=== PATIENT | male | born 1950 | race Caucasian/White ===

== ENCOUNTER 2020-07-25 13:30 | Emergency (ER) | payer MEDICARE, SELFPAY ==
--- NOTE | 2020-07-25 | XR_ITS ---
EXAMINATION: XR FINGER, RIGHT CLINICAL INFORMATION: Crush injury COMPARISON: None TECHNIQUE: 3 views, 4 images of the right hand fifth digit. FINDINGS: There is no fracture or dislocation. Alignment is anatomic. Mild joint space narrowing at the fifth digit distal interphalangeal joint. Small osteophytes noted. The soft tissues are unremarkable. XR/XR finger RT min 2V IMPRESSION: No fracture or malalignment. Mild degenerative changes at the fifth digit distal interphalangeal joint.
[2020-07-25 13:43] VITALS: BP 103/67; PULSE 95; RESP 18; TEMP 36.1; O2SAT 95; BMI 27.1
--- NOTE | 2020-07-25 15:04 | ED_ITS ---
HPI - Extremity Problem General Chief complaint: Extremity Injury, Upper <MARYJO Krause - Last Filed: 07/25/20 16:34> Stated complaint: FINGER LACERACTION <MARYJO Krause - Last Filed: 07/25/20 16:34> Time Seen by Provider: 07/25/20 15:04 <MARYJO Krause - Last Filed: 07/25/20 16:34> History of Present Illness HPI Narrative: Patient complains of some discomfort to the right pinky and a small laceration to the right pinky after a window closed on his finger No swelling no numbness no weakness no paresthesias <MARYJO Krause - Last Filed: 07/25/20 16:34> Related Data Allergies/Adverse reactions: Allergies Allergy/AdvReac Type Severity Reaction Status Date / Time codeine [CODEINE] Allergy Intermediate HIVES Verified 07/25/20 13:42 <MARYJO Krause - Last Filed: 07/25/20 16:34> Review of Systems Review of Systems: There is no numbness no weakness no tingling, there is no other injury there is no neck pain no headache <MARYJO Krause - Last Filed: 07/25/20 16:34> Yes all other systems are reviewed and are negative <MARYJO Krause - Last Filed: 07/25/20 16:34> [facility] Past Medical History Source: nursing notes reviewed <MARYJO Krause - Last Filed: 07/25/20 16:34> Medical History: Medical History (Updated 07/26/20 @ 00:00 by Kaci Fernandes) Anxiety Emphysema of lung <MARYJO Krause - Last Filed: 07/25/20 16:34> Social History Social History: Social History Alcohol intake: never Smoked in Last 30 Days: No Use of substances other than those prescribed or required for medical reasons: No Advance Directives: No Advance Directives Information Provided: Yes <MARYJO Krause - Last Filed: 07/25/20 16:34> Physical Exam Vital Signs: Vital Signs: Last Vital Signs Temp 97.0 F 07/25/20 13:43 Pulse 95 07/25/20 13:43 Resp 18 07/25/20 13:43 BP 103/67 07/25/20 13:43 Pulse Ox 95 07/25/20 13:43 Body Mass Index 27.1 <MARYJO Krause - Last Filed: 07/25/20 16:34> Vital Signs: Last Vital Signs Temp 97.0 F 07/25/20 13:43 Pulse 95 07/25/20 13:43 Resp 18 07/25/20 13:43 BP 103/67 07/25/20 13:43 Pulse Ox 95 07/25/20 13:43 Body Mass Index 27.1 <Nicholas Green MD - Last Filed: 07/26/20 13:22> Patient is a no x3 comfortable relaxed cooperative Neck is supple Head is normocephalic atraumatic No respiratory distress Extremities the right pinky has a dorsal 1 cm superficial flap laceration to middle phalanx , there is no joint involvement, there is no active bleeding, all tendon function is normal on extension and flexion and neurovascular intact distal, there is some tenderness to the middle phalanx and there is mild ecchymosis Neuro no focal deficit <MARYJO Krause - Last Filed: 07/25/20 16:34> Course Course Course Narrative: Right 1 cm superficial flap laceration to middle phalanx dorsal is cleansed and irrigated with normal saline and closed with Steri-Strips Bandage applied and bleeding was controlled <MARYJO Krause - Last Filed: 07/25/20 16:34> I have reviewed the chart <Nicholas Green MD - Last Filed: 07/26/20 13:22> Discharge Plan Discharge Clinical Impression: Laceration of right little finger <MARYJO Krause - Last Filed: 07/25/20 16:34> Patient Disposition: Home, Self-Care <MARYJO Krause - Last Filed: 07/25/20 16:34> Additional Instructions: X-ray was normal Remove Steri-Strips in 4- 5 days Return any time for spreading redness, worse pain and swelling, any signs in fection or any concerns <MARYJO Krause - Last Filed: 07/25/20 16:34> Interventions: ED Discharge Assessment Last Done: 07/25/20 15:34 <MARYJO Krause - Last Filed: 07/25/20 16:34> Discharge Date/Time: 07/25/20 15:37 <MARYJO Krause - Last Filed: 07/25/20 16:34>
== END 2020-07-25 15:37 | disposition home or self-care (01) ==
PROVIDERS: Emergency Provider Emergency Medicine; PCP Internal Medicine
DX: S61.216A Laceration without foreign body of right little finger without damage to nail, initial encounter (principal); M79.644 Pain in right finger(s); Y29.XXXA Contact with blunt object, undetermined intent, initial encounter; Y93.9 Activity, unspecified; Y92.9 Unspecified place or not applicable; Y99.9 Unspecified external cause status
CPT/HCPCS: 73140; 99283; 99284

== ENCOUNTER 2020-08-18 09:20 | Emergency (ER) | payer MEDICARE, SELFPAY ==
[2020-08-18 09:36] VITALS: BP 105/78; PULSE 93; RESP 22; TEMP 35.5; O2SAT 95; BMI 27.4
--- NOTE | 2020-08-18 10:07 | ECG_ITS ---
Test Reason : DIFF BREATHING Blood Pressure : / mmHG Vent. Rate : 087 BPM Atrial Rate : 087 BPM P-R Int : 152 ms QRS Dur : 076 ms QT Int : 366 ms P-R-T Axes : 071 034 057 degrees QTc Int : 440 ms Normal sinus rhythm Normal ECG When compared with ECG of 18-AUG-2020 11:34, No significant change was found Referred By: Allison Perdomo Electronically Signed By: SOTERO ECHEVERRIA
--- NOTE | 2020-08-18 10:07 | XR_ITS ---
EXAMINATION: XR CHEST CLINICAL INFORMATION: Cough and SOB. COMPARISON: None TECHNIQUE: 2 views of the chest were obtained. FINDINGS: The lungs are hyperinflated with significant increased lucency left upper lobe. No acute pneumonic process seen. Heart size and pulmonary vascularity is normal. No gross bony abnormality seen. XR/XR chest 2V IMPRESSION: Hyperinflated lungs with increased lucency left upper lobe from underlying emphysema.
--- NOTE | 2020-08-18 10:09 | ED_ITS ---
HPI - SOB/Dyspnea General Chief Complaint: Upper Respiratory Symptoms Stated Complaint: SOB Time Seen by Provider: 08/18/20 09:59 Source: patient Mode of arrival: ambulatory Limitations: no limitations History of Present Illness HPI Narrative: 70yoM c PMHx of COPD/emphysema, COVID-19 in December/2019, pneumonia, HTN, arthrosclerotic cardiovascular disease, diastolic dysfunction 65% ejection fraction, left subclavian stenosis/occlusion, HLD, hepatitis-C, liver disease,, schizophrenia, schizoaffective disorder bipolar type and anxiety d/o presenting to the ED c c/o SOB c intermittent productive cough over the past few months worse over 1 month after finishing his course of steroids. With Right sided lung pain c coughing. Worse with any type of movement. Reports he has been taking his prescribed COPD/emphysema medications/inhalers which are not providing any symptomatic relief. Reports he is currently a respite. Denies any fevers, chills, chest pain, palpitations and dizziness or any other symptoms complaints or concerns at this time. Related Data Previous Rx's Medication Instructions Recorded levofloxacin 750 mg PO DAILY 5 Days #5 tab 08/18/20 prednisone 40 mg PO DAILY 7 Days #14 tab 08/18/20 Allergies Allergy/AdvReac Type Severity Reaction Status Date / Time codeine [CODEINE] Allergy Intermediate HIVES Verified 07/25/20 13:42 Review of Systems Review of Systems: Constitutional : denies med noncompliance, no history of PE or DVT, denies recent travel, No Fever, No Chills ENT/Mouth : No Hoarseness, No sore throat, No Rhinorrhea Eyes: No Redness, No Discharge, No Vision Changes Cardiovascular : No Chest Pain, + SOB, + Dyspnea on Exertion, No Edema, no pleurisy, No palpitations Respiratory : + Sputum, no stridor, no hemoptysis, Gastrointestinal : No Nausea, No Vomiting, No Diarrhea, No abdominal Pain Genitourinary : No Dysuria, No Hematuria Musculoskeletal : No joint pain, No Myalgias Extremities: no extremity swelling /pain Skin : No rash, no itching, no swelling Neuro : No Weakness, No Numbness, No Headache, No dizziness Yes all other systems are reviewed and are negative PMFSH Past Medical History Attestation statement: The following information was validated with the patient. Medical History Anxiety Emphysema of lung Social History Social History Alcohol intake: never Advance Directives: No Advance Directives Information Provided: No Physical Exam Vital Signs: Vital Signs: Last Vital Signs Temp 98.3 F 08/18/20 14:30 Pulse 97 08/18/20 14:30 Resp 16 08/18/20 14:30 BP 95/64 08/18/20 14:30 Pulse Ox 93 08/18/20 14:30 Body Mass Index 27.4 vital signs have been reviewed as normal and appeared to be correct. Blood pressure normal. Heart rate normal. Respiration rate normal. Temperature normal. Oxygen saturation normal. Appearance: Alert. Oriented X3. Mild respiratory acute distress. Head: Normal external exam. Normocephalic. Eyes: PERRLA. EOMI. Conjunctiva and sclera normal. Eyelids normal. ENT: EAC normal. TM's Normal. Pharynx normal. Uvula midline. Moist mucous m embranes. No trismus noted. No drooling noted. No muffled voice noted. Neck: Normal inspection. Neck supple. FROM. No adenopathy. No meningeal signs. CVS: Normal heart rate and rhythm. Heart sound normal. No murmurs noted. Pulses normal throughout. Respiratory: Mild respiratory distress. + inspiratory and expiratory wheezing throughout with decreased breath sounds and mild accessory muscle usage noted. No rales or rhonchi noted at this time. Back: Full range of motion noted. Skin: Skin warm and dry. Normal skin color. Normal skin turgor. No rashes/lesions/lacerations noted. Extremities: No lower extremity edema. No calf tenderness. Extremities exhibit normal range of motion. Extremities nontender. Neuro: Oriented X 3. No motor deficit. No sensory deficit. Reflexes normal. Course Course Course Narrative: 10:10am - 70yoM c PMHx of COPD/emphysema, COVID-19 in December/2019, pneumonia, HTN, arthrosclerotic cardiovascular disease, diastolic dysfunction 65% ejection fraction, left subclavian stenosis/occlusion, HLD, hepatitis-C, liver disease,, schizophrenia, schizoaffective disorder bipolar type and anxiety d/o presenting to the ED c c/o SOB c intermittent productive cough and right lung pain when coughing. - Concern for PE vs CHF vs PNA vs COPD/EMPHYSEMA vs COVID-19 - On exam patient is tachycardic and tachypneic with mild respiratory distress oxygen saturation at 95% on room air although lungs with inspiratory and expiratory wheezing with decreased breath sounds and accessory muscle usage no nasal cannula oxygen indicated at this time. - Plan: Labs, CXR, EKG, TRISH/FLU/RSV swab, blood cultures, lactic acid. Provide IV steroid 125mg of Solu-Medrol and an hour long breathing tx then re-evaluate Reevaluation(s) Reevaluation #1: - D-dimer elevated otherwise all other Labs within normal limits. Including lactic acid. - EKG is normal sinus rhythm no acute ischemic changes noted. - chest x-ray revealed possibly lucency which has increase in left upper lobe from underlying emphysema although due to patient meeting sepsis criteria not septic shock and no organ dysfunction will give a dose of IV Levaquin. - will obtain a CT scan of chest to evaluate for possible PE then re-evaluate. Time: 12:08 Reevaluation #2: - [facility] was not allowing the reports to crossover therefore they gave me a wet read and the right read reports no PE severe emphysema mild bilateral lower lobe airway disease by Dr. Clancy. - on walking exercise trial patient stays at 93-95% on room air therefore patient is able to be discharged at this time. COVID/RSV/flu negative. Will DC home with antibiotics and a course of steroids and instructions to return if any new or worsening symptoms to follow-up with primary care provider. Patient understands agrees the plan. Time: 15:35 MDM - SOB/Dyspnea Medical Records Attestation: I reviewed the patient's medical records. Lab Data Attestation: I reviewed the patient's lab results. Result diagrams: 08/18/20 10:58 08/18/20 12:10 Labs: Lab Results 08/18/20 08/18/20 08/18/20 Range/Units 10:58 10:58 10:58 WBC 5.8 (4.8-10.8) X10*3/uL RBC 5.02 (4.60-5.80) X10*6/uL Hgb 15.8 (14.0-18.0) g/dl Hct 46.0 (42-52) % MCV 91.6 (80-98) fL MCH 31.5 (27.0-33.0) pg MCHC 34.3 (31.0-36.0) g/dl RDW 12.1 (11.0-16.0) % Plt Count 249 (160-400) X10*3/uL MPV 9.2 L (9.4-12.4) fL Immature Gran % (Auto) 0.3 (0.0-0.4) % Neut % (Auto) 64.5 (45-73) % Lymph % (Auto) 14.3 L (20-40) % [place] % (Auto) 11.7 H (2-11) % Eos % (Auto) 8.5 H (0-4) % Baso % (Auto) 0.7 (0-2) % Lymph # (Auto) 0.8 L (1.2-4.9) X10*3/uL [place] # (Auto) 0.7 (0.1-1.2) X10*3/uL Eos # (Auto) 0.5 H (0.0-0.4) X10*3/uL Baso # (Auto) 0.0 (0.0-0.2) X10*3/uL Abs Immat Gran (auto) 0.02 (0.00-0.03) X10*3/uL Absolute Neuts (auto) 3.7 (2.0-8.3) X10*3/uL Absolute Nucleated RBC 0.000 (0.0-0.012) X10*3/uL Nucleated RBC % (auto) 0.0 (0.0-0.2) /100WBC Hold Purple Top PT Cancelled INR Cancelled D-Dimer NG/ML Sodium Cancelled Potassium Cancelled Chloride Cancelled Carbon Dioxide Cancelled Anion Gap Cancelled BUN Cancelled Creatinine Cancelled Estim Creat Clear Calc Cancelled Estimated GFR Cancelled Random Glucose Cancelled Lactic Acid (0.5-2.0) mmol/L Calcium Cancelled Magnesium Cancelled Ferritin Cancelled Total Bilirubin Cancelled Direct Bilirubin Cancelled AST Cancelled ALT Cancelled Alkaline Phosphatase Cancelled Lactate Dehydrogenase Cancelled B-Natriuretic Peptide (<100) pg/mL Total Protein Cancelled Albumin Cancelled Procalcitonin ng/mL Urine Color Urine Appearance Urine pH (5.0-8.0) Ur Specific [place] (1.005-1.025) Urine Protein (NEG-TRACE) MG/DL Urine Glucose (UA) (NEG) MG/DL Urine Ketones (NEG) MG/DL Urine Blood (NEG) Urine Nitrite (NEG) Ur Leukocyte Esterase (NEG) Coronavirus (PCR) (Negative) Influenza Type A (PCR) (Negative) Influenza Type B (PCR) (Negative) RSV RNA Qual (PCR) (Negative) 08/18/20 08/18/20 08/18/20 Range/Units 10:58 10:58 10:58 WBC (4.8-10.8) X10*3/uL RBC (4.60-5.80) X10*6/uL Hgb (14.0-18.0) g/dl Hct (42-52) % MCV (80-98) fL MCH (27.0-33.0) pg MCHC (31.0-36.0) g/dl RDW (11.0-16.0) % Plt Count (160-400) X10*3/uL MPV (9.4-12.4) fL Immature Gran % (Auto) (0.0-0.4) % Neut % (Auto) (45-73) % Lymph % (Auto) (20-40) % [place] % (Auto) (2-11) % Eos % (Auto) (0-4) % Baso % (Auto) (0-2) % Lymph # (Auto) (1.2-4.9) X10*3/uL [place] # (Auto) (0.1-1.2) X10*3/uL Eos # (Auto) (0.0-0.4) X10*3/uL Baso # (Auto) (0.0-0.2) X10*3/uL Abs Immat Gran (auto) (0.00-0.03) X10*3/uL Absolute Neuts (auto) (2.0-8.3) X10*3/uL Absolute Nucleated RBC (0.0-0.012) X10*3/uL Nucleated RBC % (auto) (0.0-0.2) /100WBC Hold Purple Top SEE NOTE PT 13.0 INR 1.1 D-Dimer 325 NG/ML Sodium Potassium Chloride Carbon Dioxide Anion Gap BUN Creatinine Estim Creat Clear Calc Estimated GFR Random Glucose Lactic Acid (0.5-2.0) mmol/L Calcium Magnesium Ferritin Total Bilirubin Direct Bilirubin AST ALT Alkaline Phosphatase Lactate Dehydrogenase B-Natriuretic Peptide 11 (<100) pg/mL Total Protein Albumin Procalcitonin ng/mL Urine Color Urine Appearance Urine pH (5.0-8.0) Ur Specific [place] (1.005-1.025) Urine Protein (NEG-TRACE) MG/DL Urine Glucose (UA) (NEG) MG/DL Urine Ketones (NEG) MG/DL Urine Blood (NEG) Urine Nitrite (NEG) Ur Leukocyte Esterase (NEG) Coronavirus (PCR) (Negative) Influenza Type A (PCR) (Negative) Influenza Type B (PCR) (Negative) RSV RNA Qual (PCR) (Negative) 08/18/20 08/18/20 08/18/20 Range/Units 10:58 10:58 10:58 WBC (4.8-10.8) X10*3/uL RBC (4.60-5.80) X10*6/uL Hgb (14.0-18.0) g/dl Hct (42-52) % MCV (80-98) fL MCH (27.0-33.0) pg MCHC (31.0-36.0) g/dl RDW (11.0-16.0) % Plt Count (160-400) X10*3/uL MPV (9.4-12.4) fL Immature Gran % (Auto) (0.0-0.4) % Neut % (Auto) (45-73) % Lymph % (Auto) (20-40) % [place] % (Auto) (2-11) % Eos % (Auto) (0-4) % Baso % (Auto) (0-2) % Lymph # (Auto) (1.2-4.9) X10*3/uL [place] # (Auto) (0.1-1.2) X10*3/uL Eos # (Auto) (0.0-0.4) X10*3/uL Baso # (Auto) (0.0-0.2) X10*3/uL Abs Immat Gran (auto) (0.00-0.03) X10*3/uL Absolute Neuts (auto) (2.0-8.3) X10*3/uL Absolute Nucleated RBC (0.0-0.012) X10*3/uL Nucleated RBC % (auto) (0.0-0.2) /100WBC Hold Purple Top PT INR D-Dimer NG/ML Sodium Potassium Chloride Carbon Dioxide Anion Gap BUN Creatinine Estim Creat Clear Calc Estimated GFR Random Glucose Lactic Acid 0.9 (0.5-2.0) mmol/L Calcium Magnesium Ferritin Total Bilirubin Direct Bilirubin AST ALT Alkaline Phosphatase Lactate Dehydrogenase B-Natriuretic Peptide (<100) pg/mL Total Protein Albumin Procalcitonin < 0.02 ng/mL Urine Color Urine Appearance Urine pH (5.0-8.0) Ur Specific [place] (1.005-1.025) Urine Protein (NEG-TRACE) MG/DL Urine Glucose (UA) (NEG) MG/DL Urine Ketones (NEG) MG/DL Urine Blood (NEG) Urine Nitrite (NEG) Ur Leukocyte Esterase (NEG) Coronavirus (PCR) NEGATIVE (Negative) Influenza Type A (PCR) NEGATIVE (Negative) Influenza Type B (PCR) NEGATIVE (Negative) RSV RNA Qual (PCR) NEGATIVE (Negative) 08/18/20 08/18/20 Range/Units 12:10 14:34 WBC (4.8-10.8) X10*3/uL RBC (4.60-5.80) X10*6/uL Hgb (14.0-18.0) g/dl Hct (42-52) % MCV (80-98) fL MCH (27.0-33.0) pg MCHC (31.0-36.0) g/dl RDW (11.0-16.0) % Plt Count (160-400) X10*3/uL MPV (9.4-12.4) fL Immature Gran % (Auto) (0.0-0.4) % Neut % (Auto) (45-73) % Lymph % (Auto) (20-40) % [place] % (Auto) (2-11) % Eos % (Auto) (0-4) % Baso % (Auto) (0-2) % Lymph # (Auto) (1.2-4.9) X10*3/uL [place] # (Auto) (0.1-1.2) X10*3/uL Eos # (Auto) (0.0-0.4) X10*3/uL Baso # (Auto) (0.0-0.2) X10*3/uL Abs Immat Gran (auto) (0.00-0.03) X10*3/uL Absolute Neuts (auto) (2.0-8.3) X10*3/uL Absolute Nucleated RBC (0.0-0.012) X10*3/uL Nucleated RBC % (auto) (0.0-0.2) /100WBC Hold Purple Top PT INR D-Dimer NG/ML Sodium 141 Potassium 3.7 Chloride 104 Carbon Dioxide 24 Anion Gap 17 BUN 10 Creatinine 0.90 Estim Creat Clear Calc 83.6 Estimated GFR > 60 Random Glucose 117 H Lactic Acid (0.5-2.0) mmol/L Calcium 9.0 Magnesium 1.8 Ferritin 80 Total Bilirubin 0.6 Direct Bilirubin 0.3 AST 21 ALT 23 Alkaline Phosphatase 99 Lactate Dehydrogenase 195 B-Natriuretic Peptide (<100) pg/mL Total Protein 7.1 Albumin 4.4 Procalcitonin ng/mL Urine Color YELLOW Urine Appearance CLEAR Urine pH 6.0 (5.0-8.0) Ur Specific [place] <= 1.005 (1.005-1.025) Urine Protein NEG (NEG-TRACE) MG/DL Urine Glucose (UA) NEG (NEG) MG/DL Urine Ketones NEG (NEG) MG/DL Urine Blood NEG (NEG) Urine Nitrite NEG (NEG) Ur Leukocyte Esterase NEG (NEG) Coronavirus (PCR) (Negative) Influenza Type A (PCR) (Negative) Influenza Type B (PCR) (Negative) RSV RNA Qual (PCR) (Negative) ECG Data Attestation: I personally reviewed and interpreted this ECG as follows: ECG interpretation date: 08/18/20 ECG interpretation time: 11:34 Interpretation: Normal sinus rhythm with ventricular rate of 87 with a normal MT interval normal QRS duration normal QT/QTC interval. No acute ischemic changes noted. Compared to prior on 04/05/2020 Critical Care Time Critical Care Time Critical Care Time: Yes Total Critical Care Time: 60 Attestation: I personally attest to this time spent taking care of the patient Discharge Plan Discharge Clinical Impression: Emphysema of lung, Bronchitis, Acute exacerbation of chronic obstructive pulmonary disease Patient Disposition: Home, Self-Care Instructions: Acute Bronchitis (ED), Emphysema (ED), COPD (Chronic Obstructive Pulmonary Disease) (ED) Prescriptions: New levofloxacin 750 mg tablet 750 mg PO DAILY 5 Days Qty: 5 RF: 0 prednisone 20 mg tablet 40 mg PO DAILY 7 Days Qty: 14 RF: 0 Referrals: Martínez Simeon MD [Primary Care Provider] - 2 days Print Language: Romansh
[2020-08-18 11:00] VITALS: O2SAT 92
[2020-08-18] MEDS: methylPREDNISolone Sod Succ/PF 125 MG/2 ML VIAL IVPUSH (11:01)
[2020-08-18 11:02] VITALS: BP 94/69; PULSE 80; RESP 20; TEMP 36.8; O2SAT 94
[2020-08-18] MEDS: Albuterol Sulfate (0.083%) 2.5 MG/3 ML VIAL.NEB 10 MG INHALE (11:05)
[2020-08-18 11:06] VITALS: PULSE 81; O2SAT 94
[2020-08-18 11:13] LABS: MANUAL DIFF FLAG NO
[2020-08-18 11:15] LABS: Basophils Percent Auto 0.7 % (0-2); Eosinophils Absolute Auto 0.5 X10*3/uL (0.0-0.4); Eosinophils Percent Auto 8.5 % (0-4); Hemoglobin 15.8 g/dl (14.0-18.0); Imm Gran Abs Auto 0.02 X10*3/uL (0.00-0.03); Imm Gran Pct Auto 0.3 % (0.0-0.4); Lymphocytes Absolute Auto 0.8 X10*3/uL (1.2-4.9); Lymphocytes Percent Auto 14.3 % (20-40); Mean Corpuscular HGB Conc 34.3 g/dl (31.0-36.0); Mean Corpuscular Hemoglobin 31.5 pg (27.0-33.0); Mean Corpuscular Volume 91.6 fL (80-98); Mean Platelet Volume 9.2 fL (9.4-12.4); Monocytes Absolute Auto 0.7 X10*3/uL (0.1-1.2); Monocytes Percent Auto 11.7 % (2-11); Neutrophils Absolute Auto 3.7 X10*3/uL (2.0-8.3); Neutrophils Percent Auto 64.5 % (45-73); Platelet Count 249 X10*3/uL (160-400); Red Blood Count 5.02 X10*6/uL (4.60-5.80); Red Cell Distribution Width 12.1 % (11.0-16.0); White Blood Count 5.8 X10*3/uL (4.8-10.8)
[2020-08-18 11:22] LABS: D Dimer 325 NG/ML
[2020-08-18 11:30] LABS: INTERNATIONAL NORM RATIO 1.1 (0.9-1.1); Lactic Acid 0.9 mmol/L (0.5-2.0)
--- NOTE | 2020-08-18 11:32 | CT_ITS ---
EXAMINATION: CT ANGIOGRAM OF THE CHEST WITH AND WITHOUT CONTRAST (CT PULMONARY ANGIOGRAM FOR PE) CLINICAL INFORMATION: Reason for Exam pt c sob/cough ? PE vs pna hx of covid in december d-d COMPARISON: None TECHNIQUE: Prior to contrast administration, noncontrast localization images were obtained. Subsequently, multidetector volumetric imaging was performed from the thoracic inlet to below the diaphragms following the administration of 80 mL Omnipaque 350 intravenous contrast. No contrast reaction reported Sagittal, coronal, and MIP oblique sagittal reformatted images were obtained on the CT workstation, uploaded to PACS, and reviewed. The port was initially read by Dr. Clancy. However the PACS and the system was down and could not be right at that time preliminary report was issued by Dr. Clancy and was negative for PE. This CT examination was performed using dose optimization techniques as appropriate, variously including the following: *Automated exposure control *Adjustment of mA and/or kV according to patient size (this includes techniques or standardized protocols for targeted exams where dose is matched to indication/reason for exam; i.e. extremities or head) *Use of iterative reconstruction technique Total exam dose-length product 363 mGy-cm FINDINGS: QUALITY OF STUDY/CONTRAST BOLUS: Suboptimal. Limited by contrast timing and scanning. PULMONARY ARTERIES: No central or segmental pulmonary emboli. THORACIC AORTA: No aneurysm or dissection. LUNG: There is diffuse paraseptal and centrilobular emphysema with significant lucency in both upper lobes. No pulmonary nodules, mass or consolidation seen. There is linear density right lung base likely atelectasis or scarring. No focal bronchiectasis in the posterior basal segment right lower lobe likely airway disease. Minimal atelectasis seen in the lingula. PLEURA: No pleural effusion or pneumothorax. MEDIASTINUM: Heart size and the great vessels are normal caliber. No abnormal size lymph nodes seen. Coronary artery calcifications. No pericolic effusion seen. No evidence of septal bowing or right heart strain. CHEST WALL/AXILLA: No axillary or internal mammary lymphadenopathy. OSSEOUS STRUCTURES: No lytic or sclerotic process seen. UPPER ABDOMEN: Visualized liver, spleen, pancreas and bilateral adrenal glands are unremarkable. No reflux of contrast into the hepatic veins to suggest elevated right heart pressures. CT/CT angio chest PE protocol IMPRESSION: Suboptimal exam due to contrast timing issue an scanning. There is no central, right or left pulmonary artery thrombus. Central lobular and paraseptal emphysema. Focal atelectatic changes with there are disease in the right lower lobe and focal atelectasis in the lingula. VTE: negative
[2020-08-18 11:39] LABS: B Type Natriuretic Peptide 11 pg/mL (<100)
[2020-08-18 12:01] LABS: Procalcitonin < 0.02 ng/mL
[2020-08-18 12:02] LABS: Influenza A PCR NEGATIVE (Negative); Influenza B PCR NEGATIVE (Negative); Resp Syncy Virus RNA Qual PCR NEGATIVE (Negative); SARS COV2 PCR INHOUSE NEGATIVE (Negative)
[2020-08-18 12:52] LABS: Alanine Aminotransferase 23 U/L (0-40); Albumin Level 4.4 g/dL (3.5-5.0); Alkaline Phosphatase 99 U/L (39-117); Anion Gap 17 (12-20); Aspartate Amino Transferase 21 U/L (5-37); Bilirubin Direct 0.3 mg/dL (0.0-0.5); Bilirubin Total 0.6 mg/dL (0.0-1.0); Blood Urea Nitrogen 10 mg/dL (9-16); Carbon Dioxide 24 mmol/L (22-29); Chloride 104 mmol/L (96-108); Creatinine Clr Calc Pharmacy 83.6; Estimated Glomerular Filt Rate > 60; Glucose Random 117 mg/dL (60-115); Lactate Dehydrogenase 195 U/L (118-273); Magnesium 1.8 mg/dL (1.6-2.6); Potassium 3.7 mmol/l (3.3-5.1); Sodium 141 mmol/L (135-145); Total Protein 7.1 g/dL (6.5-8.0)
[2020-08-18 13:14] LABS: Ferritin 80 ng/mL (20-250)
[2020-08-18] MEDS: iohexoL 350 MG/ML 100 ML INFUS..BTL 65 ML IV (13:23)
[2020-08-18 14:30] VITALS: BP 95/64; PULSE 97; RESP 16; TEMP 36.8; O2SAT 93
[2020-08-18 14:58] LABS: Glucose Urine UA NEG (NEG); Leukocyte Esterase Urine NEG (NEG); Nitrite Urine NEG (NEG); Specific Gravity - Urine <= 1.005 (1.005-1.025); Urine Blood NEG (NEG); Urine Ketones NEG (NEG); Urine Protein NEG (NEG-TRACE)
[2020-08-18 14:59] LABS: Appearance Urine CLEAR; Color Urine YELLOW
== END 2020-08-18 15:54 | disposition home or self-care (01) ==
PROVIDERS: Physician Assistant Medical; Emergency Provider Emergency Medicine; PCP Internal Medicine
DX: J43.8 Other emphysema (principal); J40 Bronchitis, not specified as acute or chronic; Z20.828 Contact with and (suspected) exposure to other viral communicable diseases; Z79.899 Other long term (current) drug therapy
CPT/HCPCS: 0241U; 36415; 71046; 71275; 80048; 80076; 81003; 82728; 83605; 83615; 83735; 83880; 84145; 85025; 85379; 85610; 87040; 93005; 94640; 94644; 96365; 96366; 96375; 99284; 99285; 99291; J2930; Q9967

== ENCOUNTER 2020-09-19 10:54 | Emergency (ER) | payer MEDICARE, SELFPAY ==
[2020-09-19 11:14] VITALS: BP 174/79; PULSE 93; RESP 22; TEMP 36.4; O2SAT 95; BMI 27.1
--- NOTE | 2020-09-19 13:50 | PC.NURSE ---
PER Zoraida WRAY who received call from pts respite, pt had COVID in December and since has had frequent admits here for a decline in resp status and is here to inquire if pt needs 02 at home or further resp needs.
--- NOTE | 2020-09-19 15:58 | ED.SOB ---
HPI - SOB/Dyspnea General Chief Complaint: Dyspnea Stated Complaint: sob Time Seen by Provider: 09/19/20 15:58 Source: patient Mode of arrival: ambulatory Limitations: no limitations History of Present Illness HPI Narrative: Patient history of COPD , history of COVID infection in December last year sent by [facility] for increased shortness of breath for last 2 days per patient he feels fine has a chronic shortness of breath from COPD and dry cough nurse examined him and noticed that he is not moving much air but patient was saturating 98% at room air. Patient denies any fever no chest pain no leg swelling patient just made a course of antibiotic and prednisonefor bronchitis 2 weeks ago MD elicited complaint: shortness of breath Pertinent past history: COPD Onset (ago): day(s) (2) Timing: intermittent Severity: mild Exacerbating factors: exertion and coughing Relieving factors: bronchodilators Known history of: COPD Associated symptoms: cough Treatment prior to arrival: bronchodilator Related Data Previous Rx's Medication Instructions Recorded levofloxacin 750 mg PO DAILY 5 Days #5 tab 08/18/20 prednisone 40 mg PO DAILY 7 Days #14 tab 08/18/20 Allergies Allergy/AdvReac Type Severity Reaction Status Date / Time codeine [CODEINE] Allergy Intermediate HIVES Verified 09/19/20 11:19 Review of Systems Review of Systems: Constitutional : No Weight loss, No Fever, No Chills ENT/Mouth : No sore throat, No Rhinorrhea Eyes: No Eye Pain, No Swelling Cardiovascular : No Chest Pain, no palpitations Respiratory :++ Cough, No Sputum, ++shortness of breath Gastrointestinal : no Nausea, No Vomiting, No Diarrhea, No abdominal Pain, no black stools Genitourinary : No Dysuria, No Urinary Frequency Musculoskeletal : No joint pain, No Myalgias, No Joint Swelling Skin : No Skin Lesions, No rash Neuro : No Weakness, No Numbness, No Dizziness, No Headache Psych : No Anxiety/Panic, No Depression Heme/Lymph: No Bruising, No Lymphadenopathy Endocrine : No Polyuria, No Polydipsia All other systems reviewed and are negative PMFSH Past Medical History Medical History Anxiety Emphysema of lung Social History Social History Alcohol intake: never Smoking Status: Former smoker Use of substances other than those prescribed or required for medical reasons: No Advance Directives: No Advance Directives Information Provided: Yes Physical Exam Vital Signs: Vital Signs: Last Vital Signs Temp 97.4 F 09/19/20 16:00 Pulse 80 09/19/20 17:28 Resp 18 09/19/20 16:00 BP 124/82 09/19/20 16:00 Pulse Ox 95 09/19/20 11:14 Body Mass Index 27.1 Appearance: Alert. Oriented X3. No acute distress. Eyes: Pupils equal, round and reactive to light. ENT: Pharynx normal. Neck: Normal inspection. Neck supple. CVS: Normal heart rate and rhythm. Pulses normal. Respiratory: No respiratory distress. Bilateral wheezing and rhonchi , no crackles, no dullness ,decreased air entry bilateral Abdomen: Soft and nontender. Bowel sounds are present, no mass palpable, no CVA tenderness Skin: Skin warm and dry. Normal skin color. Normal skin turgor. Extremities: No lower extremity edema. No calf tenderness Neuro: Oriented X 3. No motor deficit. No sensory deficit. Course Course Course Narrative: Patient has COPD recently finished course of prednisone antibiotics chest x-ray repeat is negative saturating 98% at room air received DuoNeb treatment in the ER and 10 mg of Decadron COVID-19 is negative will discharge patient home advised to continue to use his nebulizing treatment every 4-6 hours as needed MDM - SOB/Dyspnea Differential Diagnosis Differential diagnosis: Likely acute exacerbation of chronic obstructive airways disease, congestive heart failure, pneumonia and pleural effusion Lab Data Attestation: I reviewed the patient's lab results. Labs: Lab Results 09/19/20 Range/Units 16:33 COVID-19 (RASHEED) Negative (Negative) COVID-19 Clin Com See Note Discharge Plan Discharge Clinical Impression: COPD (chronic obstructive pulmonary disease) Patient Disposition: Home, Self-Care Instructions: COPD (Chronic Obstructive Pulmonary Disease) (ED) Additional Instructions: Continue your inhaler and nebulizing treatment every 4-6 hours Follow-up with your PCP Prescriptions: No Action levofloxacin 750 mg tablet 750 mg PO DAILY 5 Days Qty: 5 RF: 0 prednisone 20 mg tablet 40 mg PO DAILY 7 Days Qty: 14 RF: 0
[2020-09-19 16:00] VITALS: BP 124/82; PULSE 76; RESP 18; TEMP 36.3
--- NOTE | 2020-09-19 16:03 | XR_ITS ---
EXAMINATION: XR CHEST CLINICAL INFORMATION: Shortness of breath COMPARISON: Chest radiographs 08/18/2020, 04/05/2020 TECHNIQUE: Portable upright AP x2 views of the chest was obtained. FINDINGS: There is hyperinflation left mid and upper zone similar to prior studies. There is no airspace consolidation or definite groundglass opacity. No effusion. The heart is normal in size. The hilar and mediastinal contours and bony structures are unremarkable. XR/XR chest 1V IMPRESSION: No acute intrathoracic disease. Unilateral left hyperinflation similar to prior studies.
--- NOTE | 2020-09-19 16:39 | PC.NURSE ---
pt coming from [facility], states that the nurses are saying his lungs are not working right, respirations even and unlabored, ls slightly diminished on the left side
[2020-09-19 17:13] LABS: COVID-19 Test Negative (Negative)
[2020-09-19] MEDS: Albuterol/Iprat 2.5/0.5MG 3 ML AMPUL.NEB INHALE (17:25)
[2020-09-19] MEDS: Albuterol Sulfate (0.083%) 2.5 MG/3 ML VIAL.NEB 5 MG INHALE (17:26)
[2020-09-19 17:28] VITALS: PULSE 80; O2SAT 96
[2020-09-19 18:20] VITALS: BP 119/82; PULSE 91; RESP 22; TEMP 36.9; O2SAT 93
== END 2020-09-19 18:34 | disposition home or self-care (01) ==
PROVIDERS: Emergency Provider Internal Medicine
DX: J44.9 Chronic obstructive pulmonary disease, unspecified (principal); R50.9 Fever, unspecified; Z20.828 Contact with and (suspected) exposure to other viral communicable diseases; Z79.899 Other long term (current) drug therapy
CPT/HCPCS: 36415; 71045; 87635; 94640; 99284

== ENCOUNTER 2020-09-25 21:32 | Inpatient (IN) | payer MEDICARE, SELFPAY ==
[2020-09-25 21:40] VITALS: BP 112/72; PULSE 105; RESP 36; O2SAT 95; BMI 27.8
--- NOTE | 2020-09-25 21:54 | ECG_ITS ---
Test Reason : SOB Blood Pressure : / mmHG Vent. Rate : 092 BPM Atrial Rate : 092 BPM P-R Int : 150 ms QRS Dur : 076 ms QT Int : 350 ms P-R-T Axes : 062 009 069 degrees QTc Int : 432 ms Normal sinus rhythm Normal ECG When compared with ECG of 18-AUG-2020 11:34, No significant change was found Referred By: Tessie Tian Electronically Signed By:SOTERO ZAPATA
--- NOTE | 2020-09-25 21:54 | XR_ITS ---
EXAMINATION: PORTABLE CHEST 1 VIEW CLINICAL INFORMATION: sob . COMPARISON: 09/19/2020. TECHNIQUE: Portable frontal view of the chest was obtained. FINDINGS: The lungs are well expanded. Chronic appearing coarsened reticular markings are seen similar to the prior study but no additional superimposed focal infiltrate, effusion, edema, or pneumothorax. Cardiac and mediastinal silhouettes are within normal limits for technique. No acute bony abnormality seen. XR/XR chest 1V IMPRESSION: Chronic appearing reticular changes similar to the 09/19/2020 study but no acute superimposed process otherwise.
--- NOTE | 2020-09-25 21:57 | PC.NURSE ---
patient receiving updraft at this time. Will continue to monitor. sinus tachycardia 100s on shelter monitor, 99% on room air, watching TV.
[2020-09-25 22:00] VITALS: BP 138/64; PULSE 93; RESP 24; O2SAT 98
[2020-09-25 22:48] LABS: MANUAL DIFF FLAG NO
[2020-09-25 22:49] LABS: Basophils Percent Auto 0.4 % (0-2); Eosinophils Absolute Auto 0.2 X10*3/uL (0.0-0.4); Eosinophils Percent Auto 3.5 % (0-4); Hematocrit 44.8 % (42-52); Hemoglobin 15.3 g/dl (14.0-18.0); Imm Gran Abs Auto 0.01 X10*3/uL (0.00-0.03); Imm Gran Pct Auto 0.2 % (0.0-0.4); Lymphocytes Absolute Auto 1.4 X10*3/uL (1.2-4.9); Lymphocytes Percent Auto 25.1 % (20-40); Mean Corpuscular HGB Conc 34.2 g/dl (31.0-36.0); Mean Corpuscular Hemoglobin 32.3 pg (27.0-33.0); Mean Corpuscular Volume 94.5 fL (80-98); Mean Platelet Volume 8.8 fL (9.4-12.4); Monocytes Absolute Auto 0.5 X10*3/uL (0.1-1.2); Monocytes Percent Auto 9.9 % (2-11); Neutrophils Absolute Auto 3.3 X10*3/uL (2.0-8.3); Neutrophils Percent Auto 60.9 % (45-73); Platelet Count 170 X10*3/uL (160-400); Red Blood Count 4.74 X10*6/uL (4.60-5.80); Red Cell Distribution Width 12.3 % (11.0-16.0); White Blood Count 5.4 X10*3/uL (4.8-10.8)
[2020-09-25] MEDS: Magnesium Sulfate/H2O 2 GM/50 ML PIGGYBACK IV (22:52)
[2020-09-25] MEDS: methylPREDNISolone Sod Succ/PF 125 MG/2 ML VIAL IVPUSH (22:52)
--- NOTE | 2020-09-25 22:56 | PC.NURSE ---
20g r ac pt bert well no complications labs drawn
--- NOTE | 2020-09-25 23:05 | ED.SOB ---
HPI - SOB/Dyspnea General Chief Complaint: Dyspnea Stated Complaint: SOB Time Seen by Provider: 09/25/20 21:46 Source: patient Mode of arrival: ambulatory Limitations: no limitations History of Present Illness HPI Narrative: Patient comes emergency room complaining of shortness of breath. Patient states he has been coughing for about a week, feeling short of breath, using albuterol pump and negative Hipolito without any relief. Patient denies fever, no chills, no increased cough or sputum production. MD elicited complaint: shortness of breath Related Data Previous Rx's Medication Instructions Recorded levofloxacin 750 mg PO DAILY 5 Days #5 tab 08/18/20 prednisone 40 mg PO DAILY 7 Days #14 tab 08/18/20 Allergies Allergy/AdvReac Type Severity Reaction Status Date / Time codeine [CODEINE] Allergy Intermediate HIVES Verified 09/19/20 11:19 Review of Systems Review of Systems: Constitutional : No Weight loss, No Fever, No Chills, No Night Sweats, No Fatigue, No Malaise ENT/Mouth : No Hearing loss, No Ear Pain, No Nasal Congestion, No Sinus Pain, No Hoarseness, No sore throat, No Rhinorrhea, No Swallowing Difficulty Eyes: No Eye Pain, No Swelling, No Redness, No Foreign Body, No Discharge, No Vision Changes Cardiovascular : No Chest Pain, No SOB, No Dyspnea on Exertion, No Orthopnea, No Edema, No Palpitations Respiratory : Complaining of chronic Cough, No Sputum, complaining of Wheezing, No Smoke Exposure, complaining of worsening Dyspnea Gastrointestinal : No Nausea, No Vomiting, No Diarrhea, No Constipation, No abdominal Pain, No Hematochezia, No Melena Genitourinary : no irregular bleeding, No Dysuria, No Urinary Frequency, No Hematuria, No Urinary Incontinence, No Urgency, No Flank Pain, No Urinary Flow Changes, No Hesitancy Musculoskeletal : No joint pain, No Myalgias, No Joint Swelling Skin : No Skin Lesions, No rash Neuro : No Weakness, No Numbness, No Paresthesias, No Loss of Consciousness, No Dizziness, No Headache Psych : No Anxiety/Panic, No Depression, No SI/HI/AH/VH, No Social Issues, Heme/Lymph: No Bruising, No Bleeding,No Lymphadenopathy Endocrine : No Polyuria, No Polydipsia, No Temperature Intolerance [facility] Past Medical History Medical History Anxiety Emphysema of lung Social History Social History Alcohol intake: never Smoking Status: Heavy tobacco smoker Use of substances other than those prescribed or required for medical reasons: No Advance Directives: No Physical Exam Vital Signs: Vital Signs: Last Vital Signs Temp 97.9 F 09/26/20 00:00 Pulse 85 09/26/20 00:00 Resp 22 H 09/26/20 00:00 BP 141/58 H 09/26/20 00:00 Pulse Ox 94 09/26/20 00:00 Body Mass Index 27.8 Appearance: Alert. Oriented X3. Mild to moderate acute respiratory distress. Eyes: Pupils equal, round and reactive to light. ENT: Pharynx normal. Neck: Normal inspection. Neck supple. No lymph nodes noted. No crepitus CVS: Normal heart rate and rhythm. Pulses normal. Normal S1 and S2 Respiratory: [id number] respiratory distress. Bilateral minimal wheezing, increased chest tightness, poor air movement Abdomen: Soft and nontender. No rigidity. No distention. good BS x4 Skin: Skin warm and dry. Normal skin color. Normal skin turgor. Extremities: No lower extremity edema. No lower extremity edema. No Lacerations. No Rash Neuro: Oriented X 3. No motor deficit. No sensory deficit. Moving all extermities. No slurred speech. Course Course Course Narrative: Despite 2 hour long nebulization treatments, patient continues wheezing, still is tight. Oxygen saturation is at 93% on room. Sepsis is not suspected at this time, patient being admitted MDM - SOB/Dyspnea Lab Data Result diagrams: 09/25/20 22:37 09/25/20 22:37 Labs: Lab Results 09/25/20 09/25/20 09/25/20 Range/Units 22:37 22:37 22:37 WBC 5.4 (4.8-10.8) X10*3/uL RBC 4.74 (4.60-5.80) X10*6/uL Hgb 15.3 (14.0-18.0) g/dl Hct 44.8 (42-52) % MCV 94.5 (80-98) fL MCH 32.3 (27.0-33.0) pg MCHC 34.2 (31.0-36.0) g/dl RDW 12.3 (11.0-16.0) % Plt Count 170 D (160-400) X10*3/uL MPV 8.8 L (9.4-12.4) fL Immature Gran % (Auto) 0.2 (0.0-0.4) % Neut % (Auto) 60.9 (45-73) % Lymph % (Auto) 25.1 (20-40) % [place] % (Auto) 9.9 (2-11) % Eos % (Auto) 3.5 (0-4) % Baso % (Auto) 0.4 (0-2) % Lymph # (Auto) 1.4 (1.2-4.9) X10*3/uL [place] # (Auto) 0.5 (0.1-1.2) X10*3/uL Eos # (Auto) 0.2 (0.0-0.4) X10*3/uL Baso # (Auto) 0.0 (0.0-0.2) X10*3/uL Abs Immat Gran (auto) 0.01 (0.00-0.03) X10*3/uL Absolute Neuts (auto) 3.3 (2.0-8.3) X10*3/uL Absolute Nucleated RBC 0.000 (0.0-0.012) X10*3/uL Nucleated RBC % (auto) 0.0 (0.0-0.2) /100WBC Sodium 141 (135-145) mmol/L Potassium 4.4 (3.3-5.1) mmol/l Chloride 106 (96-108) mmol/L Carbon Dioxide 22 (22-29) mmol/L Anion Gap 17 (12-20) BUN 9 (9-16) mg/dL Creatinine 0.79 (0.5-1.4) mg/dL Estim Creat Clear Calc 103.1 Estimated GFR > 60 Random Glucose 108 (60-115) mg/dL Lactic Acid 1.6 (0.5-2.0) mmol/L Calcium 8.9 (8.4-10.2) mg/dL Coronavirus (PCR) (Negative) Influenza Type A (PCR) (Negative) Influenza Type B (PCR) (Negative) RSV RNA Qual (PCR) (Negative) 09/25/20 Range/Units 22:37 WBC (4.8-10.8) X10*3/uL RBC (4.60-5.80) X10*6/uL Hgb (14.0-18.0) g/dl Hct (42-52) % MCV (80-98) fL MCH (27.0-33.0) pg MCHC (31.0-36.0) g/dl RDW (11.0-16.0) % Plt Count (160-400) X10*3/uL MPV (9.4-12.4) fL Immature Gran % (Auto) (0.0-0.4) % Neut % (Auto) (45-73) % Lymph % (Auto) (20-40) % [place] % (Auto) (2-11) % Eos % (Auto) (0-4) % Baso % (Auto) (0-2) % Lymph # (Auto) (1.2-4.9) X10*3/uL [place] # (Auto) (0.1-1.2) X10*3/uL Eos # (Auto) (0.0-0.4) X10*3/uL Baso # (Auto) (0.0-0.2) X10*3/uL Abs Immat Gran (auto) (0.00-0.03) X10*3/uL Absolute Neuts (auto) (2.0-8.3) X10*3/uL Absolute Nucleated RBC (0.0-0.012) X10*3/uL Nucleated RBC % (auto) (0.0-0.2) /100WBC Sodium (135-145) mmol/L Potassium (3.3-5.1) mmol/l Chloride (96-108) mmol/L Carbon Dioxide (22-29) mmol/L Anion Gap (12-20) BUN (9-16) mg/dL Creatinine (0.5-1.4) mg/dL Estim Creat Clear Calc Estimated GFR Random Glucose (60-115) mg/dL Lactic Acid (0.5-2.0) mmol/L Calcium (8.4-10.2) mg/dL Coronavirus (PCR) NEGATIVE (Negative) Influenza Type A (PCR) NEGATIVE (Negative) Influenza Type B (PCR) NEGATIVE (Negative) RSV RNA Qual (PCR) NEGATIVE (Negative) Imaging Data Chest x-ray: Radiologist's impression: The lungs are well expanded. Chronic appearing coarsened reticular markings are seen similar to the prior study but no additional superimposed focal infiltrate, effusion, edema, or pneumothorax. Cardiac and mediastinal silhouettes are within normal limits for technique. No acute bony abnormality seen. XR/XR chest 1V IMPRESSION: Chronic appearing reticular changes similar to the 09/19/2020 study but no acute superimposed process otherwise. ECG Data Attestation: I personally reviewed and interpreted this ECG as follows: (Heart rate is 92, sinus rhythm, no ST segment depressions or elevations, no T-wave inversions, QTC 432) Discharge Plan Discharge Clinical Impression: Emphysema of lung Patient Disposition: Admitted As Inpatient
[2020-09-25 23:12] LABS: Lactic Acid 1.6 mmol/L (0.5-2.0)
[2020-09-25 23:18] LABS: Anion Gap 17 (12-20); Blood Urea Nitrogen 9 mg/dL (9-16); Calcium 8.9 mg/dL (8.4-10.2); Carbon Dioxide 22 mmol/L (22-29); Chloride 106 mmol/L (96-108); Creatinine Clr Calc Pharmacy 103.1; Estimated Glomerular Filt Rate > 60; Glucose Random 108 mg/dL (60-115); Potassium 4.4 mmol/l (3.3-5.1); Sodium 141 mmol/L (135-145)
[2020-09-25 23:41] LABS: Influenza A PCR NEGATIVE (Negative); Influenza B PCR NEGATIVE (Negative); Resp Syncy Virus RNA Qual PCR NEGATIVE (Negative); SARS COV2 PCR INHOUSE NEGATIVE (Negative)
[2020-09-26] VITALS (12 sets, daily range): BP systolic 100–141; BP diastolic 58–80; PULSE 83–107; RESP 16–31; TEMP 36.2–36.7; O2SAT 94–96
[2020-09-26] MEDS: Azithromycin 500 MG in 0.9 % Sodium Chloride 250 ML 125 MG IV (01:46)
--- NOTE | 2020-09-26 07:38 | PC.NURSE ---
rt called for treatment
--- NOTE | 2020-09-26 07:38 | PC.NURSE ---
pharmacy called to reset med times
[2020-09-26] MEDS: Albuterol/Iprat 2.5/0.5MG 3 ML AMPUL.NEB INHALE ×4 (07:43→20:05)
--- NOTE | 2020-09-26 07:52 | PC.NURSE ---
[facility] staff called for update. aware of plan of care
--- NOTE | 2020-09-26 07:53 | PC.NURSE ---
attempt to call [facility] for report
--- NOTE | 2020-09-26 07:56 | PC.NURSE ---
on hold attempting to give report to [facility]
--- NOTE | 2020-09-26 08:06 | PC.NURSE ---
report given to [facility] john morataya
--- NOTE | 2020-09-26 08:09 | P.HPHOSP_ITS ---
History of Present Illness Date of Service: 09/26/20 Chief Complaint: Shortness of breath This is a 70-year-old male with past medical history of COPD complaints of shortness of breath, cough, sputum production. Patient reports his symptoms started about over a week ago, non resolving, having very difficult time ambulating due to the shortness of breath. He reports shortness of breath with minimal activity. He has increased cough and sputum production. He has wheezing. Denies any swelling in his lower extr emities, denies orthopnea or PND. Patient is also complaining of intermittent midsternal chest pain, heavy, 9/10, exertional, radiating to the back, resolving spontaneously. Patient currently has no chest pain mostly associated with his cough and shortness of breath. on arrival to the ED patient has a heart rate of 105, respiratory rate of 36, blood pressure 112/72, satting 95% on room air Labs are unremarkable, COVID-19 negative. Chest x-ray negative for any pneumonia Past medical history: COPD, anxiety, schizophrenia, schizoaffective disorder, HLD Past surgical history: Left leg surgery, elbow surgery Family history: Significant for cancer in both mother and father Social history: Former smoker, denies any tobacco alcohol use, use no illicit drug use Review of Systems Review of Systems: Yes all other systems are reviewed and are negative [facility] Medical History (Updated 09/26/20 @ 08:21 by Deejay Lomeli MD) Anxiety COPD (chronic obstructive pulmonary disease) Emphysema of lung Hepatitis C Hyperlipidemia Schizoaffective disorder, bipolar type Schizophrenia Social History Alcohol intake: never Smoking Status: Heavy tobacco smoker Use of substances other than those prescribed or required for medical reasons: No Advance Directives: No Meds Allergies Allergy/AdvReac Type Severity Reaction Status Date / Time codeine [CODEINE] Allergy Intermediate HIVES Verified 09/26/20 02:34 Home Medications Medication Instructions Recorded Confirmed Type acetaminophen 650 mg PO DAILY PRN 09/26/20 09/26/20 History albuterol sulfate 2 puff INHALATION Q4-6H PRN 09/26/20 09/26/20 History albuterol sulfate 2.5 mg INHALATION TID PRN 09/26/20 09/26/20 History aspirin 81 mg PO DAILY 09/26/20 09/26/20 History atorvastatin 40 mg PO DAILY 09/26/20 09/26/20 History fluticasone furoate-vilanterol 1 inh INHALATION BID 09/26/20 09/26/20 History [Breo Ellipta] lorazepam 0.5 mg PO BID PRN 09/26/20 09/26/20 History prednisone 10 mg PO BID 09/26/20 09/26/20 History quetiapine 50 mg PO BID 09/26/20 09/26/20 History quetiapine 100 mg PO BID 09/26/20 09/26/20 History tamsulosin 0.4 mg PO DAILY 09/26/20 09/26/20 History tiotropium bromide [Spiriva with 1 cap INHALATION DAILY 09/26/20 09/26/20 History HandiHaler] Physical Exam Vital Signs and Narrative: Vital Signs: Last Vital Signs Temp 97.9 F 09/26/20 02:00 Pulse 93 09/26/20 07:46 Resp 31 H 09/26/20 07:38 BP 114/80 09/26/20 07:38 Pulse Ox 95 09/26/20 07:38 Body Mass Index 27.8 Const: General: cooperative and no acute distress Orientation/consciousness: patient oriented x3 Eyes: General: appearance normal, both eyes and all related structures Resp: Other: Auditory wheezing Effort & Inspection: normal respiratory effort and able to speak in complete sentences Cardio: Rate: regular rate Rhythm: regular rhythm GI: Palpation (GI): Soft to palpation Auscultation: normal bowel sounds Skin: General skin exam: no rashes or lesions noted Neuro: General: patient oriented x3 Cognition (Neuro): normal cognition Extrem: General: Yes normal to inspection and Yes no pedal edema Results Labs CBC and Chem 7: 09/25/20 22:37 09/25/20 22:37 Labs: Laboratory Results - last 24 hr 09/25/20 09/25/20 09/25/20 22:37 22:37 22:37 MCV 94.5 MCH 32.3 MCHC 34.2 RDW 12.3 Plt Count 170 D MPV 8.8 L Immature Gran % (Auto) 0.2 Neut % (Auto) 60.9 Lymph % (Auto) 25.1 [place] % (Auto) 9.9 Eos % (Auto) 3.5 Baso % (Auto) 0.4 Lymph # (Auto) 1.4 [place] # (Auto) 0.5 Eos # (Auto) 0.2 Baso # (Auto) 0.0 Abs Immat Gran (auto) 0.01 Absolute Neuts (auto) 3.3 Absolute Nucleated RBC 0.000 Nucleated RBC % (auto) 0.0 Anion Gap 17 Estim Creat Clear Calc 103.1 Estimated GFR > 60 Random Glucose 108 Lactic Acid 1.6 Calcium 8.9 Coronavirus (PCR) Influenza Type A (PCR) Influenza Type B (PCR) RSV RNA Qual (PCR) 09/25/20 22:37 MCV MCH MCHC RDW Plt Count MPV Immature Gran % (Auto) Neut % (Auto) Lymph % (Auto) [place] % (Auto) Eos % (Auto) Baso % (Auto) Lymph # (Auto) [place] # (Auto) Eos # (Auto) Baso # (Auto) Abs Immat Gran (auto) Absolute Neuts (auto) Absolute Nucleated RBC Nucleated RBC % (auto) Anion Gap Estim Creat Clear Calc Estimated GFR Random Glucose Lactic Acid Calcium Coronavirus (PCR) NEGATIVE Influenza Type A (PCR) NEGATIVE Influenza Type B (PCR) NEGATIVE RSV RNA Qual (PCR) NEGATIVE Imaging Radiologist's Impressions: Impressions Chest X-Ray 09/25/20 21:54 IMPRESSION: Chronic appearing reticular changes similar to the 09/19/2020 study but no acute superimposed process otherwise. Assessment and Plan (1) COPD with acute exacerbation: Status: Acute (2) Chest pain: Status: Acute (3) Hyperlipidemia: Status: Acute (4) Schizophrenia: Status: Acute (5) Schizoaffective disorder, bipolar type: Status: Acute (6) Anxiety: Status: Acute This is a 62-year-old male with past medical history as mentioned above who presents to the hospital with complaints of shortness of breath, cough, sputum production. He also has chest pain # Acute copd exacerbation - no hypoxia, has increased wheezing, dyspnea, cough and sputum production - tachypnea, tachycardia, no evidence of pneumonia - COVID-19 PCR negative - at this time will start him on Solu-Medrol, DuoNeb, azithromycin - monitor respiratory status # chest pain - EKG negative for any evidence of ACS - will obtain stat high sensitivity troponin # hyperlipidemia - continue statin # schizophrenia/schizoaffective disorder - continue home meds # Anxiety - continue home regimen DVT prophylaxis: Lovenox
[2020-09-26] MEDS: Enoxaparin Sodium 40 MG/0.4 ML SYRINGE SUBCUT (08:53)
[2020-09-26] MEDS: QUEtiapine Fumarate 50 MG TABLET PO (08:54)
[2020-09-26] MEDS: QUEtiapine Fumarate 100 MG TABLET PO (08:54)
[2020-09-26] MEDS: Aspirin Enteric Coated 81 MG TABLET.DR PO (08:55)
[2020-09-26] MEDS: Acetaminophen 325 MG TABLET 650 MG PO ×2 (08:57→14:45)
[2020-09-26] MEDS: LORazepam 0.5 MG TABLET PO ×2 (08:58→15:59)
[2020-09-26 09:41] LABS: Troponin-I High Sensitivity < 3.5 ng/L (<3.5-35.0)
[2020-09-26] MEDS: 0.9 % Sodium Chloride Flush 3 ML SYRINGE IVFLUSH ×3 (12:21→23:49)
[2020-09-26] MEDS: guaiFENesin 100 MG/5 ML LIQUID PO (14:45)
[2020-09-26] MEDS: QUEtiapine Fumarate 50 MG TABLET 150 MG PO (15:59)
[2020-09-26] MEDS: QUEtiapine Fumarate 300 MG TABLET PO (19:59)
[2020-09-26] MEDS: Atorvastatin Calcium 40 MG TABLET PO (19:59)
[2020-09-26] MEDS: Tamsulosin HCL 0.4 MG CAPSULE PO (19:59)
[2020-09-26] MEDS: Azithromycin 500 MG TABLET PO (20:00)
[2020-09-26] MEDS: QUEtiapine Fumarate 200 MG TABLET PO (20:25)
[2020-09-27] VITALS (11 sets, daily range): BP systolic 100–154; BP diastolic 67–81; PULSE 78–102; RESP 18–22; TEMP 36.2–36.9; O2SAT 92–99
[2020-09-27 04:57] LABS: Basophils Percent Auto 0.1 % (0-2); Hematocrit 45.3 % (42-52); Hemoglobin 14.9 g/dl (14.0-18.0); Imm Gran Abs Auto 0.04 X10*3/uL (0.00-0.03); Imm Gran Pct Auto 0.3 % (0.0-0.4); Lymphocytes Absolute Auto 0.6 X10*3/uL (1.2-4.9); Lymphocytes Percent Auto 4.2 % (20-40); MANUAL DIFF FLAG SCAN; Mean Corpuscular HGB Conc 32.9 g/dl (31.0-36.0); Mean Corpuscular Hemoglobin 31.4 pg (27.0-33.0); Mean Corpuscular Volume 95.6 fL (80-98); Mean Platelet Volume 9.1 fL (9.4-12.4); Monocytes Absolute Auto 0.3 X10*3/uL (0.1-1.2); Monocytes Percent Auto 1.9 % (2-11); Neutrophils Absolute Auto 13.5 X10*3/uL (2.0-8.3); Neutrophils Percent Auto 93.5 % (45-73); Platelet Count 194 X10*3/uL (160-400); Red Blood Count 4.74 X10*6/uL (4.60-5.80); Red Cell Distribution Width 12.4 % (11.0-16.0); SCAN SMEAR FLAG 1; White Blood Count 14.4 X10*3/uL (4.8-10.8)
[2020-09-27 05:24] LABS: SLIDE REVIEW VERIFIED
[2020-09-27 05:34] LABS: Anion Gap 16 (12-20); Blood Urea Nitrogen 15 mg/dL (9-16); Calcium 9.7 mg/dL (8.4-10.2); Carbon Dioxide 27 mmol/L (22-29); Chloride 104 mmol/L (96-108); Creatinine Clr Calc Pharmacy 80.6; Estimated Glomerular Filt Rate > 60; Glucose Random 154 mg/dL (60-115); Potassium 4.9 mmol/l (3.3-5.1); Sodium 142 mmol/L (135-145)
[2020-09-27] MEDS: Enoxaparin Sodium 40 MG/0.4 ML SYRINGE SUBCUT (05:52)
[2020-09-27] MEDS: Albuterol/Iprat 2.5/0.5MG 3 ML AMPUL.NEB INHALE ×4 (07:35→19:30)
[2020-09-27] MEDS: Aspirin Enteric Coated 81 MG TABLET.DR PO (07:43)
[2020-09-27] MEDS: 0.9 % Sodium Chloride Flush 3 ML SYRINGE IVFLUSH ×2 (07:43→13:05)
[2020-09-27] MEDS: QUEtiapine Fumarate 50 MG TABLET PO ×2 (07:43→13:03)
[2020-09-27] MEDS: QUEtiapine Fumarate 100 MG TABLET PO ×2 (07:43→13:03)
[2020-09-27] MEDS: LORazepam 0.5 MG TABLET PO ×3 (07:46→19:26)
[2020-09-27] MEDS: guaiFENesin 100 MG/5 ML LIQUID PO (07:46)
--- NOTE | 2020-09-27 09:19 | MHC.CM.PN ---
IMM 09/27/20, CM REVIEWED EMR AND MET WITH PT, PT IS ALERT AND ORIENTED, PT REPORTS HE IS COMPLETELY INDEPENDENT AT HOME, PT DENIES ANY HOME SERVICES AND DENIES DME OTHER THAN NEBULIZER FROM [facility], PT DENIES ANY ANTICIPATED NEED FOR HOME SERVICES AT THIS TIME, PT VERIFIES HCP SELENA MERRILL, COPY IS ON FILE, PT DOES NOT RECALL HCP'S PHONE NUMBER. PT ABLE TO VERIFY PCP, [facility]. PT REPORTS HE HAS PSYCH MEDICATIONS ORDERED THROUGH HIS PSYCHIATRIST, PT REPORTS HE FEELS STABLE ON CURRENT MEDICATION REGIME AND DENIES CURRENT SUICIDAL IDEATION. PCP: DR. SILVERIO [employer]: DR. COLON PSYCHIATRIST:
--- NOTE | 2020-09-27 09:59 | HO.PM.IMPN ---
Subjective Subjective Date of Service: 09/27/20 Interval History: sob, but better Cardiovascular Cardiovascular: Reports no additional cardiovascular complaints Gastrointestinal Gastrointestinal: Reports no additional gastrointestinal complaints Physical Exam Vital Signs: Vital Signs: Last Vital Signs Temp 97.2 F 09/27/20 08:00 Pulse 89 09/27/20 08:00 Resp 19 09/27/20 08:00 BP 137/67 09/27/20 08:00 Pulse Ox 94 09/27/20 08:00 Body Mass Index 27.8 General: AO X 3, no acute distress Resp: wheeze CVS: S1,S2,RRR GI: soft, non tender, non distended Neuro: motor grossly intact Psych: appropriate affect Objective Data Current Medications Generic Name Dose Route Start Last Admin Trade Name Freq PRN Reason Stop Dose Admin Acetaminophen 650 mg 09/26/20 06:19 09/26/20 14:45 Acetaminophen 325 Mg Tablet PO 650 mg Q6H PRN Administration Pain, Mild (Pain Scale 1-3) Albuterol/Ipratropium 3 ml 09/26/20 08:00 09/27/20 07:35 Albuterol/Iprat 2.5/0.5mg 3 Ml Ampul.Neb INHALE 3 ml RQ4H WHILE AWAKE JAVIER Administration Albuterol/Ipratropium 3 ml 09/26/20 06:19 Albuterol/Iprat 2.5/0.5mg 3 Ml Ampul.Neb INHALE RQ4H PRN Shortness of Breath/Wheezing Aspirin 81 mg 09/26/20 09:00 09/27/20 07:43 Aspirin Enteric Coated 81 Mg Tablet. PO 81 mg DAILY JAVIER Administration Atorvastatin Calcium 40 mg 09/26/20 21:00 09/26/20 19:59 Atorvastatin Calcium 40 Mg Tablet PO 40 mg BEDTIME JAVIER Administration Azithromycin 500 mg 09/26/20 21:00 09/26/20 20:00 Azithromycin 500 Mg Tablet PO 500 mg DAILY@2100 JAVIER Administration Docusate Sodium 100 mg 09/26/20 06:19 Docusate Sodium 100 Mg Capsule PO DAILY PRN Constipation Enoxaparin Sodium 40 mg 09/26/20 06:30 09/27/20 05:52 Enoxaparin Sodium 40 Mg/0.4 Ml Syringe SUBCUT 40 mg Q24H JAVIER Administration Guaifenesin 5 ml 09/26/20 10:17 09/27/20 07:46 Guaifenesin 100 Mg/5 Ml Liquid PO 5 ml Q6H PRN Administration Cough Lorazepam 0.5 mg 09/26/20 15:33 09/27/20 07:46 Lorazepam 0.5 Mg Tablet PO 0.5 mg Q6H PRN Administration Anxiety Methylprednisolone Sodium Succinate 40 mg 09/26/20 12:00 09/26/20 23:47 Methylprednisolone Sod Succ/Pf 40 Mg/Ml Vial IVPUSH 40 mg Q12H JAVIER Administration Ondansetron HCl 4 mg 09/26/20 06:19 Ondansetron Hcl 4 Mg/2 Ml Vial IVPUSH Q8H PRN Nausea and Vomiting Quetiapine Fumarate 200 mg 09/26/20 21:00 09/26/20 20:25 Quetiapine Fumarate 200 Mg Tablet PO 200 mg BEDTIME JAVIER Administration Quetiapine Fumarate 100 mg 09/27/20 08:00 09/27/20 07:43 Quetiapine Fumarate 100 Mg Tablet PO 100 mg BID@0800,1300 JAVIER Administration Quetiapine Fumarate 50 mg 09/27/20 08:00 09/27/20 07:43 Quetiapine Fumarate 50 Mg Tablet PO 50 mg BID@0800,1300 JAVIER Administration Quetiapine Fumarate 300 mg 09/26/20 21:00 09/26/20 19:59 Quetiapine Fumarate 300 Mg Tablet PO 300 mg BEDTIME JAVIER Administration Quetiapine Fumarate 50 mg 09/26/20 16:11 Quetiapine Fumarate 50 Mg Tablet PO Q4H PRN Anxiety Sodium Chloride 3 ml 09/26/20 08:00 09/27/20 07:43 0.9 % Sodium Chloride Flush 3 Ml Syringe IVFLUSH 3 ml QSHIFT JAVIER Administration Tamsulosin HCl 0.4 mg 09/26/20 21:00 09/26/20 19:59 Tamsulosin Hcl 0.4 Mg Capsule PO 0.4 mg BEDTIME JAVIER Administration Labs CBC & Chem 7: 09/27/20 04:49 09/27/20 04:49 Microbiology Microbiology Results: Microbiology 09/25/20 22:37 Blood - Arterial Blood Culture - Preliminary No growth after 24 hours. 09/25/20 22:37 Blood - Arterial Blood Culture - Preliminary No growth after 24 hours. Assessment and Plan (1) COPD with acute exacerbation: Status: Acute (2) Chest pain: Status: Acute (3) Hyperlipidemia: Status: Acute (4) Schizophrenia: Status: Acute (5) Schizoaffective disorder, bipolar type: Status: Acute (6) Anxiety: Status: Acute Assessment and Plan: 62M presented to the hospital with complaints of shortness of breath, cough, sputum production. He also had chest pain COPD exacerbation steroids, bronchodilators chest pain resolved, troponin negative HLD statin schizophrenia seroquel
[2020-09-27] MEDS: Acetaminophen 325 MG TABLET 650 MG PO ×2 (13:03→19:26)
[2020-09-27] MEDS: Atorvastatin Calcium 40 MG TABLET PO (19:26)
[2020-09-27] MEDS: Azithromycin 500 MG TABLET PO (19:26)
[2020-09-27] MEDS: QUEtiapine Fumarate 200 MG TABLET PO (19:26)
[2020-09-27] MEDS: QUEtiapine Fumarate 300 MG TABLET PO (19:26)
[2020-09-27] MEDS: Tamsulosin HCL 0.4 MG CAPSULE PO (19:27)
[2020-09-28] VITALS (10 sets, daily range): BP systolic 84–164; BP diastolic 61–78; PULSE 80–104; RESP 20; TEMP 36.4–36.9; O2SAT 92–98
[2020-09-28] MEDS: 0.9 % Sodium Chloride Flush 3 ML SYRINGE IVFLUSH ×3 (00:22→16:27)
[2020-09-28] MEDS: Albuterol/Iprat 2.5/0.5MG 3 ML AMPUL.NEB INHALE ×4 (07:31→20:10)
[2020-09-28] MEDS: guaiFENesin 100 MG/5 ML LIQUID PO ×3 (07:49→20:04)
[2020-09-28] MEDS: Acetaminophen 325 MG TABLET 650 MG PO ×3 (07:49→20:03)
[2020-09-28] MEDS: QUEtiapine Fumarate 100 MG TABLET PO ×2 (07:50→13:19)
[2020-09-28] MEDS: Aspirin Enteric Coated 81 MG TABLET.DR PO (07:50)
[2020-09-28] MEDS: Enoxaparin Sodium 40 MG/0.4 ML SYRINGE SUBCUT (07:50)
[2020-09-28] MEDS: LORazepam 0.5 MG TABLET PO ×3 (07:50→20:00)
[2020-09-28] MEDS: QUEtiapine Fumarate 50 MG TABLET PO ×2 (07:50→13:19)
--- NOTE | 2020-09-28 08:54 | HO.PM.IMPN ---
Subjective Subjective Date of Service: 09/28/20 Interval History: still feeling sob Cardiovascular Cardiovascular: Reports no additional cardiovascular complaints Gastrointestinal Gastrointestinal: Reports no additional gastrointestinal complaints Physical Exam Vital Signs: Vital Signs: Last Vital Signs Temp 98.5 F 09/28/20 08:00 Pulse 104 H 09/28/20 08:00 Resp 20 09/28/20 08:00 BP 140/68 H 09/28/20 08:44 Pulse Ox 95 09/28/20 08:00 Body Mass Index 27.8 General: AO X 3, no acute distress Resp: wheeze CVS: S1,S2,RRR GI: soft, non tender, non distended Neuro: motor grossly intact Psych: appropriate affect Objective Data Current Medications Generic Name Dose Route Start Last Admin Trade Name Freq PRN Reason Stop Dose Admin Acetaminophen 650 mg 09/26/20 06:19 09/28/20 07:49 Acetaminophen 325 Mg Tablet PO 650 mg Q6H PRN Administration Pain, Mild (Pain Scale 1-3) Albuterol/Ipratropium 3 ml 09/26/20 08:00 09/28/20 07:31 Albuterol/Iprat 2.5/0.5mg 3 Ml Ampul.Neb INHALE 3 ml RQ4H WHILE AWAKE JAVIER Administration Albuterol/Ipratropium 3 ml 09/26/20 06:19 Albuterol/Iprat 2.5/0.5mg 3 Ml Ampul.Neb INHALE RQ4H PRN Shortness of Breath/Wheezing Aspirin 81 mg 09/26/20 09:00 09/28/20 07:50 Aspirin Enteric Coated 81 Mg Tablet.Dr PO 81 mg DAILY JAVIER Administration Atorvastatin Calcium 40 mg 09/26/20 21:00 09/27/20 19:26 Atorvastatin Calcium 40 Mg Tablet PO 40 mg BEDTIME JAVIER Administration Azithromycin 500 mg 09/26/20 21:00 09/27/20 19:26 Azithromycin 500 Mg Tablet PO 500 mg DAILY@2100 JAVIER Administration Docusate Sodium 100 mg 09/26/20 06:19 Docusate Sodium 100 Mg Capsule PO DAILY PRN Constipation Enoxaparin Sodium 40 mg 09/26/20 06:30 09/28/20 07:50 Enoxaparin Sodium 40 Mg/0.4 Ml Syringe SUBCUT 40 mg Q24H JAVIER Administration Guaifenesin 5 ml 09/26/20 10:17 09/28/20 07:49 Guaifenesin 100 Mg/5 Ml Liquid PO 5 ml Q6H PRN Administration Cough Lorazepam 0.5 mg 09/26/20 15:33 09/28/20 07:50 Lorazepam 0.5 Mg Tablet PO 0.5 mg Q6H PRN Administration Anxiety Methylprednisolone Sodium Succinate 40 mg 09/26/20 12:00 09/28/20 00:22 Methylprednisolone Sod Succ/Pf 40 Mg/Ml Vial IVPUSH 40 mg Q12H JAVIER Administration Ondansetron HCl 4 mg 09/26/20 06:19 Ondansetron Hcl 4 Mg/2 Ml Vial IVPUSH Q8H PRN Nausea and Vomiting Quetiapine Fumarate 200 mg 09/26/20 21:00 09/27/20 19:26 Quetiapine Fumarate 200 Mg Tablet PO 200 mg BEDTIME JAVIER Administration Quetiapine Fumarate 100 mg 09/27/20 08:00 09/28/20 07:50 Quetiapine Fumarate 100 Mg Tablet PO 100 mg BID@0800,1300 JAVIER Administration Quetiapine Fumarate 50 mg 09/27/20 08:00 09/28/20 07:50 Quetiapine Fumarate 50 Mg Tablet PO 50 mg BID@0800,1300 JAVIER Administration Quetiapine Fumarate 300 mg 09/26/20 21:00 09/27/20 19:26 Quetiapine Fumarate 300 Mg Tablet PO 300 mg BEDTIME JAVIER Administration Quetiapine Fumarate 50 mg 09/26/20 16:11 Quetiapine Fumarate 50 Mg Tablet PO Q4H PRN Anxiety Sodium Chloride 3 ml 09/26/20 08:00 09/28/20 07:54 0.9 % Sodium Chloride Flush 3 Ml Syringe IVFLUSH 3 ml QSHIFT JAVIER Administration Tamsulosin HCl 0.4 mg 09/26/20 21:00 09/27/20 19:27 Tamsulosin Hcl 0.4 Mg Capsule PO 0.4 mg BEDTIME JAVIER Administration Labs CBC & Chem 7: 09/27/20 04:49 09/27/20 04:49 Microbiology Microbiology Results: Microbiology 09/25/20 22:37 Blood - Arterial Blood Culture - Preliminary No growth after 48 hours. 09/25/20 22:37 Blood - Arterial Blood Culture - Preliminary No growth after 48 hours. Assessment and Plan (1) COPD with acute exacerbation: Status: Acute (2) Chest pain: Status: Acute (3) Hyperlipidemia: Status: Acute (4) Schizophrenia: Status: Acute (5) Schizoaffective disorder, bipolar type: Status: Acute (6) Anxiety: Status: Acute Assessment and Plan: 62M presented to the hospital with complaints of shortness of breath, cough, sputum production. He also had chest pain COPD exacerbation steroids, bronchodilators bryan collier tomorrow if continues to improve chest pain resolved, troponin negative HLD statin schizophrenia seroquel
--- NOTE | 2020-09-28 16:02 | PC.NURSE ---
bp left arm 92/65 , right arm 163/75 pt asymptomatic .
[2020-09-28] MEDS: Azithromycin 500 MG TABLET PO (19:58)
[2020-09-28] MEDS: Atorvastatin Calcium 40 MG TABLET PO (19:58)
[2020-09-28] MEDS: Tamsulosin HCL 0.4 MG CAPSULE PO (19:59)
[2020-09-28] MEDS: QUEtiapine Fumarate 200 MG TABLET PO (19:59)
[2020-09-28] MEDS: QUEtiapine Fumarate 300 MG TABLET PO (20:00)
[2020-09-29] MEDS: 0.9 % Sodium Chloride Flush 3 ML SYRINGE IVFLUSH (01:22)
[2020-09-29 03:49] VITALS: BP 102/40; PULSE 90; RESP 20; TEMP 36.8; O2SAT 95
[2020-09-29 04:03] VITALS: PULSE 90; O2SAT 95
[2020-09-29] MEDS: Albuterol/Iprat 2.5/0.5MG 3 ML AMPUL.NEB INHALE ×2 (04:03→08:34)
[2020-09-29] MEDS: Enoxaparin Sodium 40 MG/0.4 ML SYRINGE SUBCUT (05:54)
[2020-09-29 07:38] VITALS: BP 154/79; PULSE 90; RESP 19; TEMP 36.2; O2SAT 97
[2020-09-29] MEDS: QUEtiapine Fumarate 50 MG TABLET PO (08:35)
[2020-09-29] MEDS: Aspirin Enteric Coated 81 MG TABLET.DR PO (08:35)
[2020-09-29] MEDS: QUEtiapine Fumarate 100 MG TABLET PO (08:35)
[2020-09-29] MEDS: LORazepam 0.5 MG TABLET PO (08:40)
[2020-09-29] MEDS: guaiFENesin 100 MG/5 ML LIQUID PO (08:46)
[2020-09-29 08:47] VITALS: PULSE 90; O2SAT 97
--- NOTE | 2020-09-29 09:59 | PM.DS ---
DS: Providers Provider Date of Service: 09/29/20 Date of admission: 09/26/20 06:19 Primary care physician: Unknown Physician DS: Diagnosis Discharge Diagnosis (1) COPD with acute exacerbation: Status: Acute (2) Chest pain: Status: Acute (3) Hyperlipidemia: Status: Acute (4) Schizophrenia: Status: Acute (5) Schizoaffective disorder, bipolar type: Status: Acute (6) Anxiety: Status: Acute DS: Medications Discharge Medications Home Medications: Home Medications Medication Instructions Recorded Confirmed Breo Ellipta 1 inh INHALATION BID 09/26/20 09/26/20 Spiriva with HandiHaler 1 cap INHALATION DAILY 09/26/20 09/26/20 acetaminophen 650 mg PO DAILY PRN 09/26/20 09/26/20 albuterol sulfate 2 puff INHALATION Q4-6H PRN 09/26/20 09/26/20 albuterol sulfate 2.5 mg INHALATION TID PRN 09/26/20 09/26/20 aspirin 81 mg PO DAILY 09/26/20 09/26/20 atorvastatin 40 mg PO DAILY 09/26/20 09/26/20 lorazepam 0.5 mg PO Q6-8H PRN 09/26/20 09/26/20 quetiapine 1 tab PO BEDTIME 09/26/20 09/26/20 quetiapine 50 mg PO BID 09/26/20 09/26/20 quetiapine 50 mg PO Q4-5H PRN 09/26/20 09/26/20 quetiapine 100 mg PO BEDTIME 09/26/20 09/26/20 quetiapine 100 mg PO BID 09/26/20 09/26/20 tamsulosin 0.4 mg PO DAILY 09/26/20 09/26/20 Previous Rx's Medication Instructions Recorded prednisone 40 mg PO DAILY #10 tab 09/29/20 DS: Summary Hospital Course Hospital Course: Patient was admitted for COPD exacerbation. He was given steroids and bronchodilators. His symptoms slowly improved. He is now much more comfortable and able to ambulate on room air with minimal shortness of breath. He will be continued on p.o. 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 Time Spent with Patient Time attestation: Total time spent providing and/or coordinating discharge services: Discharge coordination time: Greater than 30 minutes Physical Exam Vital Signs: Vital Signs: Last Vital Signs Temp 97.1 F 09/29/20 07:38 Pulse 90 09/29/20 08:47 Resp 19 09/29/20 07:38 BP 154/79 H 09/29/20 07:38 Pulse Ox 97 09/29/20 07:38 Body Mass Index 27.8 General: AO X 3, no acute distress Resp: CTA bilateral CVS: S1,S2,RRR GI: soft, non tender, non distended Neuro: motor grossly intact Psych: appropriate affect DS: Data Data Completed and Pending Labs on day of discharge: Laboratory Tests 09/25/20 09/25/20 09/25/20 22:37 22:37 22:37 WBC 5.4 RBC 4.74 Hgb 15.3 Hct 44.8 MCV 94.5 MCH 32.3 MCHC 34.2 RDW 12.3 Plt Count 170 D MPV 8.8 L Immature Gran % (Auto) 0.2 Neut % (Auto) 60.9 Lymph % (Auto) 25.1 Maverick % (Auto) 9.9 Eos % (Auto) 3.5 Baso % (Auto) 0.4 Lymph # (Auto) 1.4 Maverick # (Auto) 0.5 Eos # (Auto) 0.2 Baso # (Auto) 0.0 Abs Immat Gran (auto) 0.01 Absolute Neuts (auto) 3.3 Absolute Nucleated RBC 0.000 Nucleated RBC % (auto) 0.0 Smear Tech's Comments Sodium 141 Potassium 4.4 Chloride 106 Carbon Dioxide 22 Anion Gap 17 BUN 9 Creatinine 0.79 Estim Creat Clear Calc 103.1 Estimated GFR > 60 Random Glucose 108 Lactic Acid 1.6 Calcium 8.9 Troponin I High Sens Coronavirus (PCR) Influenza Type A (PCR) Influenza Type B (PCR) RSV RNA Qual (PCR) 09/25/20 09/26/20 09/27/20 22:37 08:48 04:49 WBC 14.4 H RBC 4.74 Hgb 14.9 Hct 45.3 MCV 95.6 MCH 31.4 MCHC 32.9 RDW 12.4 Plt Count 194 MPV 9.1 L Immature Gran % (Auto) 0.3 Neut % (Auto) 93.5 H Lymph % (Auto) 4.2 L Maverick % (Auto) 1.9 L Eos % (Auto) 0.0 Baso % (Auto) 0.1 Lymph # (Auto) 0.6 L Maverick # (Auto) 0.3 Eos # (Auto) 0.0 Baso # (Auto) 0.0 Abs Immat Gran (auto) 0.04 H Absolute Neuts (auto) 13.5 H Absolute Nucleated RBC 0.000 Nucleated RBC % (auto) 0.0 Smear Tech's Comments VERIFIED Sodium Potassium Chloride Carbon Dioxide Anion Gap BUN Creatinine Estim Creat Clear Calc Estimated GFR Random Glucose Lactic Acid Calcium Troponin I High Sens < 3.5 Coronavirus (PCR) NEGATIVE Influenza Type A (PCR) NEGATIVE Influenza Type B (PCR) NEGATIVE RSV RNA Qual (PCR) NEGATIVE 09/27/20 04:49 WBC RBC Hgb Hct MCV MCH MCHC RDW Plt Count MPV Immature Gran % (Auto) Neut % (Auto) Lymph % (Auto) Maverick % (Auto) Eos % (Auto) Baso % (Auto) Lymph # (Auto) Maverick # (Auto) Eos # (Auto) Baso # (Auto) Abs Immat Gran (auto) Absolute Neuts (auto) Absolute Nucleated RBC Nucleated RBC % (auto) Smear Tech's Comments Sodium 142 Potassium 4.9 Chloride 104 Carbon Dioxide 27 Anion Gap 16 BUN 15 D Creatinine 1.01 Estim Creat Clear Calc 80.6 Estimated GFR > 60 Random Glucose 154 H D Lactic Acid Calcium 9.7 D Troponin I High Sens Coronavirus (PCR) Influenza Type A (PCR) Influenza Type B (PCR) RSV RNA Qual (PCR) Preliminary micro results at discharge 09/25/20 22:37 Blood Culture - Preliminary Blood - Arterial No growth after 48 hours. 09/25/20 22:37 Blood Culture - Preliminary Blood - Arterial No growth after 48 hours. Discharge Plan Discharge Patient Disposition: Home, Self-Care Referrals: Physician,Unknown [Primary Care Provider] - Discharge Medications: New prednisone 20 mg tablet 40 mg PO DAILY Qty: 10 RF: 0 Continued atorvastatin 40 mg tablet 40 mg PO DAILY RF: 0 acetaminophen 325 mg tablet 650 mg PO DAILY PRN (Reason: Pain) RF: 0 albuterol sulfate 2.5 mg /3 mL (0.083 %) solution for nebulization 2.5 mg inhalation TID PRN (Reason: Dyspnea) RF: 0 aspirin 81 mg tablet,delayed release (DR/EC) 81 mg PO DAILY RF: 0 quetiapine 100 mg tablet 100 mg PO BID RF: 0 lorazepam 0.5 mg tablet 0.5 mg PO Q6-8H PRN (Reason: Anxiety) RF: 0 tamsulosin 0.4 mg capsule 0.4 mg PO DAILY RF: 0 albuterol sulfate 90 mcg/actuation HFA aerosol inhaler 2 puff inhalation Q4-6H PRN (Reason: Dyspnea) RF: 0 Spiriva with HandiHaler 18 mcg capsule, w/inhalation device 1 cap inhalation DAILY RF: 0 quetiapine 50 mg tablet 50 mg PO BID RF: 0 Breo Ellipta 200-25 mcg/dose blister with device 1 inh inhalation BID RF: 0 quetiapine 50 mg tablet 50 mg PO Q4-5H PRN (Reason: Anxiety) RF: 0 quetiapine 100 mg tablet 100 mg PO BEDTIME RF: 0 quetiapine 400 mg tablet 1 tab PO BEDTIME RF: 0 Discontinued prednisone 10 mg tablet 10 mg PO BID RF: 0 Discharge Orders: Discharge Order (Routine); Ordered 09/29/20 Ordered By: Layo Benjamin Activity on Discharge: As tolerated Stand Alone Forms: Patient Portal Discharge page Visit Report Forms: Patient Portal Discharge page Care Plan Goals: recovery Health Concerns: copd Plan of Treatment: prednisone, follow up with pulm
--- NOTE | 2020-09-29 10:10 | MHC.CM.PN ---
PT TO [facility] HOME TODAY WITH NO SERVICES. PT ARRANGED HIS OWN TRANSPORTATION
== END 2020-09-29 11:55 | disposition home or self-care (01) | DRG 192 ==
LOC: HO.ED 09-26 01:20 → HO.EDOVER 09-26 07:07 → HO.S3 09-26 07:25
PROVIDERS: Admitting Provider Internal Medicine; Emergency Provider Emergency Medicine; PCP Internal Medicine; Visit Provider Internal Medicine
DX: J44.1 Chronic obstructive pulmonary disease with (acute) exacerbation (principal); E78.5 Hyperlipidemia, unspecified; F25.0 Schizoaffective disorder, bipolar type; F41.9 Anxiety disorder, unspecified; Z20.822 Contact with and (suspected) exposure to COVID-19; Z88.5 Allergy status to narcotic agent; Z79.82 Long term (current) use of aspirin; Z79.899 Other long term (current) drug therapy
CPT/HCPCS: 0241U; 36415; 71045; 80048; 83605; 84484; 85025; 87040; 93005; 94640; 94644; 96365; 96366; 96367; 96375; 99285; J0456; J1650; J2920; J2930; J3475

== ENCOUNTER 2020-09-30 10:35 | Emergency (ER) | payer MEDICARE, SELFPAY ==
[2020-09-30 10:44] VITALS: BP 110/89; PULSE 100; RESP 19; TEMP 36.7; O2SAT 94; BMI 27.8
--- NOTE | 2020-09-30 11:03 | US_ITS ---
EXAMINATION: US VENOUS WITH DOPPLER UPPER EXTREMITY, RIGHT CLINICAL INFORMATION: Swelling, erythema involving the right upper extremity. COMPARISON: None TECHNIQUE: Ultrasound of the upper extremity is performed using compression sonography and color and pulse Doppler flow with assessment of augmentation of flow. There is also imaging and Doppler assessment of the jugular and subclavian veins. Spectral analysis with color-flow imaging is performed. FINDINGS: Respiratory variation, normal compression, and augmented flow are noted throughout the upper extremity including the axillary, brachial, cubital, and radial and ulnar veins. There is normal flow in the internal jugular and subclavian veins. There is no visible deep or superficial thrombophlebitis. Incidental note is made of intraluminal focal mixed echogenicity adherent to the wall of the right cephalic vein seen at the level of the antecubital fossa, consistent with a nonocclusive thrombus. If the patient's symptoms progress, a followup ultrasound in 5 -7 days might be of value to exclude proximal propagation. US/US venous duplex UE RT IMPRESSION: 1. No DVT demonstrated in the right upper extremity. Note is made of a small nonocclusive thrombus within the right cephalic vein. 2. Follow-up repeat imaging in 5-7 days may be considered for further clarification. This critical result was discussed with Nimisha SIBLEY at 12:02 PM on 09/30/2020 and it was ascertained that the content and urgency of the report was understood at the time of direct communication.
--- NOTE | 2020-09-30 11:05 | ED_ITS ---
HPI - Skin/Abscess/Foreign Bdy General Chief complaint: Skin/Abscess/Foreign Body Stated complaint: arm infection Time Seen by Provider: 09/30/20 10:52 Source: patient Mode of arrival: ambulatory History of Present Illness HPI narrative: 70-year-old male with a past medical history of COPD, hyperlipidemia, schizophrenia, schizoaffective, anxiety, recently admitted to our facility for COPD exacerbation, discharged yesterday, presenting to the ED c/o swelling, erythema, and discharge noted to right AC previous IV site. Admits IV was removed yesterday upon discharge. Denies fever, chills. Reports chronic SOB and cough. Denies chest pain, abdominal pain, nausea/vomiting/diarrhea, LE edema Related Data Home Medications Medication Instructions Recorded Confirmed Breo Ellipta 1 inh INHALATION BID 09/26/20 09/26/20 Spiriva with HandiHaler 1 cap INHALATION DAILY 09/26/20 09/26/20 acetaminophen 650 mg PO DAILY PRN 09/26/20 09/26/20 albuterol sulfate 2 puff INHALATION Q4-6H PRN 09/26/20 09/26/20 albuterol sulfate 2.5 mg INHALATION TID PRN 09/26/20 09/26/20 aspirin 81 mg PO DAILY 09/26/20 09/26/20 atorvastatin 40 mg PO DAILY 09/26/20 09/26/20 lorazepam 0.5 mg PO Q6-8H PRN 09/26/20 09/26/20 quetiapine 1 tab PO BEDTIME 09/26/20 09/26/20 quetiapine 50 mg PO BID 09/26/20 09/26/20 quetiapine 50 mg PO Q4-5H PRN 09/26/20 09/26/20 quetiapine 100 mg PO BEDTIME 09/26/20 09/26/20 quetiapine 100 mg PO BID 09/26/20 09/26/20 tamsulosin 0.4 mg PO DAILY 09/26/20 09/26/20 Previous Rx's Medication Instructions Recorded prednisone 40 mg PO DAILY #10 tab 09/29/20 cephalexin [Keflex] 500 mg PO Q6H 7 Days #28 cap 09/30/20 doxycycline hyclate 100 mg PO BID 7 Days #14 cap 09/30/20 Allergies Allergy/AdvReac Type Severity Reaction Status Date / Time codeine [CODEINE] Allergy Intermediate HIVES Verified 09/26/20 02:34 Review of Systems Review of Systems: Constitutional: No Weight loss, No Fever, No Chills Cardiovascular: No Chest Pain, +chronic SOB, No Edema Respiratory: +chronic Cough, No Sputum, +chronic Wheezing Gastrointestinal: No Nausea, No Vomiting, No Diarrhea, No Constipation, No Abdominal pain Musculoskeletal: No joint pain, No Myalgias, + Joint Swelling Skin: +Skin Lesions, No rash Yes all other systems are reviewed and are negative [facility] Past Medical History Attestation statement: The following information was validated with the patient. Medical History (Updated 09/30/20 @ 13:12 by MARYJO Lux) Anxiety COPD (chronic obstructive pulmonary disease) Emphysema of lung Hepatitis C Hyperlipidemia Schizoaffective disorder, bipolar type Schizophrenia Social History Social History Household Members: Other Housing: Other Alcohol intake: never Smoking Status: Former smoker Tobacco Type: Cigarette Packs Per Day: 2 Cigarettes Per Day: 40.0 Years Smoked: 55 Second Hand Smoke Exposure: Yes Advance Directives: No Advance Directives Information Provided: No service: No Current occupational status: unemployed Physical Exam Vital Signs: Vital Signs: Last Vital Signs Temp 98.0 F 09/30/20 10:44 Pulse 91 09/30/20 12:32 Resp 19 09/30/20 10:44 BP 110/89 09/30/20 10:44 Pulse Ox 98 09/30/20 13:15 Body Mass Index 27.8 Const: General: cooperative, comfortable and no acute distress Orientation/consciousness: patient oriented x3 Limitations: no limitations HENMT: Head: Yes normal to inspection Ears: hearing grossly normal bilaterally General nose exam: Normal external nose present Face and sinus: Yes normal facial exam Eyes: General: appearance normal, both eyes and all related structures EOM: EOMs intact bilaterally Neck: Neck: Yes normal visual inspection Resp: Other: Good air movement Effort & Inspection: normal respiratory effort Auscultation: wheezes expiratory wheezes and throughout Cardio: Rate: regular rate Heart sounds: S1 normal heart sound present and S2 normal heart sound present GI: Inspection: Yes normal to inspection Skin: Other: + erythematous/cellulitic slightly open indurated right AC prior IV site. No active drainage or expressible drainage. No fluctuance. No streaking. + warm to touch Rashes: no rashes Neuro: General: patient oriented x3 Gait exam (Neuro): Normal gait present Extrem: Other: No LE edema General: Yes normal to inspection Course Course Course Narrative: * No leukocytosis, BUN elevated. Lactic 1.5 US venous duplex UE RT IMPRESSION: 1. No DVT demonstrated in the right upper extremity. Note is made of a small nonocclusive thrombus within the right cephalic vein. 2. Follow-up repeat imaging in 5-7 days may be considered for further clarification >> results discussed with patient including close follow-up in need for repeat imaging in 5-7 days. First dose of Keflex and doxycycline given in the ED. Patient verbalized understanding and feels safe for discharge home On re-evaluation patient is satting 98% on room air. Reports improvement in breathing. Good air movement. Mild end-expiratory wheeze which patient reports is baseline. Currently on outpatient prednisone and has neb machine at home MDM - Skin/Abscess/Foreign Bdy MDM Narrative Medical decision making narrative: 70-year-old male with a past medical history of COPD, hyperlipidemia, schizophrenia, schizoaffective, anxiety, recently admitted to our facility for COPD exacerbation, discharged yesterday, presenting to the ED c/o swelling, erythema, and discharge noted to right AC previous IV site On exam VS as, NAD, lungs with diffuse expiratory wheeze, right AC with noted cellulitis and induration. Likely acute on chronic COPD exacerbation, patient currently on p.o. prednisone was discharged yesterday for same. Rule out upper extremity DVT. Low concern for severe sepsis Plan: Labs, lactic/blood cultures, venous duplex, DuoNeb, re-eval Lab Data Result diagrams: 09/30/20 11:17 09/30/20 11:17 Labs: Lab Results 09/30/20 09/30/20 09/30/20 Range/Units 11:16 11:17 11:17 WBC 10.1 (4.8-10.8) X10*3/uL RBC 4.92 (4.60-5.80) X10*6/uL Hgb 15.6 (14.0-18.0) g/dl Hct 47.0 (42-52) % MCV 95.5 (80-98) fL MCH 31.7 (27.0-33.0) pg MCHC 33.2 (31.0-36.0) g/dl RDW 12.8 (11.0-16.0) % Plt Count 191 (160-400) X10*3/uL MPV 8.8 L (9.4-12.4) fL Immature Gran % (Auto) 1.4 H (0.0-0.4) % Neut % (Auto) 86.7 H (45-73) % Lymph % (Auto) 5.1 L (20-40) % Hutchinson % (Auto) 5.0 (2-11) % Eos % (Auto) 1.7 (0-4) % Baso % (Auto) 0.1 (0-2) % Lymph # (Auto) 0.5 L (1.2-4.9) X10*3/uL Hutchinson # (Auto) 0.5 (0.1-1.2) X10*3/uL Eos # (Auto) 0.2 (0.0-0.4) X10*3/uL Baso # (Auto) 0.0 (0.0-0.2) X10*3/uL Abs Immat Gran (auto) 0.14 H (0.00-0.03) X10*3/uL Absolute Neuts (auto) 8.7 H (2.0-8.3) X10*3/uL Absolute Nucleated RBC 0.000 (0.0-0.012) X10*3/uL Nucleated RBC % (auto) 0.0 (0.0-0.2) /100WBC Smear Tech's Comments VERIFIED Hold Blue Top SEE NOTE Sodium (135-145) mmol/L Potassium (3.3-5.1) mmol/l Chloride (96-108) mmol/L Carbon Dioxide (22-29) mmol/L Anion Gap (12-20) BUN (9-16) mg/dL Creatinine (0.5-1.4) mg/dL Estim Creat Clear Calc Estimated GFR Random Glucose (60-115) mg/dL Lactic Acid 1.5 (0.5-2.0) mmol/L Calcium (8.4-10.2) mg/dL 09/30/20 Range/Units 11:17 WBC (4.8-10.8) X10*3/uL RBC (4.60-5.80) X10*6/uL Hgb (14.0-18.0) g/dl Hct (42-52) % MCV (80-98) fL MCH (27.0-33.0) pg MCHC (31.0-36.0) g/dl RDW (11.0-16.0) % Plt Count (160-400) X10*3/uL MPV (9.4-12.4) fL Immature Gran % (Auto) (0.0-0.4) % Neut % (Auto) (45-73) % Lymph % (Auto) (20-40) % Hutchinson % (Auto) (2-11) % Eos % (Auto) (0-4) % Baso % (Auto) (0-2) % Lymph # (Auto) (1.2-4.9) X10*3/uL Hutchinson # (Auto) (0.1-1.2) X10*3/uL Eos # (Auto) (0.0-0.4) X10*3/uL Baso # (Auto) (0.0-0.2) X10*3/uL Abs Immat Gran (auto) (0.00-0.03) X10*3/uL Absolute Neuts (auto) (2.0-8.3) X10*3/uL Absolute Nucleated RBC (0.0-0.012) X10*3/uL Nucleated RBC % (auto) (0.0-0.2) /100WBC Smear Tech's Comments Hold Blue Top Sodium 141 (135-145) mmol/L Potassium 3.9 D (3.3-5.1) mmol/l Chloride 104 (96-108) mmol/L Carbon Dioxide 26 (22-29) mmol/L Anion Gap 15 (12-20) BUN 24 H D (9-16) mg/dL Creatinine 0.99 (0.5-1.4) mg/dL Estim Creat Clear Calc 82.2 Estimated GFR > 60 Random Glucose 94 D (60-115) mg/dL Lactic Acid (0.5-2.0) mmol/L Calcium 8.6 D (8.4-10.2) mg/dL Discharge Plan Discharge Clinical Impression: Acute cephalic vein thrombosis Qualifiers: Laterality: right Qualified Code(s): I82.611 - Acute embolism and thrombosis of superficial veins of right upper extremity Cellulitis Qualifiers: Site of cellulitis: extremity Site of cellulitis of extremity: upper extremity Laterality: right Qualified Code(s): L03.113 - Cellulitis of right upper limb Patient Disposition: Home, Self-Care Instructions: Cellulitis (ED), Superficial Thrombophlebitis (ED) Additional Instructions: Your ultrasound of your arm showed a superficial nonocclusive thrombus in her cephalic vein. No deep venous thrombosis. You also have an overlying infection. Keflex and doxycycline or antibiotics, take as prescribed. IT IS RECOMMENDED THAT YOU HAVE A REPEAT ULTRASOUND IN 5-7 DAYS. CALL YOUR PRIMARY CARE DOCTOR TO ESTABLISH THIS FOLLOW-UP IMAGING. IF AREA BEGI NS TO LOOK WORSE, REDNESS IS SPREADING OR STREAKING, YOU HAVE FEVER, THERE IS DRAINAGE FROM THE AREA RETURN TO THE ED APPLY WARM COMPRESSES ARM AT HOME Prescriptions: New cephalexin [Keflex] 500 mg capsule 500 mg PO Q6H 7 Days Qty: 28 RF: 0 doxycycline hyclate 100 mg capsule 100 mg PO BID 7 Days Qty: 14 RF: 0 No Action atorvastatin 40 mg tablet 40 mg PO DAILY RF: 0 acetaminophen 325 mg tablet 650 mg PO DAILY PRN (Reason: Pain) RF: 0 albuterol sulfate 2.5 mg /3 mL (0.083 %) solution for nebulization 2.5 mg inhalation TID PRN (Reason: Dyspnea) RF: 0 aspirin 81 mg tablet,delayed release (DR/EC) 81 mg PO DAILY RF: 0 quetiapine 100 mg tablet 100 mg PO BID RF: 0 lorazepam 0.5 mg tablet 0.5 mg PO Q6-8H PRN (Reason: Anxiety) RF: 0 tamsulosin 0.4 mg capsule 0.4 mg PO DAILY RF: 0 albuterol sulfate 90 mcg/actuation HFA aerosol inhaler 2 puff inhalation Q4-6H PRN (Reason: Dyspnea) RF: 0 Spiriva with HandiHaler 18 mcg capsule, w/inhalation device 1 cap inhalation DAILY RF: 0 quetiapine 50 mg tablet 50 mg PO BID RF: 0 Breo Ellipta 200-25 mcg/dose blister with device 1 inh inhalation BID RF: 0 quetiapine 50 mg tablet 50 mg PO Q4-5H PRN (Reason: Anxiety) RF: 0 quetiapine 100 mg tablet 100 mg PO BEDTIME RF: 0 quetiapine 400 mg tablet 1 tab PO BEDTIME RF: 0 prednisone 20 mg tablet 40 mg PO DAILY Qty: 10 RF: 0 Referrals: Martínez Simeon MD [Primary Care Provider] - 5 days
[2020-09-30 11:25] LABS: Basophils Percent Auto 0.1 % (0-2); Eosinophils Absolute Auto 0.2 X10*3/uL (0.0-0.4); Eosinophils Percent Auto 1.7 % (0-4); Hemoglobin 15.6 g/dl (14.0-18.0); Imm Gran Abs Auto 0.14 X10*3/uL (0.00-0.03); Imm Gran Pct Auto 1.4 % (0.0-0.4); Lymphocytes Absolute Auto 0.5 X10*3/uL (1.2-4.9); Lymphocytes Percent Auto 5.1 % (20-40); MANUAL DIFF FLAG SCAN; Mean Corpuscular HGB Conc 33.2 g/dl (31.0-36.0); Mean Corpuscular Hemoglobin 31.7 pg (27.0-33.0); Mean Corpuscular Volume 95.5 fL (80-98); Mean Platelet Volume 8.8 fL (9.4-12.4); Monocytes Absolute Auto 0.5 X10*3/uL (0.1-1.2); Neutrophils Absolute Auto 8.7 X10*3/uL (2.0-8.3); Neutrophils Percent Auto 86.7 % (45-73); Platelet Count 191 X10*3/uL (160-400); Red Blood Count 4.92 X10*6/uL (4.60-5.80); Red Cell Distribution Width 12.8 % (11.0-16.0); SCAN SMEAR FLAG 1; White Blood Count 10.1 X10*3/uL (4.8-10.8)
[2020-09-30 11:46] LABS: Lactic Acid 1.5 mmol/L (0.5-2.0)
[2020-09-30 11:48] LABS: Anion Gap 15 (12-20); Blood Urea Nitrogen 24 mg/dL (9-16); Calcium 8.6 mg/dL (8.4-10.2); Carbon Dioxide 26 mmol/L (22-29); Chloride 104 mmol/L (96-108); Creatinine Clr Calc Pharmacy 82.2; Estimated Glomerular Filt Rate > 60; Glucose Random 94 mg/dL (60-115); Potassium 3.9 mmol/l (3.3-5.1); SLIDE REVIEW VERIFIED; Sodium 141 mmol/L (135-145)
[2020-09-30] MEDS: Albuterol/Iprat 2.5/0.5MG 3 ML AMPUL.NEB INHALE (12:29)
[2020-09-30 12:32] VITALS: PULSE 91; O2SAT 95
[2020-09-30 13:15] VITALS: O2SAT 98
[2020-09-30] MEDS: cephALEXin 500 MG CAPSULE PO (13:21)
== END 2020-09-30 13:24 | disposition home or self-care (01) ==
PROVIDERS: Physician Assistant; Emergency Provider Internal Medicine; PCP Internal Medicine
DX: I82.611 Acute embolism and thrombosis of superficial veins of right upper extremity (principal); L03.113 Cellulitis of right upper limb; J44.9 Chronic obstructive pulmonary disease, unspecified; E78.5 Hyperlipidemia, unspecified; Z87.891 Personal history of nicotine dependence; Z79.899 Other long term (current) drug therapy
CPT/HCPCS: 36415; 80048; 83605; 85025; 87040; 87077; 87186; 87205; 93971; 94640; 99284

== ENCOUNTER 2020-12-19 16:03 | Emergency (ER) | payer MEDICARE, SELFPAY ==
--- NOTE | ~2020-12-19 | CT_ITS ---
EXAMINATION: CT ANGIOGRAM OF THE CHEST WITH AND WITHOUT CONTRAST (CT PULMONARY ANGIOGRAM FOR PE) CLINICAL INFORMATION: Reason for Exam elevated D-dimer. PE? COMPARISON: CT chest 08/18/2020, 05/07/2020 TECHNIQUE: Prior to contrast administration, noncontrast localization images were obtained. Subsequently, multidetector volumetric imaging was performed from the thoracic inlet to below the diaphragms following the administration of 71 mL Omnipaque 350 intravenous contrast. No contrast reaction reported Sagittal, coronal, and MIP oblique sagittal reformatted images were obtained on the CT workstation, uploaded to PACS, and reviewed. This CT examination was performed using dose optimization techniques as appropriate, variously including the following: *Automated exposure control *Adjustment of mA and/or kV according to patient size (this includes techniques or standardized protocols for targeted exams where dose is matched to indication/reason for exam; i.e. extremities or head) *Use of iterative reconstruction technique Total exam dose-length product 1286 mGy-cm FINDINGS: QUALITY OF STUDY/CONTRAST BOLUS: Satisfactory. PULMONARY ARTERIES: No central or segmental pulmonary emboli. THORACIC AORTA: No aneurysm or dissection. There are vascular calcifications of aorta. LUNG: There is marked emphysematous change of lungs. Lung nodules: 1. There is a nodule in the medial left upper lobe with irregular margins measuring 1.1 cm. This is new since CAT scan 08/18/2020. This is suspicious for neoplasm. 2. There is a 6 mm intrafissural lymph node in the minor fissure axial image 38/71 series 17. No additional lung nodule. No acute airways disease. There is mild bronchiectasis at lung bases with mild bronchial wall thickening. PLEURA: No pleural effusion or pneumothorax. MEDIASTINUM: Normal heart size. No pericardial effusion. No hilar or mediastinal lymphadenopathy. No evidence of septal bowing or right heart strain. There is no contrast enhancement, consistent with thrombus, of the left brachiocephalic vein at the origin of the vessel from the aortic arch. This extends about 5 cm of length. There is faint opacification of the left vertebral artery at its origin. The thrombosis is chronic, remains unchanged since CAT scan 05/07/2020. CHEST WALL/AXILLA: No axillary or internal mammary lymphadenopathy. OSSEOUS STRUCTURES: No acute or suspicious osseous abnormality. UPPER ABDOMEN: Adrenal glands are normal. Mild low-attenuation of the parenchyma of liver consistent with fatty change. No focal liver lesion. Visualized portions of the spleen, pancreas and kidneys are unremarkable. No reflux of contrast into the hepatic veins to suggest elevated right heart pressures. CT/CT angio chest PE protocol IMPRESSION: 1. No evidence of pulmonary embolism. 2. Marked emphysematous change of lungs. 3. There is no enhancement of the left brachiocephalic vein at the origin from the aorta consistent with thrombus. This is chronic unchanged since CAT scan 05/07/2020. 4. Irregular left upper lobe lung nodule measuring 1.2 cm highly suspicious for neoplasm. This is new since prior CT study 08/18/2020. Consider tissue sampling at this time. This critical result was discussed with Cezar Potts on 12/19/2020, 10:10 PM and it was ascertained that the content and urgency of the report was understood at the time of direct communication. VTE: negative
--- NOTE | ~2020-12-19 | CT_ITS ---
EXAMINATION: CT HEAD WITHOUT CONTRAST CLINICAL INFORMATION: Elevated blood pressure. COMPARISON: CT head 08/20/2017 TECHNIQUE: Contiguous axial imaging was performed from the skull base to vertex without intravenous administration of contrast. Coronal and sagittal reformatted images are performed at the CT scanner This CT examination was performed using dose optimization techniques as appropriate, variously including the following: *Automated exposure control *Adjustment of mA and/or kV according to patient size (this includes techniques or standardized protocols for targeted exams where dose is matched to indication/reason for exam; i.e. extremities or head) *Use of iterative reconstruction technique DLP: 1286 mGy-cm FINDINGS: There is no evidence of acute intracranial hemorrhage or territorial infarction. No abnormal mass effect or midline shift is seen. Mcclain to white matter differentiation is well preserved. No extra-axial fluid collections are identified. The ventricles are normal in size. There is no abnormal attenuation within the brain parenchyma. The osseous structures and soft tissues are normal. The mastoid air cells and visualized portions of the paranasal sinuses are well aerated. CT/CT head/brain wo con IMPRESSION: No acute intracranial pathology.
--- NOTE | ~2020-12-19 | XR_ITS ---
EXAMINATION: XR CHEST CLINICAL INFORMATION: Resolved shortness of breath COMPARISON: 09/25/2020 TECHNIQUE: Frontal view of the chest was obtained. FINDINGS: Again seen are some chronic reticular markings at the lung bases, right greater than left. No significant acute abnormality is noted involving the heart, lungs, mediastinum, bony thorax or soft tissues. XR/XR chest 1V IMPRESSION: No acute intrathoracic disease.
[2020-12-19 16:08] VITALS: BP 160/90; BP 169/64; PULSE 80; PULSE 94; RESP 24; TEMP 37; O2SAT 94; O2SAT 95; BMI 27.8
[2020-12-19 16:17] VITALS: BP 153/78; PULSE 95; RESP 18; O2SAT 95
--- NOTE | 2020-12-19 17:53 | ECG_ITS ---
Test Reason : HTN Blood Pressure : / mmHG Vent. Rate : 072 BPM Atrial Rate : 072 BPM P-R Int : 190 ms QRS Dur : 082 ms QT Int : 396 ms P-R-T Axes : 083 011 072 degrees QTc Int : 433 ms Normal sinus rhythm with sinus arrhythmia Normal ECG When compared with ECG of 25-SEP-2020 22:48, No significant change was found Referred By: Cezar Lr Electronically Signed By:SOTERO ZAPATA
[2020-12-19 18:51] VITALS: BP 180/88; PULSE 80; RESP 17; TEMP 36.7; O2SAT 95
--- NOTE | 2020-12-19 18:54 | ED.GENADULT ---
HPI - General Adult General Chief complaint: Dyspnea Stated complaint: HI BP,SOB Time Seen by Provider: 12/19/20 17:38 Source: patient Mode of arrival: ambulatory Limitations: no limitations History of Present Illness HPI narrative: Patient presents to ED mainly for his elevated blood pressure. Patient states history of high blood pressure and he was taking of Klonopin, but it was stopped since last year when he had COVID. Patient states history of severe anxiety and this morning he had anxiety attack once he found his blood pressure was elevated. Patient states he takes Ativan and Seroquel. Patient's denies presently having shortness of breath, chest pain, coughing up blood, fever, chills, calf pain, or swelling of lower extremities. Patient states he did not come to the ED shortness of breath, but more for high blood pressure. Patient states last week at his doctor's offices blood pressure systolic was over 200, but his PCP napping any medication. Patient states this morning blood pressure was elevated and also was over 200 systolic so his PCP sent to the ED. Related Data Home Medications Medication Instructions Recorded Confirmed Breo Ellipta 1 inh INHALATION BID 09/26/20 09/26/20 Spiriva with HandiHaler 1 cap INHALATION DAILY 09/26/20 09/26/20 acetaminophen 650 mg PO DAILY PRN 09/26/20 09/26/20 albuterol sulfate 2 puff INHALATION Q4-6H PRN 09/26/20 09/26/20 albuterol sulfate 2.5 mg INHALATION TID PRN 09/26/20 09/26/20 aspirin 81 mg PO DAILY 09/26/20 09/26/20 atorvastatin 40 mg PO DAILY 09/26/20 09/26/20 lorazepam 0.5 mg PO Q6-8H PRN 09/26/20 09/26/20 quetiapine 1 tab PO BEDTIME 09/26/20 09/26/20 quetiapine 50 mg PO BID 09/26/20 09/26/20 quetiapine 50 mg PO Q4-5H PRN 09/26/20 09/26/20 quetiapine 100 mg PO BEDTIME 09/26/20 09/26/20 quetiapine 100 mg PO BID 09/26/20 09/26/20 tamsulosin 0.4 mg PO DAILY 09/26/20 09/26/20 Previous Rx's Medication Instructions Recorded prednisone 40 mg PO DAILY #10 tab 09/29/20 cephalexin [Keflex] 500 mg PO Q6H 7 Days #28 cap 10/01/20 doxycycline hyclate 100 mg PO BID 7 Days #14 tab 10/01/20 losartan 50 mg PO DAILY #30 tab 12/20/20 Allergies Allergy/AdvReac Type Severity Reaction Status Date / Time codeine [CODEINE] Allergy Intermediate HIVES Verified 12/19/20 16:08 Review of Systems Review of Systems: Yes all other systems are reviewed and are negative Constitutional: Constitutional: Reports as per HPI and Reports no additional constitutional complaints Eyes: Eyes: Reports as per HPI and Reports no additional eye complaints ENT: Reports system reviewed and no additional complaints, except as documented and Reports as per HPI Cardiovascular: Cardiovascular: Reports as per HPI, Reports no additional cardiovascular complaints and Reports dyspnea Respiratory: Respiratory: Reports as per HPI, Reports no additional respiratory complaints and Reports dyspnea Comments: Shortness of breath resolved. Was caused by anxiety Gastrointestinal: Gastrointestinal: Reports as per HPI and Reports no additional gastrointestinal complaints Musculoskeletal: Musculoskeletal: Reports no additional musculoskeletal complaints and Reports as per HPI Neurologic: Reports system reviewed and no additional complaints, except as documented and Reports as per HPI Psychiatric: Psychiatric: Reports no additional psychiatric complaints and Reports as per HPI PMFSH Past Medical History Medical History Anxiety COPD (chronic obstructive pulmonary disease) Emphysema of lung Hepatitis C Hyperlipidemia Schizoaffective disorder, bipolar type Schizophrenia Social History Social History Household Members: Other Housing: Other Alcohol intake: former Smoking Status: Former smoker Tobacco Type: Cigarette Packs Per Day: 2 Cigarettes Per Day: 40.0 Years Smoked: 55 Second Hand Smoke Exposure: Yes Use of substances other than those prescribed or required for medical reasons: No Advance Directives: No Advance Directives Information Provided: Yes service: No Current occupational status: unemployed Physical Exam Vital Signs: Vital Signs: Last Vital Signs Temp 98.0 F 12/19/20 18:51 Pulse 66 12/20/20 00:51 Resp 18 12/19/20 23:37 BP 135/57 L 12/20/20 00:51 Pulse Ox 93 12/20/20 00:51 Body Mass Index 27.8 Const: General: cooperative, healthy appearing, comfortable, no acute distress, well developed and alert Orientation/consciousness: patient oriented x3 HENMT: Head: Yes normal to inspection, Yes No palpable skull fracture present, Yes normocephalic, Yes atraumatic and No abrasion Eyes: General: appearance normal, both eyes and all related structures Neck: Neck: Yes normal visual inspection, Yes full ROM, Yes no lymphadenopathy, Yes no meningeal signs, Yes trachea midline, Yes supple and No tender Chest: Chest palpation & inspection: normal inspection of the chest and normal palpation of entire chest wall Resp: Effort & Inspection: normal respiratory effort and able to speak in complete sentences Auscultation: wheezes (slight wheezing) Cardio: Jugular venous distension: no JVD Heart sounds: S1 normal heart sound present and S2 normal heart sound present GI: Inspection: Yes normal to inspection Palpation (GI): Soft to palpation, not firm, nontender, no guarding and not rigid : General: No CVA tenderness and Yes no CVA tenderness Back/Spine/Pelvis: Back: no CVA tenderness, No CVA tenderness and No back tenderness Skin: General skin exam: no rashes or lesions noted and elasticity normal Neuro: Other: Negative for slurred speech, negtaive facial droop. All extremities equal strength and 5plus. negative facial droop. Finger to nose and rapid hand movement is intact. General: patient oriented x3, no meningeal signs and CN's II-XI intact bilaterally Cranial nerves: Yes CN's II-XII intact bilaterally Extrem: Other: Lower extremities negative for swelling, pitting edema, calf tenderness, redness General: Yes normal to inspection and Yes full ROM Psych: Appearance: grossly normal and not disheveled Course Course Course Narrative: Patient presently not in any respiratory distress.. O2 saturation 95%. Not suspecting COPD exacerbation. Patient states he has shortness of breath earlier in the day due to his anxiety. Patient requesting presently his anxiety medications likely in the ER. Will do medical evaluation due to patient's significant past medical history. Will do troponin, chest x-ray, EKG, and D-dimer. Patient blood pressure is controlled. Patient does not have any signs of stroke. Reevaluation(s) Reevaluation #1: Patient's EKG came back normal. Negative for STEMI. Patient states he is anxious to any questioning his anxiety meds says Ativan and Seroquel. Patient not having any chest pain or shortness breath in the ED. Patient not having any headache. Negative for any neuro deficit. D-dimer slightly elevated will send for chest CTA to rule out PE although very unlikely. Also will have head CT due to patient stating in the morning his blood pressure was around 200. Reevaluation #2: Chest CT came back negative for PE, but for positive left lobe nodue that may be neoplastic. Patient made informed of this. Patient also has chronioc left subclavian occlusion. Patient is not in COPD exacerbation. Patient blood pressure improved after receiving clonidine. Patient inform patient follow-up with PCP for biopsy of left lung nodule. Medical Decision Making MDM Narrative Medical decision making narrative: Hypertension. Lung mass Lab Data Result diagrams: 12/19/20 19:03 12/19/20 19:03 Labs: Lab Results 12/19/20 12/19/20 12/19/20 Range/Units 19:03 19:03 19:03 WBC 5.6 (4.8-10.8) X10*3/uL RBC 4.96 (4.60-5.80) X10*6/uL Hgb 15.8 (14.0-18.0) g/dl Hct 47.1 (42-52) % MCV 95.0 (80-98) fL MCH 31.9 (27.0-33.0) pg MCHC 33.5 (31.0-36.0) g/dl RDW 11.9 (11.0-16.0) % Plt Count 237 (160-400) X10*3/uL MPV 9.1 L (9.4-12.4) fL Immature Gran % (Auto) 0.2 (0.0-0.4) % Neut % (Auto) 64.6 (45-73) % Lymph % (Auto) 22.3 (20-40) % [place] % (Auto) 8.3 (2-11) % Eos % (Auto) 4.1 H (0-4) % Baso % (Auto) 0.5 (0-2) % Lymph # (Auto) 1.3 (1.2-4.9) X10*3/uL [place] # (Auto) 0.5 (0.1-1.2) X10*3/uL Eos # (Auto) 0.2 (0.0-0.4) X10*3/uL Baso # (Auto) 0.0 (0.0-0.2) X10*3/uL Abs Immat Gran (auto) 0.01 (0.00-0.03) X10*3/uL Absolute Neuts (auto) 3.6 (2.0-8.3) X10*3/uL Absolute Nucleated RBC 0.000 (0.0-0.012) X10*3/uL Nucleated RBC % (auto) 0.0 (0.0-0.2) /100WBC PT 12.8 (10.8-13.0) SEC INR 1.1 (0.9-1.1) APTT 34.5 (24.1-38.0) SEC D-Dimer NG/ML Sodium 143 (135-145) mmol/L Potassium 4.2 (3.3-5.1) mmol/L Chloride 105 (96-108) mmol/L Carbon Dioxide 28 (22-29) mmol/L Anion Gap 14 (12-20) BUN 8 L D (9-16) mg/dL Creatinine 0.84 (0.5-1.4) mg/dL Estim Creat Clear Calc 96.9 Estimated GFR > 60 Random Glucose 80 (60-115) mg/dL Calcium 9.2 D (8.4-10.2) mg/dL Total Bilirubin 0.6 (0.0-1.0) mg/dL AST 14 (5-37) U/L ALT 13 (0-40) U/L Alkaline Phosphatase 107 (39-117) U/L Troponin I High Sens (<3.5-35.0) ng/L B-Natriuretic Peptide (<100) pg/mL Total Protein 7.0 (6.5-8.0) g/dL Albumin 4.4 (3.5-5.0) g/dL COVID-19 (RASHEED) (Negative) COVID-19 Clin Com 12/19/20 12/19/20 12/19/20 Range/Units 19:03 19:03 19:03 WBC (4.8-10.8) X10*3/uL RBC (4.60-5.80) X10*6/uL Hgb (14.0-18.0) g/dl Hct (42-52) % MCV (80-98) fL MCH (27.0-33.0) pg MCHC (31.0-36.0) g/dl RDW (11.0-16.0) % Plt Count (160-400) X10*3/uL MPV (9.4-12.4) fL Immature Gran % (Auto) (0.0-0.4) % Neut % (Auto) (45-73) % Lymph % (Auto) (20-40) % [place] % (Auto) (2-11) % Eos % (Auto) (0-4) % Baso % (Auto) (0-2) % Lymph # (Auto) (1.2-4.9) X10*3/uL [place] # (Auto) (0.1-1.2) X10*3/uL Eos # (Auto) (0.0-0.4) X10*3/uL Baso # (Auto) (0.0-0.2) X10*3/uL Abs Immat Gran (auto) (0.00-0.03) X10*3/uL Absolute Neuts (auto) (2.0-8.3) X10*3/uL Absolute Nucleated RBC (0.0-0.012) X10*3/uL Nucleated RBC % (auto) (0.0-0.2) /100WBC PT (10.8-13.0) SEC INR (0.9-1.1) APTT (24.1-38.0) SEC D-Dimer 270 NG/ML Sodium (135-145) mmol/L Potassium (3.3-5.1) mmol/L Chloride (96-108) mmol/L Carbon Dioxide (22-29) mmol/L Anion Gap (12-20) BUN (9-16) mg/dL Creatinine (0.5-1.4) mg/dL Estim Creat Clear Calc Estimated GFR Random Glucose (60-115) mg/dL Calcium (8.4-10.2) mg/dL Total Bilirubin (0.0-1.0) mg/dL AST (5-37) U/L ALT (0-40) U/L Alkaline Phosphatase (39-117) U/L Troponin I High Sens 5.4 D (<3.5-35.0) ng/L B-Natriuretic Peptide 16 (<100) pg/mL Total Protein (6.5-8.0) g/dL Albumin (3.5-5.0) g/dL COVID-19 (RASHEED) Negative (Negative) COVID-19 Clin Com See Note 12/19/20 Range/Units 22:38 WBC (4.8-10.8) X10*3/uL RBC (4.60-5.80) X10*6/uL Hgb (14.0-18.0) g/dl Hct (42-52) % MCV (80-98) fL MCH (27.0-33.0) pg MCHC (31.0-36.0) g/dl RDW (11.0-16.0) % Plt Count (160-400) X10*3/uL MPV (9.4-12.4) fL Immature Gran % (Auto) (0.0-0.4) % Neut % (Auto) (45-73) % Lymph % (Auto) (20-40) % [place] % (Auto) (2-11) % Eos % (Auto) (0-4) % Baso % (Auto) (0-2) % Lymph # (Auto) (1.2-4.9) X10*3/uL [place] # (Auto) (0.1-1.2) X10*3/uL Eos # (Auto) (0.0-0.4) X10*3/uL Baso # (Auto) (0.0-0.2) X10*3/uL Abs Immat Gran (auto) (0.00-0.03) X10*3/uL Absolute Neuts (auto) (2.0-8.3) X10*3/uL Absolute Nucleated RBC (0.0-0.012) X10*3/uL Nucleated RBC % (auto) (0.0-0.2) /100WBC PT (10.8-13.0) SEC INR (0.9-1.1) APTT (24.1-38.0) SEC D-Dimer NG/ML Sodium (135-145) mmol/L Potassium (3.3-5.1) mmol/L Chloride (96-108) mmol/L Carbon Dioxide (22-29) mmol/L Anion Gap (12-20) BUN (9-16) mg/dL Creatinine (0.5-1.4) mg/dL Estim Creat Clear Calc Estimated GFR Random Glucose (60-115) mg/dL Calcium (8.4-10.2) mg/dL Total Bilirubin (0.0-1.0) mg/dL AST (5-37) U/L ALT (0-40) U/L Alkaline Phosphatase (39-117) U/L Troponin I High Sens 4.1 (<3.5-35.0) ng/L B-Natriuretic Peptide (<100) pg/mL Total Protein (6.5-8.0) g/dL Albumin (3.5-5.0) g/dL COVID-19 (RASHEED) (Negative) COVID-19 Clin Com ECG Data Interpretation: Normal sinus rhythm. Normal EKG. Ventricular rate 72. SC interval 190. QRS 82. QTC 433. Negative STEMI Discharge Plan Discharge Clinical Impression: Hypertension, Lung mass Patient Disposition: Home, Self-Care Instructions: Hypertension (ED), Anxiety (ED) Additional Instructions: Return to the ED immediately for any chest pain or shortness of breath, little blurred, fever, chills, coughing up phlegm, swelling of lower extremities, calf pain, dizziness, or any other concerning symptoms. Please follow-up with the PCP due to lung mass found on chest CT scan. Radiologist recommend biopsy of lung mass. Prescriptions: New losartan 50 mg tablet 50 mg PO DAILY Qty: 30 RF: 0 No Action atorvastatin 40 mg tablet 40 mg PO DAILY RF: 0 acetaminophen 325 mg tablet 650 mg PO DAILY PRN (Reason: Pain) RF: 0 albuterol sulfate 2.5 mg /3 mL (0.083 %) solution for nebulization 2.5 mg inhalation TID PRN (Reason: Dyspnea) RF: 0 aspirin 81 mg tablet,delayed release (DR/EC) 81 mg PO DAILY RF: 0 quetiapine 100 mg tablet 100 mg PO BID RF: 0 lorazepam 0.5 mg tablet 0.5 mg PO Q6-8H PRN (Reason: Anxiety) RF: 0 tamsulosin 0.4 mg capsule 0.4 mg PO DAILY RF: 0 albuterol sulfate 90 mcg/actuation HFA aerosol inhaler 2 puff inhalation Q4-6H PRN (Reason: Dyspnea) RF: 0 Spiriva with HandiHaler 18 mcg capsule, w/inhalation device 1 cap inhalation DAILY RF: 0 quetiapine 50 mg tablet 50 mg PO BID RF: 0 Breo Ellipta 200-25 mcg/dose blister with device 1 inh inhalation BID RF: 0 quetiapine 50 mg tablet 50 mg PO Q4-5H PRN (Reason: Anxiety) RF: 0 quetiapine 100 mg tablet 100 mg PO BEDTIME RF: 0 quetiapine 400 mg tablet 1 tab PO BEDTIME RF: 0 prednisone 20 mg tablet 40 mg PO DAILY Qty: 10 RF: 0 cephalexin [Keflex] 500 mg capsule 500 mg PO Q6H 7 Days Qty: 28 RF: 0 doxycycline hyclate 100 mg tablet 100 mg PO BID 7 Days Qty: 14 RF: 0 Print Language: Malay
[2020-12-19] MEDS: 0.9 % Sodium Chloride 1,000 ML 999 ML IV (19:12)
[2020-12-19 19:16] LABS: Basophils Percent Auto 0.5 % (0-2); Eosinophils Absolute Auto 0.2 X10*3/uL (0.0-0.4); Eosinophils Percent Auto 4.1 % (0-4); Hematocrit 47.1 % (42-52); Hemoglobin 15.8 g/dl (14.0-18.0); Imm Gran Abs Auto 0.01 X10*3/uL (0.00-0.03); Imm Gran Pct Auto 0.2 % (0.0-0.4); Lymphocytes Absolute Auto 1.3 X10*3/uL (1.2-4.9); Lymphocytes Percent Auto 22.3 % (20-40); MANUAL DIFF FLAG NO; Mean Corpuscular HGB Conc 33.5 g/dl (31.0-36.0); Mean Corpuscular Hemoglobin 31.9 pg (27.0-33.0); Mean Platelet Volume 9.1 fL (9.4-12.4); Monocytes Absolute Auto 0.5 X10*3/uL (0.1-1.2); Monocytes Percent Auto 8.3 % (2-11); Neutrophils Absolute Auto 3.6 X10*3/uL (2.0-8.3); Neutrophils Percent Auto 64.6 % (45-73); Platelet Count 237 X10*3/uL (160-400); Red Blood Count 4.96 X10*6/uL (4.60-5.80); Red Cell Distribution Width 11.9 % (11.0-16.0); White Blood Count 5.6 X10*3/uL (4.8-10.8)
[2020-12-19 19:22] LABS: INTERNATIONAL NORM RATIO 1.1 (0.9-1.1); Prothrombin Time 12.8 SEC (10.8-13.0)
[2020-12-19 19:24] LABS: Partial Thromboplastin Time 34.5 SEC (24.1-38.0)
[2020-12-19 19:25] LABS: D Dimer 270 NG/ML
[2020-12-19 19:32] LABS: COVID-19 Test Negative (Negative)
[2020-12-19 19:41] LABS: Alanine Aminotransferase 13 U/L (0-40); Albumin Level 4.4 g/dL (3.5-5.0); Alkaline Phosphatase 107 U/L (39-117); Anion Gap 14 (12-20); Aspartate Amino Transferase 14 U/L (5-37); Bilirubin Total 0.6 mg/dL (0.0-1.0); Blood Urea Nitrogen 8 mg/dL (9-16); Calcium 9.2 mg/dL (8.4-10.2); Carbon Dioxide 28 mmol/L (22-29); Chloride 105 mmol/L (96-108); Creatinine Clr Calc Pharmacy 96.9; Estimated Glomerular Filt Rate > 60; Glucose Random 80 mg/dL (60-115); Potassium 4.2 mmol/L (3.3-5.1); Sodium 143 mmol/L (135-145)
[2020-12-19 19:43] LABS: B Type Natriuretic Peptide 16 pg/mL (<100); Troponin-I High Sensitivity 5.4 ng/L (<3.5-35.0)
[2020-12-19 20:17] VITALS: BP 185/96; PULSE 76; RESP 18; O2SAT 95
[2020-12-19] MEDS: iohexoL 350 MG/ML 100 ML INFUS..BTL IV (21:15)
[2020-12-19] MEDS: LORazepam 0.5 MG TABLET PO (21:32)
[2020-12-19] MEDS: Acetaminophen 325 MG TABLET 650 MG PO (21:33)
[2020-12-19] MEDS: QUEtiapine Fumarate 50 MG TABLET 100 MG PO (21:33)
[2020-12-19 21:34] VITALS: BP 185/80; PULSE 78; RESP 21; O2SAT 94
[2020-12-19 23:16] LABS: Troponin-I High Sensitivity 4.1 ng/L (<3.5-35.0)
[2020-12-19 23:37] VITALS: BP 181/85; PULSE 80; RESP 18; O2SAT 96
[2020-12-20 00:30] VITALS: BP 181/85; PULSE 78
[2020-12-20] MEDS: cloNIDine HCL 0.2 MG TABLET PO (00:30)
--- NOTE | 2020-12-20 00:43 | PC.NURSE ---
REPORT TO POLLY WRAY
[2020-12-20 00:51] VITALS: BP 135/57; PULSE 66; O2SAT 93
== END 2020-12-20 03:14 | disposition home or self-care (01) ==
PROVIDERS: Physician Assistant; Emergency Provider Emergency Medicine
DX: I10 Essential (primary) hypertension (principal); R91.8 Other nonspecific abnormal finding of lung field; R91.1 Solitary pulmonary nodule; F41.9 Anxiety disorder, unspecified; R06.2 Wheezing; Z20.822 Contact with and (suspected) exposure to COVID-19; J44.9 Chronic obstructive pulmonary disease, unspecified; F25.0 Schizoaffective disorder, bipolar type; Z86.19 Personal history of other infectious and parasitic diseases; Z87.891 Personal history of nicotine dependence
CPT/HCPCS: 36415; 70450; 71045; 71275; 80053; 83880; 84484; 85025; 85379; 85610; 85730; 87635; 93005; 96360; 99284; Q9967

== ENCOUNTER 2021-04-11 19:01 | Emergency (ER) | payer MEDICARE, SELFPAY ==
--- NOTE | ~2021-04-11 | XR_ITS ---
EXAMINATION: XR CHEST CLINICAL INFORMATION: Wheezing COMPARISON: Chest radiograph 12/19/[address] angiogram chest 12/19/2020 TECHNIQUE: 2 views of the chest were obtained. FINDINGS: Again seen are marked emphysematous changes with hyperinflation. The heart size is normal. No infiltrates, pleural effusions or lung masses are seen. No pneumothorax. The previously seen left 1.2 cm upper lobe lung nodule appears to have increased in size to about 1.9 cm. However, comparison between modalities may not be accurate. XR/XR chest 2V IMPRESSION: 1. No acute intrathoracic disease. 2. Underlying severe COPD 3. Left upper lobe nodule has increased in size from 1.2 to 1.9 cm (see above)
[2021-04-11 19:11] VITALS: BP 148/96; PULSE 87; RESP 16; O2SAT 98; BMI 24.4
[2021-04-11 19:13] VITALS: TEMP 37.1
--- NOTE | 2021-04-11 19:27 | ED.GENADULT ---
HPI - General Adult General Chief complaint: Dyspnea Stated complaint: Sob Time Seen by Provider: 04/11/21 19:25 Source: patient Limitations: no limitations History of Present Illness HPI narrative: This is a 70-year-old male smoker who complains of shortness of breath for about a week. The patient does have a known history of COPD. He states he quit smoking a week ago. Patient does have a nebulizer machine at home as well as an albuterol rescue inhaler and steroid inhaler. He notes he has had a cough productive of some beige phlegm. He denies any fever. Denies any chest pain. He is not any swelling to his legs. Denies any abdominal symptoms, nausea vomiting. The patient notes that his pulse oximetry has been normal Related Data Home Medications Medication Instructions Recorded Confirmed acetaminophen 325 mg tablet 650 mg PO DAILY PRN 09/26/20 09/26/20 albuterol sulfate 2.5 mg INHALATION TID PRN 09/26/20 09/26/20 albuterol sulfate 90 mcg/actuation 2 puff INHALATION Q4-6H PRN 09/26/20 09/26/20 aerosol inhaler aspirin 81 mg tablet,delayed 81 mg PO DAILY 09/26/20 09/26/20 release atorvastatin 40 mg tablet 40 mg PO DAILY 09/26/20 09/26/20 fluticasone furoate 200 1 inh INHALATION BID 09/26/20 09/26/20 mcg-vilanterol 25 mcg/dose inhalation powder (Breo Ellipta) lorazepam 0.5 mg tablet 0.5 mg PO Q6-8H PRN 09/26/20 09/26/20 quetiapine 100 mg tablet 100 mg PO BEDTIME 09/26/20 09/26/20 quetiapine 100 mg tablet 100 mg PO BID 09/26/20 09/26/20 quetiapine 400 mg tablet 1 tab PO BEDTIME 09/26/20 09/26/20 quetiapine 50 mg tablet 50 mg PO BID 09/26/20 09/26/20 quetiapine 50 mg tablet 50 mg PO Q4-5H PRN 09/26/20 09/26/20 tamsulosin 0.4 mg capsule 0.4 mg PO DAILY 09/26/20 09/26/20 tiotropium bromide 18 mcg capsule 1 cap INHALATION DAILY 09/26/20 09/26/20 with inhalation device (Spiriva with HandiHaler) Previous Rx's Medication Instructions Recorded prednisone 20 mg tablet 40 mg PO DAILY #10 tab 09/29/20 cephalexin 500 mg capsule (Keflex) 500 mg PO Q6H 7 Days #28 cap 10/01/20 doxycycline hyclate 100 mg tablet 100 mg PO BID 7 Days #14 tab 10/01/20 losartan 50 mg tablet 50 mg PO DAILY #30 tab 12/20/20 doxycycline hyclate 100 mg capsule 100 mg PO BID 10 Days #20 cap 04/11/21 prednisone 10 mg tablets in a dose 10 mg PO DAILY #26 ea 04/11/21 pack Allergies Allergy/AdvReac Type Severity Reaction Status Date / Time codeine [CODEINE] Allergy Intermediate HIVES Verified 12/19/20 16:08 Review of Systems Review of Systems: Yes all other systems are reviewed and are negative Constitutional: Constitutional: Reports as per HPI and Denies fever(s) Eyes: Eyes: Reports as per HPI and Reports no additional eye complaints ENT: Reports system reviewed and no additional complaints, except as documented, Reports as per HPI, Denies nasal congestion, Denies nasal discharge and Denies sore throat Cardiovascular: Cardiovascular: Reports as per HPI, Denies chest pain and Denies dyspnea Respiratory: Respiratory: Reports as per HPI, Denies cough and Denies dyspnea Gastrointestinal: Gastrointestinal: Reports as per HPI, Denies abdominal pain, Denies diarrhea and Denies vomiting Genitourinary: Genitourinary: Reports as per HPI, Denies hematuria, Denies dysuria and Denies urinary frequency Musculoskeletal: Musculoskeletal: Reports no additional musculoskeletal complaints and Denies numbness Integumentary/Breasts: Skin/Breast: Reports as per HPI and Denies rash Neurologic: Reports as per HPI, Denies focal weakness, Denies numbness and Denies Sensory deficit (Neuro) Psychiatric: Psychiatric: Reports no additional psychiatric complaints and Reports as per HPI Endocrine: Endocrine: Reports no additional endocrine complaints and Reports as per HPI Hematologic/Lymphatic: Hematologic/Lymphatic: Reports no additional hematologic/lymphatic complaints, Reports as per HPI and Reports other (No peripheral edema) [facility] Past Medical History Medical History Anxiety COPD (chronic obstructive pulmonary disease) Emphysema of lung Hepatitis C Hyperlipidemia Schizoaffective disorder, bipolar type Schizophrenia Social History Social History Household Members: Other Housing: Other Housing Other:: Respite since April Do you presently have visiting nurse or other home services: Yes Alcohol intake: former Cigarette Packs Per Day: 2 Cigarettes Per Day: 40.0 Years Smoked: 55 Second Hand Smoke Exposure: Yes Advance Directives: No Advance Directives Information Provided: Yes service: No Current occupational status: unemployed Physical Exam Vital Signs: Vital Signs: Last Vital Signs Temp 98.7 F 04/11/21 19:13 Pulse 79 04/11/21 20:15 Resp 16 04/11/21 19:11 BP 148/96 H 04/11/21 19:11 Pulse Ox 98 04/11/21 19:11 Body Mass Index 24.4 Const: General: cooperative, no acute distress and alert Orientation/consciousness: patient oriented x3 HENMT: Head: Yes normal to inspection Eyes: General: appearance normal, both eyes and all related structures Eyelids: Yes eyelids normal Conjunctivae: conjunctivae normal Pupils: Equal, round and reactive pupils present Neck: Neck: Yes normal visual inspection and Yes supple Chest: Chest palpation & inspection: normal inspection of the chest Resp: Effort & Inspection: able to speak in complete sentences, audible wheezes (Diffuse expiratory), no respiratory distress and tachypneic (Mild) Auscultation: clear to auscultation bilaterally Cardio: Rate: regular rate Rhythm: regular rhythm Heart sounds: S1 normal heart sound present, S2 normal heart sound present, no gallops, no murmurs and no rubs GI: Palpation (GI): Soft to palpation, nontender and Other GI palpation findings present (Non-distended) Auscultation: normal bowel sounds Skin: General skin exam: no rashes or lesions noted Neuro: General: patient oriented x3, no focal motor deficits and CN's II-XI intact bilaterally Cranial nerves: Yes Equal, round and reactive pupils present Cognition (Neuro): normal cognition Motor exam (neuro): 5/5 motor strength present throughout Sensory Exam: No Sensory deficit (Neuro) Extrem: General: Yes normal to inspection and Yes no pedal edema Psych: Appearance: grossly normal Affect: normal affect Medical Decision Making MDM Narrative Medical decision making narrative: Patient with history of COPD, still smoking as a week ago, complained of worsened shortness of breath, productive cough, wheezing. Chest x-ray was negative except for COPD and a left lung nodule previously documented. Patient was treated with prednisone, a DuoNeb, and 5 mg albuterol neb, and had improvement in symptoms. Upon re-evaluation at approximately 20:45, patient felt much better, felt comfortable going home. Patient still had mild expiratory wheezing but improved air movement overall. Imaging Data Chest x-ray: Radiologist's impression: [address] [id number] XRay Report Signed Patient: Jin Jackson MR#: [id number] : 1950 Acct:[id number] Age/Sex: 70 / M ADM Date: 04/11/21 Loc: HO.ED Attending Dr: Ordering Physician: Simeon Macdonald MD Date of Service: 04/11/21 Procedure(s): XR chest 2V Accession Number(s): [id number] cc: Simeon Macdonald MD~ EXAMINATION: XR CHEST CLINICAL INFORMATION: Wheezing COMPARISON: Chest radiograph 12/19/[address] angiogram chest 12/19/2020 TECHNIQUE: 2 views of the chest were obtained. FINDINGS: Again seen are marked emphysematous changes with hyperinflation. The heart size is normal. No infiltrates, pleural effusions or lung masses are seen. No pneumothorax. The previously seen left 1.2 cm upper lobe lung nodule appears to have increased in size to about 1.9 cm. However, comparison between modalities may not be accurate. XR/XR chest 2V IMPRESSION: 1.? No acute intrathoracic disease. 2.? Underlying severe COPD 3.? Left upper lobe nodule has increased in size from 1.2 to 1.9 cm (see above) Discharge Plan Discharge Clinical Impression: COPD with acute exacerbation Patient Disposition: Home, Self-Care Instructions: COPD (Chronic Obstructive Pulmonary Disease) (ED) Additional Instructions: Continue using her albuterol nebulizer and other inhalers at as usual. Start the prednisone taper as prescribed. Take the doxycycline as prescribed. Follow-up with primary care physician. Quit smoking. Return for any new or worsened symptoms. Prescriptions: New doxycycline hyclate 100 mg capsule 100 mg PO BID 10 Days Qty: 20 RF: 0 prednisone 10 mg tablets,dose pack 10 mg PO DAILY Qty: 26 RF: 0 No Action atorvastatin 40 mg tablet 40 mg PO DAILY RF: 0 acetaminophen 325 mg tablet 650 mg PO DAILY PRN (Reason: Pain) RF: 0 albuterol sulfate 2.5 mg /3 mL (0.083 %) solution for nebulization 2.5 mg inhalation TID PRN (Reason: Dyspnea) RF: 0 aspirin 81 mg tablet,delayed release (DR/EC) 81 mg PO DAILY RF: 0 quetiapine 100 mg tablet 100 mg PO BID RF: 0 lorazepam 0.5 mg tablet 0.5 mg PO Q6-8H PRN (Reason: Anxiety) RF: 0 tamsulosin 0.4 mg capsule 0.4 mg PO DAILY RF: 0 albuterol sulfate 90 mcg/actuation HFA aerosol inhaler 2 puff inhalation Q4-6H PRN (Reason: Dyspnea) RF: 0 Spiriva with HandiHaler 18 mcg capsule, w/inhalation device 1 cap inhalation DAILY RF: 0 quetiapine 50 mg tablet 50 mg PO BID RF: 0 Breo Ellipta 200-25 mcg/dose blister with device 1 inh inhalation BID RF: 0 quetiapine 50 mg tablet 50 mg PO Q4-5H PRN (Reason: Anxiety) RF: 0 quetiapine 100 mg tablet 100 mg PO BEDTIME RF: 0 quetiapine 400 mg tablet 1 tab PO BEDTIME RF: 0 prednisone 20 mg tablet 40 mg PO DAILY Qty: 10 RF: 0 cephalexin [Keflex] 500 mg capsule 500 mg PO Q6H 7 Days Qty: 28 RF: 0 doxycycline hyclate 100 mg tablet 100 mg PO BID 7 Days Qty: 14 RF: 0 losartan 50 mg tablet 50 mg PO DAILY Qty: 30 RF: 0
[2021-04-11] MEDS: predniSONE 20 MG TABLET 40 MG PO (19:41)
[2021-04-11] MEDS: Albuterol Sulfate (0.083%) 2.5 MG/3 ML VIAL.NEB 5 MG INHALE (20:14)
[2021-04-11] MEDS: Albuterol/Iprat 2.5/0.5MG 3 ML AMPUL.NEB INHALE (20:14)
[2021-04-11 20:15] VITALS: PULSE 79; O2SAT 95
[2021-04-11 21:23] VITALS: BP 136/71; PULSE 86; RESP 18; TEMP 36.4; O2SAT 94
== END 2021-04-11 21:37 | disposition home or self-care (01) ==
PROVIDERS: Emergency Provider Emergency Medicine; PCP Internal Medicine
DX: J44.1 Chronic obstructive pulmonary disease with (acute) exacerbation (principal); R06.02 Shortness of breath; I10 Essential (primary) hypertension; F17.210 Nicotine dependence, cigarettes, uncomplicated; Z79.899 Other long term (current) drug therapy
CPT/HCPCS: 71046; 94640; 94644; 99284

== ENCOUNTER 2021-05-01 18:31 | Emergency (ER) | payer MEDICARE, SELFPAY ==
--- NOTE | ~2021-05-01 | XR_ITS ---
EXAMINATION: XR CHEST CLINICAL INFORMATION: SOB COMPARISON: Chest 04/11/2021. TECHNIQUE: Frontal view of the chest was obtained. FINDINGS: There is diffuse emphysematous changes of left upper lobe and left middle lobe. No acute pneumonic consolidation or pleural effusion seen. There is no pneumothorax heart size and pulmonary vascularity is normal. XR/XR chest 1V IMPRESSION: Diffuse emphysema with large bullous changes in the left upper lobe. No acute consolidation or pneumothorax. No major change compared to 04/11/2021.
[2021-05-01 18:42] VITALS: BP 90/65; PULSE 88; RESP 20; TEMP 36.9; O2SAT 97; BMI 25.8
--- NOTE | 2021-05-01 18:50 | ECG_ITS ---
Test Reason : DYSPNEA Blood Pressure : / mmHG Vent. Rate : 085 BPM Atrial Rate : 085 BPM P-R Int : 148 ms QRS Dur : 070 ms QT Int : 354 ms P-R-T Axes : 072 019 053 degrees QTc Int : 421 ms Normal sinus rhythm Normal ECG When compared with ECG of 19-DEC-2020 19:12, No significant change was found Referred By: Tessie Tian Electronically Signed By:KOURTNEY JOSÉ
--- NOTE | 2021-05-01 19:00 | ED_ITS ---
HPI - SOB/Dyspnea General Chief Complaint: Dyspnea Stated Complaint: DIFFICULTY BREATHING Time Seen by Provider: 05/01/21 18:43 Source: patient and EMS Mode of arrival: EMS Limitations: no limitations History of Present Illness HPI Narrative: Patient comes to the emergency room complaining of shortness of breath and chest tightness. Patient states the chest tightness started around 730 in the morning. Patient complaining of shortness of breath, patient known to have COPD. Patient had a nebulization treatment prior to arrival, EMS gave him Solu-Medrol. At this time, patient states the discomfort is mild, patient still feels short of breath and has chest tightness. Related Data Home Medications Medication Instructions Recorded Confirmed acetaminophen 325 mg tablet 650 mg PO DAILY PRN 09/26/20 09/26/20 albuterol sulfate 2.5 mg INHALATION TID PRN 09/26/20 09/26/20 albuterol sulfate 90 mcg/actuation 2 puff INHALATION Q4-6H PRN 09/26/20 09/26/20 aerosol inhaler aspirin 81 mg tablet,delayed 81 mg PO DAILY 09/26/20 09/26/20 release atorvastatin 40 mg tablet 40 mg PO DAILY 09/26/20 09/26/20 fluticasone furoate 200 1 inh INHALATION BID 09/26/20 09/26/20 mcg-vilanterol 25 mcg/dose inhalation powder (Breo Ellipta) lorazepam 0.5 mg tablet 0.5 mg PO Q6-8H PRN 09/26/20 09/26/20 quetiapine 100 mg tablet 100 mg PO BEDTIME 09/26/20 09/26/20 quetiapine 100 mg tablet 100 mg PO BID 09/26/20 09/26/20 quetiapine 400 mg tablet 1 tab PO BEDTIME 09/26/20 09/26/20 quetiapine 50 mg tablet 50 mg PO BID 09/26/20 09/26/20 quetiapine 50 mg tablet 50 mg PO Q4-5H PRN 09/26/20 09/26/20 tamsulosin 0.4 mg capsule 0.4 mg PO DAILY 09/26/20 09/26/20 tiotropium bromide 18 mcg capsule 1 cap INHALATION DAILY 09/26/20 09/26/20 with inhalation device (Spiriva with HandiHaler) Previous Rx's Medication Instructions Recorded prednisone 20 mg tablet 40 mg PO DAILY #10 tab 01/22/21 cephalexin 500 mg capsule (Keflex) 500 mg PO Q6H 7 Days #28 cap 10/01/20 doxycycline hyclate 100 mg tablet 100 mg PO BID 7 Days #14 tab 10/01/20 losartan 50 mg tablet 50 mg PO DAILY #30 tab 12/20/20 doxycycline hyclate 100 mg capsule 100 mg PO BID 10 Days #20 cap 04/11/21 prednisone 10 mg tablets in a dose 10 mg PO DAILY #26 ea 04/11/21 pack azithromycin 250 mg tablet 250 mg PO DAILY 4 Days #4 tab 05/01/21 prednisone 50 mg tablet 50 mg PO DAILY #4 tab 05/01/21 Allergies Allergy/AdvReac Type Severity Reaction Status Date / Time codeine [CODEINE] Allergy Intermediate HIVES Verified 12/19/20 16:08 Review of Systems Review of Systems: Constitutional : No Weight loss, No Fever, No Chills, No Night Sweats, No Fatigue, No Malaise ENT/Mouth : No Hearing loss, No Ear Pain, No Nasal Congestion, No Sinus Pain, No Hoarseness, No sore throat, No Rhinorrhea, No Swallowing Difficulty Eyes: No Eye Pain, No Swelling, No Redness, No Foreign Body, No Discharge, No Vision Changes Cardiovascular : No Chest Pain, complaining of chest tightness, No SOB, No Dyspnea on Exertion, No Orthopnea, No Edema, No Palpitations Respiratory : Chronic dry Cough, No Sputum, complaining of chronic Wheezing, No Smoke Exposure, chronic Dyspnea Gastrointestinal : No Nausea, No Vomiting, No Diarrhea, No Constipation, No abdominal Pain, No Hematochezia, No Melena Genitourinary : no irregular bleeding, No Dysuria, No Urinary Frequency, No Hematuria, No Urinary Incontinence, No Urgency, No Flank Pain, No Urinary Flow Changes, No Hesitancy Musculoskeletal : No joint pain, No Myalgias, No Joint Swelling Skin : No Skin Lesions, No rash Neuro : No Weakness, No Numbness, No Paresthesias, No Loss of Consciousness, No Dizziness, No Headache Psych : No Anxiety/Panic, No Depression, No SI/HI/AH/VH, No Social Issues, Heme/Lymph: No Bruising, No Bleeding,No Lymphadenopathy Endocrine : No Polyuria, No Polydipsia, No Temperature Intolerance PMFSH Past Medical History Medical History Anxiety COPD (chronic obstructive pulmonary disease) Emphysema of lung Hepatitis C Hyperlipidemia Schizoaffective disorder, bipolar type Schizophrenia Social History Social History Household Members: Other Housing: Other Housing Other:: Respite since April Do you presently have visiting nurse or other home services: Yes Alcohol intake: former Cigarette Packs Per Day: 2 Cigarettes Per Day: 40.0 Years Smoked: 55 Second Hand Smoke Exposure: Yes Advance Directives: No Advance Directives Information Provided: Yes service: No Current occupational status: unemployed Physical Exam Vital Signs: Vital Signs: Last Vital Signs Temp 98.5 F 05/01/21 18:42 Pulse 86 05/01/21 19:14 Resp 20 05/01/21 18:42 BP 90/65 05/01/21 18:42 Pulse Ox 97 05/01/21 18:42 Body Mass Index 25.8 Const: Other: Appearance: Alert. Oriented X3. No acute distress. Eyes: Pupils equal, round and reactive to light. ENT: Pharynx normal. Neck: Normal inspection. Neck supple. No lymph nodes noted. No crepitus CVS: Normal heart rate and rhythm. Pulses normal. Normal S1 and S2 Respiratory: No respiratory distress. Diminished breath sounds bilaterally, diffuse wheezing Abdomen: Soft and nontender. No rigidity. No distention. Skin: Skin warm and dry. Normal skin color. Normal skin turgor. Extremities: No lower extremity edema. No lower extremity edema. No Lacerations. No Rash Neuro: Oriented X 3. No motor deficit. No sensory deficit. Moving all extermities. No slurred speech. Course Course Course Narrative: Patient received 1 neb treatment here in the emergency room. Patient states that he feels much better. Oxygen saturation 97% on room air. MDM - SOB/Dyspnea Lab Data Result diagrams: 05/01/21 19:02 05/01/21 19:02 Labs: Lab Results 05/01/21 05/01/21 05/01/21 Range/Units 19:02 19:02 19:02 WBC 5.7 (4.8-10.8) X10*3/uL RBC 4.55 L (4.60-5.80) X10*6/uL Hgb 14.9 (14.0-18.0) g/dl Hct 44.3 (42-52) % MCV 97.4 (80-98) fL MCH 32.7 (27.0-33.0) pg MCHC 33.6 (31.0-36.0) g/dl RDW 12.7 (11.0-16.0) % Plt Count 179 (160-400) X10*3/uL MPV 9.1 L (9.4-12.4) fL Immature Gran % (Auto) 0.2 (0.0-0.4) % Neut % (Auto) 64.7 (45-73) % Lymph % (Auto) 22.6 (20-40) % [place] % (Auto) 7.6 (2-11) % Eos % (Auto) 4.4 H (0-4) % Baso % (Auto) 0.5 (0-2) % Lymph # (Auto) 1.3 (1.2-4.9) X10*3/uL [place] # (Auto) 0.4 (0.1-1.2) X10*3/uL Eos # (Auto) 0.3 (0.0-0.4) X10*3/uL Baso # (Auto) 0.0 (0.0-0.2) X10*3/uL Abs Immat Gran (auto) 0.01 (0.00-0.03) X10*3/uL Absolute Neuts (auto) 3.7 (2.0-8.3) X10*3/uL Absolute Nucleated RBC 0.000 (0.0-0.012) X10*3/uL Nucleated RBC % (auto) 0.0 (0.0-0.2) /100WBC Sodium 143 (135-145) mmol/L Potassium 3.8 (3.3-5.1) mmol/L Chloride 108 (96-108) mmol/L Carbon Dioxide 23 (22-29) mmol/L Anion Gap 16 (12-20) BUN 5 L (9-16) mg/dL Creatinine 0.84 (0.5-1.4) mg/dL Estim Creat Clear Calc 80.2 Estimated GFR > 60 Random Glucose 90 (60-115) mg/dL Lactic Acid 1.2 (0.5-2.0) mmol/L Calcium 9.1 (8.4-10.2) mg/dL Total Bilirubin 1.0 (0.0-1.0) mg/dL Direct Bilirubin 0.4 (0.0-0.5) mg/dL AST 14 (5-37) U/L ALT 15 (0-40) U/L Alkaline Phosphatase 120 H (39-117) U/L Troponin I High Sens (<3.5-35.0) ng/L B-Natriuretic Peptide (<100) pg/mL Total Protein 6.9 (6.5-8.0) g/dL Albumin 4.4 (3.5-5.0) g/dL COVID-19 (RASHEED) (Negative) COVID-19 Clin Com 05/01/21 05/01/21 Range/Units 19:02 19:36 WBC (4.8-10.8) X10*3/uL RBC (4.60-5.80) X10*6/uL Hgb (14.0-18.0) g/dl Hct (42-52) % MCV (80-98) fL MCH (27.0-33.0) pg MCHC (31.0-36.0) g/dl RDW (11.0-16.0) % Plt Count (160-400) X10*3/uL MPV (9.4-12.4) fL Immature Gran % (Auto) (0.0-0.4) % Neut % (Auto) (45-73) % Lymph % (Auto) (20-40) % [place] % (Auto) (2-11) % Eos % (Auto) (0-4) % Baso % (Auto) (0-2) % Lymph # (Auto) (1.2-4.9) X10*3/uL [place] # (Auto) (0.1-1.2) X10*3/uL Eos # (Auto) (0.0-0.4) X10*3/uL Baso # (Auto) (0.0-0.2) X10*3/uL Abs Immat Gran (auto) (0.00-0.03) X10*3/uL Absolute Neuts (auto) (2.0-8.3) X10*3/uL Absolute Nucleated RBC (0.0-0.012) X10*3/uL Nucleated RBC % (auto) (0.0-0.2) /100WBC Sodium (135-145) mmol/L Potassium (3.3-5.1) mmol/L Chloride (96-108) mmol/L Carbon Dioxide (22-29) mmol/L Anion Gap (12-20) BUN (9-16) mg/dL Creatinine (0.5-1.4) mg/dL Estim Creat Clear Calc Estimated GFR Random Glucose (60-115) mg/dL Lactic Acid (0.5-2.0) mmol/L Calcium (8.4-10.2) mg/dL Total Bilirubin (0.0-1.0) mg/dL Direct Bilirubin (0.0-0.5) mg/dL AST (5-37) U/L ALT (0-40) U/L Alkaline Phosphatase (39-117) U/L Troponin I High Sens 3.8 (<3.5-35.0) ng/L B-Natriuretic Peptide 13 (<100) pg/mL Total Protein (6.5-8.0) g/dL Albumin (3.5-5.0) g/dL COVID-19 (RASHEED) Negative (Negative) COVID-19 Clin Com See Note Imaging Data Chest x-ray: Radiologist's impression: FINDINGS: There is diffuse emphysematous changes of left upper lobe and left middle lobe. No acute pneumonic consolidation or pleural effusion seen. There is no pneumothorax heart size and pulmonary vascularity is normal. XR/XR chest 1V IMPRESSION: Diffuse emphysema with large bullous changes in the left upper lobe. No acute consolidation or pneumothorax. No major change compared to 04/11/2021. ECG Data Attestation: I personally reviewed and interpreted this ECG as follows: (Sinus rhythm, heart rate 85, a portion or the vision, no T-wave inversion, QTC 421) Discharge Plan Discharge Clinical Impression: Emphysema of lung Patient Disposition: Home, Self-Care Instructions: Emphysema (ED) Additional Instructions: Please follow-up with your primary care physician tomorrow. If you have any worsening or new symptoms, please return to the emergency room or call 911 Prescriptions: New azithromycin 250 mg tablet 250 mg PO DAILY 4 Days Qty: 4 RF: 0 prednisone 50 mg tablet 50 mg PO DAILY Qty: 4 RF: 0 No Action atorvastatin 40 mg tablet 40 mg PO DAILY RF: 0 acetaminophen 325 mg tablet 650 mg PO DAILY PRN (Reason: Pain) RF: 0 albuterol sulfate 2.5 mg /3 mL (0.083 %) solution for nebulization 2.5 mg inhalation TID PRN (Reason: Dyspnea) RF: 0 aspirin 81 mg tablet,delayed release (DR/EC) 81 mg PO DAILY RF: 0 quetiapine 100 mg tablet 100 mg PO BID RF: 0 lorazepam 0.5 mg tablet 0.5 mg PO Q6-8H PRN (Reason: Anxiety) RF: 0 tamsulosin 0.4 mg capsule 0.4 mg PO DAILY RF: 0 albuterol sulfate 90 mcg/actuation HFA aerosol inhaler 2 puff inhalation Q4-6H PRN (Reason: Dyspnea) RF: 0 Spiriva with HandiHaler 18 mcg capsule, w/inhalation device 1 cap inhalation DAILY RF: 0 quetiapine 50 mg tablet 50 mg PO BID RF: 0 Breo Ellipta 200-25 mcg/dose blister with device 1 inh inhalation BID RF: 0 quetiapine 50 mg tablet 50 mg PO Q4-5H PRN (Reason: Anxiety) RF: 0 quetiapine 100 mg tablet 100 mg PO BEDTIME RF: 0 quetiapine 400 mg tablet 1 tab PO BEDTIME RF: 0 prednisone 20 mg tablet 40 mg PO DAILY Qty: 10 RF: 0 cephalexin [Keflex] 500 mg capsule 500 mg PO Q6H 7 Days Qty: 28 RF: 0 doxycycline hyclate 100 mg tablet 100 mg PO BID 7 Days Qty: 14 RF: 0 losartan 50 mg tablet 50 mg PO DAILY Qty: 30 RF: 0 doxycycline hyclate 100 mg capsule 100 mg PO BID 10 Days Qty: 20 RF: 0 prednisone 10 mg tablets,dose pack 10 mg PO DAILY Qty: 26 RF: 0
[2021-05-01 19:08] LABS: MANUAL DIFF FLAG NO
[2021-05-01 19:09] LABS: Basophils Percent Auto 0.5 % (0-2); Eosinophils Absolute Auto 0.3 X10*3/uL (0.0-0.4); Eosinophils Percent Auto 4.4 % (0-4); Hematocrit 44.3 % (42-52); Hemoglobin 14.9 g/dl (14.0-18.0); Imm Gran Abs Auto 0.01 X10*3/uL (0.00-0.03); Imm Gran Pct Auto 0.2 % (0.0-0.4); Lymphocytes Absolute Auto 1.3 X10*3/uL (1.2-4.9); Lymphocytes Percent Auto 22.6 % (20-40); Mean Corpuscular HGB Conc 33.6 g/dl (31.0-36.0); Mean Corpuscular Hemoglobin 32.7 pg (27.0-33.0); Mean Corpuscular Volume 97.4 fL (80-98); Mean Platelet Volume 9.1 fL (9.4-12.4); Monocytes Absolute Auto 0.4 X10*3/uL (0.1-1.2); Monocytes Percent Auto 7.6 % (2-11); Neutrophils Absolute Auto 3.7 X10*3/uL (2.0-8.3); Neutrophils Percent Auto 64.7 % (45-73); Platelet Count 179 X10*3/uL (160-400); Red Blood Count 4.55 X10*6/uL (4.60-5.80); Red Cell Distribution Width 12.7 % (11.0-16.0); White Blood Count 5.7 X10*3/uL (4.8-10.8)
[2021-05-01] MEDS: Albuterol Sulfate (0.083%) 2.5 MG/3 ML VIAL.NEB 10 MG INHALE (19:13)
[2021-05-01 19:14] VITALS: PULSE 86; O2SAT 95
[2021-05-01 19:27] LABS: Lactic Acid 1.2 mmol/L (0.5-2.0)
[2021-05-01 19:31] LABS: Alanine Aminotransferase 15 U/L (0-40); Albumin Level 4.4 g/dL (3.5-5.0); Alkaline Phosphatase 120 U/L (39-117); Anion Gap 16 (12-20); Aspartate Amino Transferase 14 U/L (5-37); Bilirubin Direct 0.4 mg/dL (0.0-0.5); Blood Urea Nitrogen 5 mg/dL (9-16); Calcium 9.1 mg/dL (8.4-10.2); Carbon Dioxide 23 mmol/L (22-29); Chloride 108 mmol/L (96-108); Creatinine Clr Calc Pharmacy 80.2; Estimated Glomerular Filt Rate > 60; Glucose Random 90 mg/dL (60-115); Potassium 3.8 mmol/L (3.3-5.1); Sodium 143 mmol/L (135-145); Total Protein 6.9 g/dL (6.5-8.0)
[2021-05-01 19:38] LABS: B Type Natriuretic Peptide 13 pg/mL (<100); Troponin-I High Sensitivity 3.8 ng/L (<3.5-35.0)
[2021-05-01 19:57] LABS: COVID-19 Test Negative (Negative)
[2021-05-01] MEDS: Azithromycin 500 MG TABLET PO (20:49)
== END 2021-05-01 22:06 | disposition home or self-care (01) ==
PROVIDERS: Emergency Provider Emergency Medicine
DX: J43.9 Emphysema, unspecified (principal); R06.02 Shortness of breath; Z20.822 Contact with and (suspected) exposure to COVID-19; I10 Essential (primary) hypertension; E78.5 Hyperlipidemia, unspecified; Z79.02 Long term (current) use of antithrombotics/antiplatelets; Z79.82 Long term (current) use of aspirin; Z79.899 Other long term (current) drug therapy; Z78.9 Other specified health status
CPT/HCPCS: 36415; 71045; 80048; 80076; 83605; 83880; 84484; 85025; 87040; 87635; 93005; 94640; 94644; 99283; 99284

== ENCOUNTER 2021-05-23 22:18 | Inpatient (IN) | payer MEDICARE, SELFPAY ==
--- NOTE | ~2021-05-23 | XR_ITS ---
EXAMINATION: XR CHEST CLINICAL INFORMATION: COPD COMPARISON: Chest x-ray May 01, 2021. CT chest December 19, 2020 TECHNIQUE: Frontal view of the chest was obtained. 10:41 PM FINDINGS: Emphysematous change of lungs with hyperlucency most notable at the lung apices. A 8mm nodule in the left upper lobe seen on CT chest December 19, 2020 is not apparent on plain film. No acute airspace disease. No pleural effusion or pneumothorax. The heart size is normal. The cardiac and mediastinal contours are normal. There are calcifications of thoracic aorta. XR/XR chest 1V IMPRESSION: No acute abnormality of chest.
[2021-05-23 22:26] VITALS: BP 130/60; PULSE 97; O2SAT 97
[2021-05-23 22:39] VITALS: BP 135/76; PULSE 98; RESP 26; TEMP 36.6; O2SAT 97; BMI 25.7
--- NOTE | 2021-05-23 22:47 | ED_ITS ---
HPI - General Adult General Chief complaint: Psychiatric Symptoms Stated complaint: SI Time Seen by Provider: 05/23/21 22:26 Source: patient and EMS Limitations: no limitations History of Present Illness HPI narrative: Patient brought in for depression with suicide attempt of laceration to left forearm, multiple. Patient is a complicated medical and psychosocial history in that he has been hospitalized multiple times for COPD with continued tobacco use. He states he is currently living in a correction and all of his medications ran out recently. For unclear reasons. He has not had Seroquel, albuterol, Ativan, clonidine or other medications for almost a week. He states he has been feeling short of breath. He has been very anxious. He cut his left forearm multiple times in attempt hurt himself. He states he still feels like harming himself. Positive cough which is baseline. Shortness of breath is worse than baseline. Anxiety is worse than baseline. No chest pain. Related Data Previous Rx's Medication Instructions Recorded acetaminophen 325 mg tablet 650 mg PO BID PRN #60 tab 05/30/21 albuterol sulfate 2.5 mg INHALATION TID PRN #25 units 05/30/21 albuterol sulfate 90 mcg/actuation 2 puff INHALATION BID #8.5 g 05/30/21 aerosol inhaler (Ventolin HFA) aspirin 81 mg tablet,delayed 1 tab PO DAILY #30 tab 05/30/21 release aspirin 81 mg tablet,delayed 81 mg PO DAILY #30 tab 05/30/21 release atorvastatin 40 mg tablet 1 tab PO BEDTIME #30 tab 05/30/21 docusate sodium 100 mg capsule 1 cap PO BID #60 cap 05/30/21 famotidine 20 mg tablet 1 tab PO BID #60 tab 05/30/21 lorazepam 0.5 mg tablet 0.5 mg PO TID PRN 30 Days #90 tab 05/30/21 losartan 100 mg tablet 1 tab PO DAILY #30 tab 05/30/21 nicotine (polacrilex) 2 mg gum 4 mg BUCCAL Q2H PRN #60 ea 05/30/21 quetiapine 100 mg tablet 100 mg PO TID PRN #90 tab 05/30/21 quetiapine 400 mg tablet 400 mg PO BEDTIME #30 tab 05/30/21 tamsulosin 0.4 mg capsule 2 cap PO DAILY 30 Days #120 cap 05/30/21 tiotropium bromide 1.25 2 puff INHALATION DAILY #6 g 05/30/21 mcg/actuation mist for inhalation (Spiriva Respimat) Allergies Allergy/AdvReac Type Severity Reaction Status Date / Time codeine [CODEINE] Allergy Intermediate HIVES Verified 12/19/20 16:08 Review of Systems Constitutional: Constitutional: Denies fever(s) Cardiovascular: Cardiovascular: Denies chest pain and Reports dyspnea Respiratory: Respiratory: Reports cough, Reports dyspnea and Reports wheezing Gastrointestinal: Gastrointestinal: Reports no additional gastrointestinal complaints and Denies vomiting Musculoskeletal: Comments: Pain left forearm Integumentary/Breasts: Comments: Multiple lacerations left forearm Neurologic: Comments: No neurologic complaints Psychiatric: Comments: Depression and anxiety with suicidal ideation Allergic/Immunologic: Allergic/Immunologic: Reports wheezing PMFSH Past Medical History Medical History (Updated 06/02/21 @ 15:57 by Dorian Hutson MD) Anxiety BPH (benign prostatic hyperplasia) COPD (chronic obstructive pulmonary disease) Emphysema of lung Hepatitis C Hyperlipidemia Left tibial fracture Schizoaffective disorder, bipolar type Schizophrenia Social History Social History Household Members: Other Household Members Other:: [facility] Housing: House Housing Other:: Respite since April Do you presently have visiting nurse or other home services: No Alcohol intake: former Patient Tobacco Use Status: Current someday Tobacco user Tobacco use type: Cigarette Cigarette Packs Per Day: 1 Cigarettes Per Day: 20.0 Years Smoked: 58 e-Cigarette/Vaping Use: Currently Using Second Hand Smoke Exposure: Yes service: No Current occupational status: unemployed Sexual orientation: Straight/Heterosexual Physical Exam Vital Signs: Vital Signs: Last Vital Signs Temp 97.6 F 05/30/21 09:07 Pulse 92 05/30/21 09:07 Resp 16 05/30/21 09:07 BP 128/63 05/30/21 09:07 Pulse Ox 96 05/30/21 09:07 Body Mass Index 25.7 Const: Other: Awake and alert. Cachectic. Anxious Resp: Other: Bilateral inspiratory and expiratory wheezing Cardio: Other: Regular rate and rhythm GI: Other: Nontender Skin: Other: Multiple linear superficial lacerations to his left forearm. No active bleeding. No full-thickness cut Neuro: Other: Neurologically intact Extrem: Other: Left arm with lacerations as mentioned. Circulation sensation and motor is intact Course Course Course Narrative: Depression, anxiety, suicidal ideation Multiple lacerations left forearm, superficial, no sutures necessary. COPD exacerbation Benzodiazepine withdrawal Hypertension clonidine withdrawal 10:52 p.m.. Treated in the emergency department with prednisone and albuterol. Ativan Clonidine Medical Decision Making Lab Data Result diagrams: 05/23/21 23:55 05/23/21 23:55 Labs: Lab Results 05/23/21 05/23/21 05/23/21 Range/Units 23:55 23:55 23:55 WBC 8.5 (4.8-10.8) X10*3/uL RBC 4.35 L (4.60-5.80) X10*6/uL Hgb 14.5 (14.0-18.0) g/dl Hct 42.5 (42-52) % MCV 97.7 (80-98) fL MCH 33.3 H (27.0-33.0) pg MCHC 34.1 (31.0-36.0) g/dl RDW 12.2 (11.0-16.0) % Plt Count 158 L (160-400) X10*3/uL MPV 9.2 L (9.4-12.4) fL Immature Gran % (Auto) 0.4 (0.0-0.4) % Neut % (Auto) 78.9 H (45-73) % Lymph % (Auto) 12.9 L (20-40) % [place] % (Auto) 6.3 (2-11) % Eos % (Auto) 1.3 (0-4) % Baso % (Auto) 0.2 (0-2) % Lymph # (Auto) 1.1 L (1.2-4.9) X10*3/uL [place] # (Auto) 0.5 (0.1-1.2) X10*3/uL Eos # (Auto) 0.1 (0.0-0.4) X10*3/uL Baso # (Auto) 0.0 (0.0-0.2) X10*3/uL Abs Immat Gran (auto) 0.03 (0.00-0.03) X10*3/uL Absolute Neuts (auto) 6.7 (2.0-8.3) X10*3/uL Absolute Nucleated RBC 0.000 (0.0-0.012) X10*3/uL Nucleated RBC % (auto) 0.0 (0.0-0.2) /100WBC Sodium 140 (135-145) mmol/L Potassium 3.3 (3.3-5.1) mmol/L Chloride 104 (96-108) mmol/L Carbon Dioxide 25 (22-29) mmol/L Anion Gap 14 (12-20) BUN 6 L (9-16) mg/dL Creatinine 1.31 (0.5-1.4) mg/dL Estim Creat Clear Calc 56.6 Estimated GFR 54 Random Glucose 90 (60-115) mg/dL Calcium 8.5 D (8.4-10.2) mg/dL Total Bilirubin 1.2 H (0.0-1.0) mg/dL AST 13 (5-37) U/L ALT 19 (0-40) U/L Alkaline Phosphatase 95 D (39-117) U/L Total Protein 6.6 (6.5-8.0) g/dL Albumin 4.2 (3.5-5.0) g/dL Urine Color Urine Appearance Urine pH (5.0-8.0) Ur Specific [place] (1.005-1.025) Urine Protein (NEG-TRACE) MG/DL Urine Glucose (UA) (NEG) MG/DL Urine Ketones (NEG) MG/DL Urine Blood (NEG) Urine Nitrite (NEG) Ur Leukocyte Esterase (NEG) Urine RBC (0) /HPF Urine WBC (0-4) /HPF Ur Squamous Epith Cells /LPF Urine Bacteria /LPF Salicylates < 5.0 L (15-30) mg/dL Urine Opiates Screen (Not Detect) Urine Fentanyl Screen (Not Detect) Acetaminophen < 1 (<30) mcg/mL Ur Barbiturates Screen (Not Detect) Ur Phencyclidine Scrn (Not Detect) Ur Amphetamines Screen (Not Detect) U Benzodiazepines Scrn (Not Detect) Urine Cocaine Screen (Not Detect) U Marijuana (THC) Screen (Not Detect) Ethyl Alcohol < 10 mg/dL COVID-19 (RASHEED) (Negative) COVID-19 Clin Com 05/23/21 05/24/21 05/24/21 Range/Units 23:58 07:38 07:38 WBC (4.8-10.8) X10*3/uL RBC (4.60-5.80) X10*6/uL Hgb (14.0-18.0) g/dl Hct (42-52) % MCV (80-98) fL MCH (27.0-33.0) pg MCHC (31.0-36.0) g/dl RDW (11.0-16.0) % Plt Count (160-400) X10*3/uL MPV (9.4-12.4) fL Immature Gran % (Auto) (0.0-0.4) % Neut % (Auto) (45-73) % Lymph % (Auto) (20-40) % [place] % (Auto) (2-11) % Eos % (Auto) (0-4) % Baso % (Auto) (0-2) % Lymph # (Auto) (1.2-4.9) X10*3/uL [place] # (Auto) (0.1-1.2) X10*3/uL Eos # (Auto) (0.0-0.4) X10*3/uL Baso # (Auto) (0.0-0.2) X10*3/uL Abs Immat Gran (auto) (0.00-0.03) X10*3/uL Absolute Neuts (auto) (2.0-8.3) X10*3/uL Absolute Nucleated RBC (0.0-0.012) X10*3/uL Nucleated RBC % (auto) (0.0-0.2) /100WBC Sodium (135-145) mmol/L Potassium (3.3-5.1) mmol/L Chloride (96-108) mmol/L Carbon Dioxide (22-29) mmol/L Anion Gap (12-20) BUN (9-16) mg/dL Creatinine (0.5-1.4) mg/dL Estim Creat Clear Calc Estimated GFR Random Glucose (60-115) mg/dL Calcium (8.4-10.2) mg/dL Total Bilirubin (0.0-1.0) mg/dL AST (5-37) U/L ALT (0-40) U/L Alkaline Phosphatase (39-117) U/L Total Protein (6.5-8.0) g/dL Albumin (3.5-5.0) g/dL Urine Color YELLOW Urine Appearance CLEAR Urine pH 6.0 (5.0-8.0) Ur Specific [place] <= 1.005 (1.005-1.025) Urine Protein NEG (NEG-TRACE) MG/DL Urine Glucose (UA) NEG (NEG) MG/DL Urine Ketones NEG (NEG) MG/DL Urine Blood NEG (NEG) Urine Nitrite NEG (NEG) Ur Leukocyte Esterase NEG (NEG) Urine RBC 0-2 (0) /HPF Urine WBC 0-2 (0-4) /HPF Ur Squamous Epith Cells TRACE /LPF Urine Bacteria NONE /LPF Salicylates (15-30) mg/dL Urine Opiates Screen Not Detected (Not Detect) Urine Fentanyl Screen Not Detected (Not Detect) Acetaminophen (<30) mcg/mL Ur Barbiturates Screen Not Detected (Not Detect) Ur Phencyclidine Scrn Not Detected (Not Detect) Ur Amphetamines Screen Not Detected (Not Detect) U Benzodiazepines Scrn Not Detected (Not Detect) Urine Cocaine Screen Not Detected (Not Detect) U Marijuana (THC) Screen Not Detected (Not Detect) Ethyl Alcohol mg/dL COVID-19 (RASHEED) Negative (Negative) COVID-19 Clin Com See Note Discharge Plan Discharge Clinical Impression: Depression, COPD with acute exacerbation Patient Disposition: Admitted As Inpatient
[2021-05-23] MEDS: Albuterol Sulfate 90 MCG 8 GM INHALER 4 PUFF INHALE (23:19)
[2021-05-23 23:29] VITALS: BP 145/64; PULSE 85; RESP 20; TEMP 36.7; O2SAT 99
[2021-05-23 23:30] VITALS: PULSE 88; O2SAT 97
[2021-05-23] MEDS: predniSONE 20 MG TABLET 60 MG PO (23:40)
[2021-05-23] MEDS: QUEtiapine Fumarate 300 MG TABLET PO (23:41)
[2021-05-23] MEDS: LORazepam 1 MG TABLET PO (23:41)
[2021-05-23] MEDS: Bacitracin Oint 14 GM TUBE 1 APPL TOPICAL (23:43)
--- NOTE | 2021-05-24 | ECG_ITS ---
Test Reason : MED CLEARANCE Blood Pressure : / mmHG Vent. Rate : 087 BPM Atrial Rate : 087 BPM P-R Int : 164 ms QRS Dur : 076 ms QT Int : 368 ms P-R-T Axes : 077 028 074 degrees QTc Int : 442 ms Normal sinus rhythm Normal ECG When compared with ECG of 01-MAY-2021 19:36, No significant change was found Referred By: Cezar Lr Electronically Signed By:KOURTNEY JOSÉ
[2021-05-24 00:04] LABS: MANUAL DIFF FLAG NO
[2021-05-24 00:06] LABS: Basophils Percent Auto 0.2 % (0-2); Eosinophils Absolute Auto 0.1 X10*3/uL (0.0-0.4); Eosinophils Percent Auto 1.3 % (0-4); Hematocrit 42.5 % (42-52); Hemoglobin 14.5 g/dl (14.0-18.0); Imm Gran Abs Auto 0.03 X10*3/uL (0.00-0.03); Imm Gran Pct Auto 0.4 % (0.0-0.4); Lymphocytes Absolute Auto 1.1 X10*3/uL (1.2-4.9); Lymphocytes Percent Auto 12.9 % (20-40); Mean Corpuscular HGB Conc 34.1 g/dl (31.0-36.0); Mean Corpuscular Hemoglobin 33.3 pg (27.0-33.0); Mean Corpuscular Volume 97.7 fL (80-98); Mean Platelet Volume 9.2 fL (9.4-12.4); Monocytes Absolute Auto 0.5 X10*3/uL (0.1-1.2); Monocytes Percent Auto 6.3 % (2-11); Neutrophils Absolute Auto 6.7 X10*3/uL (2.0-8.3); Neutrophils Percent Auto 78.9 % (45-73); Platelet Count 158 X10*3/uL (160-400); Red Blood Count 4.35 X10*6/uL (4.60-5.80); Red Cell Distribution Width 12.2 % (11.0-16.0); White Blood Count 8.5 X10*3/uL (4.8-10.8)
[2021-05-24 00:21] LABS: COVID-19 Test Negative (Negative); IDNOW Serial# 9DD0AD1C
[2021-05-24 00:23] LABS: Ethanol < 10 mg/dL
[2021-05-24 00:26] LABS: Acetaminophen LAB < 1 mcg/mL (<30); Alanine Aminotransferase 19 U/L (0-40); Albumin Level 4.2 g/dL (3.5-5.0); Alkaline Phosphatase 95 U/L (39-117); Anion Gap 14 (12-20); Aspartate Amino Transferase 13 U/L (5-37); Bilirubin Total 1.2 mg/dL (0.0-1.0); Blood Urea Nitrogen 6 mg/dL (9-16); Calcium 8.5 mg/dL (8.4-10.2); Carbon Dioxide 25 mmol/L (22-29); Chloride 104 mmol/L (96-108); Creatinine Clr Calc Pharmacy 56.6; Estimated Glomerular Filt Rate 54; Glucose Random 90 mg/dL (60-115); Potassium 3.3 mmol/L (3.3-5.1); Salicylate < 5.0 mg/dL (15-30); Sodium 140 mmol/L (135-145); Total Protein 6.6 g/dL (6.5-8.0)
--- NOTE | 2021-05-24 06:18 | PC.NURSE ---
Patient slept through the night, no distress observed/reported, behavior appropriate, VSS, medication compliant, pending DANIEL patient was unable to provide us urine sample yet, BHN referred/confirmed, pending evaluation in the morning, will continue to monitor.
--- NOTE | 2021-05-24 07:08 | PC.NURSE ---
patient appears to remain asleep at present with even respirations, patient appears in no distress
[2021-05-24 07:49] LABS: Appearance Urine CLEAR; Color Urine YELLOW; Glucose Urine UA NEG (NEG); Leukocyte Esterase Urine NEG (NEG); Nitrite Urine NEG (NEG); Specific Gravity - Urine <= 1.005 (1.005-1.025); Urine Blood NEG (NEG); Urine Ketones NEG (NEG); Urine Protein NEG (NEG-TRACE)
[2021-05-24 08:00] LABS: RBC Urine 0-2 /HPF (0); Squamous Epithelial Cell Urine TRACE /LPF; WBC Urine 0-2 /HPF (0-4)
[2021-05-24 08:35] LABS: Amphetamine Screen Urine Not Detected (Not Detect); Barbiturates, Urine Not Detected (Not Detect); Benzodiazepines Screen Urine Not Detected (Not Detect); Cannabinoid Screen Urine Not Detected (Not Detect); Cocaine Screen Urine Not Detected (Not Detect); Fentanyl, urine Not Detected (Not Detect); Opiate Screen Urine Not Detected (Not Detect); Phencyclidine Screen Urine Not Detected (Not Detect)
[2021-05-24] MEDS: Aspirin Enteric Coated 81 MG TABLET.DR PO (08:43)
[2021-05-24] MEDS: QUEtiapine Fumarate 50 MG TABLET PO ×2 (08:43→16:12)
[2021-05-24] MEDS: Docusate Sodium 100 MG CAPSULE PO ×2 (08:43→20:39)
[2021-05-24 08:44] VITALS: BP 145/64; PULSE 88
[2021-05-24] MEDS: Losartan Potassium 50 MG TABLET 100 MG PO (08:44)
[2021-05-24] MEDS: Tamsulosin HCL 0.4 MG CAPSULE 0.8 MG PO (08:44)
[2021-05-24] MEDS: Famotidine 20 MG TABLET PO ×2 (08:44→20:38)
[2021-05-24] MEDS: Albuterol Sulfate 90 MCG 8 GM INHALER 2 PUFF INHALE ×2 (08:45→20:37)
--- NOTE | 2021-05-24 09:35 | MHC.CARE ---
Patient evaluated by CARE Team to need inpatient psychiatric care, written assessment to follow. Has been accepted to [facility] for admission today. Providers updated.
[2021-05-24 09:53] VITALS: BP 138/63; PULSE 92; TEMP 36.7; O2SAT 96
--- NOTE | 2021-05-24 09:53 | ED.PSYCH ---
HPI - Psych General Chief Complaint: Psychiatric Symptoms Stated Complaint: SI Time Seen by Provider: 05/23/21 22:26 Source: patient and EMS Related Data Home Medications Medication Instructions Recorded Confirmed aspirin 81 mg tablet,delayed 81 mg PO DAILY 09/26/20 05/24/21 release acetaminophen 325 mg tablet 650 mg PO NEEDED PRN 05/24/21 05/24/21 albuterol sulfate 2.5 mg INHALATION TID PRN 05/24/21 05/24/21 albuterol sulfate 90 mcg/actuation 2 puff INHALATION BID 05/24/21 05/24/21 aerosol inhaler (Ventolin HFA) aspirin 81 mg tablet,delayed 1 tab PO DAILY 05/24/21 05/24/21 release atorvastatin 40 mg tablet 1 tab PO BEDTIME 05/24/21 05/24/21 docusate sodium 100 mg capsule 1 cap PO BID 05/24/21 05/24/21 famotidine 20 mg tablet 1 tab PO BID 05/24/21 05/24/21 lorazepam 0.5 mg tablet 1 tab PO TID PRN 05/24/21 05/24/21 losartan 100 mg tablet 1 tab PO DAILY 05/24/21 05/24/21 quetiapine 200 mg tablet 200 mg PO BEDTIME 05/24/21 05/24/21 quetiapine 50 mg tablet 50 mg PO BID 05/24/21 05/24/21 tamsulosin 0.4 mg capsule 2 cap PO DAILY 05/24/21 05/24/21 tiotropium bromide 1.25 2 puff INHALATION DAILY 05/24/21 05/24/21 mcg/actuation mist for inhalation (Spiriva Respimat) Allergies Allergy/AdvReac Type Severity Reaction Status Date / Time codeine [CODEINE] Allergy Intermediate HIVES Verified 12/19/20 16:08 [facility] Past Medical History Medical History Anxiety COPD (chronic obstructive pulmonary disease) Emphysema of lung Hepatitis C Hyperlipidemia Schizoaffective disorder, bipolar type Schizophrenia Social History Social History Household Members: Other Housing: Other Housing Other:: Respite since April Do you presently have visiting nurse or other home services: Yes Alcohol intake: former Cigarette Packs Per Day: 2 Cigarettes Per Day: 40.0 Years Smoked: 55 Second Hand Smoke Exposure: Yes Advance Directives: No Advance Directives Information Provided: No service: No Current occupational status: unemployed Physical Exam Vital Signs: Vital Signs: Last Vital Signs Temp 98.0 F 05/23/21 23:29 Pulse 88 05/24/21 08:44 Resp 20 05/23/21 23:29 BP 145/64 H 05/24/21 08:44 Pulse Ox 99 05/23/21 23:29 Body Mass Index 25.7 Course Course Course Narrative: Patient seen by Dr. Hutson yesterday. Physician observation continued. Patient vital signs are stable. Patient awaiting Care Team Evaluation. MDM - Psych Lab Data Result diagrams: 05/23/21 23:55 05/23/21 23:55 Labs: Lab Results 05/23/21 05/23/21 05/23/21 Range/Units 23:55 23:55 23:55 WBC 8.5 (4.8-10.8) X10*3/uL RBC 4.35 L (4.60-5.80) X10*6/uL Hgb 14.5 (14.0-18.0) g/dl Hct 42.5 (42-52) % MCV 97.7 (80-98) fL MCH 33.3 H (27.0-33.0) pg MCHC 34.1 (31.0-36.0) g/dl RDW 12.2 (11.0-16.0) % Plt Count 158 L (160-400) X10*3/uL MPV 9.2 L (9.4-12.4) fL Immature Gran % (Auto) 0.4 (0.0-0.4) % Neut % (Auto) 78.9 H (45-73) % Lymph % (Auto) 12.9 L (20-40) % [place] % (Auto) 6.3 (2-11) % Eos % (Auto) 1.3 (0-4) % Baso % (Auto) 0.2 (0-2) % Lymph # (Auto) 1.1 L (1.2-4.9) X10*3/uL [place] # (Auto) 0.5 (0.1-1.2) X10*3/uL Eos # (Auto) 0.1 (0.0-0.4) X10*3/uL Baso # (Auto) 0.0 (0.0-0.2) X10*3/uL Abs Immat Gran (auto) 0.03 (0.00-0.03) X10*3/uL Absolute Neuts (auto) 6.7 (2.0-8.3) X10*3/uL Absolute Nucleated RBC 0.000 (0.0-0.012) X10*3/uL Nucleated RBC % (auto) 0.0 (0.0-0.2) /100WBC Sodium 140 (135-145) mmol/L Potassium 3.3 (3.3-5.1) mmol/L Chloride 104 (96-108) mmol/L Carbon Dioxide 25 (22-29) mmol/L Anion Gap 14 (12-20) BUN 6 L (9-16) mg/dL Creatinine 1.31 (0.5-1.4) mg/dL Estim Creat Clear Calc 56.6 Estimated GFR 54 Random Glucose 90 (60-115) mg/dL Calcium 8.5 D (8.4-10.2) mg/dL Total Bilirubin 1.2 H (0.0-1.0) mg/dL AST 13 (5-37) U/L ALT 19 (0-40) U/L Alkaline Phosphatase 95 D (39-117) U/L Total Protein 6.6 (6.5-8.0) g/dL Albumin 4.2 (3.5-5.0) g/dL Urine Color Urine Appearance Urine pH (5.0-8.0) Ur Specific [place] (1.005-1.025) Urine Protein (NEG-TRACE) MG/DL Urine Glucose (UA) (NEG) MG/DL Urine Ketones (NEG) MG/DL Urine Blood (NEG) Urine Nitrite (NEG) Ur Leukocyte Esterase (NEG) Urine RBC (0) /HPF Urine WBC (0-4) /HPF Ur Squamous Epith Cells /LPF Urine Bacteria /LPF Salicylates < 5.0 L (15-30) mg/dL Urine Opiates Screen (Not Detect) Urine Fentanyl Screen (Not Detect) Acetaminophen < 1 (<30) mcg/mL Ur Barbiturates Screen (Not Detect) Ur Phencyclidine Scrn (Not Detect) Ur Amphetamines Screen (Not Detect) U Benzodiazepines Scrn (Not Detect) Urine Cocaine Screen (Not Detect) U Marijuana (THC) Screen (Not Detect) Ethyl Alcohol < 10 mg/dL COVID-19 (RASHEED) (Negative) COVID-19 Clin Com 05/23/21 05/24/21 05/24/21 Range/Units 23:58 07:38 07:38 WBC (4.8-10.8) X10*3/uL RBC (4.60-5.80) X10*6/uL Hgb (14.0-18.0) g/dl Hct (42-52) % MCV (80-98) fL MCH (27.0-33.0) pg MCHC (31.0-36.0) g/dl RDW (11.0-16.0) % Plt Count (160-400) X10*3/uL MPV (9.4-12.4) fL Immature Gran % (Auto) (0.0-0.4) % Neut % (Auto) (45-73) % Lymph % (Auto) (20-40) % [place] % (Auto) (2-11) % Eos % (Auto) (0-4) % Baso % (Auto) (0-2) % Lymph # (Auto) (1.2-4.9) X10*3/uL [place] # (Auto) (0.1-1.2) X10*3/uL Eos # (Auto) (0.0-0.4) X10*3/uL Baso # (Auto) (0.0-0.2) X10*3/uL Abs Immat Gran (auto) (0.00-0.03) X10*3/uL Absolute Neuts (auto) (2.0-8.3) X10*3/uL Absolute Nucleated RBC (0.0-0.012) X10*3/uL Nucleated RBC % (auto) (0.0-0.2) /100WBC Sodium (135-145) mmol/L Potassium (3.3-5.1) mmol/L Chloride (96-108) mmol/L Carbon Dioxide (22-29) mmol/L Anion Gap (12-20) BUN (9-16) mg/dL Creatinine (0.5-1.4) mg/dL Estim Creat Clear Calc Estimated GFR Random Glucose (60-115) mg/dL Calcium (8.4-10.2) mg/dL Total Bilirubin (0.0-1.0) mg/dL AST (5-37) U/L ALT (0-40) U/L Alkaline Phosphatase (39-117) U/L Total Protein (6.5-8.0) g/dL Albumin (3.5-5.0) g/dL Urine Color YELLOW Urine Appearance CLEAR Urine pH 6.0 (5.0-8.0) Ur Specific [place] <= 1.005 (1.005-1.025) Urine Protein NEG (NEG-TRACE) MG/DL Urine Glucose (UA) NEG (NEG) MG/DL Urine Ketones NEG (NEG) MG/DL Urine Blood NEG (NEG) Urine Nitrite NEG (NEG) Ur Leukocyte Esterase NEG (NEG) Urine RBC 0-2 (0) /HPF Urine WBC 0-2 (0-4) /HPF Ur Squamous Epith Cells TRACE /LPF Urine Bacteria NONE /LPF Salicylates (15-30) mg/dL Urine Opiates Screen Not Detected (Not Detect) Urine Fentanyl Screen Not Detected (Not Detect) Acetaminophen (<30) mcg/mL Ur Barbiturates Screen Not Detected (Not Detect) Ur Phencyclidine Scrn Not Detected (Not Detect) Ur Amphetamines Screen Not Detected (Not Detect) U Benzodiazepines Scrn Not Detected (Not Detect) Urine Cocaine Screen Not Detected (Not Detect) U Marijuana (THC) Screen Not Detected (Not Detect) Ethyl Alcohol mg/dL COVID-19 (RASHEED) Negative (Negative) COVID-19 Clin Com See Note Discharge Plan Discharge Clinical Impression: Depression Prescriptions: No Action aspirin 81 mg tablet,delayed release (DR/EC) 81 mg PO DAILY RF: 0 atorvastatin 40 mg tablet 1 tab PO BEDTIME RF: 0 acetaminophen 325 mg tablet 650 mg PO NEEDED PRN (Reason: Pain) RF: 0 albuterol sulfate 2.5 mg /3 mL (0.083 %) solution for nebulization 2.5 mg inhalation TID PRN (Reason: Dyspnea) RF: 0 quetiapine 200 mg tablet 200 mg PO BEDTIME RF: 0 aspirin 81 mg tablet,delayed release (DR/EC) 1 tab PO DAILY RF: 0 famotidine 20 mg tablet 1 tab PO BID RF: 0 lorazepam 0.5 mg tablet 1 tab PO TID PRN (Reason: Anxiety) RF: 0 tamsulosin 0.4 mg capsule 2 cap PO DAILY RF: 0 docusate sodium 100 mg capsule 1 cap PO BID RF: 0 albuterol sulfate [Ventolin HFA] 90 mcg/actuation HFA aerosol inhaler 2 puff inhalation BID RF: 0 losartan 100 mg tablet 1 tab PO DAILY RF: 0 quetiapine 50 mg tablet 50 mg PO BID RF: 0 Spiriva Respimat 1.25 mcg/actuation mist 2 puff inhalation DAILY RF: 0
[2021-05-24 17:20] VITALS: BP 133/60; PULSE 95; RESP 20; TEMP 36.7; O2SAT 95
[2021-05-24 18:13] VITALS: BMI 22.4
[2021-05-24] MEDS: Atorvastatin Calcium 40 MG TABLET PO (20:38)
[2021-05-24] MEDS: QUEtiapine Fumarate 100 MG TABLET PO (20:39)
[2021-05-24] MEDS: LORazepam 0.5 MG TABLET PO (20:42)
[2021-05-24] MEDS: Acetaminophen 325 MG TABLET 650 MG PO (23:27)
[2021-05-25 08:31] VITALS: BP 138/66; PULSE 91; RESP 20; TEMP 36.4; O2SAT 98
[2021-05-25 08:33] VITALS: BP 138/66; PULSE 91
[2021-05-25] MEDS: Docusate Sodium 100 MG CAPSULE PO ×2 (08:33→21:07)
[2021-05-25] MEDS: Losartan Potassium 50 MG TABLET 100 MG PO (08:33)
[2021-05-25] MEDS: Acetaminophen 325 MG TABLET 650 MG PO (08:33)
[2021-05-25] MEDS: Albuterol Sulfate 90 MCG 8 GM INHALER 2 PUFF INHALE ×2 (08:34→21:04)
[2021-05-25] MEDS: Tamsulosin HCL 0.4 MG CAPSULE 0.8 MG PO (08:34)
[2021-05-25] MEDS: Famotidine 20 MG TABLET PO ×2 (08:34→21:07)
[2021-05-25] MEDS: LORazepam 0.5 MG TABLET PO ×2 (08:34→17:34)
[2021-05-25] MEDS: Aspirin Enteric Coated 81 MG TABLET.DR PO (08:34)
--- NOTE | 2021-05-25 12:43 | P.HPPS_ITS ---
HPI Chief Complaint: SI Sources of Information: patient interviewed and chart reviewed HPI Subjective Notes: Conditional Voluntary Narrative: The patient is a 71-year-old male, single, with no children, resident of skilled nursing for the last 6 months, unemployed on social security disability with social support. The patient was recently discharged from [facility] 2 weeks ago and according to the patient, ?they did not give me my medication?, he reported feeling overwhelmed and anxious and he cut himself superficially in order to be in the hospital. She was rushed to the ED, assessed by crisis and transferring to this facility for psychiatric stabilization. The patient carries a diagnosis of schizoaffective disorder bipolar type and he has been on treatment for several years. His last admission was at [facility] 2 weeks ago and he was discharged to his skilled nursing. The patient complained of depressed mood, anhedonia, lack of energy and suicidal thoughts in the context of not receiving his medications . The patient was able to contract for safety in the facility and he was future oriented. We will gather more information and we will continue with his medications as per [facility]. Past Psychiatric History: His 1st psychiatric contact was in his 40s he has several admissions into the hospital at different local hospitals such as [facility], [facility], [facility] and others. He has periods of homelessness but at this moment he is under the care of [facility] and he resides in group homes. He has outpatient providers. 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 Medical Evaluation Reviewed: Yes [facility] Medical History Anxiety COPD (chronic obstructive pulmonary disease) Emphysema of lung Hepatitis C Hyperlipidemia Schizoaffective disorder, bipolar type Schizophrenia Family History: Denies. Social History: The patient refused to provide more details of his social history but apparently he has being single with no children with chronic mental illness and the past history of substance abuse. Currently he is residing at a skilled nursing for the last 6 months and he has case management services by [facility] Substance History: He reported a past history of substance abuse, he refused to elaborate but he states Trauma History: Refused to elaborate Diagnostics Vital Signs (24Hr): Vital Signs - 24 hr 05/24/21 17:20 05/25/21 08:31 09/17/21 08:33 Temperature 98.0 F 97.6 F Pulse Rate 95 91 91 Respiratory Rate 20 20 Blood Pressure 133/60 138/66 138/66 Pulse Oximetry 95 98 Body Mass Index 22.4 Labs Results: 05/23/21 23:55 05/23/21 23:55 Labs: Laboratory Results - last 48 hr 05/23/21 05/23/21 05/23/21 23:55 23:55 23:55 WBC 8.5 RBC 4.35 L Hgb 14.5 Hct 42.5 MCV 97.7 MCH 33.3 H MCHC 34.1 RDW 12.2 Plt Count 158 L MPV 9.2 L Immature Gran % (Auto) 0.4 Neut % (Auto) 78.9 H Lymph % (Auto) 12.[address] [place] % (Auto) 6.3 Eos % (Auto) 1.3 Baso % (Auto) 0.2 Lymph # (Auto) 1.[address] [place] # (Auto) 0.5 Eos # (Auto) 0.1 Baso # (Auto) 0.0 Abs Immat Gran (auto) 0.03 Absolute Neuts (auto) 6.7 Absolute Nucleated RBC 0.000 Nucleated RBC % (auto) 0.0 Sodium 140 Potassium 3.3 Chloride 104 Carbon Dioxide 25 Anion Gap 14 BUN 6 L Creatinine 1.31 Estim Creat Clear Calc 56.6 Estimated GFR 54 Random Glucose 90 Calcium 8.5 D Total Bilirubin 1.2 H AST 13 ALT 19 Alkaline Phosphatase 95 D Total Protein 6.6 Albumin 4.2 Urine Color Urine Appearance Urine pH Ur Specific [place] Urine Protein Urine Glucose (UA) Urine Ketones Urine Blood Urine Nitrite Ur Leukocyte Esterase Urine RBC Urine WBC Ur Squamous Epith Cells Urine Bacteria Salicylates < 5.0 L Urine Opiates Screen Urine Fentanyl Screen Acetaminophen < 1 Ur Barbiturates Screen Ur Phencyclidine Scrn Ur Amphetamines Screen U Benzodiazepines Scrn Urine Cocaine Screen U Marijuana (THC) Screen Ethyl Alcohol < 10 COVID-19 (RASHEED) COVID-19 Clin Com 05/23/21 05/24/21 05/24/21 23:58 07:38 07:38 WBC RBC Hgb Hct MCV MCH MCHC RDW Plt Count MPV Immature Gran % (Auto) Neut % (Auto) Lymph % (Auto) [place] % (Auto) Eos % (Auto) Baso % (Auto) Lymph # (Auto) [place] # (Auto) Eos # (Auto) Baso # (Auto) Abs Immat Gran (auto) Absolute Neuts (auto) Absolute Nucleated RBC Nucleated RBC % (auto) Sodium Potassium Chloride Carbon Dioxide Anion Gap BUN Creatinine Estim Creat Clear Calc Estimated GFR Random Glucose Calcium Total Bilirubin AST ALT Alkaline Phosphatase Total Protein Albumin Urine Color YELLOW Urine Appearance CLEAR Urine pH 6.0 Ur Specific [place] <= 1.005 Urine Protein NEG Urine Glucose (UA) NEG Urine Ketones NEG Urine Blood NEG Urine Nitrite NEG Ur Leukocyte Esterase NEG Urine RBC 0-2 Urine WBC 0-2 Ur Squamous Epith Cells TRACE Urine Bacteria NONE Salicylates Urine Opiates Screen Not Detected Urine Fentanyl Screen Not Detected Acetaminophen Ur Barbiturates Screen Not Detected Ur Phencyclidine Scrn Not Detected Ur Amphetamines Screen Not Detected U Benzodiazepines Scrn Not Detected Urine Cocaine Screen Not Detected U Marijuana (THC) Screen Not Detected Ethyl Alcohol COVID-19 (RASHEED) Negative COVID-19 Clin Com See Note Imaging Radiology Impressions: ITS Impressions Chest X-Ray 05/23/21 22:44 IMPRESSION: No acute abnormality of chest. Meds/Allergies Meds Home Medications Acetaminophen (Acetaminophen 325 Mg Tablet) 650 mg PO Q6H PRN PRN Reason: Pain Last Admin: 05/25/21 08:33 Dose: 650 mg Documented by: Al Hydroxide/Mg Hydroxide (Magnesium Hydrox/Alum Hydrox 30 Ml Oral.Susp) 30 ml PO Q6H PRN PRN Reason: Heartburn/Nausea Albuterol Sulfate (Albuterol Sulfate 90 Mcg 8 Gm Inhaler) 2 puff INHALE BID [facility] Last Admin: 05/25/21 08:34 Dose: 2 puff Documented by: Albuterol Sulfate (Albuterol Sulfate (0.083%) 2.5 Mg/3 Ml Vial.Neb) 2.5 mg INHALE TID PRN PRN Reason: Dyspnea Aspirin (Aspirin Enteric Coated 81 Mg Tablet.) 81 mg PO DAILY [facility] Last Admin: 05/25/21 08:34 Dose: 81 mg Documented by: Atorvastatin Calcium (Atorvastatin Calcium 40 Mg Tablet) 40 mg PO BEDTIME [facility] Last Admin: 05/24/21 20:38 Dose: 40 mg Documented by: Docusate Sodium (Docusate Sodium 100 Mg Capsule) 100 mg PO BID [facility] Last Admin: 05/25/21 08:33 Dose: 100 mg Documented by: Famotidine (Famotidine 20 Mg Tablet) 20 mg PO BID [facility] Last Admin: 05/25/21 08:34 Dose: 20 mg Documented by: Lorazepam (Lorazepam 0.5 Mg Tablet) 0.5 mg PO TID PRN PRN Reason: Anxiety Last Admin: 05/25/21 08:34 Dose: 0.5 mg Documented by: Losartan Potassium (Losartan Potassium 50 Mg Tablet) 100 mg PO DAILY [facility]; Protocol Last Admin: 05/25/21 08:33 Dose: 100 mg Documented by: Nicotine Polacrilex (Nicotine Polacrilex 2 Mg Gum) 4 mg BUCCAL Q2H PRN PRN Reason: Nicotine Cravings Quetiapine Fumarate (Quetiapine Fumarate 100 Mg Tablet) 100 mg PO BEDTIME [facility] Last Admin: 05/24/21 20:39 Dose: 100 mg Documented by: Tamsulosin HCl (Tamsulosin Hcl 0.4 Mg Capsule) 0.8 mg PO DAILY [facility] Last Admin: 05/25/21 08:34 Dose: 0.8 mg Documented by: Tiotropium [place] (Tiotropium [place] 18 Mcg Cap.W.Dev) 1 puff INHALE RDAILY [facility] Last Admin: 05/25/21 08:34 Dose: 1 puff Documented by: Allergies Allergies Allergy/AdvReac Type Severity Reaction Status Date / Time codeine [CODEINE] Allergy Intermediate HIVES Verified 12/19/20 16:08 Mental Status Exam Mental Status Exam Patient Appearance: Well Grooomed Patient Orientation: Person, Place and Situation Level of Consciousness: Awake Patient Behavior: Cooperative Mood Description: Constricted Affect Description: Depressed Patient Cognition Impaired: No Ability to Follow Directions: Good Speech Pattern: Clear Hallucinations: None Delusions: Not Present Thought Process: Linear and Slowed Thinking Thought Content: positive for Poverty of Content Judgement: Fair Assessment & Plan Assessment & Plan (1) Schizoaffective disorder, bipolar type: Status: Acute Code(s): F25.0 - Schizoaffective disorder, bipolar type Assessment and Plan: The patient is a 71-year-old male, single, with no children, with limited social support, resident of a skilled nursing for the last 6 months with a diagnosis for schizoaffective disorder bipolar type, recently discharged from [facility] and COPD and other medical problems referred to this facility after several her min episode in the context of the tensions not getting his medications? patient. The patient also has a past history of substance abuse. Plan. 1. Gather collateral information. 2. Restart his regular medications as per [facility]. 3. Regular blood work, consult to hospitalist. Informed Consent: understands Reason for continued inpatient stay Substantial Risk for: harm to self, inability to function, rapid decompensation and med/psych decompensation
--- NOTE | 2021-05-25 14:10 | HO.PM.IMCN ---
History of Present Illness Data of Consult Service Date: 05/25/21 Primary Care Provider: Unknown Physician KATHLEEN Jin Jackson is a 71 year old patient with past psychiatric history of?major depressive disorder with psychotic features, paranoid personality disorder, Cluster B traits, panic disorder and past medical history of COPD, cirrhosis, HTN, HLD, BPH amongs other. He was recently admittd to [facility] on 05/03/21 initially admitted to Medicine for COPD exacerbation and subsequently admitted to Psych due to depression and suicidal thought. He was discharged from [facility] on 05/16 and went to a penitentiary and he claims he was not getting his medication and ended up calling 911 and coming to the [place] ED where he is readmitted for depression. Discharge med from [facility] on 05/17 Discharge Medications Albuterol (albuterol CFC free 90 mcg/inh inhalation aerosol)??2??puff(s)??Inhalation??4 times a day??as needed??Wheezing/Shortness of Breath? Aspirin (aspirin 81 mg oral delayed release tablet)??81??Milligram??By Mouth??Daily??for 30??Days? Atorvastatin (atorvastatin 40 mg oral tablet)??1??tab(s)??40??Milligram??By Mouth??Daily? Clonidine (cloNIDine 0.1 mg oral tablet)??0.1??Milligram??1??tablet??By Mouth??3 times a day??as needed??for 30??Days??Blood Pressure? Docusate (docusate sodium 100 mg oral capsule)??100??Milligram??1??capsule??By Mouth??2 times a day? Durable Medical Equipment (Walker)??See Instructions??for ambulation? Famotidine (famotidine 20 mg oral tablet)??20??Milligram??1??tablet??By Mouth??2 times a day? fluticasone-vilanterol (fluticasone-vilanterol 100 mcg-25 mcg/inh inhalation powder)??1??puff(s)??Inhalation??Daily? Lorazepam (LORazepam 0.5 mg oral tablet)??1??tab(s)??0.5??Milligram??By Mouth??2 times a day??as needed??Anxiety??for 15??Days? Losartan (losartan 50 mg oral tablet)??100??Milligram??2??tablet??By Mouth??Daily? Melatonin (melatonin 10 mg oral tablet)??1??tab(s)??10??Milligram??By Mouth??Daily at bedtime??for 30??Days? PredniSONE (predniSONE 20 mg oral tablet)??2??tab(s)??40??Milligram??By Mouth??Daily??for 1??Days? Quetiapine (QUEtiapine 200 mg oral tablet)??700??Milligram??3.5??tablet??By Mouth??Daily at bedtime? Quetiapine (QUEtiapine 50 mg oral tablet)??1??tab(s)??50??Milligram??By Mouth??2 times a day? Tamsulosin (tamsulosin 0.4 mg oral capsule)??0.8??Milligram??2??capsule??By Mouth??Daily at bedtime? Tiotropium (tiotropium 1.25 mcg/inh inhalation aerosol)??2??puff(s)??Inhalation??Daily?? Patient tells me now that he is not suicidal at moment but more concern that he has not been getting his inhalers although he is doesn't seem to be in any acute distress and his lungs sounded fine. He is getting Albuterol MDi but want nebulizer. he has no other complaint at this time. Review of Systems Review of Systems: Gen: no fever Resp: no sob, no cough, no wheezes CV: no chest, no HAMMOND, no leg edema GI: No n/v, no abd pain Neuro: No confusion Yes all other systems are reviewed and are negative [facility] Medical History (Updated 05/25/21 @ 14:20 by Alvaro Farrell MD) Anxiety BPH (benign prostatic hyperplasia) COPD (chronic obstructive pulmonary disease) Emphysema of lung Hepatitis C Hyperlipidemia Left tibial fracture Schizoaffective disorder, bipolar type Schizophrenia Pertinent family history: Mother-; liver cancer Father-; lung cancer Sister-; breast cancer Brother-; alcohol abuse ?He denies family hx of psychiatric illness.? ? Social History Household Members: Other Household Members Other:: Alf Residents and Staff Housing: House Housing Other:: Respite since April Do you presently have visiting nurse or other home services: No Alcohol intake: former Patient Tobacco Use Status: Current someday Tobacco user Tobacco use type: Cigarette Cigarette Packs Per Day: 1 Cigarettes Per Day: 20.0 Years Smoked: 58 Smoked in Last 30 Days: Yes e-Cigarette/Vaping Use: Currently Using Patient Interested in Nicotine Replacement: No Patient Given Instructions on How to Stop Smoking: No Second Hand Smoke Exposure: Yes Use of substances other than those prescribed or required for medical reasons: No Currently Displaying Signs/Symptoms of Drug Intoxication Withdrawal: No Have you been hit, kicked, punched, or otherwise hurt by someone within the past year? If so, by whom?: No Advance Directives: No Advance Directives Information Provided: No Healthcare Proxy: No Guardian: No Do you have thoughts of harming others: None Do you have a plan to hurt others: No Plan Recently lost weight without trying: Yes How much weight loss: 24-33 pounds Eating poorly because of decreased appetite: No Nutrition screen score: 5 Poor oral hygiene: No service: No Current occupational status: unemployed Meds Allergies Allergy/AdvReac Type Severity Reaction Status Date / Time codeine [CODEINE] Allergy Intermediate HIVES Verified 12/19/20 16:08 Active Medications: Current Medications Acetaminophen (Acetaminophen 325 Mg Tablet) 650 mg PO Q6H PRN PRN Reason: Pain Last Admin: 05/25/21 08:33 Dose: 650 mg Documented by: Al Hydroxide/Mg Hydroxide (Magnesium Hydrox/Alum Hydrox 30 Ml Oral.Susp) 30 ml PO Q6H PRN PRN Reason: Heartburn/Nausea Albuterol Sulfate (Albuterol Sulfate 90 Mcg 8 Gm Inhaler) 2 puff INHALE BID [facility] Last Admin: 05/25/21 08:34 Dose: 2 puff Documented by: Albuterol Sulfate (Albuterol Sulfate (0.083%) 2.5 Mg/3 Ml Vial.Neb) 2.5 mg INHALE TID PRN PRN Reason: Dyspnea Aspirin (Aspirin Enteric Coated 81 Mg Tablet.) 81 mg PO DAILY [facility] Last Admin: 05/25/21 08:34 Dose: 81 mg Documented by: Atorvastatin Calcium (Atorvastatin Calcium 40 Mg Tablet) 40 mg PO BEDTIME [facility] Last Admin: 05/24/21 20:38 Dose: 40 mg Documented by: Docusate Sodium (Docusate Sodium 100 Mg Capsule) 100 mg PO BID [facility] Last Admin: 05/25/21 08:33 Dose: 100 mg Documented by: Famotidine (Famotidine 20 Mg Tablet) 20 mg PO BID [facility] Last Admin: 05/25/21 08:34 Dose: 20 mg Documented by: Lorazepam (Lorazepam 0.5 Mg Tablet) 0.5 mg PO TID PRN PRN Reason: Anxiety Last Admin: 05/25/21 08:34 Dose: 0.5 mg Documented by: Losartan Potassium (Losartan Potassium 50 Mg Tablet) 100 mg PO DAILY [facility]; Protocol Last Admin: 05/25/21 08:33 Dose: 100 mg Documented by: Nicotine Polacrilex (Nicotine Polacrilex 2 Mg Gum) 4 mg BUCCAL Q2H PRN PRN Reason: Nicotine Cravings Quetiapine Fumarate (Quetiapine Fumarate 400 Mg Tablet) 400 mg PO BEDTIME [facility] Quetiapine Fumarate (Quetiapine Fumarate 100 Mg Tablet) 100 mg PO TID PRN PRN Reason: agitation Tamsulosin HCl (Tamsulosin Hcl 0.4 Mg Capsule) 0.8 mg PO DAILY [facility] Last Admin: 05/25/21 08:34 Dose: 0.8 mg Documented by: Tiotropium [place] (Tiotropium [place] 18 Mcg Cap.W.Dev) 1 puff INHALE RDAILY [facility] Last Admin: 05/25/21 08:34 Dose: 1 puff Documented by: Home Medications Medication Instructions Recorded Confirmed Last Taken Type aspirin 81 mg tablet,delayed 81 mg PO DAILY 09/26/20 05/24/21 Unknown History release acetaminophen 325 mg tablet 650 mg PO NEEDED PRN 05/24/21 05/24/21 Unknown History albuterol sulfate 2.5 mg INHALATION TID PRN 05/24/21 05/24/21 Unknown History albuterol sulfate 90 mcg/actuation 2 puff INHALATION BID 05/24/21 05/24/21 Unknown History aerosol inhaler (Ventolin HFA) aspirin 81 mg tablet,delayed 1 tab PO DAILY 05/24/21 05/24/21 Unknown History release atorvastatin 40 mg tablet 1 tab PO BEDTIME 05/24/21 05/24/21 Unknown History docusate sodium 100 mg capsule 1 cap PO BID 05/24/21 05/24/21 Unknown History famotidine 20 mg tablet 1 tab PO BID 05/24/21 05/24/21 Unknown History lorazepam 0.5 mg tablet 1 tab PO TID PRN 05/24/21 05/24/21 Unknown History losartan 100 mg tablet 1 tab PO DAILY 05/24/21 05/24/21 Unknown History quetiapine 200 mg tablet 200 mg PO BEDTIME 05/24/21 05/24/21 Unknown History quetiapine 50 mg tablet 50 mg PO BID 05/24/21 05/24/21 Unknown History tamsulosin 0.4 mg capsule 2 cap PO DAILY 05/24/21 05/24/21 Unknown History tiotropium bromide 1.25 2 puff INHALATION DAILY 05/24/21 05/24/21 Unknown History mcg/actuation mist for inhalation (Spiriva Respimat) Physical Exam Vital Signs and Narrative: Vital Signs: Last Vital Signs Temp 97.6 F 05/25/21 08:31 Pulse 91 05/25/21 08:33 Resp 20 05/25/21 08:31 BP 138/66 05/25/21 08:33 Pulse Ox 98 05/25/21 08:31 Body Mass Index 22.4 Constitutional Awake and Alert, No apparent distress HEENT anicteric Neck Supple, No lymphadenopathy Cardiovascular RRR, No M/R/G, S1 S2, No S3 S4, No pedal edema Respiratory Lungs clear, No respiratory distress Gastrointestinal Non tender, Non-distended Skin No rash Neurological Alert & oriented x3, NC 2-12 intact Psychological Appropriate affect Results Labs CBC and Chem 7: 05/23/21 23:55 05/23/21 23:55 Assessment and Plan (1) Depression: Status: Acute (2) COPD (chronic obstructive pulmonary disease): Status: Acute 71/male with COPD, depression presently admitted to Psych for depression SI COPD, there is no acute exacbation, lungs clear. -to continue Ventolin, Nebulizers PRN (ordered) , no indication for steroid. HLD-Lipitor h/o HTN--BP is within normal , no meds Defering Psych management to Psychiatry but advises that you review his recent meds from [facility] above and prescribe them as you see fit
[2021-05-25] MEDS: Albuterol/Iprat 2.5/0.5MG 3 ML AMPUL.NEB INHALE (15:06)
[2021-05-25 15:08] VITALS: PULSE 80; O2SAT 98
[2021-05-25 16:37] VITALS: BMI 22.4
[2021-05-25] MEDS: QUEtiapine Fumarate 100 MG TABLET PO (17:34)
[2021-05-25] MEDS: Albuterol Sulfate (0.083%) 2.5 MG/3 ML VIAL.NEB INHALE (17:48)
--- NOTE | 2021-05-25 19:30 | PC.ADMIT ---
Patient is admitted to on 05/24/21 from [facility]. Patient was brought to [facility] by ambulance from his assisted which he called himself after cutting his forearm and telling staff he was suicidal. Patient is known to [facility] from multiple inpatient admissions, last as well as multiple visits related to COPD symptoms. Patient arrives to unit and is settled in without incident. Patient reports COPD exacerbation and requests inhaler. Patient reports high levels of anxiety and depression related to COPD symptoms. Patient reports he feels staff members in his assisted have been withholding medications and treatments causing his symptoms to worsen and leading him to feel anxious and suicidal. Patient is administered evening medications and admission process completed.
[2021-05-25] MEDS: Atorvastatin Calcium 40 MG TABLET PO ×2 (21:07→21:09)
[2021-05-25] MEDS: QUEtiapine Fumarate 400 MG TABLET PO (21:07)
[2021-05-25 21:39] VITALS: BP 150/66; PULSE 79; RESP 18; TEMP 36.4; O2SAT 97
[2021-05-26 06:00] VITALS: BP 91/55; PULSE 79; TEMP 36.8; O2SAT 96
[2021-05-26 08:53] VITALS: BP 91/55; PULSE 79
[2021-05-26] MEDS: Famotidine 20 MG TABLET PO ×2 (08:53→19:59)
[2021-05-26] MEDS: Aspirin Enteric Coated 81 MG TABLET.DR PO (08:53)
[2021-05-26] MEDS: Tamsulosin HCL 0.4 MG CAPSULE 0.8 MG PO (08:53)
[2021-05-26] MEDS: Losartan Potassium 50 MG TABLET 100 MG PO (08:53)
[2021-05-26] MEDS: Docusate Sodium 100 MG CAPSULE PO ×2 (08:53→19:59)
[2021-05-26] MEDS: QUEtiapine Fumarate 100 MG TABLET PO (08:54)
[2021-05-26] MEDS: LORazepam 0.5 MG TABLET PO ×3 (08:54→20:23)
[2021-05-26] MEDS: Albuterol Sulfate 90 MCG 8 GM INHALER 2 PUFF INHALE ×2 (09:51→20:26)
[2021-05-26] MEDS: Acetaminophen 325 MG TABLET 650 MG PO ×2 (11:09→20:04)
[2021-05-26 18:00] VITALS: BP 108/56; PULSE 80; RESP 19; TEMP 36.6; O2SAT 96
[2021-05-26] MEDS: Atorvastatin Calcium 40 MG TABLET PO (19:59)
[2021-05-26] MEDS: QUEtiapine Fumarate 400 MG TABLET PO (19:59)
--- NOTE | 2021-05-26 21:04 | HO.PSYCHPN ---
Subjective Subjective Date of Service: 05/27/21 Reason For Visit: SI Subjective Notes: Conditional Voluntary Interim History: Pt adjusted well to unit. No complaints. Enjoying TV. Denies DSH/ SI. Known to TW from [facility]. COPD chronic stable Medication Compliance: Yes Side effects from medications: No Attending Groups: Yes Review of Systems Acute medical concerns: Yes COPD Medical Review of Systems: unchanged Review of Systems Review of Systems Gen: no fever Resp: no sob, no cough, no wheezes CV: no chest, no HAMMOND, no leg edema GI: No n/v, no abd pain Neuro: No confusion Yes all other systems are reviewed and are negative Constitutional: Denies fever(s) Cardiovascular: Denies chest pain and Reports dyspnea Respiratory: Reports cough, Reports dyspnea and Reports wheezing Gastrointestinal: Reports no additional gastrointestinal complaints and Denies vomiting Allergic/Immunologic: Reports wheezing Mental Status Exam Mental Status Exam Patient Appearance: Well Grooomed Patient Orientation: Person, Place and Situation Level of Consciousness: Awake Patient Behavior: Cooperative Mood Description: Constricted Affect Description: Depressed Patient Cognition Impaired: No Ability to Follow Directions: Good Speech Pattern: Clear Depressive Symptoms: Thoughts of /Suicide (denied) Diagnostics Vital Signs (24Hr): Vital Signs - 24 hr 05/25/21 21:39 05/26/21 06:00 05/26/21 08:53 Temperature 97.6 F 98.2 F Pulse Rate 79 79 79 Respiratory Rate 18 Blood Pressure 150/66 H 91/55 L 91/55 L Pulse Oximetry 97 96 05/26/21 18:00 Temperature 97.8 F Pulse Rate 80 Respiratory Rate 19 Blood Pressure 108/56 L Pulse Oximetry 96 Body Mass Index 22.4 Labs Results: 05/23/21 23:55 05/23/21 23:55 Imaging Radiology Impressions: ITS Impressions Chest X-Ray 05/23/21 22:44 IMPRESSION: No acute abnormality of chest. Medications Medications Current Medications Acetaminophen (Acetaminophen 325 Mg Tablet) 650 mg PO Q6H PRN PRN Reason: Pain Last Admin: 05/26/21 20:04 Dose: 650 mg Documented by: Al Hydroxide/Mg Hydroxide (Magnesium Hydrox/Alum Hydrox 30 Ml Oral.Susp) 30 ml PO Q6H PRN PRN Reason: Heartburn/Nausea Albuterol Sulfate (Albuterol Sulfate (0.083%) 2.5 Mg/3 Ml Vial.Neb) 2.5 mg INHALE TID PRN PRN Reason: Dyspnea Last Admin: 05/25/21 17:48 Dose: 2.5 mg Documented by: Albuterol Sulfate (Albuterol Sulfate 90 Mcg 8 Gm Inhaler) 2 puff INHALE RBID [facility] Last Admin: 05/26/21 20:26 Dose: 2 puff Documented by: Aspirin (Aspirin Enteric Coated 81 Mg Tablet.) 81 mg PO DAILY [facility] Last Admin: 05/26/21 08:53 Dose: 81 mg Documented by: Atorvastatin Calcium (Atorvastatin Calcium 40 Mg Tablet) 40 mg PO BEDTIME [facility] Last Admin: 05/26/21 19:59 Dose: 40 mg Documented by: Docusate Sodium (Docusate Sodium 100 Mg Capsule) 100 mg PO BID [facility] Last Admin: 05/26/21 19:59 Dose: 100 mg Documented by: Famotidine (Famotidine 20 Mg Tablet) 20 mg PO BID [facility] Last Admin: 05/26/21 19:59 Dose: 20 mg Documented by: Lorazepam (Lorazepam 0.5 Mg Tablet) 0.5 mg PO TID PRN PRN Reason: Anxiety Last Admin: 05/26/21 20:23 Dose: 0.5 mg Documented by: Losartan Potassium (Losartan Potassium 50 Mg Tablet) 100 mg PO DAILY [facility]; Protocol Last Admin: 05/26/21 08:53 Dose: 100 mg Documented by: Nicotine Polacrilex (Nicotine Polacrilex 2 Mg Gum) 4 mg BUCCAL Q2H PRN PRN Reason: Nicotine Cravings Quetiapine Fumarate (Quetiapine Fumarate 400 Mg Tablet) 400 mg PO BEDTIME [facility] Last Admin: 05/26/21 19:59 Dose: 400 mg Documented by: Quetiapine Fumarate (Quetiapine Fumarate 100 Mg Tablet) 100 mg PO TID PRN PRN Reason: agitation Last Admin: 05/26/21 08:54 Dose: 100 mg Documented by: Tamsulosin HCl (Tamsulosin Hcl 0.4 Mg Capsule) 0.8 mg PO DAILY [facility] Last Admin: 05/26/21 08:53 Dose: 0.8 mg Documented by: Tiotropium [place] (Tiotropium [place] 18 Mcg Cap.W.Dev) 1 puff INHALE RDAILY [facility] Last Admin: 05/26/21 09:01 Dose: 1 puff Documented by: Allergies Allergies Allergy/AdvReac Type Severity Reaction Status Date / Time codeine [CODEINE] Allergy Intermediate HIVES Verified 12/19/20 16:08 Assessment & Plan Assessment & Plan (1) Depression: Status: Acute Code(s): F32.9 - Major depressive disorder, single episode, unspecified Assessment and Plan: Ct Rx plan (2) COPD (chronic obstructive pulmonary disease): Status: Acute Code(s): J44.9 - Chronic obstructive pulmonary disease, unspecified Assessment and Plan: 71/male with COPD, depression presently admitted to Psych for depression SI COPD, there is no acute exacbation, lungs clear. -to continue Ventolin, Nebulizers PRN (ordered) , no indication for steroid. HLD-Lipitor h/o HTN--BP is within normal , no meds Defering Psych management to Psychiatry but advises that you review his recent meds from [facility] above and prescribe them as you see fit Greater than 50% of the session was spent on counseling and/or coordination of care Reason for contiued inpatient stay Substantial Risk for: harm to self
--- NOTE | 2021-05-27 06:59 | P.PNPSI_ITS ---
Subjective Subjective Date of Service: 05/27/21 Reason For Visit: SI Interim History: Pt adjusted well to unit. No complaints. Enjoying TV. Denies DSH/ SI. Known to TW from . COPD chronic stable. Had a nebulizer at night. Review of Systems Review of Systems Gen: no fever Resp: no sob, no cough, no wheezes CV: no chest, no HAMMOND, no leg edema GI: No n/v, no abd pain Neuro: No confusion Yes all other systems are reviewed and are negative Constitutional: Denies fever(s) Cardiovascular: Denies chest pain and Reports dyspnea Respiratory: Reports cough, Reports dyspnea and Reports wheezing Gastrointestinal: Reports no additional gastrointestinal complaints and Denies vomiting Allergic/Immunologic: Reports wheezing Mental Status Exam Mental Status Exam Patient Appearance: Well Grooomed Patient Orientation: Person, Place and Situation Level of Consciousness: Awake Patient Behavior: Cooperative Mood Description: Constricted Affect Description: Depressed Patient Cognition Impaired: No Ability to Follow Directions: Good Speech Pattern: Clear Diagnostics Vital Signs (24Hr): Vital Signs - 24 hr 05/26/21 08:53 05/26/21 18:00 Temperature 97.8 F Pulse Rate 79 80 Respiratory Rate 19 Blood Pressure 91/55 L 108/56 L Pulse Oximetry 96 Body Mass Index 22.4 Labs Results: 05/23/21 23:55 05/23/21 23:55 Imaging Radiology Impressions: ITS Impressions Chest X-Ray 05/23/21 22:44 IMPRESSION: No acute abnormality of chest. Medications Medications Current Medications Acetaminophen (Acetaminophen 325 Mg Tablet) 650 mg PO Q6H PRN PRN Reason: Pain Last Admin: 05/26/21 20:04 Dose: 650 mg Documented by: Al Hydroxide/Mg Hydroxide (Magnesium Hydrox/Alum Hydrox 30 Ml Oral.Susp) 30 ml PO Q6H PRN PRN Reason: Heartburn/Nausea Albuterol Sulfate (Albuterol Sulfate (0.083%) 2.5 Mg/3 Ml Vial.Neb) 2.5 mg INHALE TID PRN PRN Reason: Dyspnea Last Admin: 05/25/21 17:48 Dose: 2.5 mg Documented by: Albuterol Sulfate (Albuterol Sulfate 90 Mcg 8 Gm Inhaler) 2 puff INHALE RBID [facility] Last Admin: 05/26/21 20:26 Dose: 2 puff Documented by: Aspirin (Aspirin Enteric Coated 81 Mg Tablet.) 81 mg PO DAILY [facility] Last Admin: 05/26/21 08:53 Dose: 81 mg Documented by: Atorvastatin Calcium (Atorvastatin Calcium 40 Mg Tablet) 40 mg PO BEDTIME [facility] Last Admin: 05/26/21 19:59 Dose: 40 mg Documented by: Docusate Sodium (Docusate Sodium 100 Mg Capsule) 100 mg PO BID [facility] Last Admin: 05/26/21 19:59 Dose: 100 mg Documented by: Famotidine (Famotidine 20 Mg Tablet) 20 mg PO BID [facility] Last Admin: 05/26/21 19:59 Dose: 20 mg Documented by: Lorazepam (Lorazepam 0.5 Mg Tablet) 0.5 mg PO TID PRN PRN Reason: Anxiety Last Admin: 05/26/21 20:23 Dose: 0.5 mg Documented by: Losartan Potassium (Losartan Potassium 50 Mg Tablet) 100 mg PO DAILY [facility]; Protocol Last Admin: 05/26/21 08:53 Dose: 100 mg Documented by: Nicotine Polacrilex (Nicotine Polacrilex 2 Mg Gum) 4 mg BUCCAL Q2H PRN PRN Reason: Nicotine Cravings Quetiapine Fumarate (Quetiapine Fumarate 400 Mg Tablet) 400 mg PO BEDTIME [facility] Last Admin: 05/26/21 19:59 Dose: 400 mg Documented by: Quetiapine Fumarate (Quetiapine Fumarate 100 Mg Tablet) 100 mg PO TID PRN PRN Reason: agitation Last Admin: 05/26/21 08:54 Dose: 100 mg Documented by: Tamsulosin HCl (Tamsulosin Hcl 0.4 Mg Capsule) 0.8 mg PO DAILY [facility] Last Admin: 05/26/21 08:53 Dose: 0.8 mg Documented by: Tiotropium [place] (Tiotropium [place] 18 Mcg Cap.W.Dev) 1 puff INHALE RDAILY [facility] Last Admin: 05/26/21 09:01 Dose: 1 puff Documented by: Allergies Allergies Allergy/AdvReac Type Severity Reaction Status Date / Time codeine [CODEINE] Allergy Intermediate HIVES Verified 12/19/20 16:08 Assessment & Plan Assessment & Plan (1) Depression: Status: Acute Code(s): F32.9 - Major depressive disorder, single episode, unspecified Assessment and Plan: Ct Rx plan (2) COPD (chronic obstructive pulmonary disease): Status: Acute Code(s): J44.9 - Chronic obstructive pulmonary disease, unspecified Assessment and Plan: 71/male with COPD, depression presently admitted to Psych for depression SI COPD, there is no acute exacbation, lungs clear. -to continue Ventolin, Nebulizers PRN (ordered) , no indication for steroid. HLD-Lipitor h/o HTN--BP is within normal , no meds Defering Psych management to Psychiatry but advises that you review his recent meds from [facility] above and prescribe them as you see fit Greater than 50% of the session was spent on counseling and/or coordination of care Reason for contiued inpatient stay Substantial Risk for: harm to self
[2021-05-27] MEDS: Albuterol Sulfate 90 MCG 8 GM INHALER 2 PUFF INHALE ×2 (07:47→18:53)
[2021-05-27 08:00] VITALS: BP 125/76; PULSE 86; RESP 18; TEMP 36.3; O2SAT 97
[2021-05-27] MEDS: Tamsulosin HCL 0.4 MG CAPSULE 0.8 MG PO (08:36)
[2021-05-27] MEDS: Aspirin Enteric Coated 81 MG TABLET.DR PO (08:37)
[2021-05-27] MEDS: Docusate Sodium 100 MG CAPSULE PO ×2 (08:37→20:14)
[2021-05-27] MEDS: Famotidine 20 MG TABLET PO ×2 (08:37→20:14)
[2021-05-27 08:38] VITALS: BP 125/85; PULSE 89
[2021-05-27] MEDS: Losartan Potassium 50 MG TABLET 100 MG PO (08:38)
[2021-05-27] MEDS: QUEtiapine Fumarate 100 MG TABLET PO ×2 (10:49→17:22)
[2021-05-27] MEDS: LORazepam 0.5 MG TABLET PO ×2 (10:49→17:22)
[2021-05-27] MEDS: Albuterol Sulfate (0.083%) 2.5 MG/3 ML VIAL.NEB INHALE ×2 (11:37→20:39)
[2021-05-27 11:38] VITALS: PULSE 97; O2SAT 99
[2021-05-27 18:00] VITALS: BP 135/61; PULSE 95; RESP 20; TEMP 36.6; O2SAT 96
[2021-05-27] MEDS: Atorvastatin Calcium 40 MG TABLET PO (20:14)
[2021-05-27] MEDS: QUEtiapine Fumarate 400 MG TABLET PO (20:14)
[2021-05-27 20:41] VITALS: PULSE 90
[2021-05-28 06:00] VITALS: BP 126/59; PULSE 80; RESP 22; TEMP 36.6; O2SAT 97
[2021-05-28] MEDS: Albuterol Sulfate 90 MCG 8 GM INHALER 2 PUFF INHALE ×5 (07:45→20:51)
[2021-05-28 07:46] VITALS: BP 126/59; PULSE 80
[2021-05-28] MEDS: Docusate Sodium 100 MG CAPSULE PO ×2 (07:46→20:51)
[2021-05-28] MEDS: Tamsulosin HCL 0.4 MG CAPSULE 0.8 MG PO (07:46)
[2021-05-28] MEDS: Losartan Potassium 50 MG TABLET 100 MG PO (07:46)
[2021-05-28] MEDS: Aspirin Enteric Coated 81 MG TABLET.DR PO (07:46)
[2021-05-28] MEDS: Famotidine 20 MG TABLET PO ×2 (07:47→20:50)
[2021-05-28] MEDS: QUEtiapine Fumarate 100 MG TABLET PO ×2 (07:51→14:20)
[2021-05-28] MEDS: LORazepam 0.5 MG TABLET PO ×2 (07:52→17:30)
--- NOTE | 2021-05-28 12:42 | HO.PSYCHPN ---
Subjective Subjective Date of Service: 05/28/21 Reason For Visit: SI Subjective Notes: Conditional Voluntary Interim History: The nursing staff reported the patient has been using PRNs frequently. He has COPD and anxiety have worsened, the patient is very well known for previous admissions at 10:51 several staff member reports that his condition, medically, has worsened due to his abuse of tobacco. Today, he reported that he is doing fine, he is content with the current treatment Medication Compliance: Yes Side effects from medications: No Attending Groups: Intermittent Review of Systems Acute medical concerns: No Medical Review of Systems: unchanged Mental Status Exam Mental Status Exam Patient Appearance: Well Grooomed Patient Orientation: Person Level of Consciousness: Awake Patient Behavior: Cooperative Mood Description: Depressed Affect Description: Constricted Patient Cognition Impaired: Yes Ability to Follow Directions: Good Speech Pattern: Clear Hallucinations: None Delusions: Not Present Thought Process: Slowed Thinking Thought Content: positive for Circumstantial, positive for Perseveration and positive for Poverty of Content Judgement: Fair Diagnostics Vital Signs (24Hr): Vital Signs - 24 hr 05/27/21 18:00 05/27/21 20:41 05/28/21 06:00 Temperature 97.8 F 98 F Pulse Rate 95 90 80 Respiratory Rate 20 22 H Blood Pressure 135/61 126/59 L Pulse Oximetry 96 97 05/28/21 07:46 Temperature Pulse Rate 80 Respiratory Rate Blood Pressure 126/59 L Pulse Oximetry Body Mass Index 22.4 Labs Results: 05/23/21 23:55 05/23/21 23:55 Imaging Radiology Impressions: ITS Impressions Chest X-Ray 05/23/21 22:44 IMPRESSION: No acute abnormality of chest. Medications Medications Current Medications Acetaminophen (Acetaminophen 325 Mg Tablet) 650 mg PO Q6H PRN PRN Reason: Pain Last Admin: 05/26/21 20:04 Dose: 650 mg Documented by: Al Hydroxide/Mg Hydroxide (Magnesium Hydrox/Alum Hydrox 30 Ml Oral.Susp) 30 ml PO Q6H PRN PRN Reason: Heartburn/Nausea Albuterol Sulfate (Albuterol Sulfate (0.083%) 2.5 Mg/3 Ml Vial.Neb) 2.5 mg INHALE TID PRN PRN Reason: Dyspnea Last Admin: 05/27/21 20:39 Dose: 2.5 mg Documented by: Albuterol Sulfate (Albuterol Sulfate 90 Mcg 8 Gm Inhaler) 2 puff INHALE RBID [facility] Last Admin: 05/28/21 12:11 Dose: 2 puff Documented by: Aspirin (Aspirin Enteric Coated 81 Mg Tablet.) 81 mg PO DAILY [facility] Last Admin: 05/28/21 07:46 Dose: 81 mg Documented by: Atorvastatin Calcium (Atorvastatin Calcium 40 Mg Tablet) 40 mg PO BEDTIME [facility] Last Admin: 05/27/21 20:14 Dose: 40 mg Documented by: Docusate Sodium (Docusate Sodium 100 Mg Capsule) 100 mg PO BID [facility] Last Admin: 05/28/21 07:46 Dose: 100 mg Documented by: Famotidine (Famotidine 20 Mg Tablet) 20 mg PO BID [facility] Last Admin: 05/28/21 07:47 Dose: 20 mg Documented by: Lorazepam (Lorazepam 0.5 Mg Tablet) 0.5 mg PO TID PRN PRN Reason: Anxiety Last Admin: 05/28/21 07:52 Dose: 0.5 mg Documented by: Losartan Potassium (Losartan Potassium 50 Mg Tablet) 100 mg PO DAILY [facility]; Protocol Last Admin: 05/28/21 07:46 Dose: 100 mg Documented by: Nicotine Polacrilex (Nicotine Polacrilex 2 Mg Gum) 4 mg BUCCAL Q2H PRN PRN Reason: Nicotine Cravings Quetiapine Fumarate (Quetiapine Fumarate 400 Mg Tablet) 400 mg PO BEDTIME [facility] Last Admin: 05/27/21 20:14 Dose: 400 mg Documented by: Quetiapine Fumarate (Quetiapine Fumarate 100 Mg Tablet) 100 mg PO TID PRN PRN Reason: agitation Last Admin: 05/28/21 07:51 Dose: 100 mg Documented by: Tamsulosin HCl (Tamsulosin Hcl 0.4 Mg Capsule) 0.8 mg PO DAILY [facility] Last Admin: 05/28/21 07:46 Dose: 0.8 mg Documented by: Tiotropium [place] (Tiotropium [place] 18 Mcg Cap.W.Dev) 1 puff INHALE RDAILY [facility] Last Admin: 05/28/21 07:45 Dose: 1 puff Documented by: Allergies Allergies Allergy/AdvReac Type Severity Reaction Status Date / Time codeine [CODEINE] Allergy Intermediate HIVES Verified 12/19/20 16:08 Assessment & Plan Assessment & Plan (1) Depression: Status: Acute Code(s): F32.9 - Major depressive disorder, single episode, unspecified Assessment and Plan: Ct Rx plan (2) COPD (chronic obstructive pulmonary disease): Status: Acute Code(s): J44.9 - Chronic obstructive pulmonary disease, unspecified Assessment and Plan: 71/male with COPD, depression presently admitted to Psych for depression SI COPD, there is no acute exacbation, lungs clear. -to continue Ventolin, Nebulizers PRN (ordered) , no indication for steroid. HLD-Lipitor h/o HTN--BP is within normal , no meds Defering Psych management to Psychiatry but advises that you review his recent meds from [facility] above and prescribe them as you see fit Plan 1. Continue with Seroquel 400 mg p.o. q.h.s. and Ativan p.r.n.. 2. Gather collateral information from the [facility]. Greater than 50% of the session was spent on counseling and/or coordination of care Reason for contiued inpatient stay Substantial Risk for: rapid decompensation
--- NOTE | 2021-05-28 13:54 | MHC.CLN ---
F/U STAFF REPORTS THAT PATIENT IS EATING WELL.
[2021-05-28] MEDS: Acetaminophen 325 MG TABLET 650 MG PO ×2 (14:20→20:51)
[2021-05-28] MEDS: Albuterol Sulfate (0.083%) 2.5 MG/3 ML VIAL.NEB INHALE (19:42)
[2021-05-28 19:44] VITALS: PULSE 83; O2SAT 93
[2021-05-28 19:53] VITALS: BP 130/64; PULSE 94; RESP 20; TEMP 36.9; O2SAT 94
[2021-05-28] MEDS: QUEtiapine Fumarate 400 MG TABLET PO (20:50)
[2021-05-28] MEDS: Atorvastatin Calcium 40 MG TABLET PO (21:18)
[2021-05-29 06:00] VITALS: BP 84/49; PULSE 102; TEMP 36.4; O2SAT 95
[2021-05-29] MEDS: Albuterol Sulfate 90 MCG 8 GM INHALER 2 PUFF INHALE ×3 (07:51→21:04)
[2021-05-29] MEDS: Acetaminophen 325 MG TABLET 650 MG PO (08:05)
[2021-05-29] MEDS: LORazepam 0.5 MG TABLET PO ×3 (08:05→22:31)
[2021-05-29] MEDS: QUEtiapine Fumarate 100 MG TABLET PO ×2 (08:05→14:49)
[2021-05-29] MEDS: Tamsulosin HCL 0.4 MG CAPSULE 0.8 MG PO (09:34)
[2021-05-29] MEDS: Docusate Sodium 100 MG CAPSULE PO ×2 (09:34→21:05)
[2021-05-29] MEDS: Aspirin Enteric Coated 81 MG TABLET.DR PO (09:34)
[2021-05-29] MEDS: Famotidine 20 MG TABLET PO ×2 (09:34→21:05)
[2021-05-29 10:16] VITALS: BP 84/49; PULSE 102
--- NOTE | 2021-05-29 14:10 | P.PNPSI_ITS ---
Subjective Subjective Date of Service: 05/29/21 Reason For Visit: SI Subjective Notes: Conditional Voluntary Interim History: The nursing staff has reported the patient has been cooperative but irritable at times. Today we had a family meeting with the [facility] staff and the order providers. The patient reports that this time that he has had baseline, he is doing fairly well with the current dose of medications. We discussed discharge planning and he agreed to be discharged tomorrow. Medication Compliance: Yes Side effects from medications: No Attending Groups: Intermittent Review of Systems Acute medical concerns: No Medical Review of Systems: unchanged Mental Status Exam Mental Status Exam Patient Appearance: Well Grooomed Patient Orientation: Person Level of Consciousness: Awake Patient Behavior: Cooperative Mood Description: Constricted Affect Description: Constricted Patient Cognition Impaired: No Ability to Follow Directions: Good Speech Pattern: Appropriate Hallucinations: None Thought Process: Racing Thought Content: positive for Circumstantial Judgement: Fair Diagnostics Vital Signs (24Hr): Vital Signs - 24 hr 05/28/21 19:44 05/28/21 19:53 05/29/21 06:00 Temperature 98.5 F 97.6 F Pulse Rate 83 94 102 H Respiratory Rate 20 Blood Pressure 130/64 84/49 L Pulse Oximetry 94 95 05/29/21 10:16 Temperature Pulse Rate 102 H Respiratory Rate Blood Pressure 84/49 L Pulse Oximetry Body Mass Index 22.4 Labs Results: 05/23/21 23:55 05/23/21 23:55 Imaging Radiology Impressions: ITS Impressions Chest X-Ray 05/23/21 22:44 IMPRESSION: No acute abnormality of chest. Medications Medications Current Medications Acetaminophen (Acetaminophen 325 Mg Tablet) 650 mg PO Q6H PRN PRN Reason: Pain Last Admin: 05/29/21 08:05 Dose: 650 mg Documented by: Al Hydroxide/Mg Hydroxide (Magnesium Hydrox/Alum Hydrox 30 Ml Oral.Susp) 30 ml PO Q6H PRN PRN Reason: Heartburn/Nausea Albuterol Sulfate (Albuterol Sulfate (0.083%) 2.5 Mg/3 Ml Vial.Neb) 2.5 mg INHALE TID PRN PRN Reason: Dyspnea Last Admin: 05/28/21 19:42 Dose: 2.5 mg Documented by: Albuterol Sulfate (Albuterol Sulfate 90 Mcg 8 Gm Inhaler) 2 puff INHALE RBID [facility] Last Admin: 05/29/21 07:51 Dose: 2 puff Documented by: Aspirin (Aspirin Enteric Coated 81 Mg Tablet.) 81 mg PO DAILY [facility] Last Admin: 05/29/21 09:34 Dose: 81 mg Documented by: Atorvastatin Calcium (Atorvastatin Calcium 40 Mg Tablet) 40 mg PO BEDTIME [facility] Last Admin: 05/28/21 21:18 Dose: 40 mg Documented by: Docusate Sodium (Docusate Sodium 100 Mg Capsule) 100 mg PO BID [facility] Last Admin: 05/29/21 09:34 Dose: 100 mg Documented by: Famotidine (Famotidine 20 Mg Tablet) 20 mg PO BID [facility] Last Admin: 05/29/21 09:34 Dose: 20 mg Documented by: Lorazepam (Lorazepam 0.5 Mg Tablet) 0.5 mg PO TID PRN PRN Reason: Anxiety Last Admin: 05/29/21 08:05 Dose: 0.5 mg Documented by: Losartan Potassium (Losartan Potassium 50 Mg Tablet) 100 mg PO DAILY [facility]; Protocol Last Admin: 05/29/21 10:16 Dose: Not Given Documented by: Nicotine Polacrilex (Nicotine Polacrilex 2 Mg Gum) 4 mg BUCCAL Q2H PRN PRN Reason: Nicotine Cravings Quetiapine Fumarate (Quetiapine Fumarate 400 Mg Tablet) 400 mg PO BEDTIME [facility] Last Admin: 05/28/21 20:50 Dose: 400 mg Documented by: Quetiapine Fumarate (Quetiapine Fumarate 100 Mg Tablet) 100 mg PO TID PRN PRN Reason: agitation Last Admin: 05/29/21 08:05 Dose: 100 mg Documented by: Tamsulosin HCl (Tamsulosin Hcl 0.4 Mg Capsule) 0.8 mg PO DAILY [facility] Last Admin: 05/29/21 09:34 Dose: 0.8 mg Documented by: Tiotropium [place] (Tiotropium [place] 18 Mcg Cap.W.Dev) 1 puff INHALE RDAILY [facility] Last Admin: 05/29/21 10:31 Dose: 1 puff Documented by: Allergies Allergies Allergy/AdvReac Type Severity Reaction Status Date / Time codeine [CODEINE] Allergy Intermediate HIVES Verified 12/19/20 16:08 Assessment & Plan Assessment & Plan (1) Depression: Status: Acute Code(s): F32.9 - Major depressive disorder, single episode, unspecified Assessment and Plan: Ct Rx plan (2) COPD (chronic obstructive pulmonary disease): Status: Acute Code(s): J44.9 - Chronic obstructive pulmonary disease, unspecified Assessment and Plan: 71/male with COPD, depression presently admitted to Psych for depression SI COPD, there is no acute exacbation, lungs clear. -to continue Ventolin, Nebulizers PRN (ordered) , no indication for steroid. HLD-Lipitor h/o HTN--BP is within normal , no meds Defering Psych management to Psychiatry but advises that you review his recent meds from [facility] above and prescribe them as you see fit Plan 1. Continue with Seroquel 400 mg p.o. q.h.s. and Ativan p.r.n.. 2. Gather collateral information from the [facility]. 3. Discharge tomorrow. Greater than 50% of the session was spent on counseling and/or coordination of care Reason for contiued inpatient stay Substantial Risk for: stable for discharge, rapid decompensation and med/psych decompensation
[2021-05-29] MEDS: Albuterol Sulfate (0.083%) 2.5 MG/3 ML VIAL.NEB INHALE (18:42)
[2021-05-29 18:43] VITALS: PULSE 81; O2SAT 97
[2021-05-29 20:45] VITALS: BP 129/60; PULSE 80; RESP 22; TEMP 36.9; O2SAT 95
[2021-05-29] MEDS: QUEtiapine Fumarate 400 MG TABLET PO (21:05)
[2021-05-29] MEDS: Atorvastatin Calcium 40 MG TABLET PO (21:05)
[2021-05-30] MEDS: Albuterol Sulfate 90 MCG 8 GM INHALER 2 PUFF INHALE (08:03)
[2021-05-30] MEDS: QUEtiapine Fumarate 100 MG TABLET PO (08:04)
[2021-05-30] MEDS: LORazepam 0.5 MG TABLET PO (08:04)
[2021-05-30] MEDS: Famotidine 20 MG TABLET PO (08:05)
[2021-05-30] MEDS: Docusate Sodium 100 MG CAPSULE PO (08:05)
[2021-05-30] MEDS: Tamsulosin HCL 0.4 MG CAPSULE 0.8 MG PO (08:05)
[2021-05-30] MEDS: Aspirin Enteric Coated 81 MG TABLET.DR PO (08:05)
[2021-05-30 08:08] VITALS: BP 128/63; PULSE 92
[2021-05-30] MEDS: Losartan Potassium 50 MG TABLET 100 MG PO (08:08)
[2021-05-30 09:07] VITALS: BP 128/63; PULSE 92; RESP 16; TEMP 36.4; O2SAT 96
--- NOTE | 2021-05-30 11:10 | P.DS_ITS ---
DS: Providers Provider Date of Service: 05/30/21 Date of admission: 05/24/21 16:43 Date of discharge: 05/30/21 Primary care physician: Unknown Physician Admitting clinician: Dileep Montero Consults: 05/24/21 18:19 Consult to Hospitalist Routine Consulting Provider: Hospitalist Reason For Exam: Routine Psych Admission. Hospitalist Consult Attending physician on discharge: Dileep Montero Discharging clinician: Jerry Kimble DS: Diagnosis Discharge Diagnosis (1) Depression: Status: Acute (2) COPD (chronic obstructive pulmonary disease): Status: Acute DS: Medications Discharge Medications Home Medications: Previous Rx's Medication Instructions Recorded acetaminophen 325 mg tablet 650 mg PO BID PRN #60 tab 05/30/21 albuterol sulfate 2.5 mg INHALATION TID PRN #25 units 05/30/21 albuterol sulfate 90 mcg/actuation 2 puff INHALATION BID #8.5 g 05/30/21 aerosol inhaler (Ventolin HFA) aspirin 81 mg tablet,delayed 1 tab PO DAILY #30 tab 05/30/21 release aspirin 81 mg tablet,delayed 81 mg PO DAILY #30 tab 05/30/21 release atorvastatin 40 mg tablet 1 tab PO BEDTIME #30 tab 05/30/21 docusate sodium 100 mg capsule 1 cap PO BID #60 cap 05/30/21 famotidine 20 mg tablet 1 tab PO BID #60 tab 05/30/21 lorazepam 0.5 mg tablet 0.5 mg PO TID PRN 30 Days #90 tab 05/30/21 losartan 100 mg tablet 1 tab PO DAILY #30 tab 05/30/21 nicotine (polacrilex) 2 mg gum 4 mg BUCCAL Q2H PRN #60 ea 05/30/21 quetiapine 100 mg tablet 100 mg PO TID PRN #90 tab 05/30/21 quetiapine 400 mg tablet 400 mg PO BEDTIME #30 tab 05/30/21 tamsulosin 0.4 mg capsule 2 cap PO DAILY 30 Days #120 cap 05/30/21 tiotropium bromide 1.25 2 puff INHALATION DAILY #6 g 05/30/21 mcg/actuation mist for inhalation (Spiriva Respimat) Mental Status Exam Mental Status Exam Patient Appearance: Well Grooomed Patient Orientation: Person Level of Consciousness: Awake Patient Behavior: Cooperative Mood Description: Constricted Affect Description: Constricted Patient Cognition Impaired: No Ability to Follow Directions: Good Speech Pattern: Appropriate Memory Description: Intact Hallucinations: None Thought Process: Racing Thought Content: positive for Circumstantial Depressive Symptoms: Increased Anxiety and Increased Irritability Judgement: Fair Judgement and Insight: Patient future oriented no self-harming thoughts excepting of treatment psychiatrically and medically Data Data Completed and Pending Completed studies during hospitalization [Text1]: 05/23/21 05/23/21 05/23/21 23:55 23:55 23:55 WBC 8.5 RBC 4.35 L Hgb 14.5 Hct 42.5 MCV 97.7 MCH 33.3 H MCHC 34.1 RDW 12.2 Plt Count 158 L MPV 9.2 L Immature Gran % (Auto) 0.4 Neut % (Auto) 78.9 H Lymph % (Auto) 12.9 L [place] % (Auto) 6.3 Eos % (Auto) 1.3 Baso % (Auto) 0.2 Lymph # (Auto) 1.1 L [place] # (Auto) 0.5 Eos # (Auto) 0.1 Baso # (Auto) 0.0 Abs Immat Gran (auto) 0.03 Absolute Neuts (auto) 6.7 Absolute Nucleated RBC 0.000 Nucleated RBC % (auto) 0.0 Sodium 140 Potassium 3.3 Chloride 104 Carbon Dioxide 25 Anion Gap 14 BUN 6 L Creatinine 1.31 Estim Creat Clear Calc 56.6 Estimated GFR 54 Random Glucose 90 Calcium 8.5 D Total Bilirubin 1.2 H AST 13 ALT 19 Alkaline Phosphatase 95 D Total Protein 6.6 Albumin 4.2 Urine Color Urine Appearance Urine pH Ur Specific [place] Urine Protein Urine Glucose (UA) Urine Ketones Urine Blood Urine Nitrite Ur Leukocyte Esterase Urine RBC Urine WBC Ur Squamous Epith Cells Urine Bacteria Salicylates < 5.0 L Urine Opiates Screen Urine Fentanyl Screen Acetaminophen < 1 Ur Barbiturates Screen Ur Phencyclidine Scrn Ur Amphetamines Screen U Benzodiazepines Scrn Urine Cocaine Screen U Marijuana (THC) Screen Ethyl Alcohol < 10 COVID-19 (RASHEED) COVID-19 Clin Com 05/23/21 05/24/21 05/24/21 23:58 07:38 07:38 WBC RBC Hgb Hct MCV MCH MCHC RDW Plt Count MPV Immature Gran % (Auto) Neut % (Auto) Lymph % (Auto) [place] % (Auto) Eos % (Auto) Baso % (Auto) Lymph # (Auto) [place] # (Auto) Eos # (Auto) Baso # (Auto) Abs Immat Gran (auto) Absolute Neuts (auto) Absolute Nucleated RBC Nucleated RBC % (auto) Sodium Potassium Chloride Carbon Dioxide Anion Gap BUN Creatinine Estim Creat Clear Calc Estimated GFR Random Glucose Calcium Total Bilirubin AST ALT Alkaline Phosphatase Total Protein Albumin Urine Color YELLOW Urine Appearance CLEAR Urine pH 6.0 Ur Specific [place] <= 1.005 Urine Protein NEG Urine Glucose (UA) NEG Urine Ketones NEG Urine Blood NEG Urine Nitrite NEG Ur Leukocyte Esterase NEG Urine RBC 0-2 Urine WBC 0-2 Ur Squamous Epith Cells TRACE Urine Bacteria NONE Salicylates Urine Opiates Screen Not Detected Urine Fentanyl Screen Not Detected Acetaminophen Ur Barbiturates Screen Not Detected Ur Phencyclidine Scrn Not Detected Ur Amphetamines Screen Not Detected U Benzodiazepines Scrn Not Detected Urine Cocaine Screen Not Detected U Marijuana (THC) Screen Not Detected Ethyl Alcohol COVID-19 (RASHEED) Negative COVID-19 Clin Com See Note Imaging Diagnostic Imaging Impressions Chest X-Ray 05/23/21 22:44 IMPRESSION: No acute abnormality of chest. DS: Summary Hospital Course Hospital Course: Psychiatry Admission Note (In)Signed Patient: Jin Jackson FMR#: [id number]: 2Acct:[id number]/Sex: 71 / MLoc:[id number]: Aron Reynolds MD cc: ~ HPI Chief Complaint: SI Sources of Information: patient interviewed and chart reviewed HPI Subjective Notes: Conditional Voluntary Narrative: The patient is a 71-year-old male, single, with no children, resident of intermediate for the last 6 months, unemployed on social security disability with social support. The patient was recently discharged from [facility] 2 weeks ago and according to the patient, ?they did not give me my medication?, he reported feeling overwhelmed and anxious and he cut himself superficially in order to be in the hospital. She was rushed to the ED, assessed by crisis and transferring to this facility for psychiatric stabilization. The patient carries a diagnosis of schizoaffective disorder bipolar type and he has been on treatment for several years. His last admission was at [facility] 2 weeks ago and he was discharged to his intermediate. The patient complained of depressed mood, anhedonia, lack of energy and suicidal thoughts in the context of not receiving his medications . The patient was able to contract for safety in the facility and he was future oriented. We will gather more information and we will continue with his medications as per [facility]. Past Psychiatric History: His 1st psychiatric contact was in his 40s he has several admissions into the hospital at different local hospitals such as [facility], [facility], [place] and others. He has periods of homelessness but at this moment he is under the care of [facility] and he resides in group homes. He has outpatient providers. 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 Medical Evaluation Reviewed: Yes [facility] Medical History Anxiety COPD (chronic obstructive pulmonary disease) Emphysema of lung Hepatitis C Hyperlipidemia Schizoaffective disorder, bipolar type Schizophrenia Family History: Denies. Social History: The patient refused to provide more details of his social history but apparently he has being single with no children with chronic mental illness and the past history of substance abuse. Currently he is residing at a intermediate for the last 6 months and he has case management services by [facility] Substance History: He reported a past history of substance abuse, he refused to elaborate but he states Trauma History: Refused to elaborate Diagnostics Vital Signs (24Hr):Vital Signs - 24 hr 05/24/21 17:20 05/25/21 08:31 05/25/21 08:33 Temperature 98.0 F 97.6 F Pulse Rate 95 91 91 Respiratory Rate 20 20 Blood Pressure 133/60 138/66 138/66 Pulse Oximetry 95 98 Body Mass Index 22.4 Labs Results: 05/23/21 23:55 document embedded image 05/23/21 23:55 document embedded image Labs:Laboratory Results - last 48 hr 05/23/21 05/23/21 05/23/21 23:55 23:55 23:55 WBC 8.5 RBC 4.35 L Hgb 14.5 Hct 42.5 MCV 97.7 MCH 33.3 H MCHC 34.1 RDW 12.2 Plt Count 158 L MPV 9.2 L Immature Gran % (Auto) 0.4 Neut % (Auto) 78.9 H Lymph % (Auto) 12.9 L [place] % (Auto) 6.3 Eos % (Auto) 1.3 Baso % (Auto) 0.2 Lymph # (Auto) 1.1 L [place] # (Auto) 0.5 Eos # (Auto) 0.1 Baso # (Auto) 0.0 Abs Immat Gran (auto) 0.03 Absolute Neuts (auto) 6.7 Absolute Nucleated RBC 0.000 Nucleated RBC % (auto) 0.0 Sodium 140 Potassium 3.3 Chloride 104 Carbon Dioxide 25 Anion Gap 14 BUN 6 L Creatinine 1.31 Estim Creat Clear Calc 56.6 Estimated GFR 54 Random Glucose 90 Calcium 8.5 D Total Bilirubin 1.2 H AST 13 ALT 19 Alkaline Phosphatase 95 D Total Protein 6.6 Albumin 4.2 Urine Color Urine Appearance Urine pH Ur Specific [place] Urine Protein Urine Glucose (UA) Urine Ketones Urine Blood Urine Nitrite Ur Leukocyte Esterase Urine RBC Urine WBC Ur Squamous Epith Cells Urine Bacteria Salicylates < 5.0 L Urine Opiates Screen Urine Fentanyl Screen Acetaminophen < 1 Ur Barbiturates Screen Ur Phencyclidine Scrn Ur Amphetamines Screen U Benzodiazepines Scrn Urine Cocaine Screen U Marijuana (THC) Screen Ethyl Alcohol < 10 COVID-19 (RASHEED) COVID-19 Clin Com 05/23/21 05/24/21 05/24/21 23:58 07:38 07:38 WBC RBC Hgb Hct MCV MCH MCHC RDW Plt Count MPV Immature Gran % (Auto) Neut % (Auto) Lymph % (Auto) [place] % (Auto) Eos % (Auto) Baso % (Auto) Lymph # (Auto) [place] # (Auto) Eos # (Auto) Baso # (Auto) Abs Immat Gran (auto) Absolute Neuts (auto) Absolute Nucleated RBC Nucleated RBC % (auto) Sodium Potassium Chloride Carbon Dioxide Anion Gap BUN Creatinine Estim Creat Clear Calc Estimated GFR Random Glucose Calcium Total Bilirubin AST ALT Alkaline Phosphatase Total Protein Albumin Urine Color YELLOW Urine Appearance CLEAR Urine pH 6.0 Ur Specific [place] <= 1.005 Urine Protein NEG Urine Glucose (UA) NEG Urine Ketones NEG Urine Blood NEG Urine Nitrite NEG Ur Leukocyte Esterase NEG Urine RBC 0-2 Urine WBC 0-2 Ur Squamous Epith Cells TRACE Urine Bacteria NONE Salicylates Urine Opiates Screen Not Detected Urine Fentanyl Screen Not Detected Acetaminophen Ur Barbiturates Screen Not Detected Ur Phencyclidine Scrn Not Detected Ur Amphetamines Screen Not Detected U Benzodiazepines Scrn Not Detected Urine Cocaine Screen Not Detected U Marijuana (THC) Screen Not Detected Ethyl Alcohol COVID-19 (RASHEED) Negative COVID-19 Clin Com See Note Imaging Radiology Impressions: ITS Impressions Chest X-Ray 05/23/21 22:44 IMPRESSION: No acute abnormality of chest. Meds/Allergies Meds Home Medications Acetaminophen (Acetaminophen 325 Mg Tablet) 650 mg PO Q6H PRN PRN Reason: Pain Last Admin: 05/25/21 08:33 Dose: 650 mg Documented by: Al Hydroxide/Mg Hydroxide (Magnesium Hydrox/Alum Hydrox 30 Ml Oral.Susp) 30 ml PO Q6H PRN PRN Reason: Heartburn/Nausea Albuterol Sulfate (Albuterol Sulfate 90 Mcg 8 Gm Inhaler) 2 puff INHALE BID [facility] Last Admin: 05/25/21 08:34 Dose: 2 puff Documented by: Albuterol Sulfate (Albuterol Sulfate (0.083%) 2.5 Mg/3 Ml Vial.Neb) 2.5 mg INHALE TID PRN PRN Reason: Dyspnea Aspirin (Aspirin Enteric Coated 81 Mg Tablet.) 81 mg PO DAILY [facility] Last Admin: 05/25/21 08:34 Dose: 81 mg Documented by: Atorvastatin Calcium (Atorvastatin Calcium 40 Mg Tablet) 40 mg PO BEDTIME [facility] Last Admin: 05/24/21 20:38 Dose: 40 mg Documented by: Docusate Sodium (Docusate Sodium 100 Mg Capsule) 100 mg PO BID [facility] Last Admin: 05/25/21 08:33 Dose: 100 mg Documented by: Famotidine (Famotidine 20 Mg Tablet) 20 mg PO BID [facility] Last Admin: 05/25/21 08:34 Dose: 20 mg Documented by: Lorazepam (Lorazepam 0.5 Mg Tablet) 0.5 mg PO TID PRN PRN Reason: Anxiety Last Admin: 05/25/21 08:34 Dose: 0.5 mg Documented by: Losartan Potassium (Losartan Potassium 50 Mg Tablet) 100 mg PO DAILY [facility]; Protocol Last Admin: 05/25/21 08:33 Dose: 100 mg Documented by: Nicotine Polacrilex (Nicotine Polacrilex 2 Mg Gum) 4 mg BUCCAL Q2H PRN PRN Reason: Nicotine Cravings Quetiapine Fumarate (Quetiapine Fumarate 100 Mg Tablet) 100 mg PO BEDTIME [facility] Last Admin: 05/24/21 20:39 Dose: 100 mg Documented by: Tamsulosin HCl (Tamsulosin Hcl 0.4 Mg Capsule) 0.8 mg PO DAILY [facility] Last Admin: 05/25/21 08:34 Dose: 0.8 mg Documented by: Tiotropium [place] (Tiotropium [place] 18 Mcg Cap.W.Dev) 1 puff INHALE RDAILY [facility] Last Admin: 05/25/21 08:34 Dose: 1 puff Documented by: Allergies Allergies Allergy/AdvReac Type Severity Reaction Status Date / Time codeine [CODEINE] Allergy Intermediate HIVES Verified 12/19/20 16:08 Mental Status Exam Mental Status Exam Patient Appearance: Well Grooomed Patient Orientation: Person, Place and Situation Level of Consciousness: Awake Patient Behavior: Cooperative Mood Description: Constricted Affect Description: Depressed Patient Cognition Impaired: No Ability to Follow Directions: Good Speech Pattern: Clear Hallucinations: None Delusions: Not Present Thought Process: Linear and Slowed Thinking Thought Content: positive for Poverty of Content Judgement: Fair Assessment & Plan Assessment & Plan (1) Schizoaffective disorder, bipolar type: Status: Acute Code(s): F25.0 - Schizoaffective disorder, bipolar type Assessment and Plan: The patient is a 71-year-old male, single, with no children, with limited social support, resident of a intermediate for the last 6 months with a diagnosis for schizoaffective disorder bipolar type, recently discharged from [facility] and COPD and other medical problems referred to this facility after several her min episode in the context of the tensions not getting his medications? patient. The patient also has a past history of substance abuse. Plan. 1. Gather collateral information. 2. Restart his regular medications as per [facility]. 3. Regular blood work, consult to hospitalist. Informed Consent: understands Reason for continued inpatient stay Substantial Risk for: harm to self, inability to function, rapid decompensation and med/psych decompensation Dictated By:Dileep Montero MDSigned By:<Electronically signed by Dileep Montero MD>05/25/21 1257 DD/ 1243TD/TT: 05/25/21 1243Transcriptionist HOSPITAL COURSE THE PATIENT WAS ADMITTED BY DR. GARZA ON A CONDITIONAL VOLUNTARY. The patient was anxious and dysphoric on admission he had recently been discharged from [facility] but somehow was not receiving his meds when he return to the intermediate. He became increasingly depressed and anxious again and had significant shortness of breath. The patient was restarted on lorazepam Seroquel updrafts Spiriva and fairly rapidly Restabilized over a number of days Patient was seen by the hospitalist service no acute findings were noted. Chest x-ray showed no evidence of pneumonia. Patient has chronic paranoia and auditory hallucinations but this was not prominent during this admission he was not suicidal time of discharge patient was future oriented anxious somewhat irritable but he felt comfortable to return back to his intermediate Status at Discharge Cognitive/behavioral status at discharge: Patient future oriented for some anxiety noted no thoughts of self-harm ambulating comfortably Functional status at discharge: independent ambulation Overall status at discharge: patient is progressing back to baseline Time Spent with Patient Time attestation: Total time spent providing and/or coordinating discharge services: Discharge Plan Discharge Patient Disposition: Xfer Other Discharge Diagnosis: schizoaffective disorder copd Referrals: Dr. Ervin Up (pulmonologists) [Other] - 05/31/21 12:15 pm (Appt scheduled for , 05/31/21 @ 12:15 PM intermediate to transport to doctors appointment.) Dr. Cruz Weston (psychiatrists) [Other] - 06/14/21 10:00 am (Appt scheduled for , June 14, 2021 @ 10 AM telehealth.) Martínez Simeon MD [Physician] - 06/06/21 2:00 am Physician,Unknown [Primary Care Provider] - 1 Week Discharge Medications: New nicotine (polacrilex) 2 mg Gum 4 mg buccal Q2H PRN (Reason: Nicotine Cravings) Qty: 60 RF: 1 quetiapine 100 mg Tablet 100 mg PO TID PRN (Reason: agitation) Qty: 90 RF: 0 quetiapine 400 mg Tablet 400 mg PO BEDTIME Qty: 30 RF: 0 lorazepam 0.5 mg Tablet 0.5 mg PO TID PRN (Reason: Anxiety) 30 Days Qty: 90 RF: 0 Continued atorvastatin 40 mg tablet 1 tab PO BEDTIME Qty: 30 RF: 0 albuterol sulfate 2.5 mg /3 mL (0.083 %) solution for nebulization 2.5 mg inhalation TID PRN (Reason: Dyspnea) Qty: 25 RF: 2 aspirin 81 mg tablet,delayed release (DR/EC) 81 mg PO DAILY Qty: 30 RF: 0 aspirin 81 mg tablet,delayed release (DR/EC) 1 tab PO DAILY Qty: 30 RF: 0 famotidine 20 mg tablet 1 tab PO BID Qty: 60 RF: 0 tamsulosin 0.4 mg capsule 2 cap PO DAILY 30 Days Qty: 120 RF: 0 docusate sodium 100 mg capsule 1 cap PO BID Qty: 60 RF: 0 albuterol sulfate [Ventolin HFA] 90 mcg/actuation HFA aerosol inhaler 2 puff inhalation BID Qty: 8.5 RF: 3 losartan 100 mg tablet 1 tab PO DAILY Qty: 30 RF: 0 Spiriva Respimat 1.25 mcg/actuation mist 2 puff inhalation DAILY Qty: 6 RF: 0 Changed acetaminophen 325 mg tablet 650 mg PO BID PRN (Reason: Pain) Qty: 60 RF: 0 Discontinued quetiapine 200 mg tablet 200 mg PO BEDTIME RF: 0 lorazepam 0.5 mg tablet 1 tab PO TID PRN (Reason: Anxiety) RF: 0 quetiapine 50 mg tablet 50 mg PO BID RF: 0 Discharge Orders: Discharge Order (Routine); Ordered 05/30/21 Ordered By: Jerry Kimble Diet: advance to usual diet Activity on Discharge: As tolerated Stand Alone Forms: Patient Portal Discharge page Care Plan Goals: no self harming behavoir improved mood Health Concerns: depression paranoia copd Plan of Treatment: take meds as prescribed follow up with pcp and psychiatrist psychotherapy/counseling intermediate support Assessment: improved mood brteathing no self harm Discharge Date/Time: 05/30/21 12:10
== END 2021-05-30 12:10 | disposition other institution (70) | DRG 881 ==
LOC: HO.ED 05-24 16:43 → HO.PGERI 05-24 17:15
PROVIDERS: Internal Medicine; Admitting Provider Psychiatry & Neurology Psychiatry; Emergency Provider Emergency Medicine; Visit Provider Psychiatry & Neurology Psychiatry
DX: F32.9 Major depressive disorder, single episode, unspecified (principal); R45.851 Suicidal ideations; E78.5 Hyperlipidemia, unspecified; I10 Essential (primary) hypertension; F17.210 Nicotine dependence, cigarettes, uncomplicated; Z71.6 Tobacco abuse counseling; J44.9 Chronic obstructive pulmonary disease, unspecified; Z91.5 Personal history of self-harm; Z20.822 Contact with and (suspected) exposure to COVID-19; Z88.5 Allergy status to narcotic agent; Z79.82 Long term (current) use of aspirin; Z79.899 Other long term (current) drug therapy
CPT/HCPCS: 36415; 71045; 80053; 80143; 80179; 80307; 81001; 82077; 85025; 87635; 93005; 94640; 99284; 99285

== ENCOUNTER 2021-06-14 11:13 | Emergency (ER) | payer MEDICARE, SELFPAY ==
--- NOTE | ~2021-06-14 | XR_ITS ---
EXAMINATION: XR CHEST CLINICAL INFORMATION: Dyspnea COMPARISON: Previous chest x-rays most recent 05/23/[address] December 2020 TECHNIQUE: Frontal view of the chest was obtained. FINDINGS: The cardiac and mediastinal contours are stable. The lungs are well inflated. There is question of identification of known left upper lobe nodule on chest x-ray adjacent to the left superior mediastinum just inferior to the first rib. This measures approximately 1 x 1.5 cm. The lungs are otherwise clear. There is no pleural effusion. There are degenerative changes of the spine. XR/XR chest 1V IMPRESSION: Well-inflated lungs. Question left upper lobe nodule.
[2021-06-14 11:16] VITALS: BP 142/86; PULSE 115; RESP 40; O2SAT 85; BMI 25.1
--- NOTE | 2021-06-14 11:35 | ECG_ITS ---
Test Reason : DYSPNEA Blood Pressure : / mmHG Vent. Rate : 096 BPM Atrial Rate : 096 BPM P-R Int : 158 ms QRS Dur : 076 ms QT Int : 362 ms P-R-T Axes : 079 035 079 degrees QTc Int : 457 ms Normal sinus rhythm Normal ECG When compared with ECG of 24-MAY-2021 09:45, No significant change was found Referred By: Nicole Casiano Electronically Signed By:KOURTNEY JOSÉ
--- NOTE | 2021-06-14 11:37 | ED.SOB ---
HPI - SOB/Dyspnea General Chief Complaint: Dyspnea Stated Complaint: diff breathing Time Seen by Provider: 06/14/21 11:34 Source: patient Mode of arrival: ambulatory Limitations: no limitations History of Present Illness MD elicited complaint: shortness of breath and cough Pertinent past history: COPD Onset (ago): day(s) (3) Context: other (ran out of neb machine liquid - albuterol) Timing: progressively worsening Severity: moderate Exacerbating factors: exertion and coughing Relieving factors: nothing Known history of: COPD Associated symptoms: denies other symptoms Treatment prior to arrival: none Related Data Home Medications Medication Instructions Recorded Confirmed albuterol sulfate 90 mcg/actuation 2 puff INHALATION BID 06/14/21 06/14/21 aerosol inhaler (Ventolin HFA) Previous Rx's Medication Instructions Recorded albuterol sulfate 2.5 mg INHALATION TID PRN #25 units 05/30/21 aspirin 81 mg tablet,delayed 81 mg PO DAILY #30 tab 05/30/21 release atorvastatin 40 mg tablet 1 tab PO BEDTIME #30 tab 05/30/21 docusate sodium 100 mg capsule 1 cap PO BID #60 cap 05/30/21 famotidine 20 mg tablet 1 tab PO BID #60 tab 05/30/21 lorazepam 0.5 mg tablet 0.5 mg PO TID PRN 30 Days #90 tab 05/30/21 losartan 100 mg tablet 1 tab PO DAILY #30 tab 05/30/21 quetiapine 100 mg tablet 100 mg PO TID PRN #90 tab 05/30/21 quetiapine 400 mg tablet 400 mg PO BEDTIME #30 tab 05/30/21 tamsulosin 0.4 mg capsule 2 cap PO DAILY 30 Days #120 cap 05/30/21 tiotropium bromide 1.25 2 puff INHALATION DAILY #6 g 05/30/21 mcg/actuation mist for inhalation (Spiriva Respimat) albuterol sulfate 2.5 mg INHALATION Q4-6H PRN #75 ml 06/14/21 doxycycline hyclate 100 mg capsule 100 mg PO BID 7 Days #14 cap 06/14/21 prednisone 20 mg tablet 40 mg PO DAILY 5 Days #10 tab 06/14/21 Allergies Allergy/AdvReac Type Severity Reaction Status Date / Time codeine [CODEINE] Allergy Intermediate HIVES Verified 06/14/21 11:16 Review of Systems Review of Systems: Constitutional : No Fever, No Chills ENT/Mouth : No sore throat, No Rhinorrhea, No Swallowing Difficulty Eyes: No Eye Pain, No Swelling, No Redness Cardiovascular : No Chest Pain, positive SOB, No Orthopnea, no Edema Respiratory : pos Cough, pos Sputum,pos Wheezing, positive dyspnea Gastrointestinal : No Nausea, No Vomiting, No Diarrhea, No abdominal Pain, No Hematochezia, No Melena Genitourinary : No Dysuria, No Urinary Frequency, No Hematuria Musculoskeletal : No joint pain, No Myalgias Skin : No Skin Lesions, No rash Neuro : No Weakness, No Numbness, No Dizziness, No Headache Psych : No Anxiety/Panic, No Depression Heme/Lymph: No Bruising, No Lymphadenopathy Endocrine : No Polyuria, No Polydipsia All other systems reviewed and are negative FOR[facility]LY [facility] Past Medical History Attestation statement: The following information was validated with the patient. Medical History Anxiety BPH (benign prostatic hyperplasia) COPD (chronic obstructive pulmonary disease) Emphysema of lung Hepatitis C Hyperlipidemia Left tibial fracture Schizoaffective disorder, bipolar type Schizophrenia Social History Social History Household Members: Other Household Members Other:: Assisted Residents and Staff Housing: House Housing Other:: Respite since April Do you presently have visiting nurse or other home services: No Alcohol intake: former Patient Tobacco Use Status: Current someday Tobacco user Tobacco use type: Cigarette Cigarette Packs Per Day: 1 Cigarettes Per Day: 20.0 Years Smoked: 58 e-Cigarette/Vaping Use: Currently Using Second Hand Smoke Exposure: Yes Advance Directives: Yes Advance Directives on File: Yes Advance Directives Date on File: 08/18/20 service: No Current occupational status: unemployed Sexual orientation: Straight/Heterosexual Physical Exam Vital Signs: Vital Signs: Last Vital Signs Pulse 94 06/14/21 12:16 Resp 40 H 06/14/21 11:16 BP 142/86 H 06/14/21 11:16 Pulse Ox 85 L 06/14/21 11:16 Body Mass Index 25.1 Appearance: Alert. Oriented X3. No acute distress. Eyes: Pupils equal, round and reactive to light. ENT: Pharynx normal. Neck: Normal inspection. Neck supple. CVS: Normal heart rate and rhythm. Pulses normal. Respiratory: No respiratory distress. Breath sounds diffuse end exp wheezes, diminished Abdomen: Soft and nontender. Skin: Skin warm and dry. Normal skin color. Normal skin turgor. Extremities: No lower extremity edema. No calf ttp Neuro: Oriented X 3. No motor deficit. No sensory deficit. Course Course Course Narrative: feels much better, wants to go home, requesting INH in hand 96% on RA MDM - SOB/Dyspnea MDM Narrative Medical decision making narrative: 70 yo male with COPD, HLD, hepatitis C, CAD s/p here with 3 days of cough dyspnea after running out of his albuterol liquid at this time will need labs, CXR< EKG, 5mg neb, IV steroids dispo per results and improvement will observe and monitor O2 sat. Lab Data Result diagrams: 06/14/21 12:03 06/14/21 12:03 Labs: Lab Results 06/14/21 06/14/21 06/14/21 Range/Units 12:02 12:03 12:03 WBC 5.0 (4.8-10.8) X10*3/uL RBC 4.56 L (4.60-5.80) X10*6/uL Hgb 14.9 (14.0-18.0) g/dl Hct 44.3 (42-52) % MCV 97.1 (80-98) fL MCH 32.7 (27.0-33.0) pg MCHC 33.6 (31.0-36.0) g/dl RDW 11.8 (11.0-16.0) % Plt Count 258 D (160-400) X10*3/uL MPV 9.1 L (9.4-12.4) fL Immature Gran % (Auto) 0.4 (0.0-0.4) % Neut % (Auto) 70.4 (45-73) % Lymph % (Auto) 14.9 L (20-40) % [place] % (Auto) 11.1 H (2-11) % Eos % (Auto) 2.8 (0-4) % Baso % (Auto) 0.4 (0-2) % Lymph # (Auto) 0.7 L (1.2-4.9) X10*3/uL [place] # (Auto) 0.6 (0.1-1.2) X10*3/uL Eos # (Auto) 0.1 (0.0-0.4) X10*3/uL Baso # (Auto) 0.0 (0.0-0.2) X10*3/uL Abs Immat Gran (auto) 0.02 (0.00-0.03) X10*3/uL Absolute Neuts (auto) 3.5 (2.0-8.3) X10*3/uL Absolute Nucleated RBC 0.000 (0.0-0.012) X10*3/uL Nucleated RBC % (auto) 0.0 (0.0-0.2) /100WBC VBG pH (7.32-7.43) VBG pCO2 mmHg VBG pO2 mmHg VBG HCO3 (22-26) mmol/L VBG O2 Saturation % VBG Base Excess mmol/L Sodium 144 (135-145) mmol/L Potassium 4.2 D (3.3-5.1) mmol/L Chloride 107 (96-108) mmol/L Carbon Dioxide 28 (22-29) mmol/L Anion Gap 13 (12-20) BUN 7 L (9-16) mg/dL Creatinine 1.19 (0.5-1.4) mg/dL Estim Creat Clear Calc 62.3 Estimated GFR > 60 Random Glucose 94 (60-115) mg/dL Lactic Acid 1.3 (0.5-2.0) mmol/L Calcium 9.1 D (8.4-10.2) mg/dL Magnesium 1.9 (1.6-2.6) mg/dL Total Bilirubin 0.4 (0.0-1.0) mg/dL Direct Bilirubin 0.4 (0.0-0.5) mg/dL AST 14 (5-37) U/L ALT 12 (0-40) U/L Alkaline Phosphatase 126 H D (39-117) U/L Troponin I High Sens (<3.5-35.0) ng/L Total Protein 6.6 (6.5-8.0) g/dL Albumin 4.2 (3.5-5.0) g/dL COVID-19 (RASHEED) (Negative) COVID-19 Clin Com 06/14/21 06/14/21 06/14/21 Range/Units 12:03 12:03 12:06 WBC (4.8-10.8) X10*3/uL RBC (4.60-5.80) X10*6/uL Hgb (14.0-18.0) g/dl Hct (42-52) % MCV (80-98) fL MCH (27.0-33.0) pg MCHC (31.0-36.0) g/dl RDW (11.0-16.0) % Plt Count (160-400) X10*3/uL MPV (9.4-12.4) fL Immature Gran % (Auto) (0.0-0.4) % Neut % (Auto) (45-73) % Lymph % (Auto) (20-40) % [place] % (Auto) (2-11) % Eos % (Auto) (0-4) % Baso % (Auto) (0-2) % Lymph # (Auto) (1.2-4.9) X10*3/uL [place] # (Auto) (0.1-1.2) X10*3/uL Eos # (Auto) (0.0-0.4) X10*3/uL Baso # (Auto) (0.0-0.2) X10*3/uL Abs Immat Gran (auto) (0.00-0.03) X10*3/uL Absolute Neuts (auto) (2.0-8.3) X10*3/uL Absolute Nucleated RBC (0.0-0.012) X10*3/uL Nucleated RBC % (auto) (0.0-0.2) /100WBC VBG pH 7.31 L (7.32-7.43) VBG pCO2 57 mmHg VBG pO2 43 mmHg VBG HCO3 29 H (22-26) mmol/L VBG O2 Saturation 65.0 % VBG Base Excess 1.8 mmol/L Sodium (135-145) mmol/L Potassium (3.3-5.1) mmol/L Chloride (96-108) mmol/L Carbon Dioxide (22-29) mmol/L Anion Gap (12-20) BUN (9-16) mg/dL Creatinine (0.5-1.4) mg/dL Estim Creat Clear Calc Estimated GFR Random Glucose (60-115) mg/dL Lactic Acid (0.5-2.0) mmol/L Calcium (8.4-10.2) mg/dL Magnesium (1.6-2.6) mg/dL Total Bilirubin (0.0-1.0) mg/dL Direct Bilirubin (0.0-0.5) mg/dL AST (5-37) U/L ALT (0-40) U/L Alkaline Phosphatase (39-117) U/L Troponin I High Sens 4.2 (<3.5-35.0) ng/L Total Protein (6.5-8.0) g/dL Albumin (3.5-5.0) g/dL COVID-19 (RASHEED) Negative (Negative) COVID-19 Clin Com See Note ECG Data Attestation: I personally reviewed and interpreted this ECG as follows: ECG interpretation date: 06/14/21 ECG interpretation time: 12:08 Interpretation: Rate: 96 Rhythm: NSR [place]: normal Normal P waves. Normal BRIAN. Normal QRS complex. ST T wave : normal no KEYON qTC: normal prior studies: normal The study has been interpreted contemporaneously by me. Discharge Plan Discharge Clinical Impression: COPD with acute exacerbation Patient Disposition: Home, Self-Care Instructions: COPD (Chronic Obstructive Pulmonary Disease) (ED) Additional Instructions: return to ED for any worsening symptoms or concerns COVID IS NEGATIVE Well-inflated lungs. Question left upper lobe nodule. FOLLOW UP WITH PRIMARY CARE DOCTOR FOLLOW UP WITH YOUR DOCTOR Prescriptions: New doxycycline hyclate 100 mg capsule 100 mg PO BID 7 Days Qty: 14 RF: 0 albuterol sulfate 2.5 mg /3 mL (0.083 %) solution for nebulization 2.5 mg inhalation Q4-6H PRN (Reason: bronchospasm) Qty: 75 RF: 0 prednisone 20 mg tablet 40 mg PO DAILY 5 Days Qty: 10 RF: 0 No Action quetiapine 100 mg Tablet 100 mg PO TID PRN (Reason: agitation) Qty: 90 RF: 0 quetiapine 400 mg Tablet 400 mg PO BEDTIME Qty: 30 RF: 0 lorazepam 0.5 mg Tablet 0.5 mg PO TID PRN (Reason: Anxiety) 30 Days Qty: 90 RF: 0 atorvastatin 40 mg tablet 1 tab PO BEDTIME Qty: 30 RF: 0 albuterol sulfate 2.5 mg /3 mL (0.083 %) solution for nebulization 2.5 mg inhalation TID PRN (Reason: Dyspnea) Qty: 25 RF: 2 aspirin 81 mg tablet,delayed release (DR/EC) 81 mg PO DAILY Qty: 30 RF: 0 famotidine 20 mg tablet 1 tab PO BID Qty: 60 RF: 0 tamsulosin 0.4 mg capsule 2 cap PO DAILY 30 Days Qty: 120 RF: 0 docusate sodium 100 mg capsule 1 cap PO BID Qty: 60 RF: 0 losartan 100 mg tablet 1 tab PO DAILY Qty: 30 RF: 0 Spiriva Respimat 1.25 mcg/actuation mist 2 puff inhalation DAILY Qty: 6 RF: 0 albuterol sulfate [Ventolin HFA] 90 mcg/actuation HFA aerosol inhaler 2 puff inhalation BID RF: 0 Referrals: Martínez Simeon MD [Primary Care Provider] - 2 days (as needed)
--- NOTE | 2021-06-14 12:02 | PHA.MEDREC ---
Pharmacy Consult ? Medication Reconciliation Pharmacy has completed the medication reconciliation. There are no remarkable issues for provider's attention. Faina Mendoza, KyleeD
[2021-06-14 12:08] LABS: MANUAL DIFF FLAG NO
[2021-06-14] MEDS: methylPREDNISolone Sod Succ 125 MG/2 ML VIAL IVPUSH (12:09)
[2021-06-14] MEDS: Albuterol Sulfate (0.083%) 2.5 MG/3 ML VIAL.NEB 5 MG INHALE (12:13)
[2021-06-14 12:15] LABS: Basophils Percent Auto 0.4 % (0-2); Eosinophils Absolute Auto 0.1 X10*3/uL (0.0-0.4); Eosinophils Percent Auto 2.8 % (0-4); Hematocrit 44.3 % (42-52); Hemoglobin 14.9 g/dl (14.0-18.0); Imm Gran Abs Auto 0.02 X10*3/uL (0.00-0.03); Imm Gran Pct Auto 0.4 % (0.0-0.4); Lymphocytes Absolute Auto 0.7 X10*3/uL (1.2-4.9); Lymphocytes Percent Auto 14.9 % (20-40); Mean Corpuscular HGB Conc 33.6 g/dl (31.0-36.0); Mean Corpuscular Hemoglobin 32.7 pg (27.0-33.0); Mean Corpuscular Volume 97.1 fL (80-98); Mean Platelet Volume 9.1 fL (9.4-12.4); Monocytes Absolute Auto 0.6 X10*3/uL (0.1-1.2); Monocytes Percent Auto 11.1 % (2-11); Neutrophils Absolute Auto 3.5 X10*3/uL (2.0-8.3); Neutrophils Percent Auto 70.4 % (45-73); Platelet Count 258 X10*3/uL (160-400); Red Blood Count 4.56 X10*6/uL (4.60-5.80); Red Cell Distribution Width 11.8 % (11.0-16.0)
[2021-06-14 12:16] VITALS: PULSE 94; O2SAT 98
[2021-06-14 12:21] LABS: Venous Blood Gas Refer to POC result
[2021-06-14 12:21] LABS: VBG Base Excess 1.8 mmol/L; VBG HCO3 29 mmol/L (22-26); VBG pCO2 57 mmHg; VBG pH 7.31 (7.32-7.43); VBG pO2 43 mmHg
[2021-06-14 12:25] LABS: Lactic Acid 1.3 mmol/L (0.5-2.0)
[2021-06-14 12:26] LABS: COVID-19 Test Negative (Negative)
[2021-06-14 12:29] LABS: Alanine Aminotransferase 12 U/L (0-40); Albumin Level 4.2 g/dL (3.5-5.0); Alkaline Phosphatase 126 U/L (39-117); Anion Gap 13 (12-20); Aspartate Amino Transferase 14 U/L (5-37); Bilirubin Direct 0.4 mg/dL (0.0-0.5); Bilirubin Total 0.4 mg/dL (0.0-1.0); Blood Urea Nitrogen 7 mg/dL (9-16); Calcium 9.1 mg/dL (8.4-10.2); Carbon Dioxide 28 mmol/L (22-29); Chloride 107 mmol/L (96-108); Creatinine Clr Calc Pharmacy 62.3; Estimated Glomerular Filt Rate > 60; Glucose Random 94 mg/dL (60-115); Magnesium 1.9 mg/dL (1.6-2.6); Potassium 4.2 mmol/L (3.3-5.1); Sodium 144 mmol/L (135-145); Total Protein 6.6 g/dL (6.5-8.0)
[2021-06-14 12:33] LABS: Troponin-I High Sensitivity 4.2 ng/L (<3.5-35.0)
[2021-06-14 13:46] VITALS: BP 124/70; PULSE 90; RESP 18; TEMP 36.6; O2SAT 96
[2021-06-14] MEDS: Albuterol Sulfate 90 MCG 8 GM INHALER 2 PUFF INHALE (13:53)
== END 2021-06-14 14:20 | disposition home or self-care (01) ==
PROVIDERS: Emergency Provider Emergency Medicine; PCP Internal Medicine
DX: J44.1 Chronic obstructive pulmonary disease with (acute) exacerbation (principal); I25.10 Atherosclerotic heart disease of native coronary artery without angina pectoris; Z79.82 Long term (current) use of aspirin; Z79.899 Other long term (current) drug therapy; Z20.822 Contact with and (suspected) exposure to COVID-19
CPT/HCPCS: 36415; 71045; 80048; 80076; 82803; 83605; 83735; 84484; 85025; 87040; 87635; 93005; 94640; 94644; 96374; 99284; J2930

== ENCOUNTER 2021-07-09 19:30 | Emergency (ER) | payer MEDICARE, SELFPAY ==
--- NOTE | ~2021-07-09 | XR_ITS ---
EXAMINATION: XR CHEST CLINICAL INFORMATION: Dyspnea COMPARISON: Previous chest x-ray most recent 06/14/2021 and CTA of the chest December [address] from [facility] 06/25/2021 TECHNIQUE: 2 views of the chest were obtained. FINDINGS: The cardiac and mediastinal contours are normal. There is bullous disease seen in the left upper lung. The lungs are well inflated. There is a 3 cm left upper lobe nodule just medial to the left first rib costochondral cartilage in lateral to the trachea. This is unchanged from most recent chest CT 06/25/2021. The lungs are otherwise clear. The other smaller pulmonary nodules seen by chest CT are not appreciated by chest x-ray. There is no pleural effusion or pneumothorax. There are mild degenerative changes of the spine. XR/XR chest 2V IMPRESSION: Well-inflated lungs. Bullous disease in the left upper lobe. 3 cm left upper lobe nodule/mass worrisome for neoplasm.
[2021-07-09 19:42] VITALS: BP 150/68; BP 91/60; PULSE 88; PULSE 97; RESP 20; O2SAT 100; O2SAT 99; BMI 25.1
--- NOTE | 2021-07-09 19:45 | ECG_ITS ---
Test Reason : SOB Blood Pressure : / mmHG Vent. Rate : 087 BPM Atrial Rate : 087 BPM P-R Int : 156 ms QRS Dur : 076 ms QT Int : 360 ms P-R-T Axes : 086 030 075 degrees QTc Int : 433 ms Normal sinus rhythm Nonspecific ST abnormality Abnormal ECG No significant changes seen Referred By: Dorian Hutson Electronically Signed By:DANIKA VILLA MD
--- NOTE | 2021-07-09 19:47 | ED.GENADULT ---
HPI - General Adult General Chief complaint: Dyspnea Stated complaint: difficulty breathing Time Seen by Provider: 07/09/21 19:38 Source: patient, EMS and old records reviewed History of Present Illness HPI narrative: Patient with a longstanding history of COPD presents with difficulty breathing over the past several days. It got much worse today. Complains of clear rhinorrhea and sputum over the last several days. He states he feels like he still has sputum but is unable to get up. No fevers or chills. He has a history of COVID-19 infection as well as the Madonna vaccine. He has been hospitalized with COPD exacerbations in the past. He was found by EMS to have an oxygen saturation of 86% on room air which improved during transportation to 99% after albuterol nebulizer. He denies pain. Recent history is significant for having undergone a PET scan secondary to a left upper lobe lung mass that is currently being worked up by his wheelchair rental clerk at [facility]. He denies any new symptoms. He was just on prednisone for 4 days and took his last dose this morning. Related Data Home Medications Medication Instructions Recorded Confirmed albuterol sulfate 90 mcg/actuation 2 puff INHALATION BID 06/14/21 06/14/21 aerosol inhaler (Ventolin HFA) Previous Rx's Medication Instructions Recorded albuterol sulfate 2.5 mg INHALATION TID PRN #25 units 05/30/21 aspirin 81 mg tablet,delayed 81 mg PO DAILY #30 tab 05/30/21 release atorvastatin 40 mg tablet 1 tab PO BEDTIME #30 tab 05/30/21 docusate sodium 100 mg capsule 1 cap PO BID #60 cap 05/30/21 famotidine 20 mg tablet 1 tab PO BID #60 tab 05/30/21 lorazepam 0.5 mg tablet 0.5 mg PO TID PRN 30 Days #90 tab 05/30/21 losartan 100 mg tablet 1 tab PO DAILY #30 tab 05/30/21 quetiapine 100 mg tablet 100 mg PO TID PRN #90 tab 05/30/21 quetiapine 400 mg tablet 400 mg PO BEDTIME #30 tab 05/30/21 tamsulosin 0.4 mg capsule 2 cap PO DAILY 30 Days #120 cap 05/30/21 tiotropium bromide 1.25 2 puff INHALATION DAILY #6 g 05/30/21 mcg/actuation mist for inhalation (Spiriva Respimat) albuterol sulfate 2.5 mg INHALATION Q4-6H PRN #75 ml 06/14/21 doxycycline hyclate 100 mg capsule 100 mg PO BID 7 Days #14 cap 06/14/21 prednisone 20 mg tablet 40 mg PO DAILY 5 Days #10 tab 06/14/21 benzonatate 100 mg capsule 100 mg PO BID #14 cap 07/09/21 ([place]) prednisone 20 mg tablet 40 mg PO DAILY #10 tab 07/09/21 Allergies Allergy/AdvReac Type Severity Reaction Status Date / Time codeine [CODEINE] Allergy Intermediate HIVES Verified 06/14/21 11:16 Review of Systems Constitutional: Comments: No fevers chills or weakness Cardiovascular: Comments: No chest pain Respiratory: Comments: Dyspnea, cough, sputum, wheezing Gastrointestinal: Comments: No nausea vomiting diarrhea or abdominal pain Musculoskeletal: Comments: No leg swelling Integumentary/Breasts: Comments: No rash PMFSH Past Medical History Medical History Anxiety BPH (benign prostatic hyperplasia) COPD (chronic obstructive pulmonary disease) Emphysema of lung Hepatitis C Hyperlipidemia Left tibial fracture Schizoaffective disorder, bipolar type Schizophrenia Social History Social History Household Members: Other Household Members Other:: Retirement Residents and Staff Housing: House Housing Other:: Respite since April Do you presently have visiting nurse or other home services: No Alcohol intake: former Patient Tobacco Use Status: Current someday Tobacco user Tobacco use type: Cigarette Cigarette Packs Per Day: 1 Cigarettes Per Day: 20.0 Years Smoked: 58 e-Cigarette/Vaping Use: Currently Using Second Hand Smoke Exposure: Yes Advance Directives: Yes Advance Directives on File: Yes Advance Directives Date on File: 08/18/20 service: No Current occupational status: unemployed Sexual orientation: Straight/Heterosexual Physical Exam Vital Signs: Vital Signs: Last Vital Signs Pulse 97 07/09/21 19:42 Resp 20 07/09/21 19:42 BP 91/60 07/09/21 19:42 Pulse Ox 99 07/09/21 19:42 Body Mass Index 25.1 Const: Other: Awake alert no acute distress here in the emergency department Resp: Other: Bilateral wheezing with fair air entry. Able to speak in full sentences. Oxygen saturation on room air is 99% at the moment Cardio: Other: Regular rate and rhythm without murmurs rubs or gallops GI: Other: Soft nontender nondistended Skin: Other: Warm pink and dry without rash Neuro: Other: Nonfocal neuro exam Course Course Course Narrative: COPD exacerbation Viral respiratory infection Bacterial pneumonia COVID-19 pneumonia Pulmonary embolism Lung cancer IV Solu-Medrol 9:15 p.m.. Patient is feeling considerably better. His oxygen saturation has been between 97 and 99 % in the emergency department. His workup is reassuring. His COVID test as well as RSV and flu swab is negative. His x-ray shows no obvious infiltrates. It does reveal again a mass that he is getting worked up as an outpatient. Results conveyed to the patient He is stable for discharge home Prescription for another course of prednisone and Tessalon Perles. Follow up with his wheelchair rental clerk which he is trying to schedule Medical Decision Making Lab Data Result diagrams: 07/09/21 20:00 07/09/21 20:00 Labs: Lab Results 07/09/21 07/09/21 07/09/21 Range/Units 20:00 20:00 20:00 WBC 8.2 (4.8-10.8) X10*3/uL RBC 4.39 L (4.60-5.80) X10*6/uL Hgb 14.7 (14.0-18.0) g/dl Hct 42.9 (42.0-52.0) % MCV 97.7 (80.0-98.0) fL MCH 33.5 H (27.0-33.0) pg MCHC 34.3 (31.0-36.0) g/dl RDW 12.3 (11.0-16.0) % Plt Count 236 (160-400) X10*3/uL MPV 9.1 L (9.4-12.4) fL Immature Gran % (Auto) 0.5 H (0.0-0.4) % Neut % (Auto) 70.3 (45-73) % Lymph % (Auto) 20.1 (20-40) % Mitchell % (Auto) 6.7 (2-11) % Eos % (Auto) 2.3 (0-4) % Baso % (Auto) 0.1 (0-2) % Lymph # (Auto) 1.6 (1.2-4.9) X10*3/uL Mitchell # (Auto) 0.6 (0.1-1.2) X10*3/uL Eos # (Auto) 0.2 (0.0-0.4) X10*3/uL Baso # (Auto) 0.0 (0.0-0.2) X10*3/uL Abs Immat Gran (auto) 0.04 H (0.00-0.03) X10*3/uL Absolute Neuts (auto) 5.72 (2.0-8.3) x10*3/uL Absolute Nucleated RBC 0.000 (0.0-0.012) X10*3/uL Nucleated RBC % (auto) 0.0 (0.0-0.2) /100WBC Sodium 145 (135-145) mmol/L Potassium 3.8 (3.3-5.1) mmol/L Chloride 106 (96-108) mmol/L Carbon Dioxide 30 H (22-29) mmol/L Anion Gap 13 (12-20) BUN 11 D (9-16) mg/dL Creatinine 0.96 (0.5-1.4) mg/dL Estim Creat Clear Calc 77.3 Estimated GFR > 60 Random Glucose 90 (60-115) mg/dL Calcium 8.6 (8.4-10.2) mg/dL Total Bilirubin 0.5 (0.0-1.0) mg/dL AST 11 (5-37) U/L ALT 13 (0-40) U/L Alkaline Phosphatase 80 D (39-117) U/L Troponin I High Sens 7.0 D (<3.5-35.0) ng/L B-Natriuretic Peptide (<100) pg/mL Total Protein 6.2 L (6.5-8.0) g/dL Albumin 4.1 (3.5-5.0) g/dL Influenza Type A (PCR) (Negative) Influenza Type B (PCR) (Negative) RSV RNA Qual (PCR) (Negative) SARS-CoV-2 RNA (RT-PCR) (Negative) 07/09/21 07/09/21 Range/Units 20:00 20:00 WBC (4.8-10.8) X10*3/uL RBC (4.60-5.80) X10*6/uL Hgb (14.0-18.0) g/dl Hct (42.0-52.0) % MCV (80.0-98.0) fL MCH (27.0-33.0) pg MCHC (31.0-36.0) g/dl RDW (11.0-16.0) % Plt Count (160-400) X10*3/uL MPV (9.4-12.4) fL Immature Gran % (Auto) (0.0-0.4) % Neut % (Auto) (45-73) % Lymph % (Auto) (20-40) % Mitchell % (Auto) (2-11) % Eos % (Auto) (0-4) % Baso % (Auto) (0-2) % Lymph # (Auto) (1.2-4.9) X10*3/uL Mitchell # (Auto) (0.1-1.2) X10*3/uL Eos # (Auto) (0.0-0.4) X10*3/uL Baso # (Auto) (0.0-0.2) X10*3/uL Abs Immat Gran (auto) (0.00-0.03) X10*3/uL Absolute Neuts (auto) (2.0-8.3) x10*3/uL Absolute Nucleated RBC (0.0-0.012) X10*3/uL Nucleated RBC % (auto) (0.0-0.2) /100WBC Sodium (135-145) mmol/L Potassium (3.3-5.1) mmol/L Chloride (96-108) mmol/L Carbon Dioxide (22-29) mmol/L Anion Gap (12-20) BUN (9-16) mg/dL Creatinine (0.5-1.4) mg/dL Estim Creat Clear Calc Estimated GFR Random Glucose (60-115) mg/dL Calcium (8.4-10.2) mg/dL Total Bilirubin (0.0-1.0) mg/dL AST (5-37) U/L ALT (0-40) U/L Alkaline Phosphatase (39-117) U/L Troponin I High Sens (<3.5-35.0) ng/L B-Natriuretic Peptide 15 (<100) pg/mL Total Protein (6.5-8.0) g/dL Albumin (3.5-5.0) g/dL Influenza Type A (PCR) NEGATIVE (Negative) Influenza Type B (PCR) NEGATIVE (Negative) RSV RNA Qual (PCR) NEGATIVE (Negative) SARS-CoV-2 RNA (RT-PCR) NEGATIVE (Negative) Discharge Plan Discharge Clinical Impression: COPD with acute exacerbation Patient Disposition: Home, Self-Care Instructions: COPD (Chronic Obstructive Pulmonary Disease) (ED) Prescriptions: New prednisone 20 mg tablet 40 mg PO DAILY Qty: 10 RF: 0 benzonatate [Tessalon Perles] 100 mg capsule 100 mg PO BID Qty: 14 RF: 0 No Action quetiapine 100 mg Tablet 100 mg PO TID PRN (Reason: agitation) Qty: 90 RF: 0 quetiapine 400 mg Tablet 400 mg PO BEDTIME Qty: 30 RF: 0 lorazepam 0.5 mg Tablet 0.5 mg PO TID PRN (Reason: Anxiety) 30 Days Qty: 90 RF: 0 atorvastatin 40 mg tablet 1 tab PO BEDTIME Qty: 30 RF: 0 albuterol sulfate 2.5 mg /3 mL (0.083 %) solution for nebulization 2.5 mg inhalation TID PRN (Reason: Dyspnea) Qty: 25 RF: 2 aspirin 81 mg tablet,delayed release (DR/EC) 81 mg PO DAILY Qty: 30 RF: 0 famotidine 20 mg tablet 1 tab PO BID Qty: 60 RF: 0 tamsulosin 0.4 mg capsule 2 cap PO DAILY 30 Days Qty: 120 RF: 0 docusate sodium 100 mg capsule 1 cap PO BID Qty: 60 RF: 0 losartan 100 mg tablet 1 tab PO DAILY Qty: 30 RF: 0 Spiriva Respimat 1.25 mcg/actuation mist 2 puff inhalation DAILY Qty: 6 RF: 0 albuterol sulfate [Ventolin HFA] 90 mcg/actuation HFA aerosol inhaler 2 puff inhalation BID RF: 0 doxycycline hyclate 100 mg capsule 100 mg PO BID 7 Days Qty: 14 RF: 0 albuterol sulfate 2.5 mg /3 mL (0.083 %) solution for nebulization 2.5 mg inhalation Q4-6H PRN (Reason: bronchospasm) Qty: 75 RF: 0 prednisone 20 mg tablet 40 mg PO DAILY 5 Days Qty: 10 RF: 0
[2021-07-09 20:04] LABS: MANUAL DIFF FLAG NO
[2021-07-09 20:06] LABS: Basophils Percent Auto 0.1 % (0-2); Eosinophils Absolute Auto 0.2 X10*3/uL (0.0-0.4); Eosinophils Percent Auto 2.3 % (0-4); Hematocrit 42.9 % (42.0-52.0); Hemoglobin 14.7 g/dl (14.0-18.0); Imm Gran Abs Auto 0.04 X10*3/uL (0.00-0.03); Imm Gran Pct Auto 0.5 % (0.0-0.4); Lymphocytes Absolute Auto 1.6 X10*3/uL (1.2-4.9); Lymphocytes Percent Auto 20.1 % (20-40); Mean Corpuscular HGB Conc 34.3 g/dl (31.0-36.0); Mean Corpuscular Hemoglobin 33.5 pg (27.0-33.0); Mean Corpuscular Volume 97.7 fL (80.0-98.0); Mean Platelet Volume 9.1 fL (9.4-12.4); Monocytes Absolute Auto 0.6 X10*3/uL (0.1-1.2); Monocytes Percent Auto 6.7 % (2-11); Neutrophils Absolute Auto 5.72 x10*3/uL (2.0-8.3); Neutrophils Percent Auto 70.3 % (45-73); Platelet Count 236 X10*3/uL (160-400); Red Blood Count 4.39 X10*6/uL (4.60-5.80); Red Cell Distribution Width 12.3 % (11.0-16.0); White Blood Count 8.2 X10*3/uL (4.8-10.8)
[2021-07-09] MEDS: methylPREDNISolone Sod Succ 125 MG/2 ML VIAL IVPUSH (20:09)
[2021-07-09 20:24] LABS: Alanine Aminotransferase 13 U/L (0-40); Albumin Level 4.1 g/dL (3.5-5.0); Alkaline Phosphatase 80 U/L (39-117); Anion Gap 13 (12-20); Aspartate Amino Transferase 11 U/L (5-37); Bilirubin Total 0.5 mg/dL (0.0-1.0); Blood Urea Nitrogen 11 mg/dL (9-16); Calcium 8.6 mg/dL (8.4-10.2); Carbon Dioxide 30 mmol/L (22-29); Chloride 106 mmol/L (96-108); Creatinine Clr Calc Pharmacy 77.3; Estimated Glomerular Filt Rate > 60; Glucose Random 90 mg/dL (60-115); Potassium 3.8 mmol/L (3.3-5.1); Sodium 145 mmol/L (135-145); Total Protein 6.2 g/dL (6.5-8.0)
[2021-07-09 20:28] LABS: B Type Natriuretic Peptide 15 pg/mL (<100)
[2021-07-09 20:46] LABS: Influenza A PCR NEGATIVE (Negative); Influenza B PCR NEGATIVE (Negative); Resp Syncy Virus RNA Qual PCR NEGATIVE (Negative); SARS COV2 PCR INHOUSE NEGATIVE (Negative)
== END 2021-07-09 21:32 | disposition home or self-care (01) ==
PROVIDERS: Emergency Provider Emergency Medicine
DX: J44.1 Chronic obstructive pulmonary disease with (acute) exacerbation (principal); Z20.822 Contact with and (suspected) exposure to COVID-19
CPT/HCPCS: 0241U; 36415; 71046; 80053; 83880; 84484; 85025; 93005; 96374; 99284; J2930

== ENCOUNTER → 2021-07-27 10:07 | Outpatient (BNVA) | payer MEDICARE, SELFPAY | PROVIDERS: PCP Internal Medicine; Visit Provider Surgery | DX: R91.8 Other nonspecific abnormal finding of lung field (principal); J43.9 Emphysema, unspecified; Z79.899 Other long term (current) drug therapy; Z79.82 Long term (current) use of aspirin; F17.210 Nicotine dependence, cigarettes, uncomplicated | CPT/HCPCS: 99212 ==

== ENCOUNTER 2021-08-02 22:13 | Inpatient (IN) | payer MEDICARE, SELFPAY ==
--- NOTE | ~2021-08-02 | XR_ITS ---
EXAMINATION: XR CHEST CLINICAL INFORMATION: Shortness of breath COMPARISON: 07/09/2021 TECHNIQUE: Frontal view of the chest was obtained. FINDINGS: The lungs are hyperinflated, consistent with underlying COPD. There is relative lucency of the upper lung zones, left greater than right, in keeping with severe emphysema. No acute consolidation is seen. No evidence of pneumothorax, pleural effusion, or pulmonary edema. The cardiomediastinal contour is unremarkable. No acute osseous findings are seen. XR/XR chest 1V IMPRESSION: Chronic changes of emphysema/COPD. No new acute findings identified.
--- NOTE | 2021-08-02 22:17 | ECG_ITS ---
Test Reason : DYSPNEA Blood Pressure : / mmHG Vent. Rate : 099 BPM Atrial Rate : 099 BPM P-R Int : 162 ms QRS Dur : 074 ms QT Int : 350 ms P-R-T Axes : 084 017 077 degrees QTc Int : 449 ms Normal sinus rhythm Left axis deviation RSR' or QR pattern in V1 suggests right ventricular conduction delay Borderline ECG When compared with ECG of 09-JUL-2021 20:21, No significant change was found Referred By: Selene Fried Electronically Signed By:DANIKA VILLA MD
[2021-08-02 22:22] VITALS: BP 146/90; PULSE 96; RESP 28; O2SAT 84; BMI 24.4
[2021-08-02 22:37] LABS: MANUAL DIFF FLAG NO
[2021-08-02] MEDS: methylPREDNISolone Sod Succ 125 MG/2 ML VIAL IVPUSH (22:37)
[2021-08-02 22:40] LABS: Basophils Percent Auto 0.9 % (0-2); Eosinophils Absolute Auto 0.2 X10*3/uL (0.0-0.4); Eosinophils Percent Auto 4.7 % (0-4); Hematocrit 42.2 % (42.0-52.0); Hemoglobin 14.1 g/dl (14.0-18.0); Imm Gran Abs Auto 0.01 X10*3/uL (0.00-0.03); Imm Gran Pct Auto 0.2 % (0.0-0.4); Lymphocytes Percent Auto 20.4 % (20-40); Mean Corpuscular HGB Conc 33.4 g/dl (31.0-36.0); Mean Corpuscular Hemoglobin 32.3 pg (27.0-33.0); Mean Corpuscular Volume 96.8 fL (80.0-98.0); Monocytes Absolute Auto 0.4 X10*3/uL (0.1-1.2); Neutrophils Percent Auto 64.8 % (45-73); Platelet Count 264 X10*3/uL (160-400); Red Blood Count 4.36 X10*6/uL (4.60-5.80); White Blood Count 4.7 X10*3/uL (4.8-10.8)
[2021-08-02 22:45] LABS: INTERNATIONAL NORM RATIO 1.1 (0.9-1.1); Prothrombin Time 12.1 SEC (9.9-13.0)
[2021-08-02 22:45] LABS: ABG Base Excess 2.1 mmol/L; ABG HCO3 27 mmol/L (22-26); ABG pCO2 45 mmHg (32-45); ABG pH 7.39 (7.35-7.45); ABG pO2 121 mmHg (83-108)
[2021-08-02 22:59] LABS: B Type Natriuretic Peptide 16 pg/mL (<100)
[2021-08-02] MEDS: Albuterol Sulfate (0.083%) 2.5 MG/3 ML VIAL.NEB 5 MG INHALE ×2 (23:00→23:58)
[2021-08-02 23:01] VITALS: PULSE 93; O2SAT 98
[2021-08-02 23:02] VITALS: PULSE 93; RESP 31; O2SAT 97
--- NOTE | 2021-08-02 23:12 | ED.SOB ---
HPI - SOB/Dyspnea General Chief Complaint: Upper Respiratory Symptoms Stated Complaint: sob Time Seen by Provider: 08/02/21 22:17 Source: patient Mode of arrival: ambulatory History of Present Illness HPI Narrative: 71-year-old male with presentation by EMS for acute, progress of shortness of breath over the past couple days without associated fever, chills, nausea, vomiting, chest pain/palpitations. Related Data Home Medications Medication Instructions Recorded Confirmed albuterol sulfate 90 mcg/actuation 2 puff INHALATION BID 06/14/21 07/27/21 aerosol inhaler (Ventolin HFA) Previous Rx's Medication Instructions Recorded albuterol sulfate 2.5 mg (3 mL) INHALATION TID PRN 05/30/21 #25 units aspirin 81 mg tablet,delayed 81 mg PO DAILY #30 tab 05/30/21 release atorvastatin 40 mg tablet 1 tab PO BEDTIME #30 tab 05/30/21 docusate sodium 100 mg capsule 1 cap PO BID #60 cap 05/30/21 famotidine 20 mg tablet 1 tab PO BID #60 tab 05/30/21 lorazepam 0.5 mg tablet 0.5 mg PO TID PRN 30 Days #90 tab 05/30/21 losartan 100 mg tablet 1 tab PO DAILY #30 tab 05/30/21 quetiapine 100 mg tablet 100 mg PO TID PRN #90 tab 05/30/21 quetiapine 400 mg tablet 400 mg PO BEDTIME #30 tab 05/30/21 tamsulosin 0.4 mg capsule 2 cap PO DAILY 30 Days #120 cap 05/30/21 tiotropium bromide 1.25 2 puff INHALATION DAILY #6 g 05/30/21 mcg/actuation mist for inhalation (Spiriva Respimat) albuterol sulfate 2.5 mg (3 mL) INHALATION Q4-6H PRN 06/14/21 #75 ml doxycycline hyclate 100 mg capsule 100 mg PO BID 7 Days #14 cap 06/14/21 prednisone 20 mg tablet 40 mg PO DAILY 5 Days #10 tab 06/14/21 benzonatate 100 mg capsule 100 mg PO BID #14 cap 07/09/21 (Tessalon Dora) prednisone 20 mg tablet 40 mg PO DAILY #10 tab 07/09/21 Allergies Allergy/AdvReac Type Severity Reaction Status Date / Time codeine [CODEINE] Allergy Intermediate HIVES Verified 07/27/21 10:33 Review of Systems Review of Systems: Pertinent positives and negatives as stated in HPI and 10 point review of systems is otherwise negative. [facility] Past Medical History Source: nursing notes reviewed Medical History Anxiety BPH (benign prostatic hyperplasia) COPD (chronic obstructive pulmonary disease) Hepatitis C Hyperlipidemia Left tibial fracture Nicotine dependence, cigarettes, uncomplicated Schizoaffective disorder, bipolar type Schizophrenia Social History Social History Household Members: Other Household Members Other:: Care Home Residents and Staff Housing: House Housing Other:: Respite since April Do you presently have visiting nurse or other home services: No Alcohol intake: never Patient Tobacco Use Status: Current someday Tobacco user Tobacco use type: Cigarette Cigarette Packs Per Day: 1 Cigarettes Per Day: 20.0 Years Smoked: onset 17, 1ppd x 54yrs, 50pyh e-Cigarette/Vaping Use: Currently Using Second Hand Smoke Exposure: Yes Use of substances other than those prescribed or required for medical reasons: No Advance Directives: Yes Advance Directives on File: Yes Advance Directives Date on File: 08/18/20 service: No Current occupational status: unemployed Sexual orientation: Straight/Heterosexual Physical Exam Vital Signs: Vital Signs: Last Vital Signs Pulse 92 08/03/21 00:07 Resp 24 H 08/03/21 00:07 BP 112/60 08/03/21 00:07 Pulse Ox 99 08/03/21 00:07 Body Mass Index 24.4 VITAL SIGNS: Reviewed. GENERAL: Well developed, well nourished, in no acute distress. HEAD: Normocephalic/atraumatic EYES: PERRLA, EOMI OROPHARYNX: no oral lesions noted, posterior pharynx clear and non-erythematous without noted tonsillar enlargement/erythema/exudates NECK: Supple, no adenopathy LUNGS: Decreased air movement throughout, no expiratory wheeze noted, tachypnea with retractions SpO2<84> this then improved to 98% when placed on BiPAP CARDIOVASCULAR: Regular rate and rhythm without noted murmurs, no JVD or lower extremity edema. ABDOMEN: Soft, non-tender, non-distended with bowel sounds. SKIN: Inspection of the skin reveals no rashes NEUROLOGIC: Alert and oriented x 4. Strength and sensation to light touch were grossly intact x 4. Course Course Course Narrative: 71-year-old male with history and clinical presentation consistent with acute COPD exacerbation. Review of all investigations and on reassessment findings consistent with COPD exacerbation patient has consistently improved and has been titrated off to nasal cannula, resting comfortably and endorses that he feels much better. I discussed this case with the inpatient hospitalist who accepts admission. MDM - SOB/Dyspnea Lab Data Result diagrams: 08/02/21 22:31 08/02/21 22:53 Labs: Lab Results 08/02/21 08/02/21 08/02/21 Range/Units 22:31 22:31 22:31 WBC 4.7 L (4.8-10.8) X10*3/uL RBC 4.36 L (4.60-5.80) X10*6/uL Hgb 14.1 (14.0-18.0) g/dl Hct 42.2 (42.0-52.0) % MCV 96.8 (80.0-98.0) fL MCH 32.3 (27.0-33.0) pg MCHC 33.4 (31.0-36.0) g/dl RDW 12.0 (11.0-16.0) % Plt Count 264 (160-400) X10*3/uL MPV 9.0 L (9.4-12.4) fL Immature Gran % (Auto) 0.2 (0.0-0.4) % Neut % (Auto) 64.8 (45-73) % Lymph % (Auto) 20.4 (20-40) % [place] % (Auto) 9.0 (2-11) % Eos % (Auto) 4.7 H (0-4) % Baso % (Auto) 0.9 (0-2) % Lymph # (Auto) 1.0 L (1.2-4.9) X10*3/uL [place] # (Auto) 0.4 (0.1-1.2) X10*3/uL Eos # (Auto) 0.2 (0.0-0.4) X10*3/uL Baso # (Auto) 0.0 (0.0-0.2) X10*3/uL Abs Immat Gran (auto) 0.01 (0.00-0.03) X10*3/uL Absolute Neuts (auto) 3.0 (2.0-8.3) x10*3/uL Absolute Nucleated RBC 0.000 (0.0-0.012) X10*3/uL Nucleated RBC % (auto) 0.0 (0.0-0.2) /100WBC PT 12.1 (9.9-13.0) SEC INR 1.1 (0.9-1.1) O2 Saturation % ABG pH at Pt Temp (7.35-7.45) ABG pCO2 at Pt Temp (32-45) mmHg ABG pO2 at Pt Temp (83-108) mmHg ABG HCO3 (22-26) mmol/L ABG Base Excess (Actual) mmol/L Sodium (135-145) mmol/L Potassium (3.3-5.1) mmol/L Chloride (96-108) mmol/L Carbon Dioxide (22-29) mmol/L Anion Gap (12-20) BUN (9-16) mg/dL Creatinine (0.5-1.4) mg/dL Estim Creat Clear Calc Estimated GFR Random Glucose (60-115) mg/dL Lactic Acid (0.5-2.0) mmol/L Calcium (8.4-10.2) mg/dL Total Bilirubin (0.0-1.0) mg/dL AST (5-37) U/L ALT (0-40) U/L Alkaline Phosphatase (39-117) U/L B-Natriuretic Peptide 16 (<100) pg/mL Total Protein (6.5-8.0) g/dL Albumin (3.5-5.0) g/dL Influenza Type A (PCR) (Negative) Influenza Type B (PCR) (Negative) RSV RNA Qual (PCR) (Negative) SARS-CoV-2 RNA (RT-PCR) (Negative) 08/02/21 08/02/21 08/02/21 Range/Units 22:31 22:31 22:39 WBC (4.8-10.8) X10*3/uL RBC (4.60-5.80) X10*6/uL Hgb (14.0-18.0) g/dl Hct (42.0-52.0) % MCV (80.0-98.0) fL MCH (27.0-33.0) pg MCHC (31.0-36.0) g/dl RDW (11.0-16.0) % Plt Count (160-400) X10*3/uL MPV (9.4-12.4) fL Immature Gran % (Auto) (0.0-0.4) % Neut % (Auto) (45-73) % Lymph % (Auto) (20-40) % [place] % (Auto) (2-11) % Eos % (Auto) (0-4) % Baso % (Auto) (0-2) % Lymph # (Auto) (1.2-4.9) X10*3/uL [place] # (Auto) (0.1-1.2) X10*3/uL Eos # (Auto) (0.0-0.4) X10*3/uL Baso # (Auto) (0.0-0.2) X10*3/uL Abs Immat Gran (auto) (0.00-0.03) X10*3/uL Absolute Neuts (auto) (2.0-8.3) x10*3/uL Absolute Nucleated RBC (0.0-0.012) X10*3/uL Nucleated RBC % (auto) (0.0-0.2) /100WBC PT (9.9-13.0) SEC INR (0.9-1.1) O2 Saturation 99.0 % ABG pH at Pt Temp 7.39 (7.35-7.45) ABG pCO2 at Pt Temp 45 (32-45) mmHg ABG pO2 at Pt Temp 121 H (83-108) mmHg ABG HCO3 27 H (22-26) mmol/L ABG Base Excess (Actual) 2.1 mmol/L Sodium (135-145) mmol/L Potassium (3.3-5.1) mmol/L Chloride (96-108) mmol/L Carbon Dioxide (22-29) mmol/L Anion Gap (12-20) BUN (9-16) mg/dL Creatinine (0.5-1.4) mg/dL Estim Creat Clear Calc Estimated GFR Random Glucose (60-115) mg/dL Lactic Acid 1.1 (0.5-2.0) mmol/L Calcium (8.4-10.2) mg/dL Total Bilirubin (0.0-1.0) mg/dL AST (5-37) U/L ALT (0-40) U/L Alkaline Phosphatase (39-117) U/L B-Natriuretic Peptide (<100) pg/mL Total Protein (6.5-8.0) g/dL Albumin (3.5-5.0) g/dL Influenza Type A (PCR) NEGATIVE (Negative) Influenza Type B (PCR) NEGATIVE (Negative) RSV RNA Qual (PCR) NEGATIVE (Negative) SARS-CoV-2 RNA (RT-PCR) NEGATIVE (Negative) 08/02/21 Range/Units 22:53 WBC (4.8-10.8) X10*3/uL RBC (4.60-5.80) X10*6/uL Hgb (14.0-18.0) g/dl Hct (42.0-52.0) % MCV (80.0-98.0) fL MCH (27.0-33.0) pg MCHC (31.0-36.0) g/dl RDW (11.0-16.0) % Plt Count (160-400) X10*3/uL MPV (9.4-12.4) fL Immature Gran % (Auto) (0.0-0.4) % Neut % (Auto) (45-73) % Lymph % (Auto) (20-40) % [place] % (Auto) (2-11) % Eos % (Auto) (0-4) % Baso % (Auto) (0-2) % Lymph # (Auto) (1.2-4.9) X10*3/uL [place] # (Auto) (0.1-1.2) X10*3/uL Eos # (Auto) (0.0-0.4) X10*3/uL Baso # (Auto) (0.0-0.2) X10*3/uL Abs Immat Gran (auto) (0.00-0.03) X10*3/uL Absolute Neuts (auto) (2.0-8.3) x10*3/uL Absolute Nucleated RBC (0.0-0.012) X10*3/uL Nucleated RBC % (auto) (0.0-0.2) /100WBC PT (9.9-13.0) SEC INR (0.9-1.1) O2 Saturation % ABG pH at Pt Temp (7.35-7.45) ABG pCO2 at Pt Temp (32-45) mmHg ABG pO2 at Pt Temp (83-108) mmHg ABG HCO3 (22-26) mmol/L ABG Base Excess (Actual) mmol/L Sodium 144 (135-145) mmol/L Potassium 3.7 (3.3-5.1) mmol/L Chloride 105 (96-108) mmol/L Carbon Dioxide 28 (22-29) mmol/L Anion Gap 15 (12-20) BUN 8 L (9-16) mg/dL Creatinine 0.91 (0.5-1.4) mg/dL Estim Creat Clear Calc 81.5 Estimated GFR > 60 Random Glucose 111 (60-115) mg/dL Lactic Acid (0.5-2.0) mmol/L Calcium 9.2 D (8.4-10.2) mg/dL Total Bilirubin 0.4 (0.0-1.0) mg/dL AST 13 (5-37) U/L ALT 10 (0-40) U/L Alkaline Phosphatase 116 D (39-117) U/L B-Natriuretic Peptide (<100) pg/mL Total Protein 6.7 (6.5-8.0) g/dL Albumin 4.2 (3.5-5.0) g/dL Influenza Type A (PCR) (Negative) Influenza Type B (PCR) (Negative) RSV RNA Qual (PCR) (Negative) SARS-CoV-2 RNA (RT-PCR) (Negative) ECG Data Attestation: I personally reviewed and interpreted this ECG as follows: Prior ECG tracings: available for review (07/09/2021 no acute changes on comparison) Interpretation: Sinus rhythm, HR-99, no STEMI, or DC/QRS/QTC are within normal limits. Discharge Plan Discharge Clinical Impression: Acute respiratory failure, COPD with acute exacerbation Patient Disposition: Admitted As Inpatient Prescriptions: No Action quetiapine 100 mg Tablet 100 mg PO TID PRN (Reason: agitation) Qty: 90 RF: 0 quetiapine 400 mg Tablet 400 mg PO BEDTIME Qty: 30 RF: 0 lorazepam 0.5 mg Tablet 0.5 mg PO TID PRN (Reason: Anxiety) 30 Days Qty: 90 RF: 0 atorvastatin 40 mg tablet 1 tab PO BEDTIME Qty: 30 RF: 0 albuterol sulfate 2.5 mg /3 mL (0.083 %) solution for nebulization 2.5 mg inhalation TID PRN (Reason: Dyspnea) Qty: 25 RF: 2 aspirin 81 mg tablet,delayed release (DR/EC) 81 mg PO DAILY Qty: 30 RF: 0 famotidine 20 mg tablet 1 tab PO BID Qty: 60 RF: 0 tamsulosin 0.4 mg capsule 2 cap PO DAILY 30 Days Qty: 120 RF: 0 docusate sodium 100 mg capsule 1 cap PO BID Qty: 60 RF: 0 losartan 100 mg tablet 1 tab PO DAILY Qty: 30 RF: 0 Spiriva Respimat 1.25 mcg/actuation mist 2 puff inhalation DAILY Qty: 6 RF: 0 albuterol sulfate [Ventolin HFA] 90 mcg/actuation HFA aerosol inhaler 2 puff inhalation BID RF: 0 doxycycline hyclate 100 mg capsule 100 mg PO BID 7 Days Qty: 14 RF: 0 albuterol sulfate 2.5 mg /3 mL (0.083 %) solution for nebulization 2.5 mg inhalation Q4-6H PRN (Reason: bronchospasm) Qty: 75 RF: 0 prednisone 20 mg tablet 40 mg PO DAILY 5 Days Qty: 10 RF: 0 prednisone 20 mg tablet 40 mg PO DAILY Qty: 10 RF: 0 benzonatate [Tessalon Perles] 100 mg capsule 100 mg PO BID Qty: 14 RF: 0
[2021-08-02 23:13] VITALS: O2SAT 97
--- NOTE | 2021-08-02 23:14 | PC.NURSE ---
Jin arrived to the ED in respiratory distress with a RR of 28-30 with obvious use of accessory muscles. he appeared pale, speaking in 4-5 word sentences. MD to bedside on arrival, RT requested to place BipAP immediately after arrival. At this time pt is on BiPAP (10/5, 30%) and his RR is 22, non-labored, skin pink, O2 sat's 99%.
[2021-08-02 23:15] VITALS: PULSE 89
[2021-08-02 23:17] LABS: Influenza A PCR NEGATIVE (Negative); Influenza B PCR NEGATIVE (Negative); Resp Syncy Virus RNA Qual PCR NEGATIVE (Negative); SARS COV2 PCR INHOUSE NEGATIVE (Negative)
[2021-08-02 23:35] LABS: Lactic Acid 1.1 mmol/L (0.5-2.0)
[2021-08-02 23:37] LABS: Alanine Aminotransferase 10 U/L (0-40); Albumin Level 4.2 g/dL (3.5-5.0); Alkaline Phosphatase 116 U/L (39-117); Anion Gap 15 (12-20); Aspartate Amino Transferase 13 U/L (5-37); Bilirubin Total 0.4 mg/dL (0.0-1.0); Blood Urea Nitrogen 8 mg/dL (9-16); Calcium 9.2 mg/dL (8.4-10.2); Carbon Dioxide 28 mmol/L (22-29); Chloride 105 mmol/L (96-108); Creatinine Clr Calc Pharmacy 81.5; Estimated Glomerular Filt Rate > 60; Glucose Random 111 mg/dL (60-115); Potassium 3.7 mmol/L (3.3-5.1); Sodium 144 mmol/L (135-145); Total Protein 6.7 g/dL (6.5-8.0)
[2021-08-02] MEDS: Albuterol/Iprat 2.5/0.5MG 3 ML AMPUL.NEB INHALE (23:58)
[2021-08-03] VITALS (15 sets, daily range): BP systolic 112–163; BP diastolic 47–74; PULSE 82–110; RESP 16–28; TEMP 36.1–36.8; O2SAT 94–100
[2021-08-03] MEDS: Piperacillin Sodium/Tazobactam 3.375 GM in 0.9 % Sodium Chloride 50 ML IV (00:06)
[2021-08-03 01:22] LABS: Venous Blood Gas Refer to POC result
[2021-08-03 01:25] LABS: VBG Base Excess 3.6 mmol/L; VBG HCO3 30 mmol/L (22-26); VBG pCO2 51 mmHg; VBG pH 7.37 (7.32-7.43); VBG pO2 69 mmHg
--- NOTE | 2021-08-03 02:28 | PM.IMHP ---
History of Present Illness Date of Service: 08/03/21 Chief Complaint: Shortness of breath 71-year-old male with a past medical history of hypertension, hyperlipidemia, hepatitis-C, COPD, not on home oxygen, anxiety, his affect is normal presented to the hospital with a chief complaint of shortness of breath. Patient reports that he chronically has shortness of breath today had severe episode of shortness of breath important repeat hence came to the ER for further evaluation. Denies any fevers or chills. Reports cough with yellowish sputum production Denies any nausea vomiting diarrhea Denies any urinary symptoms. Denies any chest pain palpitations lightheadedness or dizziness. Review of all other systems is negative except mentioned above ER course: Per ER team patient initially on presentation noted to be in mild respiratory distress; placed on BiPAP briefly; given nebulizations and steroids; also received antibiotics. Subsequently patient respiratory status improved and transitioned to nasal cannula. Admitted to the hospital for further management. [facility] Medical History Anxiety BPH (benign prostatic hyperplasia) COPD (chronic obstructive pulmonary disease) Hepatitis C Hyperlipidemia Left tibial fracture Nicotine dependence, cigarettes, uncomplicated Schizoaffective disorder, bipolar type Schizophrenia Pertinent family history: Reviewed Social History Household Members: Other Household Members Other:: Senior Living Residents and Staff Housing: House Housing Other:: Respite since April Do you presently have visiting nurse or other home services: No Alcohol intake: never Patient Tobacco Use Status: Current someday Tobacco user Tobacco use type: Cigarette Cigarette Packs Per Day: 1 Cigarettes Per Day: 20.0 Years Smoked: onset 17, 1ppd x 54yrs, 50pyh e-Cigarette/Vaping Use: Currently Using Second Hand Smoke Exposure: Yes Use of substances other than those prescribed or required for medical reasons: No Advance Directives: Yes Advance Directives on File: Yes Advance Directives Date on File: 08/18/20 service: No Current occupational status: unemployed Sexual orientation: Straight/Heterosexual Meds Allergies Allergy/AdvReac Type Severity Reaction Status Date / Time codeine [CODEINE] Allergy Intermediate HIVES Verified 07/27/21 10:33 Active Medications: Current Medications Acetaminophen (Acetaminophen 325 Mg Tablet) 650 mg PO Q6H PRN PRN Reason: Pain, Mild (Pain Scale 1-3) Albuterol/Ipratropium (Albuterol/Iprat 2.5/0.5mg 3 Ml Ampul.Neb) 3 ml INHALE RQ4H WHILE AWAKE JAVIER Albuterol/Ipratropium (Albuterol/Iprat 2.5/0.5mg 3 Ml Ampul.Neb) 3 ml INHALE RQ4H PRN PRN Reason: Shortness of Breath/Wheezing Azithromycin (Azithromycin 500 Mg Tablet) 500 mg PO Q24H JAVIER Enoxaparin Sodium (Enoxaparin Sodium 40 Mg/0.4 Ml Syringe) 40 mg SUBCUT Q24H JAVIER Famotidine (Famotidine 20 Mg Tablet) 20 mg PO BID JAVIER Melatonin (Melatonin 3 Mg Tablet) 6 mg PO BEDTIME PRN PRN Reason: Insomnia Methylprednisolone Sodium Succinate (Methylprednisolone Sod Succ 40 Mg/Ml Vial) 40 mg IVPUSH Q6H JAVIER Senna (Sennosides 8.6 Mg Tablet) 17.2 mg PO BEDTIME PRN PRN Reason: Constipation Sodium Chloride (0.9 % Sodium Chloride Flush 3 Ml Syringe) 3 ml IVFLUSH QSHIFT JAVIER Home Medications Medication Instructions Recorded Confirmed Last Taken Type albuterol sulfate 90 mcg/actuation 2 puff INHALATION BID 06/14/21 07/27/21 Unknown History aerosol inhaler (Ventolin HFA) Physical Exam Vital Signs and Narrative: Vital Signs: Last Vital Signs Pulse 83 08/03/21 01:23 Resp 22 H 08/03/21 01:23 BP 143/68 H 08/03/21 01:23 Pulse Ox 99 08/03/21 01:23 Body Mass Index 24.4 Gen: Appears be in no acute distress. Speaks in full sentences. On supplemental oxygen. HEENT: NCAT, Moist mucosa. Pulmonary: Bilateral expiratory wheezing noted CVS: Normal S1-S2 Abdomen: BS+, Soft, Nontender Extremities: Warm well perfused Neuro: Alert and awake. Results Labs CBC and Chem 7: 08/03/21 06:07 08/03/21 06:07 Labs: Laboratory Results - last 24 hr 08/02/21 08/02/21 08/02/21 22:31 22:31 22:31 MCV 96.8 MCH 32.3 MCHC 33.4 RDW 12.0 Plt Count 264 MPV 9.0 L Immature Gran % (Auto) 0.2 Neut % (Auto) 64.8 Lymph % (Auto) 20.4 [place] % (Auto) 9.0 Eos % (Auto) 4.7 H Baso % (Auto) 0.9 Lymph # (Auto) 1.0 L [place] # (Auto) 0.4 Eos # (Auto) 0.2 Baso # (Auto) 0.0 Abs Immat Gran (auto) 0.01 Absolute Neuts (auto) 3.0 Absolute Nucleated RBC 0.000 Nucleated RBC % (auto) 0.0 PT 12.1 INR 1.1 O2 Saturation ABG pH at Pt Temp ABG pCO2 at Pt Temp ABG pO2 at Pt Temp ABG HCO3 ABG Base Excess (Actual) VBG pH VBG pCO2 VBG pO2 VBG HCO3 VBG O2 Saturation VBG Base Excess Anion Gap Estim Creat Clear Calc Estimated GFR Random Glucose Lactic Acid Calcium Total Bilirubin AST ALT Alkaline Phosphatase B-Natriuretic Peptide 16 Total Protein Albumin Influenza Type A (PCR) Influenza Type B (PCR) RSV RNA Qual (PCR) SARS-CoV-2 RNA (RT-PCR) 08/02/21 08/02/21 08/02/21 22:31 22:31 22:39 MCV MCH MCHC RDW Plt Count MPV Immature Gran % (Auto) Neut % (Auto) Lymph % (Auto) [place] % (Auto) Eos % (Auto) Baso % (Auto) Lymph # (Auto) [place] # (Auto) Eos # (Auto) Baso # (Auto) Abs Immat Gran (auto) Absolute Neuts (auto) Absolute Nucleated RBC Nucleated RBC % (auto) PT INR O2 Saturation 99.0 ABG pH at Pt Temp 7.39 ABG pCO2 at Pt Temp 45 ABG pO2 at Pt Temp 121 H ABG HCO3 27 H ABG Base Excess (Actual) 2.1 VBG pH VBG pCO2 VBG pO2 VBG HCO3 VBG O2 Saturation VBG Base Excess Anion Gap Estim Creat Clear Calc Estimated GFR Random Glucose Lactic Acid 1.1 Calcium Total Bilirubin AST ALT Alkaline Phosphatase B-Natriuretic Peptide Total Protein Albumin Influenza Type A (PCR) NEGATIVE Influenza Type B (PCR) NEGATIVE RSV RNA Qual (PCR) NEGATIVE SARS-CoV-2 RNA (RT-PCR) NEGATIVE 08/02/21 08/02/21 22:53 22:54 MCV MCH MCHC RDW Plt Count MPV Immature Gran % (Auto) Neut % (Auto) Lymph % (Auto) [place] % (Auto) Eos % (Auto) Baso % (Auto) Lymph # (Auto) [place] # (Auto) Eos # (Auto) Baso # (Auto) Abs Immat Gran (auto) Absolute Neuts (auto) Absolute Nucleated RBC Nucleated RBC % (auto) PT INR O2 Saturation ABG pH at Pt Temp ABG pCO2 at Pt Temp ABG pO2 at Pt Temp ABG HCO3 ABG Base Excess (Actual) VBG pH 7.37 VBG pCO2 51 VBG pO2 69 VBG HCO3 30 H VBG O2 Saturation 92.0 VBG Base Excess 3.6 Anion Gap 15 Estim Creat Clear Calc 81.5 Estimated GFR > 60 Random Glucose 111 Lactic Acid Calcium 9.2 D Total Bilirubin 0.4 AST 13 ALT 10 Alkaline Phosphatase 116 D B-Natriuretic Peptide Total Protein 6.7 Albumin 4.2 Influenza Type A (PCR) Influenza Type B (PCR) RSV RNA Qual (PCR) SARS-CoV-2 RNA (RT-PCR) Imaging Radiologist's Impressions: Impressions Chest X-Ray 08/02/21 22:17 IMPRESSION: Chronic changes of emphysema/COPD. No new acute findings identified. Assessment and Plan (1) COPD with acute exacerbation: Status: Acute 71-year-old male with a past medical history of hypertension, hyperlipidemia, hepatitis-C, COPD, not on home oxygen, anxiety, his affect is normal presented to the hospital with a chief complaint of shortness of breath. Noted to be in acute COPD exacerbation; admitted for further management. Acute COPD exacerbation: Continue nebulizations standing and p.r.n.. Solu-Medrol IV Azithromycin Pulmonary consult Supplemental oxygen p.r.n. and goal oxygen saturation 93% For all other chronic conditions, home medications will be continued once med rec is done. DVT prophylaxis: Lovenox Code status: Full code Quality Stroke Does the patient have a stroke diagnosis?: No VTE Prior VTE?: No VTE Risk Level:: Medical - moderate - high VTE Device Contraindication: Treatment Not Indicated VTE Drug Contraindication: N/A - Med Ordered
[2021-08-03 02:33] LABS: ABG Refer to POC result
[2021-08-03] MEDS: Azithromycin 500 MG TABLET PO ×2 (03:36→21:53)
[2021-08-03] MEDS: methylPREDNISolone Sod Succ 40 MG/ML VIAL IVPUSH ×4 (03:36→21:53)
[2021-08-03] MEDS: Enoxaparin Sodium 40 MG/0.4 ML SYRINGE SUBCUT (03:36)
[2021-08-03 06:21] LABS: MANUAL DIFF FLAG NO
[2021-08-03 06:25] LABS: Hematocrit 41.3 % (42.0-52.0); Hemoglobin 13.6 g/dl (14.0-18.0); Imm Gran Abs Auto 0.01 X10*3/uL (0.00-0.03); Imm Gran Pct Auto 0.3 % (0.0-0.4); Lymphocytes Absolute Auto 0.3 X10*3/uL (1.2-4.9); Lymphocytes Percent Auto 9.2 % (20-40); Mean Corpuscular HGB Conc 32.9 g/dl (31.0-36.0); Mean Corpuscular Hemoglobin 31.6 pg (27.0-33.0); Mean Corpuscular Volume 95.8 fL (80.0-98.0); Mean Platelet Volume 9.3 fL (9.4-12.4); Monocytes Percent Auto 0.6 % (2-11); Neutrophils Absolute Auto 2.8 x10*3/uL (2.0-8.3); Neutrophils Percent Auto 89.9 % (45-73); Platelet Count 264 X10*3/uL (160-400); Red Blood Count 4.31 X10*6/uL (4.60-5.80); Red Cell Distribution Width 11.9 % (11.0-16.0); White Blood Count 3.1 X10*3/uL (4.8-10.8)
[2021-08-03 06:39] LABS: Anion Gap 13 (12-20); Blood Urea Nitrogen 9 mg/dL (9-16); Calcium 8.8 mg/dL (8.4-10.2); Carbon Dioxide 24 mmol/L (22-29); Chloride 107 mmol/L (96-108); Creatinine Clr Calc Pharmacy 93.9; Estimated Glomerular Filt Rate > 60; Glucose Random 160 mg/dL (60-115); Potassium 4.3 mmol/L (3.3-5.1); Sodium 140 mmol/L (135-145)
[2021-08-03] MEDS: 0.9 % Sodium Chloride Flush 3 ML SYRINGE IVFLUSH ×3 (07:26→21:54)
--- NOTE | 2021-08-03 09:38 | PHA.MEDREC ---
MED REC COMPLETE, NO ISSUES Pharmacy Consult ? Medication Reconciliation Pharmacy has completed the medication reconciliation.
[2021-08-03] MEDS: Albuterol/Iprat 2.5/0.5MG 3 ML AMPUL.NEB INHALE ×4 (10:10→19:39)
[2021-08-03] MEDS: LORazepam 0.5 MG TABLET PO ×2 (10:14→18:50)
[2021-08-03] MEDS: Losartan Potassium 50 MG TABLET 100 MG PO (10:14)
[2021-08-03] MEDS: Famotidine 20 MG TABLET PO ×2 (10:19→21:53)
[2021-08-03] MEDS: Aspirin Enteric Coated 81 MG TABLET.DR PO (10:19)
[2021-08-03] MEDS: Tamsulosin HCL 0.4 MG CAPSULE 0.8 MG PO (10:19)
[2021-08-03] MEDS: QUEtiapine Fumarate 100 MG TABLET PO ×2 (10:19→18:50)
--- NOTE | 2021-08-03 10:57 | MHC.CM.PN ---
pt lives in a [facility] for mental health reasons. there is staff at the home as well as a nurse who manages medications. pt does use a nebulizer but no home o2. pt does not drive a car and does not use any AD c ambulation. d/t the fact that nurses are in the home daily the patient has declined vna at or. or plan is for patient to return to [facility] , [facility] ph: [phone], [facility] staff should be called for transport. cm to taco to follow.
--- NOTE | 2021-08-03 12:48 | PM.CNPUL ---
History of Present Illness History of Present Illness Consult date: 08/03/21 Chief complaint: sob Narrative: This is an inpatient pulmonary consultation. The patient is a 71-year-old gentleman with known COPD, hepatitis-C who was recently diagnosed with the left upper lobe pulmonary mass. It is considered to be PET avid. The patient was evaluated by thoracic surgery and in view of the size the decision was to undergo endobronchial ultrasound bronchoscopy in order to sample the mediastinum and also undergo navigational bronchoscopy to biopsy the mass. Unfortunately, the patient started developing worsening shortness of breath for the last several days. Increasing coughing and congested in nature. He could not tolerate the symptoms any longer decided to come to the [facility] ED for further evaluation. Upon arrival was found to be hypoxic and in respiratory distress. His ABG was reassuring with no acidosis. However, he was briefly placed on BiPAP anyway for the work of breathing. He was able to be weaned off. Patient is starting to feel better. In regards to the lung mass the patient is not clear about the plan. I did reassure him that he will follow-up with thoracic surgery and undergo additional diagnostic interventions. This point will have to wait until his respiratory status is better for him to go any invasive procedures. Review of Systems Review of Systems: Constitutional : No Fever, No Chills ENT/Mouth : No sore throat, No Rhinorrhea, No Swallowing Difficulty Eyes: No Eye Pain, No Swelling, No Redness Cardiovascular : No Chest Pain, positive SOB, No Orthopnea, no Edema Respiratory : pos Cough, pos Sputum,pos Wheezing, positive dyspnea Gastrointestinal : No Nausea, No Vomiting, No Diarrhea, No abdominal Pain, No Hematochezia, No Melena Genitourinary : No Dysuria, No Urinary Frequency, No Hematuria Musculoskeletal : No joint pain, No Myalgias Skin : No Skin Lesions, No rash Neuro : No Weakness, No Numbness, No Dizziness, No Headache Psych : No Anxiety/Panic, No Depression Heme/Lymph: No Bruising, No Lymphadenopathy Endocrine : No Polyuria, No Polydipsia All other systems reviewed and are negative [facility] Past Medical History Medical History Anxiety BPH (benign prostatic hyperplasia) COPD (chronic obstructive pulmonary disease) Hepatitis C Hyperlipidemia Left tibial fracture Nicotine dependence, cigarettes, uncomplicated Schizoaffective disorder, bipolar type Schizophrenia Social History Social History Household Members: Other Household Members Other:: Alf Residents and Staff Housing: House Housing Other:: Respite since April Do you presently have visiting nurse or other home services: No Alcohol intake: never Patient Tobacco Use Status: Current someday Tobacco user Tobacco use type: Cigarette Cigarette Packs Per Day: 1 Cigarettes Per Day: 20.0 Years Smoked: onset 17, 1ppd x 54yrs, 50pyh e-Cigarette/Vaping Use: Currently Using Second Hand Smoke Exposure: Yes Use of substances other than those prescribed or required for medical reasons: No Advance Directives: Yes Advance Directives on File: Yes Advance Directives Date on File: 08/18/20 service: No Current occupational status: unemployed Sexual orientation: Straight/Heterosexual Meds Allergies Allergy/AdvReac Type Severity Reaction Status Date / Time codeine [CODEINE] Allergy Intermediate HIVES Verified 07/27/21 10:33 Active Medications: Current Medications Acetaminophen (Acetaminophen 325 Mg Tablet) 650 mg PO Q6H PRN PRN Reason: Pain, Mild (Pain Scale 1-3) Albuterol/Ipratropium (Albuterol/Iprat 2.5/0.5mg 3 Ml Ampul.Neb) 3 ml INHALE RQ4H WHILE AWAKE [facility] Last Admin: 08/03/21 12:20 Dose: 3 ml Documented by: Albuterol/Ipratropium (Albuterol/Iprat 2.5/0.5mg 3 Ml Ampul.Neb) 3 ml INHALE RQ4H PRN PRN Reason: Shortness of Breath/Wheezing Aspirin (Aspirin Enteric Coated 81 Mg Tablet.Dr) 81 mg PO DAILY [facility] Last Admin: 08/03/21 10:19 Dose: 81 mg Documented by: Atorvastatin Calcium (Atorvastatin Calcium 40 Mg Tablet) 40 mg PO BEDTIME [facility] Azithromycin (Azithromycin 500 Mg Tablet) 500 mg PO Q24H [facility] Docusate Sodium (Docusate Sodium 100 Mg Capsule) 100 mg PO BID [facility] Last Admin: 08/03/21 10:19 Dose: Not Given Documented by: Enoxaparin Sodium (Enoxaparin Sodium 40 Mg/0.4 Ml Syringe) 40 mg SUBCUT Q24H [facility] Last Admin: 08/03/21 03:36 Dose: 40 mg Documented by: Famotidine (Famotidine 20 Mg Tablet) 20 mg PO BID [facility] Last Admin: 08/03/21 10:19 Dose: 20 mg Documented by: Lorazepam (Lorazepam 0.5 Mg Tablet) 0.5 mg PO TID PRN PRN Reason: Anxiety Last Admin: 08/03/21 10:14 Dose: 0.5 mg Documented by: Losartan Potassium (Losartan Potassium 50 Mg Tablet) 100 mg PO DAILY [facility]; Protocol Last Admin: 08/03/21 10:14 Dose: 100 mg Documented by: Melatonin (Melatonin 3 Mg Tablet) 6 mg PO BEDTIME PRN PRN Reason: Insomnia Methylprednisolone Sodium Succinate (Methylprednisolone Sod Succ 40 Mg/Ml Vial) 40 mg IVPUSH Q6H [facility] Last Admin: 08/03/21 10:13 Dose: 40 mg Documented by: Quetiapine Fumarate (Quetiapine Fumarate 100 Mg Tablet) 100 mg PO TID PRN PRN Reason: agitation Last Admin: 08/03/21 10:19 Dose: 100 mg Documented by: Quetiapine Fumarate (Quetiapine Fumarate 400 Mg Tablet) 400 mg PO BEDTIME [facility] Senna (Sennosides 8.6 Mg Tablet) 17.2 mg PO BEDTIME PRN PRN Reason: Constipation Sodium Chloride (0.9 % Sodium Chloride Flush 3 Ml Syringe) 3 ml IVFLUSH QSHIFT [facility] Last Admin: 08/03/21 07:26 Dose: 3 ml Documented by: Tamsulosin HCl (Tamsulosin Hcl 0.4 Mg Capsule) 0.8 mg PO DAILY [facility] Last Admin: 08/03/21 10:19 Dose: 0.8 mg Documented by: Home Medications Medication Instructions Recorded Confirmed Last Taken Type albuterol sulfate 90 mcg/actuation 2 puff INHALATION BID 06/14/21 08/03/21 Unknown History aerosol inhaler (Ventolin HFA) acetaminophen 325 mg tablet 650 mg PO BID PRN 08/03/21 08/03/21 Unknown History Physical Exam Vital Signs: Vital Signs: Last Vital Signs Temp 98.3 F 08/03/21 07:53 Pulse 98 08/03/21 12:21 Resp 20 08/03/21 07:53 BP 136/70 08/03/21 10:14 Pulse Ox 95 08/03/21 07:53 Body Mass Index 24.4 Const: General: alert Neck: Neck: Yes normal visual inspection, Yes full ROM and Yes no lymphadenopathy Chest: Chest palpation & inspection: normal inspection of the chest Resp: Auscultation: diminished lung sounds Cardio: Rate: regular rate Rhythm: regular rhythm Heart sounds: S1 normal heart sound present and S2 normal heart sound present GI: Palpation (GI): Soft to palpation and nontender Auscultation: normal bowel sounds Skin: General skin exam: rashes and/or lesions noted Results Laboratory Findings CBC and BMP: 08/03/21 06:07 08/03/21 06:07 ABG, PT/INR, D-dimer: PT/INR, D-dimer PT 12.1 SEC (9.9-13.0) 08/02/21 22:31 INR 1.1 (0.9-1.1) 08/02/21 22:31 Abnormal lab findings: Abnormal Labs 08/02/21 08/02/21 08/02/21 22:31 22:39 22:53 WBC 4.7 L RBC 4.36 L Hgb Hct MPV 9.0 L Neut % (Auto) Lymph % (Auto) Bond % (Auto) Eos % (Auto) 4.7 H Lymph # (Auto) 1.0 L Bond # (Auto) ABG pO2 at Pt Temp 121 H ABG HCO3 27 H VBG HCO3 BUN 8 L Random Glucose 08/02/21 08/03/21 08/03/21 22:54 06:07 06:07 WBC 3.1 L RBC 4.31 L Hgb 13.6 L Hct 41.3 L MPV 9.3 L Neut % (Auto) 89.9 H Lymph % (Auto) 9.2 L Bond % (Auto) 0.6 L Eos % (Auto) Lymph # (Auto) 0.3 L Bond # (Auto) 0.0 L ABG pO2 at Pt Temp ABG HCO3 VBG HCO3 30 H BUN Random Glucose 160 H D Assessment and Plan (1) Acute respiratory failure: Status: Acute (2) COPD with acute exacerbation: Status: Acute (3) Lung mass: Status: Acute Continue Solumedrol Duonebs QID Continue azithromycin Will need to follow. Consider inpatient eval of the lung mass. Procedures Date of Service Date of Service: 08/03/21
[2021-08-03] MEDS: QUEtiapine Fumarate 400 MG TABLET PO (21:53)
[2021-08-03] MEDS: Docusate Sodium 100 MG CAPSULE PO (21:53)
[2021-08-03] MEDS: Atorvastatin Calcium 40 MG TABLET PO (21:54)
[2021-08-04] VITALS (11 sets, daily range): BP systolic 130–145; BP diastolic 60–64; PULSE 76–89; RESP 17–20; TEMP 36.1–37.4; O2SAT 92–98
[2021-08-04] MEDS: Enoxaparin Sodium 40 MG/0.4 ML SYRINGE SUBCUT (05:18)
[2021-08-04] MEDS: methylPREDNISolone Sod Succ 40 MG/ML VIAL IVPUSH ×4 (05:18→21:03)
[2021-08-04] MEDS: Albuterol/Iprat 2.5/0.5MG 3 ML AMPUL.NEB INHALE ×4 (08:01→20:01)
[2021-08-04] MEDS: Docusate Sodium 100 MG CAPSULE PO ×2 (08:29→20:55)
[2021-08-04] MEDS: Losartan Potassium 50 MG TABLET 100 MG PO (08:29)
[2021-08-04] MEDS: Famotidine 20 MG TABLET PO ×2 (08:29→20:55)
[2021-08-04] MEDS: Aspirin Enteric Coated 81 MG TABLET.DR PO (08:29)
[2021-08-04] MEDS: 0.9 % Sodium Chloride Flush 3 ML SYRINGE IVFLUSH ×3 (08:30→21:03)
[2021-08-04] MEDS: Tamsulosin HCL 0.4 MG CAPSULE 0.8 MG PO (08:30)
--- NOTE | 2021-08-04 10:01 | HO.PM.IMPN ---
Subjective Subjective Date of Service: 08/04/21 Review of Systems Follow up COPD Still with some tightness and wheezing no chest pain, nausea, vomiting or diarrhea All other systems reviewed and are neg Physical Exam Vital Signs: Vital Signs: Last Vital Signs Temp 96.9 F 08/04/21 08:11 Pulse 84 08/04/21 08:29 Resp 18 08/04/21 08:11 BP 130/62 08/04/21 08:29 Pulse Ox 98 08/04/21 08:11 Body Mass Index 24.4 Appearing in no acute distress lung exp wheezing heart regular rate rhythm, clear S1, S2 positive bowel sounds, abdomen is soft, nontender neuro patient is alert x3, no focal deficits Objective Data Active Medications Acetaminophen (Acetaminophen 325 Mg Tablet) 650 mg PO Q6H PRN PRN Reason: Pain, Mild (Pain Scale 1-3) Albuterol/Ipratropium (Albuterol/Iprat 2.5/0.5mg 3 Ml Ampul.Neb) 3 ml INHALE RQ4H WHILE AWAKE [facility] Last Admin: 08/04/21 08:01 Dose: 3 ml Documented by: SALAS Albuterol/Ipratropium (Albuterol/Iprat 2.5/0.5mg 3 Ml Ampul.Neb) 3 ml INHALE RQ4H PRN PRN Reason: Shortness of Breath/Wheezing Aspirin (Aspirin Enteric Coated 81 Mg Tablet.) 81 mg PO DAILY [facility] Last Admin: 08/04/21 08:29 Dose: 81 mg Documented by: DIANA Atorvastatin Calcium (Atorvastatin Calcium 40 Mg Tablet) 40 mg PO BEDTIME [facility] Last Admin: 08/03/21 21:54 Dose: 40 mg Documented by: ETHAN Azithromycin (Azithromycin 500 Mg Tablet) 500 mg PO Q24H [facility] Last Admin: 08/03/21 21:53 Dose: 500 mg Documented by: ETHAN Docusate Sodium (Docusate Sodium 100 Mg Capsule) 100 mg PO BID [facility] Last Admin: 08/04/21 08:29 Dose: 100 mg Documented by: DIANA Enoxaparin Sodium (Enoxaparin Sodium 40 Mg/0.4 Ml Syringe) 40 mg SUBCUT Q24H [facility] Last Admin: 08/04/21 05:18 Dose: 40 mg Documented by: ETHAN Famotidine (Famotidine 20 Mg Tablet) 20 mg PO BID [facility] Last Admin: 08/04/21 08:29 Dose: 20 mg Documented by: DIANA Lorazepam (Lorazepam 0.5 Mg Tablet) 0.5 mg PO TID PRN PRN Reason: Anxiety Last Admin: 08/03/21 18:50 Dose: 0.5 mg Documented by: JOSE R Losartan Potassium (Losartan Potassium 50 Mg Tablet) 100 mg PO DAILY [facility]; Protocol Last Admin: 08/04/21 08:29 Dose: 100 mg Documented by: DIANA Melatonin (Melatonin 3 Mg Tablet) 6 mg PO BEDTIME PRN PRN Reason: Insomnia Methylprednisolone Sodium Succinate (Methylprednisolone Sod Succ 40 Mg/Ml Vial) 40 mg IVPUSH Q6H [facility] Last Admin: 08/04/21 08:29 Dose: 40 mg Documented by: DIANA Quetiapine Fumarate (Quetiapine Fumarate 100 Mg Tablet) 100 mg PO TID PRN PRN Reason: agitation Last Admin: 08/03/21 18:50 Dose: 100 mg Documented by: JOSE R Quetiapine Fumarate (Quetiapine Fumarate 400 Mg Tablet) 400 mg PO BEDTIME [facility] Last Admin: 08/03/21 21:53 Dose: 400 mg Documented by: ETHAN Senna (Sennosides 8.6 Mg Tablet) 17.2 mg PO BEDTIME PRN PRN Reason: Constipation Sodium Chloride (0.9 % Sodium Chloride Flush 3 Ml Syringe) 3 ml IVFLUSH QSHIFT [facility] Last Admin: 08/04/21 08:30 Dose: 3 ml Documented by: DIANA Tamsulosin HCl (Tamsulosin Hcl 0.4 Mg Capsule) 0.8 mg PO DAILY [facility] Last Admin: 08/04/21 08:30 Dose: 0.8 mg Documented by: DIANA Labs CBC & Chem 7: 08/03/21 06:07 08/03/21 06:07 Microbiology Microbiology Results: Microbiology 08/02/21 22:31 Blood Culture - Preliminary Blood - Venous No growth after 24 hours. 08/02/21 22:31 Blood Culture - Preliminary Blood - Venous No growth after 24 hours. Assessment and Plan (1) Lung mass: Status: Acute (2) Schizoaffective disorder, bipolar type: Status: Acute (3) COPD (chronic obstructive pulmonary disease): Status: Acute Assessment and Plan: 71-year-old male with a past medical history of hypertension, hyperlipidemia, hepatitis-C, COPD, not on home oxygen, anxiety, his affect is normal presented to the hospital with a chief complaint of shortness of breath.? Noted to be in acute COPD exacerbation; admitted for further management.? Acute on chronic COPD exacerbation Continue nebulizations standing and p.r.n..? Solu-Medrol IV Azithromycin Seen by Pulmonary, recent pulmonary mass dx. ? inpatient biopsy Supplemental oxygen p.r.n. and goal oxygen saturation 93% Mental health continue home medications BPH continue tamsulosin HTN stable continue Losartan Smoker offered NRT Discussed importance of smoking cessation DVT prophylaxis:? Lovenox Code status: Full code Dr. Benjamin Quality Stroke Does the patient have a stroke diagnosis?: No VTE Prior VTE?: No VTE Risk Level:: Medical - moderate - high VTE Device Contraindication: Treatment Not Indicated VTE Drug Contraindication: N/A - Med Ordered
[2021-08-04] MEDS: guaiFENesin DM 100/10/5 ML 5 ML SYRUP PO (10:38)
[2021-08-04] MEDS: QUEtiapine Fumarate 100 MG TABLET PO (16:17)
[2021-08-04] MEDS: LORazepam 0.5 MG TABLET PO (16:17)
[2021-08-04] MEDS: Atorvastatin Calcium 40 MG TABLET PO (20:55)
[2021-08-04] MEDS: QUEtiapine Fumarate 400 MG TABLET PO (20:55)
[2021-08-04] MEDS: Azithromycin 500 MG TABLET PO (21:03)
[2021-08-05] VITALS (11 sets, daily range): BP systolic 116–182; BP diastolic 67–82; PULSE 69–89; RESP 17–20; TEMP 36.1–36.8; O2SAT 92–100
[2021-08-05] MEDS: methylPREDNISolone Sod Succ 40 MG/ML VIAL IVPUSH ×4 (03:26→21:24)
[2021-08-05] MEDS: Enoxaparin Sodium 40 MG/0.4 ML SYRINGE SUBCUT (03:26)
[2021-08-05] MEDS: Albuterol/Iprat 2.5/0.5MG 3 ML AMPUL.NEB INHALE ×4 (07:53→20:32)
[2021-08-05] MEDS: Docusate Sodium 100 MG CAPSULE PO ×2 (08:09→21:23)
[2021-08-05] MEDS: Tamsulosin HCL 0.4 MG CAPSULE 0.8 MG PO (08:09)
[2021-08-05] MEDS: Famotidine 20 MG TABLET PO ×2 (08:09→21:24)
[2021-08-05] MEDS: Losartan Potassium 50 MG TABLET 100 MG PO (08:09)
[2021-08-05] MEDS: Aspirin Enteric Coated 81 MG TABLET.DR PO (08:09)
[2021-08-05] MEDS: 0.9 % Sodium Chloride Flush 3 ML SYRINGE IVFLUSH ×2 (08:09→15:57)
[2021-08-05] MEDS: guaiFENesin DM 100/10/5 ML 5 ML SYRUP 1 ML PO ×3 (10:21→21:22)
--- NOTE | 2021-08-05 11:03 | P.PNIM_ITS ---
Subjective Subjective Date of Service: 08/05/21 Interval History: Admitted for COPD exacerbation, complaining of persistent shortness of breath and cough productive of brown phlegm, denies fever chills, refusing nicotine patch. Review of Systems General no headache, no dizziness, no fever chills. CVS no chest pain, no palpitation. Respiratory cough productive of phlegm, shortness of breath. Gastrointestinal no nausea no vomiting, no abdominal pain Review of Systems: Yes all other systems are reviewed and are negative Physical Exam Vital Signs: Vital Signs: Last Vital Signs Temp 96.9 F 08/05/21 07:56 Pulse 73 08/05/21 08:09 Resp 18 08/05/21 07:56 BP 167/82 H 08/05/21 08:09 Pulse Ox 100 08/05/21 07:56 Body Mass Index 24.4 General awake alert x3, no acute distress. Neck no JVD. CVS regular rate rhythm, Respiratory lungs bilateral expiratory wheeze,no respiratory distress Gastrointestinal abdomen soft, nontender, bowel sounds audible, no guarding , no rigidity. Extremities no edema. Neuro nonfocal Skin no rash Psych appropriate affect Objective Data Active Medications Acetaminophen (Acetaminophen 325 Mg Tablet) 650 mg PO Q6H PRN PRN Reason: Pain, Mild (Pain Scale 1-3) Albuterol/Ipratropium (Albuterol/Iprat 2.5/0.5mg 3 Ml Ampul.Neb) 3 ml INHALE RQ4H WHILE AWAKE [facility] Last Admin: 08/05/21 07:53 Dose: 3 ml Documented by: SALAS Albuterol/Ipratropium (Albuterol/Iprat 2.5/0.5mg 3 Ml Ampul.Neb) 3 ml INHALE RQ4H PRN PRN Reason: Shortness of Breath/Wheezing Albuterol/Ipratropium (Albuterol/Iprat 2.5/0.5mg 3 Ml Ampul.Neb) 3 ml INHALE Q2H PRN PRN Reason: Shortness of Breath Aspirin (Aspirin Enteric Coated 81 Mg Tablet.) 81 mg PO DAILY [facility] Last Admin: 08/05/21 08:09 Dose: 81 mg Documented by: DIANA Atorvastatin Calcium (Atorvastatin Calcium 40 Mg Tablet) 40 mg PO BEDTIME [facility] Last Admin: 08/04/21 20:55 Dose: 40 mg Documented by: CHARMAINE Azithromycin (Azithromycin 500 Mg Tablet) 500 mg PO Q24H [facility] Last Admin: 08/04/21 21:03 Dose: 500 mg Documented by: CHARMAINE Docusate Sodium (Docusate Sodium 100 Mg Capsule) 100 mg PO BID [facility] Last Admin: 08/05/21 08:09 Dose: 100 mg Documented by: DIANA Enoxaparin Sodium (Enoxaparin Sodium 40 Mg/0.4 Ml Syringe) 40 mg SUBCUT Q24H [facility] Last Admin: 08/05/21 03:26 Dose: 40 mg Documented by: CHARMAINE Famotidine (Famotidine 20 Mg Tablet) 20 mg PO BID [facility] Last Admin: 08/05/21 08:09 Dose: 20 mg Documented by: DIANA Guaifenesin/Dextromethorphan (Guaifenesin Dm 100/10/5 Ml 5 Ml Syrup) 1 ml PO Q6H [facility] Last Admin: 08/05/21 10:21 Dose: 1 ml Documented by: DIANA Lorazepam (Lorazepam 0.5 Mg Tablet) 0.5 mg PO TID PRN PRN Reason: Anxiety Last Admin: 08/04/21 16:17 Dose: 0.5 mg Documented by: DIANA Losartan Potassium (Losartan Potassium 50 Mg Tablet) 100 mg PO DAILY [facility]; Protocol Last Admin: 08/05/21 08:09 Dose: 100 mg Documented by: DIANA Melatonin (Melatonin 3 Mg Tablet) 6 mg PO BEDTIME PRN PRN Reason: Insomnia Methylprednisolone Sodium Succinate (Methylprednisolone Sod Succ 40 Mg/Ml Vial) 40 mg IVPUSH Q6H [facility] Last Admin: 08/05/21 08:09 Dose: 40 mg Documented by: DIANA Quetiapine Fumarate (Quetiapine Fumarate 100 Mg Tablet) 100 mg PO TID PRN PRN Reason: agitation Last Admin: 08/04/21 16:17 Dose: 100 mg Documented by: DIANA Quetiapine Fumarate (Quetiapine Fumarate 400 Mg Tablet) 400 mg PO BEDTIME [facility] Last Admin: 08/04/21 20:55 Dose: 400 mg Documented by: CHARMAINE Senna (Sennosides 8.6 Mg Tablet) 17.2 mg PO BEDTIME PRN PRN Reason: Constipation Sodium Chloride (0.9 % Sodium Chloride Flush 3 Ml Syringe) 3 ml IVFLUSH QSHIFT [facility] Last Admin: 08/05/21 08:09 Dose: 3 ml Documented by: DIANA Tamsulosin HCl (Tamsulosin Hcl 0.4 Mg Capsule) 0.8 mg PO DAILY [facility] Last Admin: 08/05/21 08:09 Dose: 0.8 mg Documented by: DIANA Labs CBC & Chem 7: 08/03/21 06:07 08/03/21 06:07 Microbiology Microbiology Results: Microbiology 08/02/21 22:31 Blood Culture - Preliminary Blood - Venous No growth after 48 hours. 08/02/21 22:31 Blood Culture - Preliminary Blood - Venous No growth after 48 hours. Assessment and Plan (1) Acute respiratory failure: Status: Acute (2) Lung mass: Status: Acute (3) Schizoaffective disorder, bipolar type: Status: Acute (4) Hypertension: Status: Acute (5) Hyperlipidemia: Status: Acute Assessment and Plan: 71-year-old male with a past medical history of hypertension, hyperlipidemia, hepatitis-C, COPD, not on home oxygen, anxiety, his affect is normal presented to the hospital with a chief complaint of shortness of breath.? Noted to be in acute COPD exacerbation; admitted for further management.? Acute COPD exacerbation Persistent shortness of breath and wheezing Continue DuoNeb q.4 hours and IV Solu-Medrol 40 mg q.6 hours, will add DuoNeb q.2 hours as needed Continue Azithromycin 500 mg day 2 Chest x-ray showed emphysema and COPD, no acute infiltrate Seen by Pulmonary, recent pulmonary mass dx. Will recommend outpatient thoracic surgery follow up for bronchoscopy and biopsy. O2 92% on room air Mental health continue home medications, no acute decompensation BPH continue tamsulosin HTN stable continue Losartan Smoker Patient declined nicotine, smoking cessation discussed DVT prophylaxis:? Lovenox Code status: Full code Quality Stroke Does the patient have a stroke diagnosis?: No VTE Prior VTE?: No VTE Risk Level:: Medical - moderate - high VTE Device Contraindication: Treatment Not Indicated VTE Drug Contraindication: N/A - Med Ordered
--- NOTE | 2021-08-05 12:47 | PM.PNPUL ---
Subjective Subjective Date of Service: 08/05/21 Interval history: The patient was seen on exam. Still complaining of shortness of breath and wheezing. Still on IV steroids. Again we talked about the left upper lobe masslike density. The goal is to try to get his his proceeded done as an outpatient. But, if the patient condition does not improve we may opt to have him undergo at least a bronchoscopy as an inpatient. Objective Data Labs CBC & Chem 7: 08/03/21 06:07 08/03/21 06:07 Microbiology Microbiology Results: Microbiology 08/02/21 22:31 Blood - Venous Blood Culture - Preliminary No growth after 48 hours. 08/02/21 22:31 Blood - Venous Blood Culture - Preliminary No growth after 48 hours. Review of Systems Review of Systems Constitutional : No Fever, No Chills ENT/Mouth : No sore throat, No Rhinorrhea, No Swallowing Difficulty Eyes: No Eye Pain, No Swelling, No Redness Cardiovascular : No Chest Pain, positive SOB, No Orthopnea, no Edema Respiratory : pos Cough, pos Sputum,pos Wheezing, positive dyspnea Gastrointestinal : No Nausea, No Vomiting, No Diarrhea, No abdominal Pain, No Hematochezia, No Melena Genitourinary : No Dysuria, No Urinary Frequency, No Hematuria Musculoskeletal : No joint pain, No Myalgias Skin : No Skin Lesions, No rash Neuro : No Weakness, No Numbness, No Dizziness, No Headache Psych : No Anxiety/Panic, No Depression Heme/Lymph: No Bruising, No Lymphadenopathy Endocrine : No Polyuria, No Polydipsia All other systems reviewed and are negative Physical Exam Vital Signs: Vital Signs: Last Vital Signs Temp 97.8 F 08/05/21 11:57 Pulse 80 08/05/21 11:57 Resp 18 08/05/21 11:57 BP 116/81 08/05/21 11:57 Pulse Ox 99 08/05/21 11:57 Body Mass Index 24.4 Const: General: alert Neck: Neck: Yes normal visual inspection, Yes full ROM and Yes no lymphadenopathy Chest: Chest palpation & inspection: normal inspection of the chest Resp: Auscultation: rhonchi, wheezes and diminished lung sounds Cardio: Rate: regular rate Rhythm: regular rhythm Heart sounds: S1 normal heart sound present and S2 normal heart sound present GI: Palpation (GI): Soft to palpation and nontender Auscultation: normal bowel sounds Skin: General skin exam: rashes and/or lesions noted Procedures Date of Service Date of Service: 08/05/21 Assessment and Plan Assessment and plan (1) Lung mass: Status: Acute (2) COPD with acute exacerbation: Status: Acute (3) Acute respiratory failure: Status: Acute Assessment and Plan: Continue respiratory therapy Continue Solu-Medrol today Reassessed tomorrow. If the patient is better able to go home, than he can follow up with the outpatient workup. If the patient is still not better in still requires respiratory therapy then we could consider an inpatient bronchoscopy to address the left upper lobe mass encases causing airway obstruction which could be contributing to his underlying symptoms. Time Spent With Patient Time: Total time spent is greater than 50% in coordination of care (as documented) at patient's floor/unit and/or counseling patient: Time with patient: 15 - 24 minutes Progress Note: Quality Stroke Does the patient have a stroke diagnosis?: No
[2021-08-05] MEDS: LORazepam 0.5 MG TABLET PO ×2 (13:28→21:23)
[2021-08-05] MEDS: QUEtiapine Fumarate 100 MG TABLET PO (13:28)
[2021-08-05] MEDS: Azithromycin 500 MG TABLET PO (21:23)
[2021-08-05] MEDS: Acetaminophen 325 MG TABLET 650 MG PO (21:23)
[2021-08-05] MEDS: Atorvastatin Calcium 40 MG TABLET PO (21:24)
[2021-08-05] MEDS: QUEtiapine Fumarate 400 MG TABLET PO (21:24)
[2021-08-06] MEDS: 0.9 % Sodium Chloride Flush 3 ML SYRINGE IVFLUSH ×2 (00:39→07:24)
[2021-08-06 03:58] VITALS: BP 134/68; PULSE 81; RESP 18; TEMP 36; O2SAT 93
[2021-08-06] MEDS: Enoxaparin Sodium 40 MG/0.4 ML SYRINGE SUBCUT (04:26)
[2021-08-06] MEDS: methylPREDNISolone Sod Succ 40 MG/ML VIAL IVPUSH (04:27)
[2021-08-06] MEDS: guaiFENesin DM 100/10/5 ML 5 ML SYRUP 1 ML PO ×2 (04:27→09:29)
[2021-08-06 07:09] VITALS: BP 165/79; PULSE 73; RESP 18; TEMP 36.4; O2SAT 94
[2021-08-06] MEDS: LORazepam 0.5 MG TABLET PO (07:23)
[2021-08-06] MEDS: Acetaminophen 325 MG TABLET 650 MG PO (07:23)
[2021-08-06] MEDS: QUEtiapine Fumarate 100 MG TABLET PO (07:23)
[2021-08-06] MEDS: Famotidine 20 MG TABLET PO (09:29)
[2021-08-06] MEDS: Aspirin Enteric Coated 81 MG TABLET.DR PO (09:29)
[2021-08-06] MEDS: Docusate Sodium 100 MG CAPSULE PO (09:29)
[2021-08-06] MEDS: Losartan Potassium 50 MG TABLET 100 MG PO (09:29)
[2021-08-06] MEDS: Tamsulosin HCL 0.4 MG CAPSULE 0.8 MG PO (09:29)
[2021-08-06] MEDS: Albuterol/Iprat 2.5/0.5MG 3 ML AMPUL.NEB INHALE (11:11)
--- NOTE | 2021-08-06 11:43 | MHC.CM.PN ---
PATIENT IS DISCHARGE HOME - SELF CARE. RN SPOKE WITH HIS TRANSPORT WHO IS REPORTEDLY ON HER WAY HERE. IMM 08/05 IN CHART
[2021-08-06] MEDS: predniSONE 20 MG TABLET 40 MG PO (11:46)
--- NOTE | 2021-08-06 11:50 | P.DS_ITS ---
DS: Providers Provider Date of Service: 08/06/21 Date of admission: 08/03/21 02:16 Primary care physician: Unknown Physician Consults: 08/03/21 02:22 Consult to Pulmonology Routine Consulting Provider: Sally Crabtree Reason for consultation: copd exacerbation DS: Diagnosis Discharge Diagnosis (1) Lung mass: Status: Acute (2) COPD with acute exacerbation: Status: Acute (3) Acute respiratory failure: Status: Acute DS: Summary Hospital Course Hospital Course: Chief Complaint: Shortness of breath 71-year-old male with a past medical history of hypertension, hyperlipidemia, hepatitis-C, COPD, not on home oxygen, anxiety, his affect is normal presented to the hospital with a chief complaint of shortness of breath.? Patient reports that he chronically has shortness of breath today had severe episode of shortness of breath important repeat hence came to the ER for further evaluation.? Denies any fevers or chills.? Reports cough with yellowish sputum production Denies any nausea vomiting diarrhea Denies any urinary symptoms.? Denies any chest pain palpitations lightheadedness or dizziness.? Review of all other systems is negative except mentioned above ER course: Per ER team patient initially on presentation noted to be in mild respiratory distress; placed on BiPAP briefly; given nebulizations and steroids; also received antibiotics.? Subsequently patient respiratory status improved and transitioned to nasal cannula.? Admitted to the hospital for further management. Hospital course 71-year-old male with a past medical history of hypertension, hyperlipidemia, hepatitis-C, COPD, not on home oxygen, anxiety, presented to the hospital with a chief complaint of shortness of breath, Noted to be in acute COPD exacerbation and mild respiratory distress patient was treated briefly with BiPAP for work of breathing, subsequently admitted to medical floor and treated with DuoNeb q.4 hours scheduled and as needed and with IV Solu-Medrol 40 mg q.6 hours, azithromycin and cough medication patient responded well to above treatment currently doing well with no shortness of breath, lungs are clear to auscultation therefore being discharged home on tapering dose of steroids, updraft treatment and azithromycin, he has been recommended to call thoracic surgery to undergo bronchoscopy for left upper lung mass, he was followed closely by vending machine coin collector Dr. Erickson and Dr. Crabtree , patient oxygenation is stable 94% on room air. He has been strongly advised to abstain from smoking patient declined nicotine patch. In regard to his chronic medical issues including hypertension BPH and Mental health he has been continued on all home medications Time Spent with Patient Time attestation: Total time spent providing and/or coordinating discharge services: Discharge coordination time: Greater than 30 minutes Quality: Stroke Does the patient have a stroke diagnosis?: No Physical Exam Vital Signs: Vital Signs: Last Vital Signs Temp 97.6 F 08/06/21 07:09 Pulse 73 08/06/21 07:09 Resp 18 08/06/21 07:09 BP 165/79 H 08/06/21 07:09 Pulse Ox 94 08/06/21 07:09 Body Mass Index 24.4 General awake alert x3,no acute distress. Neck no JVD. CVS regular rate rhythm, Respiratory lungs clear to auscultation, no respiratory distress, no wheeze, no rhonchi. Gastrointestinal abdomen soft, nontender, bowel sounds audible, no guarding , no rigidity. Extremities no edema. Neuro nonfocal Skin no rash Psych appropriate affect DS: Data Data Completed and Pending Labs on day of discharge: Preliminary micro results at discharge 08/02/21 22:31 Blood Culture - Preliminary Blood - Venous No growth after 48 hours. 08/02/21 22:31 Blood Culture - Preliminary Blood - Venous No growth after 48 hours. Discharge Plan Discharge Patient Disposition: Home, Self-Care Discharge Diagnosis: Acute COPD exacerbation Left lung mass Referrals: Physician,Unknown J [Primary Care Provider] - 1 Week Discharge Medications: New dextromethorphan-guaifenesin 10-100 mg/5 mL Syrup 10 ml PO Q6H Qty: 237 RF: 0 prednisone 20 mg tablet 20 mg PO DAILY Qty: 40 RF: 0 azithromycin 500 mg Tablet 500 mg PO Q24H Qty: 3 RF: 0 Continued quetiapine 100 mg Tablet 100 mg PO TID PRN (Reason: agitation) Qty: 90 RF: 0 quetiapine 400 mg Tablet 400 mg PO BEDTIME Qty: 30 RF: 0 lorazepam 0.5 mg Tablet 0.5 mg PO TID PRN (Reason: Anxiety) 30 Days Qty: 90 RF: 0 atorvastatin 40 mg tablet 1 tab PO BEDTIME Qty: 30 RF: 0 albuterol sulfate 2.5 mg /3 mL (0.083 %) solution for nebulization 2.5 mg inhalation TID PRN (Reason: Dyspnea) Qty: 25 RF: 2 aspirin 81 mg tablet,delayed release (DR/EC) 81 mg PO DAILY Qty: 30 RF: 0 famotidine 20 mg tablet 1 tab PO BID Qty: 60 RF: 0 tamsulosin 0.4 mg capsule 2 cap PO DAILY 30 Days Qty: 120 RF: 0 docusate sodium 100 mg capsule 1 cap PO BID Qty: 60 RF: 0 losartan 100 mg tablet 1 tab PO DAILY Qty: 30 RF: 0 Spiriva Respimat 1.25 mcg/actuation mist 2 puff inhalation DAILY Qty: 6 RF: 0 albuterol sulfate [Ventolin HFA] 90 mcg/actuation HFA aerosol inhaler 2 puff inhalation BID RF: 0 acetaminophen 325 mg Tablet 650 mg PO BID PRN (Reason: Breakthrough Pain, Mild) RF: 0 Discharge Orders: Discharge Order (Routine); Ordered 08/06/21 Ordered By: Gabriel Garza Diet: advance to usual diet Activity on Discharge: As tolerated Stand Alone Forms: Patient Portal Discharge page Care Plan Goals: COPD exacerbation, take albuterol updraft treatment every 4 hours for next few days, take prednisone tapering dose cough medication return to check with any worsening symptoms of shortness of breath chest pain Health Concerns: Left lung mass, need outpatient bronchoscopy please call for appointment Plan of Treatment: Outpatient follow-up with primary care physician and 7-10 days please call thoracic surgeon Dr. Renee Yan for bronchoscopy Assessment: As above
== END 2021-08-06 13:13 | disposition home or self-care (01) | DRG 190 ==
LOC: HO.ED 08-03 01:23 → HO.EDOVER 08-03 03:16 → HO.S3 08-03 18:42
PROVIDERS: Admitting Provider Hospitalist; Emergency Provider Student in an Organized Health Care Education/Training Program; PCP Internal Medicine; Visit Provider Hospitalist
DX: J44.1 Chronic obstructive pulmonary disease with (acute) exacerbation (principal); J96.00 Acute respiratory failure, unspecified whether with hypoxia or hypercapnia; I10 Essential (primary) hypertension; F17.210 Nicotine dependence, cigarettes, uncomplicated; E78.5 Hyperlipidemia, unspecified; R91.8 Other nonspecific abnormal finding of lung field; N40.0 Benign prostatic hyperplasia without lower urinary tract symptoms; F25.0 Schizoaffective disorder, bipolar type; Z71.6 Tobacco abuse counseling; Z20.822 Contact with and (suspected) exposure to COVID-19; Z86.19 Personal history of other infectious and parasitic diseases; Z88.5 Allergy status to narcotic agent; Z79.82 Long term (current) use of aspirin; Z79.899 Other long term (current) drug therapy
CPT/HCPCS: 0241U; 36415; 71045; 80048; 80053; 82803; 83605; 83880; 85025; 85610; 87040; 93005; 94640; 94645; 94660; 99285; J1650; J2543; J2920; J2930

== ENCOUNTER 2021-08-24 07:58 | Outpatient (REF) | payer MEDICARE, SELFPAY ==
--- NOTE | ~2021-08-24 | MR_ITS ---
EXAMINATION: MR BRAIN WITHOUT AND WITH CONTRAST CLINICAL INFORMATION: Other nonspecific abnormal finding of lung reyes. COMPARISON: Head CT December 19, 2020. TECHNIQUE: Multiplanar, multisequence imaging of the brain was performed before and after the intravenous administration of 8.5 mL of Gadavist. FINDINGS: There is no acute infarction, mass, hemorrhage, or extra-axial collection. No abnormal or unexpected intracranial enhancement is seen. The ventricles, sulci, and basilar cisterns are normal in size and configuration. Moderate patchy foci of T2/FLAIR hyperintensity are seen throughout the bilateral cerebral white matter, most typical of chronic microangiopathy. The flow voids of the major intracranial arteries appear intact. The bones and extracranial soft tissues are within normal limits. MR/MR head/brain wo/w con IMPRESSION: No mass lesion, acute infarction, or abnormal intracranial enhancement. Background changes of moderate chronic microangiopathy.
== END 2021-08-24 07:59 | disposition home or self-care (01) ==
LOC: HO.MRI 07:58
PROVIDERS: Visit Provider Surgery
DX: C79.31 Secondary malignant neoplasm of brain (principal); R91.8 Other nonspecific abnormal finding of lung field
CPT/HCPCS: 70553; A9585

== ENCOUNTER 2021-10-25 18:30 | Inpatient (IN) | payer MEDICARE, SELFPAY ==
--- NOTE | ~2021-10-25 | XR_ITS ---
EXAMINATION: XR CHEST CLINICAL INFORMATION: Dyspnea. COMPARISON: Chest radiograph dated from 08/02/2021. TECHNIQUE: AP view of the chest was obtained. FINDINGS: Stable cardiomediastinal silhouette. EKG wires overlie the chest. Redemonstration of emphysematous changes and chronic interstitial prominence without acute superimposed focal airspace opacities, pleural effusions or pneumothorax. No acute osseous abnormalities. XR/XR chest 1V IMPRESSION: Background of chronic interstitial changes without superimposed acute cardiopulmonary abnormalities.
--- NOTE | 2021-10-25 18:37 | ECG_ITS ---
Test Reason : sob Blood Pressure : / mmHG Vent. Rate : 087 BPM Atrial Rate : 087 BPM P-R Int : 164 ms QRS Dur : 072 ms QT Int : 370 ms P-R-T Axes : 078 040 082 degrees QTc Int : 445 ms Sinus rhythm with Premature atrial complexes Otherwise normal ECG When compared with ECG of 02-AUG-2021 22:21, Premature atrial complexes are now Present Referred By: Nicole Casiano Electronically Signed By:COLEEN MEDELLIN MD
--- NOTE | 2021-10-25 18:38 | ED.SOB ---
HPI - SOB/Dyspnea General Chief Complaint: Dyspnea Stated Complaint: SOB Time Seen by Provider: 10/25/21 18:36 Source: patient, EMS and old records reviewed Mode of arrival: EMS Limitations: no limitations History of Present Illness HPI Narrative: Toro vaccine x 3 elicited complaint: shortness of breath and asthma attack Pertinent past history: COPD Onset (ago): week(s) (2 weeks but much worse after smoking today) Context: smoke/fume exposure Timing: progressively worsening Severity: severe Exacerbating factors: exertion and coughing Relieving factors: oxygen and bronchodilators Known history of: COPD Associated symptoms: chest pain, cough, wheezing and sputum production Treatment prior to arrival: oxygen, bronchodilator and other (IV steroids 125mg solumedrol with EMS) Related Data Home Medications Medication Instructions Recorded Confirmed albuterol sulfate 90 mcg/actuation 2 puff INHALATION BID 06/14/21 08/03/21 aerosol inhaler (Ventolin HFA) acetaminophen 325 mg tablet 650 mg PO BID PRN 08/03/21 10/25/21 Previous Rx's Medication Instructions Recorded albuterol sulfate 2.5 mg (3 mL) INHALATION TID PRN 05/30/21 #25 units aspirin 81 mg tablet,delayed 81 mg PO DAILY #30 tab 05/30/21 release atorvastatin 40 mg tablet 1 tab PO BEDTIME #30 tab 05/30/21 famotidine 20 mg tablet 1 tab PO BID #60 tab 05/30/21 lorazepam 0.5 mg tablet 0.5 mg PO TID PRN 30 Days #90 tab 05/30/21 losartan 100 mg tablet 1 tab PO DAILY #30 tab 05/30/21 quetiapine 100 mg tablet 100 mg PO TID PRN #90 tab 05/30/21 quetiapine 400 mg tablet 400 mg PO BEDTIME #30 tab 05/30/21 tamsulosin 0.4 mg capsule 2 cap PO DAILY 30 Days #120 cap 05/30/21 tiotropium bromide 1.25 2 puff INHALATION DAILY #6 g 05/30/21 mcg/actuation mist for inhalation (Spiriva Respimat) Allergies Allergy/AdvReac Type Severity Reaction Status Date / Time codeine [CODEINE] Allergy Intermediate HIVES Verified 07/27/21 10:33 Review of Systems Review of Systems: Constitutional : No Fever, No Chills ENT/Mouth : No Hoarseness, No sore throat, No Rhinorrhea Eyes: No Redness, No Discharge, No Vision Changes Cardiovascular :pos Chest Pain, positive SOB, positive Dyspnea on Exertion, No Edema Respiratory : positive Cough, pos Sputum, positive Wheezing, Gastrointestinal : No Nausea, No Vomiting, No Diarrhea, No abdominal Pain Genitourinary : No Dysuria, No Hematuria Musculoskeletal : No joint pain, No Myalgias Skin : No rash Neuro : No Weakness, No Numbness, No Headache Psych : No anxiety, depression Heme/Lymph: No Bruising, No Bleeding Endocrine : No Polyuria, No Polydipsia All other systems reviewed and are negative FORMERLY [facility], [facility] Past Medical History Attestation statement: The following information was validated with the patient. Source: old records reviewed Medical History Anxiety BPH (benign prostatic hyperplasia) COPD (chronic obstructive pulmonary disease) Hepatitis C Hyperlipidemia Hypertension Left tibial fracture Nicotine dependence, cigarettes, uncomplicated Schizoaffective disorder, bipolar type Schizophrenia Surgical History History of bronchoscopy History of elbow surgery Social History Social History Household Members: None Household Members Other:: Prison Residents and Staff Housing: Apartment Housing Other:: Respite since April Do you presently have visiting nurse or other home services: Yes Alcohol intake: never Patient Tobacco Use Status: Current someday Tobacco user Tobacco use type: Cigarette Cigarette Packs Per Day: 1 Cigarettes Per Day: 20.0 Years Smoked: onset 17, 1ppd x 54yrs, 50pyh e-Cigarette/Vaping Use: Currently Using Second Hand Smoke Exposure: Yes Advance Directives: Yes Advance Directives on File: Yes Advance Directives Date on File: 08/18/20 service: No Current occupational status: unemployed Sexual orientation: Straight/Heterosexual Physical Exam Vital Signs: Vital Signs: Last Vital Signs Temp 98.4 F 10/25/21 20:00 Pulse 86 10/25/21 20:00 Resp 16 10/25/21 20:00 BP 124/64 10/25/21 20:00 Pulse Ox 95 10/25/21 20:00 Oxygen Flow Rate 7 10/25/21 18:44 BMI result Body Mass Index 23.0 Appearance: Alert. Oriented X3. Mild acute distress. Eyes: Pupils equal, round and reactive to light. ENT: Pharynx normal. Neck: Normal inspection. Neck supple. CVS: Normal heart rate and rhythm. Pulses normal. Respiratory: Mild respiratory distress - tachypnea/retractions. Breath sounds very tight and diminished with diffuse wheezes noted Abdomen: Soft and non-tender. Skin: Skin warm and dry. Normal skin color. Normal skin turgor. Extremities: No lower extremity edema. No calf ttp Neuro: Oriented X 3. No motor deficit. No sensory deficit. Course Course Course Narrative: patient states he is improving. lactic acidosis due to nebs and not infection or severe sepsis, 500cc fluids ordered MDM - SOB/Dyspnea MDM Narrative Medical decision making narrative: 71 yo male with hx of emphysema, hep c, CAD, mental health issues, chronic smoker here with c/o diff breathing x 2 weeks worse today after smoking this morning EMS found him 90% on RA he does not wear O2 at home, given duoneb en route and IV steroids. At this time her reports productive cough. Will obtain labs, 10mg albuterol neb, CXR, cultures, IV ceftriaxone/azithromycin for COPD exacerbation/bronchitis. Dispo per results and clinical improvement. Lab Data Result diagrams: 10/25/21 19:12 10/25/21 19:12 Labs: Lab Results 10/25/21 10/25/21 10/25/21 Range/Units 19:12 19:12 19:12 WBC 5.1 (4.8-10.8) X10*3/uL RBC 4.61 (4.60-5.80) X10*6/uL Hgb 14.6 (14.0-18.0) g/dl Hct 43.7 (42.0-52.0) % MCV 94.8 (80.0-98.0) fL MCH 31.7 (27.0-33.0) pg MCHC 33.4 (31.0-36.0) g/dl RDW 12.0 (11.0-16.0) % Plt Count 229 (160-400) X10*3/uL MPV 9.4 (9.4-12.4) fL Immature Gran % (Auto) 0.2 (0.0-0.4) % Neut % (Auto) 60.9 (45-73) % Lymph % (Auto) 22.5 (20-40) % [place] % (Auto) 8.5 (2-11) % Eos % (Auto) 7.1 H (0-4) % Baso % (Auto) 0.8 (0-2) % Lymph # (Auto) 1.1 L (1.2-4.9) X10*3/uL [place] # (Auto) 0.4 (0.1-1.2) X10*3/uL Eos # (Auto) 0.4 (0.0-0.4) X10*3/uL Baso # (Auto) 0.0 (0.0-0.2) X10*3/uL Abs Immat Gran (auto) 0.01 (0.00-0.03) X10*3/uL Absolute Neuts (auto) 3.1 (2.0-8.3) x10*3/uL Absolute Nucleated RBC 0.000 (0.0-0.012) X10*3/uL Nucleated RBC % (auto) 0.0 (0.0-0.2) /100WBC Sodium 144 (135-145) mmol/L Potassium 3.8 (3.3-5.1) mmol/L Chloride 107 (96-108) mmol/L Carbon Dioxide 26 (22-29) mmol/L Anion Gap 15 (12-20) BUN 5 L (9-16) mg/dL Creatinine 0.83 (0.5-1.4) mg/dL Estim Creat Clear Calc 88.9 Estimated GFR > 60 Random Glucose 82 D (60-115) mg/dL Lactic Acid (0.5-2.0) mmol/L Calcium 9.1 (8.4-10.2) mg/dL Magnesium 1.8 (1.6-2.6) mg/dL Total Bilirubin 0.4 (0.0-1.0) mg/dL Direct Bilirubin 0.2 (0.0-0.5) mg/dL AST 12 (5-37) U/L ALT 9 (0-40) U/L Alkaline Phosphatase 107 (39-117) U/L Troponin I High Sens (<3.5-35.0) ng/L B-Natriuretic Peptide < 10 (<100) pg/mL Total Protein 6.8 (6.5-8.0) g/dL Albumin 4.3 (3.5-5.0) g/dL COVID-19 (RASHEED) (Negative) COVID-19 Clin Com 10/25/21 10/25/21 10/25/21 Range/Units 19:12 19:12 19:12 WBC (4.8-10.8) X10*3/uL RBC (4.60-5.80) X10*6/uL Hgb (14.0-18.0) g/dl Hct (42.0-52.0) % MCV (80.0-98.0) fL MCH (27.0-33.0) pg MCHC (31.0-36.0) g/dl RDW (11.0-16.0) % Plt Count (160-400) X10*3/uL MPV (9.4-12.4) fL Immature Gran % (Auto) (0.0-0.4) % Neut % (Auto) (45-73) % Lymph % (Auto) (20-40) % [place] % (Auto) (2-11) % Eos % (Auto) (0-4) % Baso % (Auto) (0-2) % Lymph # (Auto) (1.2-4.9) X10*3/uL [place] # (Auto) (0.1-1.2) X10*3/uL Eos # (Auto) (0.0-0.4) X10*3/uL Baso # (Auto) (0.0-0.2) X10*3/uL Abs Immat Gran (auto) (0.00-0.03) X10*3/uL Absolute Neuts (auto) (2.0-8.3) x10*3/uL Absolute Nucleated RBC (0.0-0.012) X10*3/uL Nucleated RBC % (auto) (0.0-0.2) /100WBC Sodium (135-145) mmol/L Potassium (3.3-5.1) mmol/L Chloride (96-108) mmol/L Carbon Dioxide (22-29) mmol/L Anion Gap (12-20) BUN (9-16) mg/dL Creatinine (0.5-1.4) mg/dL Estim Creat Clear Calc Estimated GFR Random Glucose (60-115) mg/dL Lactic Acid 2.7 H* (0.5-2.0) mmol/L Calcium (8.4-10.2) mg/dL Magnesium (1.6-2.6) mg/dL Total Bilirubin (0.0-1.0) mg/dL Direct Bilirubin (0.0-0.5) mg/dL AST (5-37) U/L ALT (0-40) U/L Alkaline Phosphatase (39-117) U/L Troponin I High Sens < 3.5 (<3.5-35.0) ng/L B-Natriuretic Peptide (<100) pg/mL Total Protein (6.5-8.0) g/dL Albumin (3.5-5.0) g/dL COVID-19 (RASHEED) Negative (Negative) COVID-19 Clin Com See Note ECG Data Attestation: I personally reviewed and interpreted this ECG as follows: ECG interpretation date: 10/25/21 ECG interpretation time: 19:24 Interpretation: Rate: 87 Rhythm: NSR [place]: normal Normal P waves. Normal BRIAN. Normal QRS complex. ST T wave : normal no KEYON artifact noted in V1-V2 qTC: normal prior studies: no acute ischemia The study has been interpreted contemporaneously by me. . Critical Care Time Critical Care Time Critical Care Time: Yes Total Critical Care Time: 45 Attestation: review of records, hour long 10mg neb I attest to this time spent taking care of the patient Discharge Plan Discharge Clinical Impression: COPD (chronic obstructive pulmonary disease), Acute dyspnea, Acidosis, lactic Patient Disposition: Admitted As Inpatient Prescriptions: No Action quetiapine 100 mg Tablet 100 mg PO TID PRN (Reason: agitation) Qty: 90 0RF quetiapine 400 mg Tablet 400 mg PO BEDTIME Qty: 30 0RF lorazepam 0.5 mg Tablet 0.5 mg PO TID PRN (Reason: Anxiety) 30 Days Qty: 90 0RF atorvastatin 40 mg tablet 1 tab PO BEDTIME Qty: 30 0RF albuterol sulfate 2.5 mg /3 mL (0.083 %) solution for nebulization 2.5 mg inhalation TID PRN (Reason: Dyspnea) Qty: 25 2RF aspirin 81 mg tablet,delayed release (DR/EC) 81 mg PO DAILY Qty: 30 0RF famotidine 20 mg tablet 1 tab PO BID Qty: 60 0RF tamsulosin 0.4 mg capsule 2 cap PO DAILY 30 Days Qty: 120 0RF losartan 100 mg tablet 1 tab PO DAILY Qty: 30 0RF Spiriva Respimat 1.25 mcg/actuation mist 2 puff inhalation DAILY Qty: 6 0RF albuterol sulfate [Ventolin HFA] 90 mcg/actuation HFA aerosol inhaler 2 puff inhalation BID 0RF acetaminophen 325 mg Tablet 650 mg PO BID PRN (Reason: Breakthrough Pain, Mild) 0RF
[2021-10-25 18:44] VITALS: BP 93/50; PULSE 87; RESP 26; TEMP 37.4; O2SAT 100; BMI 23.0
[2021-10-25 18:49] VITALS: PULSE 87; RESP 20; O2SAT 94
[2021-10-25] MEDS: Albuterol Sulfate (0.083%) 2.5 MG/3 ML VIAL.NEB 10 MG INHALE (18:49)
[2021-10-25] MEDS: cefTRIAXone sodium 1 GM in 0.9 % Sodium Chloride 50 ML IV (19:17)
[2021-10-25 19:18] LABS: MANUAL DIFF FLAG NO
[2021-10-25 19:21] LABS: Basophils Percent Auto 0.8 % (0-2); Eosinophils Absolute Auto 0.4 X10*3/uL (0.0-0.4); Eosinophils Percent Auto 7.1 % (0-4); Hematocrit 43.7 % (42.0-52.0); Hemoglobin 14.6 g/dl (14.0-18.0); Imm Gran Abs Auto 0.01 X10*3/uL (0.00-0.03); Imm Gran Pct Auto 0.2 % (0.0-0.4); Lymphocytes Absolute Auto 1.1 X10*3/uL (1.2-4.9); Lymphocytes Percent Auto 22.5 % (20-40); Mean Corpuscular HGB Conc 33.4 g/dl (31.0-36.0); Mean Corpuscular Hemoglobin 31.7 pg (27.0-33.0); Mean Corpuscular Volume 94.8 fL (80.0-98.0); Mean Platelet Volume 9.4 fL (9.4-12.4); Monocytes Absolute Auto 0.4 X10*3/uL (0.1-1.2); Monocytes Percent Auto 8.5 % (2-11); Neutrophils Absolute Auto 3.1 x10*3/uL (2.0-8.3); Neutrophils Percent Auto 60.9 % (45-73); Platelet Count 229 X10*3/uL (160-400); Red Blood Count 4.61 X10*6/uL (4.60-5.80); White Blood Count 5.1 X10*3/uL (4.8-10.8)
[2021-10-25] MEDS: Magnesium Sulfate/H2O 2 GM/50 ML PIGGYBACK IV (19:27)
[2021-10-25 19:38] LABS: COVID-19 Test Negative (Negative)
[2021-10-25 19:39] LABS: Alanine Aminotransferase 9 U/L (0-40); Albumin Level 4.3 g/dL (3.5-5.0); Alkaline Phosphatase 107 U/L (39-117); Anion Gap 15 (12-20); Aspartate Amino Transferase 12 U/L (5-37); Bilirubin Direct 0.2 mg/dL (0.0-0.5); Bilirubin Total 0.4 mg/dL (0.0-1.0); Blood Urea Nitrogen 5 mg/dL (9-16); Calcium 9.1 mg/dL (8.4-10.2); Carbon Dioxide 26 mmol/L (22-29); Chloride 107 mmol/L (96-108); Creatinine Clr Calc Pharmacy 88.9; Estimated Glomerular Filt Rate > 60; Glucose Random 82 mg/dL (60-115); Magnesium 1.8 mg/dL (1.6-2.6); Potassium 3.8 mmol/L (3.3-5.1); Sodium 144 mmol/L (135-145); Total Protein 6.8 g/dL (6.5-8.0)
[2021-10-25 19:42] LABS: Lactic Acid 2.7 mmol/L (0.5-2.0)
[2021-10-25 19:45] LABS: B Type Natriuretic Peptide < 10 pg/mL (<100)
[2021-10-25 19:46] LABS: Troponin-I High Sensitivity < 3.5 ng/L (<3.5-35.0)
[2021-10-25] MEDS: Azithromycin 500 MG in 0.9 % Sodium Chloride 250 ML 125 MG IV (19:54)
--- NOTE | 2021-10-25 19:54 | PHA.MEDREC ---
Pharmacy Consult ? Medication Reconciliation Pharmacy has completed the medication reconciliation. 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 Confirmed no recent changes in medications. Petra PichardoD
[2021-10-25 20:00] VITALS: BP 124/64; PULSE 86; RESP 16; TEMP 36.9; O2SAT 95
--- NOTE | 2021-10-25 20:57 | PM.IMHP ---
History of Present Illness Date of Service: 10/25/21 Chief Complaint: Shortness of breath 71-year-old male with a past medical history of hypertension, hyperlipidemia, tobacco dependence, COPD-not on oxygen, schizoaffective disorder, bipolar, hepatitis-C, anxiety, BPH, history of lung mass, CAD diastolic CHF, history of left subclavian artery occlusion history of liver disease; presented to the hospital today with a chief complaint of shortness of breath. Patient reports that over the past 1 week he has been having shortness of breath which has been gradually worsening. Mentions that he tried uses home inhalers with no significant improvement. Because of shortness of breath he mentions he was not able to make up with the appointments. also reports cough with whitish sputum production. Denies any fevers. Reports posttussive chest discomfort. Currently denies any chest pain at the time of my interview. Denies any nausea vomiting diarrhea. Denies any urinary symptoms. Reports she is still smoking and trying to cut down. Denies any illicit drug use. Review of all other systems is negative except mentioned above ER course: Per ER team patient was noted to be tripoding when EMS found him; given him steroids and nebulizations with improvement oxygenation; patient on presentation has bilateral expiratory wheezing; given nebulizations and admitted to the hospital for COPD exacerbation. PENDING SALE TO [facility] Medical History Anxiety BPH (benign prostatic hyperplasia) COPD (chronic obstructive pulmonary disease) Hepatitis C Hyperlipidemia Hypertension Left tibial fracture Nicotine dependence, cigarettes, uncomplicated Schizoaffective disorder, bipolar type Schizophrenia Surgical History History of bronchoscopy History of elbow surgery Social History Household Members: None Household Members Other:: [facility] Residents and Staff Housing: Apartment Housing Other:: Respite since April Do you presently have visiting nurse or other home services: Yes Alcohol intake: never Patient Tobacco Use Status: Current someday Tobacco user Tobacco use type: Cigarette Cigarette Packs Per Day: 1 Cigarettes Per Day: 20.0 Years Smoked: onset 17, 1ppd x 54yrs, 50pyh e-Cigarette/Vaping Use: Currently Using Second Hand Smoke Exposure: Yes Advance Directives: Yes Advance Directives on File: Yes Advance Directives Date on File: 08/18/20 service: No Current occupational status: unemployed Sexual orientation: Straight/Heterosexual Meds Allergies Allergy/AdvReac Type Severity Reaction Status Date / Time codeine [CODEINE] Allergy Intermediate HIVES Verified 07/27/21 10:33 Active Medications: Current Medications Acetaminophen (Acetaminophen 325 Mg Tablet) 650 mg PO Q6H PRN PRN Reason: Pain, Mild (Pain Scale 1-3) Albuterol/Ipratropium (Albuterol/Iprat 2.5/0.5mg 3 Ml Ampul.Neb) 3 ml INHALE RQ4H WHILE AWAKE [facility] Albuterol/Ipratropium (Albuterol/Iprat 2.5/0.5mg 3 Ml Ampul.Neb) 3 ml INHALE RQ4H PRN PRN Reason: Shortness of Breath/Wheezing Azithromycin (Azithromycin 500 Mg Tablet) 500 mg PO Q24H [facility] Enoxaparin Sodium (Enoxaparin Sodium 40 Mg/0.4 Ml Syringe) 40 mg SUBCUT Q24H [facility] Sodium Chloride (Ns) 500 mls @ 500 mls/hr IV .Q1H [facility] Stop: 10/25/21 20:59 Melatonin (Melatonin 3 Mg Tablet) 6 mg PO BEDTIME PRN PRN Reason: Insomnia Methylprednisolone Sodium Succinate (Methylprednisolone Sod Succ 40 Mg/Ml Vial) 40 mg IVPUSH Q6H [facility] Pharmacy Consult (Consult Rx Perform Med Rec) 1 each MISCELLANE ONCE PRN PRN Reason: Consult order Senna (Sennosides 8.6 Mg Tablet) 17.2 mg PO BEDTIME PRN PRN Reason: Constipation Sodium Chloride (0.9 % Sodium Chloride Flush 3 Ml Syringe) 3 ml IVFLUSH QSHIFT [facility] Home Medications Medication Instructions Recorded Confirmed Last Taken Type albuterol sulfate 90 mcg/actuation 2 puff INHALATION BID 06/14/21 10/25/21 Unknown History aerosol inhaler (Ventolin HFA) acetaminophen 325 mg tablet 650 mg PO BID PRN 08/03/21 10/25/21 Unknown History Physical Exam Vital Signs and Narrative: Vital Signs: Last Vital Signs Temp 98.4 F 10/25/21 20:00 Pulse 86 10/25/21 20:00 Resp 16 10/25/21 20:00 BP 124/64 10/25/21 20:00 Pulse Ox 95 10/25/21 20:00 Oxygen Flow Rate 7 10/25/21 18:44 BMI result Body Mass Index 23.0 Gen: Appears be in no acute distress HEENT: NCAT, Moist mucosa. Pulmonary: Bilateral expiratory wheezing noted CVS: Normal S1-S2 Abdomen: BS+, Soft, Nontender Extremities: Warm well perfused Neuro: Alert and awake. Results Labs CBC and Chem 7: 10/25/21 19:12 10/25/21 19:12 Labs: Laboratory Results - last 24 hr 10/25/21 10/25/21 10/25/21 19:12 19:12 19:12 MCV 94.8 MCH 31.7 MCHC 33.4 RDW 12.0 Plt Count 229 MPV 9.4 Immature Gran % (Auto) 0.2 Neut % (Auto) 60.9 Lymph % (Auto) 22.5 [place] % (Auto) 8.5 Eos % (Auto) 7.1 H Baso % (Auto) 0.8 Lymph # (Auto) 1.1 L [place] # (Auto) 0.4 Eos # (Auto) 0.4 Baso # (Auto) 0.0 Abs Immat Gran (auto) 0.01 Absolute Neuts (auto) 3.1 Absolute Nucleated RBC 0.000 Nucleated RBC % (auto) 0.0 Anion Gap 15 Estim Creat Clear Calc 88.9 Estimated GFR > 60 Random Glucose 82 D Lactic Acid Calcium 9.1 Magnesium 1.8 Total Bilirubin 0.4 Direct Bilirubin 0.2 AST 12 ALT 9 Alkaline Phosphatase 107 B-Natriuretic Peptide < 10 Total Protein 6.8 Albumin 4.3 COVID-19 (RASHEED) COVID-19 Clin Com 10/25/21 10/25/21 19:12 19:12 MCV MCH MCHC RDW Plt Count MPV Immature Gran % (Auto) Neut % (Auto) Lymph % (Auto) [place] % (Auto) Eos % (Auto) Baso % (Auto) Lymph # (Auto) [place] # (Auto) Eos # (Auto) Baso # (Auto) Abs Immat Gran (auto) Absolute Neuts (auto) Absolute Nucleated RBC Nucleated RBC % (auto) Anion Gap Estim Creat Clear Calc Estimated GFR Random Glucose Lactic Acid 2.7 H* Calcium Magnesium Total Bilirubin Direct Bilirubin AST ALT Alkaline Phosphatase B-Natriuretic Peptide Total Protein Albumin COVID-19 (RASHEED) Negative COVID-19 Clin Com See Note Imaging Radiologist's Impressions: Impressions Chest X-Ray 10/25/21 19:05 IMPRESSION: Background of chronic interstitial changes without superimposed acute cardiopulmonary abnormalities. Assessment and Plan (1) COPD (chronic obstructive pulmonary disease): Qualifiers: COPD type: COPD with acute exacerbation Qualified Code(s): J44.1 - Chronic obstructive pulmonary disease with (acute) exacerbation Status: Acute (2) Acute dyspnea: Status: Acute Plan 71-year-old male with a past medical history of hypertension, hyperlipidemia, tobacco dependence, COPD-not on oxygen, COVID-19 vaccinated; history of COVID-19 infection; schizoaffective disorder, bipolar, hepatitis-C, anxiety, BPH, history of lung mass, CAD diastolic CHF, history of left subclavian artery occlusion history of liver disease; presented to the hospital today with a chief complaint of shortness of breath. Noted to be in acute COPD exacerbation. Admitted for further management. Acute COPD exacerbation: Patient was initially placed on supplemental oxygen-oxygenation improved. Goal oxygen saturation 93%. Spoke to RN to titrate down as needed. Chest x-ray showed bilateral interstitial changes-no superimposed acute cardiopulmonary process. Continue Solu-Medrol IV Nebulizations standing and p.r.n. Azithromycin EKG nonischemic, troponin negative. D-dimer pending Mild lactic acidosis: Patient received gentle fluids in the ER. History of hypertension/hyperlipidemia: Continue home medications losartan, statin History of CAD: Continue home aspirin History of BPH: Continue home tamsulosin History of anxiety/bipolar: Patient on Ativan, quetiapine at home. Will continue. History of lung mass: Patient follows with pulmonology at [facility]. Had PET scans and MRIs. DVT prophylaxis: Lovenox Code status: Full code Quality Stroke Does the patient have a stroke diagnosis?: No VTE Prior VTE?: No VTE Risk Level:: Medical - moderate - high VTE Device Contraindication: N/A - Device Ordered VTE Drug Contraindication: Treatment Not Indicated
[2021-10-25 21:04] LABS: Venous Blood Gas Refer to POC result
[2021-10-25 21:05] LABS: VBG Base Excess -1.1 mmol/L; VBG HCO3 24 mmol/L (22-26); VBG pCO2 41 mmHg; VBG pH 7.37 (7.32-7.43); VBG pO2 50 mmHg
[2021-10-25] MEDS: 0.9 % Sodium Chloride 500 ML IV ×2 (21:15→23:07)
[2021-10-25 21:16] LABS: Reflex Lactate? Lactic Acid Added
[2021-10-25] MEDS: methylPREDNISolone Sod Succ 40 MG/ML VIAL IVPUSH (21:42)
[2021-10-25] MEDS: Enoxaparin Sodium 40 MG/0.4 ML SYRINGE SUBCUT (21:44)
[2021-10-25] MEDS: Atorvastatin Calcium 40 MG TABLET PO (21:45)
[2021-10-25] MEDS: Famotidine 20 MG TABLET PO (21:45)
[2021-10-25] MEDS: QUEtiapine Fumarate 100 MG TABLET PO (21:45)
[2021-10-25] MEDS: QUEtiapine Fumarate 400 MG TABLET PO (21:45)
[2021-10-25] MEDS: LORazepam 0.5 MG TABLET PO (21:45)
[2021-10-25 22:37] VITALS: BP 84/54; PULSE 90; RESP 24; TEMP 36.9; O2SAT 92
[2021-10-25 22:54] LABS: ~Lactic Acid-LAB USE ONLY 1.8 mmol/L (0.5-2.0)
--- NOTE | 2021-10-25 23:00 | PC.NURSE ---
PT found to be hypotensive while laying in bed. Hospitalist notified and requested PT receive 500 mL NS.
[2021-10-25 23:01] VITALS: BP 118/54; PULSE 95; RESP 22; O2SAT 93
--- NOTE | 2021-10-25 23:07 | PC.NURSE ---
Assumed care of pt from main ED. Pt ambulatory from stretcher to hospital bed, in NAD. Attached to cardiac monitor technician. Vitals as charted. Pt denies needs, call light at hand, educated to call for assistance. Awaiting inpatient bed assignment.
[2021-10-26] VITALS (11 sets, daily range): BP systolic 128–167; BP diastolic 48–74; PULSE 81–98; RESP 20–26; TEMP 36.9–37.2; O2SAT 93–98; BMI 21.0
[2021-10-26 01:00] LABS: D Dimer High Sensitivity 236 NG/ML
[2021-10-26] MEDS: methylPREDNISolone Sod Succ 40 MG/ML VIAL IVPUSH ×2 (03:40→16:32)
[2021-10-26 06:36] LABS: MANUAL DIFF FLAG NO
[2021-10-26 06:45] LABS: Hematocrit 41.8 % (42.0-52.0); Hemoglobin 14.1 g/dl (14.0-18.0); Lymphocytes Absolute Auto 0.4 X10*3/uL (1.2-4.9); Lymphocytes Percent Auto 13.1 % (20-40); Mean Corpuscular HGB Conc 33.7 g/dl (31.0-36.0); Mean Corpuscular Hemoglobin 31.8 pg (27.0-33.0); Mean Corpuscular Volume 94.1 fL (80.0-98.0); Mean Platelet Volume 9.5 fL (9.4-12.4); Monocytes Percent Auto 1.5 % (2-11); Neutrophils Absolute Auto 2.4 x10*3/uL (2.0-8.3); Neutrophils Percent Auto 85.4 % (45-73); Platelet Count 207 X10*3/uL (160-400); Red Blood Count 4.44 X10*6/uL (4.60-5.80); Red Cell Distribution Width 11.9 % (11.0-16.0); White Blood Count 2.8 X10*3/uL (4.8-10.8)
[2021-10-26 07:15] LABS: Anion Gap 14 (12-20); Blood Urea Nitrogen 6 mg/dL (9-16); Calcium 8.7 mg/dL (8.4-10.2); Carbon Dioxide 22 mmol/L (22-29); Chloride 109 mmol/L (96-108); Creatinine Clr Calc Pharmacy 97.1; Estimated Glomerular Filt Rate > 60; Glucose Random 162 mg/dL (60-115); Potassium 4.3 mmol/L (3.3-5.1); Sodium 141 mmol/L (135-145)
[2021-10-26 07:16] LABS: Magnesium 2.2 mg/dL (1.6-2.6)
[2021-10-26] MEDS: Albuterol/Iprat 2.5/0.5MG 3 ML AMPUL.NEB INHALE ×4 (08:00→19:19)
[2021-10-26 08:22] LABS: VBG Base Excess -0.5 mmol/L; VBG HCO3 25 mmol/L (22-26); VBG pCO2 45 mmHg; VBG pH 7.35 (7.32-7.43); VBG pO2 83 mmHg
[2021-10-26] MEDS: Tamsulosin HCL 0.4 MG CAPSULE 0.8 MG PO (08:37)
[2021-10-26] MEDS: Losartan Potassium 50 MG TABLET 100 MG PO (08:37)
[2021-10-26] MEDS: Aspirin Enteric Coated 81 MG TABLET.DR PO (08:37)
[2021-10-26] MEDS: Famotidine 20 MG TABLET PO ×2 (08:37→20:47)
[2021-10-26] MEDS: 0.9 % Sodium Chloride Flush 3 ML SYRINGE IVFLUSH ×3 (08:51→21:23)
[2021-10-26] MEDS: LORazepam 0.5 MG TABLET PO ×2 (08:51→20:45)
--- NOTE | 2021-10-26 10:46 | P.PNIM_ITS ---
Subjective Subjective Date of Service: 10/26/21 Interval History: cc: sob interval history: improved, not at baseline Cardiovascular Cardiovascular: Reports no additional cardiovascular complaints Gastrointestinal Gastrointestinal: Reports no additional gastrointestinal complaints Physical Exam Vital Signs: Vital Signs: Last Vital Signs Temp 98.4 F 10/25/21 22:37 Pulse 82 10/26/21 08:20 Resp 24 H 10/26/21 08:20 BP 129/58 L 10/26/21 08:20 Pulse Ox 98 10/26/21 08:20 Oxygen Flow Rate 7 10/25/21 18:44 BMI result Body Mass Index 23.0 General: AO X 3, no acute distress Resp: diminished bilateral, no accessory muscles used CVS: S1,S2,RRR GI: soft, non tender, non distended Neuro: motor grossly intact, alert Psych: appropriate affect, appropriate insight Objective Data Active Medications Acetaminophen (Acetaminophen 325 Mg Tablet) 650 mg PO Q6H PRN PRN Reason: Pain, Mild (Pain Scale 1-3) Albuterol/Ipratropium (Albuterol/Iprat 2.5/0.5mg 3 Ml Ampul.Neb) 3 ml INHALE RQ4H WHILE AWAKE [facility] Last Admin: 10/26/21 08:00 Dose: 3 ml Documented by: PREETI Albuterol/Ipratropium (Albuterol/Iprat 2.5/0.5mg 3 Ml Ampul.Neb) 3 ml INHALE RQ4H PRN PRN Reason: Shortness of Breath/Wheezing Aspirin (Aspirin Enteric Coated 81 Mg Tablet.) 81 mg PO DAILY [facility] Last Admin: 10/26/21 08:37 Dose: 81 mg Documented by: SARA Atorvastatin Calcium (Atorvastatin Calcium 40 Mg Tablet) 40 mg PO BEDTIME [facility] Last Admin: 10/25/21 21:45 Dose: 40 mg Documented by: SKY Azithromycin (Azithromycin 500 Mg Tablet) 500 mg PO Q24H [facility] Enoxaparin Sodium (Enoxaparin Sodium 40 Mg/0.4 Ml Syringe) 40 mg SUBCUT Q24H [facility] Last Admin: 10/25/21 21:44 Dose: 40 mg Documented by: SKY Famotidine (Famotidine 20 Mg Tablet) 20 mg PO BID [facility] Last Admin: 10/26/21 08:37 Dose: 20 mg Documented by: SARA Lorazepam (Lorazepam 0.5 Mg Tablet) 0.5 mg PO TID PRN PRN Reason: Anxiety Last Admin: 10/26/21 08:51 Dose: 0.5 mg Documented by: SARA Losartan Potassium (Losartan Potassium 50 Mg Tablet) 100 mg PO DAILY [facility]; Prot ocol Last Admin: 10/26/21 08:37 Dose: 100 mg Documented by: SARA Melatonin (Melatonin 3 Mg Tablet) 6 mg PO BEDTIME PRN PRN Reason: Insomnia Methylprednisolone Sodium Succinate (Methylprednisolone Sod Succ 40 Mg/Ml Vial) 40 mg IVPUSH Q12H [facility] Pharmacy Consult (Consult Rx Perform Med Rec) 1 each MISCELLANE ONCE PRN PRN Reason: Consult order Quetiapine Fumarate (Quetiapine Fumarate 100 Mg Tablet) 100 mg PO TID PRN PRN Reason: agitation Last Admin: 10/25/21 21:45 Dose: 100 mg Documented by: SKY Quetiapine Fumarate (Quetiapine Fumarate 400 Mg Tablet) 400 mg PO BEDTIME [facility] Last Admin: 10/25/21 21:45 Dose: 400 mg Documented by: SKY Senna (Sennosides 8.6 Mg Tablet) 17.2 mg PO BEDTIME PRN PRN Reason: Constipation Sodium Chloride (0.9 % Sodium Chloride Flush 3 Ml Syringe) 3 ml IVFLUSH QSHIFT [facility] Last Admin: 10/26/21 08:51 Dose: 3 ml Documented by: SARA Tamsulosin HCl (Tamsulosin Hcl 0.4 Mg Capsule) 0.8 mg PO DAILY [facility] Last Admin: 10/26/21 08:37 Dose: 0.8 mg Documented by: SARA Tiotropium [place] (Tiotropium [place] 18 Mcg Cap.W.Dev) 1 puff INHALE RDAILY [facility] Last Admin: 10/26/21 08:00 Dose: 1 puff Documented by: PREETI Labs CBC & Chem 7: 10/26/21 06:02 10/26/21 06:02 Labs: Laboratory Results - last 24 hr 10/25/21 10/25/21 10/25/21 19:12 19:12 19:12 MCV 94.8 MCH 31.7 MCHC 33.4 RDW 12.0 Plt Count 229 MPV 9.4 Immature Gran % (Auto) 0.2 Neut % (Auto) 60.9 Lymph % (Auto) 22.5 [place] % (Auto) 8.5 Eos % (Auto) 7.1 H Baso % (Auto) 0.8 Lymph # (Auto) 1.1 L [place] # (Auto) 0.4 Eos # (Auto) 0.4 Baso # (Auto) 0.0 Abs Immat Gran (auto) 0.01 Absolute Neuts (auto) 3.1 Absolute Nucleated RBC 0.000 Nucleated RBC % (auto) 0.0 D-Dimer High Sensitivty VBG pH VBG pCO2 VBG pO2 VBG HCO3 VBG O2 Saturation VBG Base Excess Anion Gap 15 Estim Creat Clear Calc 88.9 Estimated GFR > 60 Random Glucose 82 D Lactic Acid Lactic Acid F/U @ 2Hr Calcium 9.1 Magnesium 1.8 Total Bilirubin 0.4 Direct Bilirubin 0.2 AST 12 ALT 9 Alkaline Phosphatase 107 B-Natriuretic Peptide < 10 Total Protein 6.8 Albumin 4.3 COVID-19 (RASHEED) COVID-Exinda 10/25/21 10/25/21 10/25/21 19:12 19:12 19:15 MCV MCH MCHC RDW Plt Count MPV Immature Gran % (Auto) Neut % (Auto) Lymph % (Auto) [place] % (Auto) Eos % (Auto) Baso % (Auto) Lymph # (Auto) [place] # (Auto) Eos # (Auto) Baso # (Auto) Abs Immat Gran (auto) Absolute Neuts (auto) Absolute Nucleated RBC Nucleated RBC % (auto) D-Dimer High Sensitivty VBG pH 7.35 VBG pCO2 45 VBG pO2 83 VBG HCO3 25 VBG O2 Saturation 95.0 VBG Base Excess -0.5 Anion Gap Estim Creat Clear Calc Estimated GFR Random Glucose Lactic Acid 2.7 H* Lactic Acid F/U @ 2Hr Calcium Magnesium Total Bilirubin Direct Bilirubin AST ALT Alkaline Phosphatase B-Natriuretic Peptide Total Protein Albumin COVID-19 (RASHEED) Negative COVIDTelltale Games See Note 10/25/21 10/25/21 10/25/21 20:57 22:31 22:32 MCV MCH MCHC RDW Plt Count MPV Immature Gran % (Auto) Neut % (Auto) Lymph % (Auto) [place] % (Auto) Eos % (Auto) Baso % (Auto) Lymph # (Auto) [place] # (Auto) Eos # (Auto) Baso # (Auto) Abs Immat Gran (auto) Absolute Neuts (auto) Absolute Nucleated RBC Nucleated RBC % (auto) D-Dimer High Sensitivty 236 VBG pH 7.37 VBG pCO2 41 VBG pO2 50 VBG HCO3 24 VBG O2 Saturation 79.0 VBG Base Excess -1.1 Anion Gap Estim Creat Clear Calc Estimated GFR Random Glucose Lactic Acid Lactic Acid F/U @ 2Hr 1.8 Calcium Magnesium Total Bilirubin Direct Bilirubin AST ALT Alkaline Phosphatase B-Natriuretic Peptide Total Protein Albumin COVID-19 (RASHEED) COVID-19 [employer] 10/26/21 10/26/21 10/26/21 06:02 06:02 06:02 MCV 94.1 MCH 31.8 MCHC 33.7 RDW 11.9 Plt Count 207 MPV 9.5 Immature Gran % (Auto) 0.0 Neut % (Auto) 85.4 H Lymph % (Auto) 13.1 L [place] % (Auto) 1.5 L Eos % (Auto) 0.0 Baso % (Auto) 0.0 Lymph # (Auto) 0.4 L [place] # (Auto) 0.0 L Eos # (Auto) 0.0 Baso # (Auto) 0.0 Abs Immat Gran (auto) 0.00 Absolute Neuts (auto) 2.4 Absolute Nucleated RBC 0.000 Nucleated RBC % (auto) 0.0 D-Dimer High Sensitivty VBG pH VBG pCO2 VBG pO2 VBG HCO3 VBG O2 Saturation VBG Base Excess Anion Gap 14 Estim Creat Clear Calc 97.1 Estimated GFR > 60 Random Glucose 162 H D Lactic Acid Lactic Acid F/U @ 2Hr Calcium 8.7 Magnesium 2.2 Total Bilirubin Direct Bilirubin AST ALT Alkaline Phosphatase B-Natriuretic Peptide Total Protein Albumin COVID-19 (RASHEED) COVID-19 Loopster Assessment and Plan (1) COPD (chronic obstructive pulmonary disease): Status: Acute Plan 71M presented with sob COPD with acute decompensation steroids, nebs HCV s/p treatement, no obvious liver disease schizoaffective disorder seroquel CAD asa, statin bph flomax lung nodule following at [facility], ?benign htn losartan Quality Stroke Does the patient have a stroke diagnosis?: No VTE Prior VTE?: No VTE Risk Level:: Medical - moderate - high VTE Device Contraindication: N/A - Device Ordered VTE Drug Contraindication: Treatment Not Indicated
--- NOTE | 2021-10-26 11:21 | PC.NURSE ---
Pt A&Ox3, no complaints of pain at this time, states SOB feels better s/p breathing treatment with respiratory. Lungs with course rhonchi. Pt NSR on monitor. Ambulates independently. Call alejandra within reach, will continue to monitor.
--- NOTE | 2021-10-26 14:50 | MHC.CM.PN ---
Met with patient in regards to discharge planning. Patient is from a nursing home, ambulates independently and had no services prior to coming to the hospital. PCP verified. HCP verified to be on file. IMM explained and signed. Patient received 3 doses of Moderna but doesn't remember dates. No services anticipated to be needed. shelter will transport patient home when medically stable. Continue to monitor for d/c needs.
--- NOTE | 2021-10-26 19:55 | PC.NURSE ---
Assumed care of pt at 1900. Pt resting in bed, in NAD, attached to radiation monitor. Ambulating independently and eating ice cream. Plan to transfer to inpatient bed pending RN report
[2021-10-26] MEDS: Azithromycin 500 MG TABLET PO (20:46)
[2021-10-26] MEDS: QUEtiapine Fumarate 400 MG TABLET PO (20:46)
[2021-10-26] MEDS: Enoxaparin Sodium 40 MG/0.4 ML SYRINGE SUBCUT (20:47)
[2021-10-26] MEDS: Atorvastatin Calcium 40 MG TABLET PO (20:47)
--- NOTE | 2021-10-26 21:08 | PC.NURSE ---
Report called to [place] RN. Pt to floor via wc in stable condition w/ all belongings, attached to portable cafeteria monitor
[2021-10-27] VITALS (10 sets, daily range): BP systolic 103–173; BP diastolic 60–75; PULSE 80–91; RESP 16–20; TEMP 36.8–37; O2SAT 93–98
[2021-10-27] MEDS: 0.9 % Sodium Chloride Flush 3 ML SYRINGE IVFLUSH ×3 (00:13→20:41)
[2021-10-27] MEDS: methylPREDNISolone Sod Succ 40 MG/ML VIAL IVPUSH ×2 (04:38→13:59)
[2021-10-27 06:58] LABS: Hematocrit 40.1 % (42.0-52.0); Hemoglobin 13.5 g/dl (14.0-18.0); Mean Corpuscular HGB Conc 33.7 g/dl (31.0-36.0); Mean Corpuscular Hemoglobin 32.3 pg (27.0-33.0); Mean Corpuscular Volume 95.9 fL (80.0-98.0); Mean Platelet Volume 9.7 fL (9.4-12.4); Platelet Count 221 X10*3/uL (160-400); Red Blood Count 4.18 X10*6/uL (4.60-5.80); Red Cell Distribution Width 12.2 % (11.0-16.0)
[2021-10-27 07:15] LABS: Anion Gap 11 (12-20); Blood Urea Nitrogen 11 mg/dL (9-16); Carbon Dioxide 29 mmol/L (22-29); Chloride 109 mmol/L (96-108); Creatinine Clr Calc Pharmacy 91.2; Estimated Glomerular Filt Rate > 60; Glucose Fasting 110 mg/dL (60-99); Potassium 4.7 mmol/L (3.3-5.1); Sodium 144 mmol/L (135-145)
[2021-10-27] MEDS: Albuterol/Iprat 2.5/0.5MG 3 ML AMPUL.NEB INHALE ×4 (07:35→19:22)
[2021-10-27] MEDS: Aspirin Enteric Coated 81 MG TABLET.DR PO (09:44)
[2021-10-27] MEDS: Famotidine 20 MG TABLET PO ×2 (09:44→20:40)
[2021-10-27] MEDS: Tamsulosin HCL 0.4 MG CAPSULE 0.8 MG PO (09:45)
[2021-10-27] MEDS: LORazepam 0.5 MG TABLET PO ×2 (09:50→20:40)
[2021-10-27] MEDS: QUEtiapine Fumarate 100 MG TABLET PO (09:50)
--- NOTE | 2021-10-27 13:01 | P.PNIM_ITS ---
Subjective Subjective Date of Service: 10/27/21 Interval History: cc: sob interval history: improved, not at baseline Cardiovascular Cardiovascular: Reports no additional cardiovascular complaints Gastrointestinal Gastrointestinal: Reports no additional gastrointestinal complaints Physical Exam Vital Signs: Vital Signs: Last Vital Signs Temp 98.4 F 10/27/21 11:43 Pulse 85 10/27/21 11:52 Resp 18 10/27/21 11:52 BP 152/70 H 10/27/21 11:43 Pulse Ox 95 10/27/21 11:43 Oxygen Flow Rate 7 10/25/21 18:44 BMI result Body Mass Index 21.0 General: AO X 3, no acute distress Resp:? diminished bilateral, no accessory muscles used CVS: S1,S2,RRR GI: soft, non tender, non distended Neuro:? motor grossly intact, alert Psych: appropriate affect, appropriate insight? Objective Data Active Medications Acetaminophen (Acetaminophen 325 Mg Tablet) 650 mg PO Q6H PRN PRN Reason: Pain, Mild (Pain Scale 1-3) Albuterol/Ipratropium (Albuterol/Iprat 2.5/0.5mg 3 Ml Ampul.Neb) 3 ml INHALE RQ4H WHILE AWAKE [facility] Last Admin: 10/27/21 11:51 Dose: 3 ml Documented by: SALAS Albuterol/Ipratropium (Albuterol/Iprat 2.5/0.5mg 3 Ml Ampul.Neb) 3 ml INHALE RQ4H PRN PRN Reason: Shortness of Breath/Wheezing Aspirin (Aspirin Enteric Coated 81 Mg Tablet.) 81 mg PO DAILY [facility] Last Admin: 10/27/21 09:44 Dose: 81 mg Documented by: MARTHA Atorvastatin Calcium (Atorvastatin Calcium 40 Mg Tablet) 40 mg PO BEDTIME [facility] Last Admin: 10/26/21 20:47 Dose: 40 mg Documented by: ERIC Azithromycin (Azithromycin 500 Mg Tablet) 500 mg PO Q24H [facility] Last Admin: 10/26/21 20:46 Dose: 500 mg Documented by: ERIC Enoxaparin Sodium (Enoxaparin Sodium 40 Mg/0.4 Ml Syringe) 40 mg SUBCUT Q24H [facility] Last Admin: 10/26/21 20:47 Dose: 40 mg Documented by: ERIC Famotidine (Famotidine 20 Mg Tablet) 20 mg PO BID [facility] Last Admin: 10/27/21 09:44 Dose: 20 mg Documented by: MARTHA Lorazepam (Lorazepam 0.5 Mg Tablet) 0.5 mg PO TID PRN PRN Reason: Anxiety Last Admin: 10/27/21 09:50 Dose: 0.5 mg Documented by: MARTHA Losartan Potassium (Losartan Potassium 50 Mg Tablet) 100 mg PO DAILY [facility]; Protocol Last Admin: 10/26/21 08:37 Dose: 100 mg Documented by: MARLO-RAMSTEPHEN Melatonin (Melatonin 3 Mg Tablet) 6 mg PO BEDTIME PRN PRN Reason: Insomnia Methylprednisolone Sodium Succinate (Methylprednisolone Sod Succ 40 Mg/Ml Vial) 40 mg IVPUSH Q12H [facility] Last Admin: 10/27/21 04:38 Dose: 40 mg Documented by: RAMESH Pharmacy Consult (Consult Rx Perform Med Rec) 1 each MISCELLANE ONCE PRN PRN Reason: Consult order Quetiapine Fumarate (Quetiapine Fumarate 100 Mg Tablet) 100 mg PO TID PRN PRN Reason: agitation Last Admin: 10/27/21 09:50 Dose: 100 mg Documented by: MARTHA Quetiapine Fumarate (Quetiapine Fumarate 400 Mg Tablet) 400 mg PO BEDTIME [facility] Last Admin: 10/26/21 20:46 Dose: 400 mg Documented by: ERIC Senna (Sennosides 8.6 Mg Tablet) 17.2 mg PO BEDTIME PRN PRN Reason: Constipation Sodium Chloride (0.9 % Sodium Chloride Flush 3 Ml Syringe) 3 ml IVFLUSH QSHIFT [facility] Last Admin: 10/27/21 09:47 Dose: 3 ml Documented by: MARTHA Tamsulosin HCl (Tamsulosin Hcl 0.4 Mg Capsule) 0.8 mg PO DAILY [facility] Last Admin: 10/27/21 09:45 Dose: 0.8 mg Documented by: MARTHA Tiotropium [place] (Tiotropium [place] 18 Mcg Cap.W.Dev) 1 puff INHALE RDAILY [facility] Last Admin: 10/27/21 09:30 Dose: 1 puff Documented by: FRANCESCA Labs CBC & Chem 7: 10/27/21 05:55 10/27/21 05:55 Labs: Laboratory Results - last 24 hr 10/27/21 10/27/21 05:55 05:55 MCV 95.9 MCH 32.3 MCHC 33.7 RDW 12.2 Plt Count 221 MPV 9.7 Absolute Nucleated RBC 0.000 Nucleated RBC % (auto) 0.0 Anion Gap 11 L Estim Creat Clear Calc 91.2 Estimated GFR > 60 Fasting Glucose 110 H Calcium 9.0 Microbiology Microbiology Results: Microbiology 10/25/21 19:15 Blood Culture - Preliminary Blood - Venous No growth after 24 hours. 10/25/21 19:15 Blood Culture - Preliminary Blood - Venous No growth after 24 hours. Assessment and Plan (1) COPD (chronic obstructive pulmonary disease): Status: Acute Plan 71M presented with sob COPD with acute decompensation still sob continue steroids, nebs HCV s/p treatement, no obvious liver disease schizoaffective disorder seroquel CAD asa, statin bph flomax lung nodule following at [facility], ?benign htn losartan Quality Stroke Does the patient have a stroke diagnosis?: No VTE Prior VTE?: No VTE Risk Level:: Medical - moderate - high VTE Device Contraindication: N/A - Device Ordered VTE Drug Contraindication: Treatment Not Indicated
[2021-10-27] MEDS: Enoxaparin Sodium 40 MG/0.4 ML SYRINGE SUBCUT (20:40)
[2021-10-27] MEDS: Azithromycin 500 MG TABLET PO (20:40)
[2021-10-27] MEDS: Atorvastatin Calcium 40 MG TABLET PO (20:40)
[2021-10-27] MEDS: QUEtiapine Fumarate 400 MG TABLET PO (20:40)
[2021-10-28] VITALS (10 sets, daily range): BP systolic 118–172; BP diastolic 60–75; PULSE 70–98; RESP 16–20; TEMP 36.7–37.1; O2SAT 94–99
[2021-10-28] MEDS: methylPREDNISolone Sod Succ 40 MG/ML VIAL IVPUSH ×2 (03:24→15:21)
[2021-10-28 07:23] LABS: Hemoglobin 13.4 g/dl (14.0-18.0); Mean Corpuscular HGB Conc 32.7 g/dl (31.0-36.0); Mean Corpuscular Hemoglobin 31.8 pg (27.0-33.0); Mean Corpuscular Volume 97.2 fL (80.0-98.0); Mean Platelet Volume 9.8 fL (9.4-12.4); Platelet Count 234 X10*3/uL (160-400); Red Blood Count 4.22 X10*6/uL (4.60-5.80); Red Cell Distribution Width 12.2 % (11.0-16.0); White Blood Count 8.9 X10*3/uL (4.8-10.8)
[2021-10-28] MEDS: Albuterol/Iprat 2.5/0.5MG 3 ML AMPUL.NEB INHALE ×4 (07:37→19:40)
[2021-10-28 07:40] LABS: Anion Gap 16 (12-20); Blood Urea Nitrogen 13 mg/dL (9-16); Carbon Dioxide 26 mmol/L (22-29); Chloride 105 mmol/L (96-108); Creatinine Clr Calc Pharmacy 81.3; Estimated Glomerular Filt Rate > 60; Glucose Fasting 111 mg/dL (60-99); Potassium 4.1 mmol/L (3.3-5.1); Sodium 143 mmol/L (135-145)
--- NOTE | 2021-10-28 09:41 | P.PNIM_ITS ---
Subjective Subjective Date of Service: 10/28/21 Interval History: cc: sob interval history: improved, not at baseline Cardiovascular Cardiovascular: Reports no additional cardiovascular complaints Gastrointestinal Gastrointestinal: Reports no additional gastrointestinal complaints Physical Exam Vital Signs: Vital Signs: Last Vital Signs Temp 98.2 F 10/28/21 07:48 Pulse 70 10/28/21 07:48 Resp 18 10/28/21 07:48 BP 148/68 H 10/28/21 07:48 Pulse Ox 98 10/28/21 07:48 Oxygen Flow Rate 7 10/25/21 18:44 BMI result Body Mass Index 21.0 General: AO X 3, no acute distress Resp:? diminished bilateral, no accessory muscles used CVS: S1,S2,RRR GI: soft, non tender, non distended Neuro:? motor grossly intact, alert Psych: appropriate affect, appropriate insight? Objective Data Active Medications Acetaminophen (Acetaminophen 325 Mg Tablet) 650 mg PO Q6H PRN PRN Reason: Pain, Mild (Pain Scale 1-3) Albuterol/Ipratropium (Albuterol/Iprat 2.5/0.5mg 3 Ml Ampul.Neb) 3 ml INHALE RQ4H WHILE AWAKE [facility] Last Admin: 10/28/21 07:37 Dose: 3 ml Documented by: FRANCESCA Albuterol/Ipratropium (Albuterol/Iprat 2.5/0.5mg 3 Ml Ampul.Neb) 3 ml INHALE RQ4H PRN PRN Reason: Shortness of Breath/Wheezing Aspirin (Aspirin Enteric Coated 81 Mg Tablet.) 81 mg PO DAILY [facility] Last Admin: 10/27/21 09:44 Dose: 81 mg Documented by: MARTHA Atorvastatin Calcium (Atorvastatin Calcium 40 Mg Tablet) 40 mg PO BEDTIME [facility] Last Admin: 10/27/21 20:40 Dose: 40 mg Documented by: JESUS Azithromycin (Azithromycin 500 Mg Tablet) 500 mg PO Q24H [facility] Last Admin: 10/27/21 20:40 Dose: 500 mg Documented by: JESUS Enoxaparin Sodium (Enoxaparin Sodium 40 Mg/0.4 Ml Syringe) 40 mg SUBCUT Q24H [facility] Last Admin: 10/27/21 20:40 Dose: 40 mg Documented by: JESUS Famotidine (Famotidine 20 Mg Tablet) 20 mg PO BID [facility] Last Admin: 10/27/21 20:40 Dose: 20 mg Documented by: JESUS Lorazepam (Lorazepam 0.5 Mg Tablet) 0.5 mg PO TID PRN PRN Reason: Anxiety Last Admin: 10/27/21 20:40 Dose: 0.5 mg Documented by: JESUS Losartan Potassium (Losartan Potassium 50 Mg Tablet) 100 mg PO DAILY [facility]; Protocol Last Admin: 10/26/21 08:37 Dose: 100 mg Documented by: MARLO-RAMSK Melatonin (Melatonin 3 Mg Tablet) 6 mg PO BEDTIME PRN PRN Reason: Insomnia Methylprednisolone Sodium Succinate (Methylprednisolone Sod Succ 40 Mg/Ml Vial) 40 mg IVPUSH Q12H [facility] Last Admin: 10/28/21 03:24 Dose: 40 mg Documented by: JESUS Pharmacy Consult (Consult Rx Perform Med Rec) 1 each MISCELLANE ONCE PRN PRN Reason: Consult order Quetiapine Fumarate (Quetiapine Fumarate 100 Mg Tablet) 100 mg PO TID PRN PRN Reason: agitation Last Admin: 10/27/21 09:50 Dose: 100 mg Documented by: MARTHA Quetiapine Fumarate (Quetiapine Fumarate 400 Mg Tablet) 400 mg PO BEDTIME [facility] Last Admin: 10/27/21 20:40 Dose: 400 mg Documented by: JESUS Senna (Sennosides 8.6 Mg Tablet) 17.2 mg PO BEDTIME PRN PRN Reason: Constipation Sodium Chloride (0.9 % Sodium Chloride Flush 3 Ml Syringe) 3 ml IVFLUSH QSHIFT [facility] Last Admin: 10/27/21 20:41 Dose: 3 ml Documented by: JESUS Tamsulosin HCl (Tamsulosin Hcl 0.4 Mg Capsule) 0.8 mg PO DAILY [facility] Last Admin: 10/27/21 09:45 Dose: 0.8 mg Documented by: MARTHA Tiotropium [place] (Tiotropium [place] 18 Mcg Cap.W.Dev) 1 puff INHALE RDAILY [facility] Last Admin: 10/28/21 07:37 Dose: 1 puff Documented by: FRANCESCA Labs CBC & Chem 7: 10/28/21 06:32 10/28/21 06:32 Labs: Laboratory Results - last 24 hr 10/28/21 10/28/21 06:32 06:32 MCV 97.2 MCH 31.8 MCHC 32.7 RDW 12.2 Plt Count 234 MPV 9.8 Absolute Nucleated RBC 0.000 Nucleated RBC % (auto) 0.0 Anion Gap 16 Estim Creat Clear Calc 81.3 Estimated GFR > 60 Fasting Glucose 111 H Calcium 9.0 Microbiology Microbiology Results: Microbiology 10/25/21 19:15 Blood Culture - Preliminary Blood - Venous No growth after 48 hours. 10/25/21 19:15 Blood Culture - Preliminary Blood - Venous No growth after 48 hours. Assessment and Plan (1) COPD (chronic obstructive pulmonary disease): Status: Acute Plan 71M presented with sob COPD with acute decompensation still sob, not feeling well enough for discharge today continue steroids, nebs HCV s/p treatement, no obvious liver disease schizoaffective disorder seroquel CAD asa, statin bph flomax lung nodule following at [facility], ?benign htn losartan Quality Stroke Does the patient have a stroke diagnosis?: No VTE Prior VTE?: No VTE Risk Level:: Medical - moderate - high VTE Device Contraindication: N/A - Device Ordered VTE Drug Contraindication: Treatment Not Indicated
[2021-10-28] MEDS: Tamsulosin HCL 0.4 MG CAPSULE 0.8 MG PO (09:50)
[2021-10-28] MEDS: Aspirin Enteric Coated 81 MG TABLET.DR PO (09:50)
[2021-10-28] MEDS: Famotidine 20 MG TABLET PO ×2 (09:50→20:10)
[2021-10-28] MEDS: 0.9 % Sodium Chloride Flush 3 ML SYRINGE IVFLUSH ×3 (09:50→20:10)
[2021-10-28] MEDS: Losartan Potassium 50 MG TABLET 100 MG PO (17:25)
--- NOTE | 2021-10-28 19:36 | PC.NURSE ---
Patient remains independent throughout the day. RA with stable SpO2. Smoker's cough continues, Lung sounds with only wheezes throughout. Ambulating in hallway. Eating well, urinating and moving bowels. Blood pressure showing upward trend towards the afternoon. Vitals reviewed and findings reported to MD; BP showing upward trend over days since the D/C of Losartan. Med restarted and administered this evening.
[2021-10-28] MEDS: QUEtiapine Fumarate 400 MG TABLET PO (20:09)
[2021-10-28] MEDS: Azithromycin 500 MG TABLET PO (20:10)
[2021-10-28] MEDS: Enoxaparin Sodium 40 MG/0.4 ML SYRINGE SUBCUT (20:10)
[2021-10-28] MEDS: Atorvastatin Calcium 40 MG TABLET PO (20:10)
[2021-10-28] MEDS: LORazepam 0.5 MG TABLET PO (20:10)
[2021-10-29] VITALS (10 sets, daily range): BP systolic 107–144; BP diastolic 60–70; PULSE 75–95; RESP 16–20; TEMP 36.7–37.5; O2SAT 94–98
[2021-10-29] MEDS: methylPREDNISolone Sod Succ 40 MG/ML VIAL IVPUSH ×2 (04:11→16:11)
[2021-10-29] MEDS: Albuterol/Iprat 2.5/0.5MG 3 ML AMPUL.NEB INHALE ×4 (07:36→20:01)
--- NOTE | 2021-10-29 09:15 | HO.PM.IMPN ---
Subjective Subjective Date of Service: 10/29/21 Interval History: cc: sob interval history: improved, not at baseline Cardiovascular Cardiovascular: Reports no additional cardiovascular complaints Gastrointestinal Gastrointestinal: Reports no additional gastrointestinal complaints Physical Exam Vital Signs: Vital Signs: Last Vital Signs Temp 98.1 F 10/29/21 07:39 Pulse 84 10/29/21 07:39 Resp 19 10/29/21 07:39 BP 107/62 10/29/21 07:39 Pulse Ox 98 10/29/21 07:39 Oxygen Flow Rate 7 10/25/21 18:44 BMI result Body Mass Index 21.0 General: AO X 3, no acute distress Resp:? diminished bilateral, no accessory muscles used CVS: S1,S2,RRR GI: soft, non tender, non distended Neuro:? motor grossly intact, alert Psych: appropriate affect, appropriate insight? Objective Data Active Medications Acetaminophen (Acetaminophen 325 Mg Tablet) 650 mg PO Q6H PRN PRN Reason: Pain, Mild (Pain Scale 1-3) Albuterol/Ipratropium (Albuterol/Iprat 2.5/0.5mg 3 Ml Ampul.Neb) 3 ml INHALE RQ4H WHILE AWAKE [facility] Last Admin: 10/29/21 07:36 Dose: 3 ml Documented by: FABRIZIO Albuterol/Ipratropium (Albuterol/Iprat 2.5/0.5mg 3 Ml Ampul.Neb) 3 ml INHALE RQ4H PRN PRN Reason: Shortness of Breath/Wheezing Aspirin (Aspirin Enteric Coated 81 Mg Tablet.) 81 mg PO DAILY [facility] Last Admin: 10/28/21 09:50 Dose: 81 mg Documented by: BRAEDEN Atorvastatin Calcium (Atorvastatin Calcium 40 Mg Tablet) 40 mg PO BEDTIME [facility] Last Admin: 10/28/21 20:10 Dose: 40 mg Documented by: JESUS Azithromycin (Azithromycin 500 Mg Tablet) 500 mg PO Q24H [facility] Last Admin: 10/28/21 20:10 Dose: 500 mg Documented by: JESUS Enoxaparin Sodium (Enoxaparin Sodium 40 Mg/0.4 Ml Syringe) 40 mg SUBCUT Q24H [facility] Last Admin: 10/28/21 20:10 Dose: 40 mg Documented by: JESUS Famotidine (Famotidine 20 Mg Tablet) 20 mg PO BID [facility] Last Admin: 10/28/21 20:10 Dose: 20 mg Documented by: JESUS Lorazepam (Lorazepam 0.5 Mg Tablet) 0.5 mg PO TID PRN PRN Reason: Anxiety Last Admin: 10/28/21 20:10 Dose: 0.5 mg Documented by: JESUS Losartan Potassium (Losartan Potassium 50 Mg Tablet) 100 mg PO DAILY [facility]; Protocol Last Admin: 10/26/21 08:37 Dose: 100 mg Documented by: N-RAMSK Melatonin (Melatonin 3 Mg Tablet) 6 mg PO BEDTIME PRN PRN Reason: Insomnia Methylprednisolone Sodium Succinate (Methylprednisolone Sod Succ 40 Mg/Ml Vial) 40 mg IVPUSH Q12H [facility] Last Admin: 10/29/21 04:11 Dose: 40 mg Documented by: JESUS Pharmacy Consult (Consult Rx Perform Med Rec) 1 each MISCELLANE ONCE PRN PRN Reason: Consult order Quetiapine Fumarate (Quetiapine Fumarate 100 Mg Tablet) 100 mg PO TID PRN PRN Reason: agitation Last Admin: 10/27/21 09:50 Dose: 100 mg Documented by: MARTHA Quetiapine Fumarate (Quetiapine Fumarate 400 Mg Tablet) 400 mg PO BEDTIME [facility] Last Admin: 10/28/21 20:09 Dose: 400 mg Documented by: JESUS Senna (Sennosides 8.6 Mg Tablet) 17.2 mg PO BEDTIME PRN PRN Reason: Constipation Sodium Chloride (0.9 % Sodium Chloride Flush 3 Ml Syringe) 3 ml IVFLUSH QSHIFT [facility] Last Admin: 10/28/21 20:10 Dose: 3 ml Documented by: JESUS Tamsulosin HCl (Tamsulosin Hcl 0.4 Mg Capsule) 0.8 mg PO DAILY [facility] Last Admin: 10/28/21 09:50 Dose: 0.8 mg Documented by: PODZIBASIL Tiotropium [place] (Tiotropium [place] 18 Mcg Cap.W.Dev) 1 puff INHALE RDAILY [facility] Last Admin: 10/29/21 07:36 Dose: 1 puff Documented by: BLAPAOLO Labs CBC & Chem 7: 10/28/21 06:32 10/28/21 06:32 Assessment and Plan (1) COPD (chronic obstructive pulmonary disease): Status: Acute Plan 71M presented with sob COPD with acute decompensation still sob, still not feeling well enough for discharge today continue steroids, nebs HCV s/p treatement, no obvious liver disease schizoaffective disorder seroquel CAD asa, statin bph flomax lung nodule following at [facility], ?benign htn losartan Quality Stroke Does the patient have a stroke diagnosis?: No VTE Prior VTE?: No VTE Risk Level:: Medical - moderate - high VTE Device Contraindication: N/A - Device Ordered VTE Drug Contraindication: Treatment Not Indicated
[2021-10-29] MEDS: Aspirin Enteric Coated 81 MG TABLET.DR PO (09:16)
[2021-10-29] MEDS: 0.9 % Sodium Chloride Flush 3 ML SYRINGE IVFLUSH ×3 (09:16→21:09)
[2021-10-29] MEDS: Tamsulosin HCL 0.4 MG CAPSULE 0.8 MG PO (09:16)
[2021-10-29] MEDS: Famotidine 20 MG TABLET PO ×2 (09:16→21:09)
[2021-10-29] MEDS: Acetaminophen 325 MG TABLET 650 MG PO ×2 (09:20→18:20)
[2021-10-29] MEDS: QUEtiapine Fumarate 100 MG TABLET PO (09:20)
[2021-10-29] MEDS: LORazepam 0.5 MG TABLET PO ×2 (09:20→18:20)
[2021-10-29] MEDS: QUEtiapine Fumarate 400 MG TABLET PO (21:08)
[2021-10-29] MEDS: Atorvastatin Calcium 40 MG TABLET PO (21:08)
[2021-10-29] MEDS: Enoxaparin Sodium 40 MG/0.4 ML SYRINGE SUBCUT (21:08)
[2021-10-29] MEDS: Azithromycin 500 MG TABLET PO (21:08)
[2021-10-30 04:00] VITALS: BP 103/63; PULSE 76; RESP 20; TEMP 36.3; O2SAT 96
[2021-10-30] MEDS: methylPREDNISolone Sod Succ 40 MG/ML VIAL IVPUSH (04:00)
[2021-10-30 07:13] VITALS: BP 125/69; PULSE 68; RESP 18; TEMP 19.8; O2SAT 97
[2021-10-30] MEDS: Albuterol/Iprat 2.5/0.5MG 3 ML AMPUL.NEB INHALE (07:34)
[2021-10-30 07:35] VITALS: PULSE 78; RESP 18; O2SAT 97
[2021-10-30] MEDS: Tamsulosin HCL 0.4 MG CAPSULE 0.8 MG PO (08:21)
[2021-10-30] MEDS: Losartan Potassium 50 MG TABLET 100 MG PO (08:21)
[2021-10-30] MEDS: Aspirin Enteric Coated 81 MG TABLET.DR PO (08:21)
[2021-10-30] MEDS: 0.9 % Sodium Chloride Flush 3 ML SYRINGE IVFLUSH (08:21)
[2021-10-30] MEDS: Famotidine 20 MG TABLET PO (08:22)
--- NOTE | 2021-10-30 08:25 | PM.DS ---
DS: Providers Provider Date of Service: 10/30/21 Date of admission: 10/25/21 20:54 Primary care physician: Martínez Simeon MD DS: Diagnosis Discharge Diagnosis (1) COPD (chronic obstructive pulmonary disease): Status: Acute DS: Summary Hospital Course Hospital Course: Patient was admitted for COPD with acute decompensation. He was treated with IV Solu-Medrol and bronchodilators. His symptoms slowly improved, is now feeling much better and will be discharged home on a 5 day course of prednisone 40 mg daily. Time Spent with Patient Time attestation: Total time spent providing and/or coordinating discharge services: Discharge coordination time: Greater than 30 minutes Quality: Stroke Does the patient have a stroke diagnosis?: No Physical Exam Vital Signs: Vital Signs: Last Vital Signs Temp 67.6 F L 10/30/21 07:13 Pulse 78 10/30/21 07:35 Resp 18 10/30/21 07:35 BP 125/69 10/30/21 07:13 Pulse Ox 97 10/30/21 07:13 Oxygen Flow Rate 7 10/25/21 18:44 BMI result Body Mass Index 21.0 General: AO X 3, no acute distress Resp:? diminished bilateral, no accessory muscles used CVS: S1,S2,RRR GI: soft, non tender, non distended Neuro:? motor grossly intact, alert Psych: appropriate affect, appropriate insight? DS: Data Data Completed and Pending Completed studies during hospitalization [Text1]: Procedures Assistance with Respiratory Ventilation, Less than 24 Consecutive Hours, Continuous Positive Airway Pressure (08/03/21) Labs on day of discharge: Preliminary micro results at discharge 10/25/21 19:15 Blood Culture - Preliminary Blood - Venous No growth after 48 hours. 10/25/21 19:15 Blood Culture - Preliminary Blood - Venous No growth after 48 hours. Discharge Plan Discharge Patient Disposition: Home, Self-Care Discharge Diagnosis: copd Referrals: Martínez Simeon MD [Primary Care Provider] - 1 Week Discharge Medications: New prednisone 20 mg tablet 40 mg PO DAILY Qty: 10 0RF Continued quetiapine 100 mg Tablet 100 mg PO TID PRN (Reason: agitation) Qty: 90 0RF quetiapine 400 mg Tablet 400 mg PO BEDTIME Qty: 30 0RF lorazepam 0.5 mg Tablet 0.5 mg PO TID PRN (Reason: Anxiety) 30 Days Qty: 90 0RF atorvastatin 40 mg tablet 1 tab PO BEDTIME Qty: 30 0RF albuterol sulfate 2.5 mg /3 mL (0.083 %) solution for nebulization 2.5 mg inhalation TID PRN (Reason: Dyspnea) Qty: 25 2RF aspirin 81 mg tablet,delayed release (DR/EC) 81 mg PO DAILY Qty: 30 0RF famotidine 20 mg tablet 1 tab PO BID Qty: 60 0RF tamsulosin 0.4 mg capsule 2 cap PO DAILY 30 Days Qty: 120 0RF losartan 100 mg tablet 1 tab PO DAILY Qty: 30 0RF Spiriva Respimat 1.25 mcg/actuation mist 2 puff inhalation DAILY Qty: 6 0RF albuterol sulfate [Ventolin HFA] 90 mcg/actuation HFA aerosol inhaler 2 puff inhalation BID 0RF acetaminophen 325 mg Tablet 650 mg PO BID PRN (Reason: Breakthrough Pain, Mild) 0RF Discharge Orders: Discharge Order (Routine); Ordered 10/30/21 Ordered By: Layo Benjamin Diet: advance to usual diet Activity on Discharge: As tolerated Stand Alone Forms: Patient Portal Discharge page Care Plan Goals: recovery Health Concerns: copd Plan of Treatment: prednisone Assessment: see above
--- NOTE | 2021-10-30 08:57 | MHC.CM.PN ---
pt dcd today called shelter spoke with trice [place] pt back to shelter no servceis needed
== END 2021-10-30 09:30 | disposition home or self-care (01) | DRG 191 ==
LOC: HO.ED 20:34 → HO.EDOVER 22:26 → HO.IMC 10-26 19:36
PROVIDERS: Admitting Provider Hospitalist; Emergency Provider Emergency Medicine; PCP Internal Medicine; Visit Provider Internal Medicine
DX: J44.1 Chronic obstructive pulmonary disease with (acute) exacerbation (principal); I50.32 Chronic diastolic (congestive) heart failure; E87.2 Acidosis; I25.10 Atherosclerotic heart disease of native coronary artery without angina pectoris; F31.9 Bipolar disorder, unspecified; F41.9 Anxiety disorder, unspecified; N40.0 Benign prostatic hyperplasia without lower urinary tract symptoms; R91.1 Solitary pulmonary nodule; B19.20 Unspecified viral hepatitis C without hepatic coma; I11.0 Hypertensive heart disease with heart failure; Z20.822 Contact with and (suspected) exposure to COVID-19; F17.210 Nicotine dependence, cigarettes, uncomplicated; Z71.6 Tobacco abuse counseling; Z88.5 Allergy status to narcotic agent; Z79.82 Long term (current) use of aspirin; Z79.899 Other long term (current) drug therapy
CPT/HCPCS: 36415; 71045; 80048; 80076; 82803; 83605; 83735; 83880; 84484; 85025; 85027; 85379; 87040; 87635; 93005; 94640; 94644; 96365; 96366; 96375; 99284; 99291; J0456; J0696; J1650; J2920; J3475

== ENCOUNTER 2021-11-01 14:51 | Emergency (ER) | payer MEDICARE, SELFPAY ==
--- NOTE | ~2021-11-01 | XR_ITS ---
EXAMINATION: XR CHEST CLINICAL INFORMATION: Shortness of breath COMPARISON: October 25, 2021 and studies dating back to May 07, 2020 TECHNIQUE: AP portable view of the chest was obtained. FINDINGS: There is hyperinflation of the lungs present as well as diminished vascularity peripherally consistent with changes of emphysema. No pneumothorax or significant pleural effusion is appreciated. XR/XR chest 1V IMPRESSION: COPD without acute disease.
--- NOTE | 2021-11-01 15:13 | ED.SOB ---
HPI - SOB/Dyspnea General Chief Complaint: Dyspnea Stated Complaint: SOB Time Seen by Provider: 11/01/21 15:12 Source: patient Mode of arrival: ambulatory Limitations: no limitations History of Present Illness HPI Narrative: 71-year-old male with a past medical history of COPD, CAD, hyperlipidemia, Hepatitis C, COPD, schizophrenia, schizoaffective, anxiety, chronic smoker, recently at our facility for COPD exacerbation, presents to the emergency department with complaints of shortness of breath and cough since this afternoon. Patient tells me he started experiencing sudden onset shortness of breath he took 2 nebulizing treatments at home with no relief. Tells me that this happens to him frequently. He also tells me that he started having a cough this afternoon it has been mostly a dry cough however he did cough a little bit of brown phlegm. He tells me after receiving an albuterol treatment when he came in he is feeling better. At this time he denies fevers, chills, chest pain, abdominal pain, nausea, vomiting, weakness. He tells me he saw his parts administrator earlier today. MD elicited complaint: shortness of breath Pertinent past history: COPD Onset (ago): hour(s) (3) Timing: constant Severity: moderate Exacerbating factors: nothing Relieving factors: nothing Known history of: COPD Associated symptoms: denies other symptoms Related Data Home Medications Medication Instructions Recorded Confirmed albuterol sulfate 90 mcg/actuation 2 puff INHALATION BID 06/14/21 10/25/21 aerosol inhaler (Ventolin HFA) acetaminophen 325 mg tablet 650 mg PO BID PRN 08/03/21 10/25/21 Previous Rx's Medication Instructions Recorded albuterol sulfate 2.5 mg (3 mL) INHALATION TID PRN 05/30/21 #25 units aspirin 81 mg tablet,delayed 81 mg PO DAILY #30 tab 05/30/21 release atorvastatin 40 mg tablet 1 tab PO BEDTIME #30 tab 05/30/21 famotidine 20 mg tablet 1 tab PO BID #60 tab 05/30/21 lorazepam 0.5 mg tablet 0.5 mg PO TID PRN 30 Days #90 tab 05/30/21 losartan 100 mg tablet 1 tab PO DAILY #30 tab 05/30/21 quetiapine 100 mg tablet 100 mg PO TID PRN #90 tab 05/30/21 quetiapine 400 mg tablet 400 mg PO BEDTIME #30 tab 05/30/21 tamsulosin 0.4 mg capsule 2 cap PO DAILY 30 Days #120 cap 05/30/21 tiotropium bromide 1.25 2 puff INHALATION DAILY #6 g 05/30/21 mcg/actuation mist for inhalation (Spiriva Respimat) prednisone 20 mg tablet 40 mg PO DAILY #10 tab 10/30/21 Allergies Allergy/AdvReac Type Severity Reaction Status Date / Time codeine [CODEINE] Allergy Intermediate HIVES Verified 07/27/21 10:33 Review of Systems Review of Systems: Constitutional : No Weight loss, No Fever, No Chills, No Fatigue, No Malaise ENT/Mouth : No sore throat, No Rhinorrhea Eyes: No Eye Pain, No Swelling, No Redness Cardiovascular : No Chest Pain, + SOB, + Dyspnea on Exertion, No Orthopnea, No Edema, No Palpitations Respiratory : + Cough, No Sputum, No Wheezing Gastrointestinal : No Nausea, No Vomiting, No Diarrhea, No Constipation, No abdominal Pain, No Hematochezia, No Melena Genitourinary : No Dysuria, No Urinary Frequency, No Hematuria, Musculoskeletal : No joint pain, No Myalgias, No Joint Swelling Skin : No Skin Lesions, No rash Neuro : No Weakness, No Numbness, No Dizziness, No Headache All other systems reviewed and are negative Yes all other systems are reviewed and are negative [facility] Past Medical History Attestation statement: The following information was validated with the patient. Source: old records reviewed and nursing notes reviewed Medical History Anxiety BPH (benign prostatic hyperplasia) COPD (chronic obstructive pulmonary disease) Hepatitis C Hyperlipidemia Hypertension Left tibial fracture Nicotine dependence, cigarettes, uncomplicated Schizoaffective disorder, bipolar type Schizophrenia Surgical History History of bronchoscopy History of elbow surgery Social History Social History Household Members: Other Household Members Other:: longterm in [place] Housing: Other Housing Other:: longterm Do you presently have visiting nurse or other home services: No Alcohol intake: never Patient Tobacco Use Status: Current everyday Tobacco user Tobacco use type: Cigarette Cigarette Packs Per Day: 0.2 Cigarettes Per Day: 4.0 Years Smoked: 50 e-Cigarette/Vaping Use: Currently Using Second Hand Smoke Exposure: Yes Advance Directives: No Advance Directives Information Provided: No Advance Directives Date on File: 08/18/20 service: No Current occupational status: disabled Sexual orientation: Straight/Heterosexual Physical Exam Vital Signs: Vital Signs: Last Vital Signs Temp 98.6 F 11/01/21 15:33 Pulse 92 11/01/21 18:26 Resp 18 11/01/21 18:26 BP 142/71 H 11/01/21 18:26 Pulse Ox 97 11/01/21 18:26 BMI result Body Mass Index 21.6 Patient noted to be tachycardic and hypertensive he is anxious and did just receive an albuterol treatment will repeat vitals. Appearance: Alert.? Oriented X3.? No acute distress.? Head: Normocephalic, atraumatic, no step-offs or deformities Eyes: Pupils equal, round and reactive to light.? ENT: Pharynx normal.? Neck: Normal inspection.? Neck supple.? CVS: Normal heart rate and rhythm.? Pulses normal.? Respiratory: No respiratory distress.? Breath sounds normal.? No adventitious lung sounds. Abdomen: Soft and nontender.? Skin: Skin warm and dry.? Normal skin color.? Normal skin turgor.? Extremities: No lower extremity edema.? No calf ttp. 5/5 strength to bilateral upper and lower extremities Back: No midline tenderness, no C-spine tenderness, full range of motion, no CVA tenderness bilaterally Neuro: Oriented X 3.? No motor deficit.? No sensory deficit. CN 2-12 intact Course Reevaluation(s) Reevaluation #1: Patient reports improvement after albuterol inhaler. Initially he was slightly tachypneic with respiratory rate of 22 however now patient is not tachypneic. He is speaking in full sentences in no acute distress. Patient without leukocytosis, H&H within normal limits. Laboratory studies appear to be at baseline. Patient's BUN is noted to be slightly elevated, higher than his baseline patient tolerating fluids by mouth, would like to give patient a L however he wants to get out of here. And does not want anything through the IV. Chest x-ray shows COPD without acute disease. Patient not complaining of lower extremity swelling or pain to calf, bilateral Homans sign negative. Unlikely that this is a PE. Patient on complaining of chest pain, unlikely ACS. Patient is upset because I explained to him that he cannot have the pulmonary nodules removed at this time, I told him that he could follow-up with Dr. Yan, but there is no emergent need for a procedure at this time. Patient is very agitated, telling me he wants to leave because were not doing anything for him and were not fixing his immediate problem which is his pulmonary nodules. He is telling me that this is making him anxious. Offered him something for anxiety and he tells me just wants to get out of here. Time: 18:01 Reevaluation #2: Adamant that he does not want IV fluids. Will drink fluids by mouth he tells me. Patient will be dc with pcp follow up Repeat vitals improved. Anxious to get out of here. MDM - SOB/Dyspnea MDM Narrative Medical decision making narrative: 1517 71 yo m presents w/ sob and dry cough since this afternoon told me it started suddenly. No improvement even after 2 nebs at home. He was d/c from our facility on 10/30/2021 for copd with acute decompensation of COPD and lactic acidosis. Usually he requires treatment with Solu-Medrol and bronchodilators. He was discharged home on a 5 day course of prednisone. Medical Records Attestation: I reviewed the patient's medical records. Lab Data Attestation: I reviewed the patient's lab results. Result diagrams: 11/01/21 16:26 11/01/21 16:27 Labs: Lab Results 11/01/21 11/01/21 11/01/21 Range/Units 16:26 16:27 16:27 WBC 9.8 (4.8-10.8) X10*3/uL RBC 4.68 (4.60-5.80) X10*6/uL Hgb 14.9 (14.0-18.0) g/dl Hct 43.7 (42.0-52.0) % MCV 93.4 (80.0-98.0) fL MCH 31.8 (27.0-33.0) pg MCHC 34.1 (31.0-36.0) g/dl RDW 12.4 (11.0-16.0) % Plt Count 236 (160-400) X10*3/uL MPV 9.3 L (9.4-12.4) fL Immature Gran % (Auto) 0.7 H (0.0-0.4) % Neut % (Auto) 90.3 H (45-73) % Lymph % (Auto) 3.3 L (20-40) % Woodruff % (Auto) 5.6 (2-11) % Eos % (Auto) 0.0 (0-4) % Baso % (Auto) 0.1 (0-2) % Lymph # (Auto) 0.3 L (1.2-4.9) X10*3/uL Woodruff # (Auto) 0.6 (0.1-1.2) X10*3/uL Eos # (Auto) 0.0 (0.0-0.4) X10*3/uL Baso # (Auto) 0.0 (0.0-0.2) X10*3/uL Abs Immat Gran (auto) 0.07 H (0.00-0.03) X10*3/uL Absolute Neuts (auto) 8.8 H (2.0-8.3) x10*3/uL Absolute Nucleated RBC 0.000 (0.0-0.012) X10*3/uL Nucleated RBC % (auto) 0.0 (0.0-0.2) /100WBC Smear Tech's Comments VERIFIED Sodium 139 (135-145) mmol/L Potassium 3.7 (3.3-5.1) mmol/L Chloride 104 (96-108) mmol/L Carbon Dioxide 24 (22-29) mmol/L Anion Gap 15 (12-20) BUN 23 H D (9-16) mg/dL Creatinine 0.99 (0.5-1.4) mg/dL Estim Creat Clear Calc 70.0 Estimated GFR > 60 Random Glucose 171 H (60-115) mg/dL Calcium 8.9 (8.4-10.2) mg/dL Total Bilirubin 0.4 (0.0-1.0) mg/dL AST 12 (5-37) U/L ALT 18 (0-40) U/L Alkaline Phosphatase 84 D (39-117) U/L B-Natriuretic Peptide (<100) pg/mL Total Protein 6.4 L (6.5-8.0) g/dL Albumin 4.1 (3.5-5.0) g/dL COVID-19 (RASHEED) Negative (Negative) COVID-19 Clin Com See Note 11/01/21 Range/Units 16:27 WBC (4.8-10.8) X10*3/uL RBC (4.60-5.80) X10*6/uL Hgb (14.0-18.0) g/dl Hct (42.0-52.0) % MCV (80.0-98.0) fL MCH (27.0-33.0) pg MCHC (31.0-36.0) g/dl RDW (11.0-16.0) % Plt Count (160-400) X10*3/uL MPV (9.4-12.4) fL Immature Gran % (Auto) (0.0-0.4) % Neut % (Auto) (45-73) % Lymph % (Auto) (20-40) % Woodruff % (Auto) (2-11) % Eos % (Auto) (0-4) % Baso % (Auto) (0-2) % Lymph # (Auto) (1.2-4.9) X10*3/uL Woodruff # (Auto) (0.1-1.2) X10*3/uL Eos # (Auto) (0.0-0.4) X10*3/uL Baso # (Auto) (0.0-0.2) X10*3/uL Abs Immat Gran (auto) (0.00-0.03) X10*3/uL Absolute Neuts (auto) (2.0-8.3) x10*3/uL Absolute Nucleated RBC (0.0-0.012) X10*3/uL Nucleated RBC % (auto) (0.0-0.2) /100WBC Smear Tech's Comments Sodium (135-145) mmol/L Potassium (3.3-5.1) mmol/L Chloride (96-108) mmol/L Carbon Dioxide (22-29) mmol/L Anion Gap (12-20) BUN (9-16) mg/dL Creatinine (0.5-1.4) mg/dL Estim Creat Clear Calc Estimated GFR Random Glucose (60-115) mg/dL Calcium (8.4-10.2) mg/dL Total Bilirubin (0.0-1.0) mg/dL AST (5-37) U/L ALT (0-40) U/L Alkaline Phosphatase (39-117) U/L B-Natriuretic Peptide 18 (<100) pg/mL Total Protein (6.5-8.0) g/dL Albumin (3.5-5.0) g/dL COVID-19 (RASHEED) (Negative) COVID-19 Clin Com Critical Care Time Critical Care Time Critical Care Time: No Discharge Plan Discharge Clinical Impression: COPD (chronic obstructive pulmonary disease) Patient Disposition: Home, Self-Care Instructions: How to Use a Dry-Powder Inhaler (ED), COPD (Chronic Obstructive Pulmonary Disease) (ED), How to Use a Nebulizer (ED), How Your Lungs Work (ED) Additional Instructions: Take your medications as prescribed. If you were prescribed antibiotics today, it is important that you take your medication to their entirety, do not skip any doses, do not finish them early. Follow-up with your primary care provider this week. Please follow-up with your parts administrator. Return to the emergency department with new or worsening symptoms. Such as chest pain, shortness of breath, nausea, vomiting, abdominal pain, fevers, chills, difficulty speaking and breathing. In case of emergency call 911 Prescriptions: No Action quetiapine 100 mg Tablet 100 mg PO TID PRN (Reason: agitation) Qty: 90 0RF quetiapine 400 mg Tablet 400 mg PO BEDTIME Qty: 30 0RF lorazepam 0.5 mg Tablet 0.5 mg PO TID PRN (Reason: Anxiety) 30 Days Qty: 90 0RF atorvastatin 40 mg tablet 1 tab PO BEDTIME Qty: 30 0RF albuterol sulfate 2.5 mg /3 mL (0.083 %) solution for nebulization 2.5 mg inhalation TID PRN (Reason: Dyspnea) Qty: 25 2RF aspirin 81 mg tablet,delayed release (DR/EC) 81 mg PO DAILY Qty: 30 0RF famotidine 20 mg tablet 1 tab PO BID Qty: 60 0RF tamsulosin 0.4 mg capsule 2 cap PO DAILY 30 Days Qty: 120 0RF losartan 100 mg tablet 1 tab PO DAILY Qty: 30 0RF Spiriva Respimat 1.25 mcg/actuation mist 2 puff inhalation DAILY Qty: 6 0RF albuterol sulfate [Ventolin HFA] 90 mcg/actuation HFA aerosol inhaler 2 puff inhalation BID 0RF acetaminophen 325 mg Tablet 650 mg PO BID PRN (Reason: Breakthrough Pain, Mild) 0RF prednisone 20 mg tablet 40 mg PO DAILY Qty: 10 0RF Referrals: Physician,Unknown J [Primary Care Provider] - 2 days Interventions: ED Discharge Assessment Last Done: 11/01/21 18:23 Discharge Date/Time: 11/01/21 18:27
[2021-11-01] MEDS: Albuterol Sulfate (0.083%) 2.5 MG/3 ML VIAL.NEB 7.5 MG INHALE (15:19)
[2021-11-01 15:33] VITALS: BP 150/125; PULSE 114; RESP 22; TEMP 37; O2SAT 96; BMI 21.6
[2021-11-01 16:41] LABS: Basophils Percent Auto 0.1 % (0-2); Hematocrit 43.7 % (42.0-52.0); Hemoglobin 14.9 g/dl (14.0-18.0); Imm Gran Abs Auto 0.07 X10*3/uL (0.00-0.03); Imm Gran Pct Auto 0.7 % (0.0-0.4); Lymphocytes Absolute Auto 0.3 X10*3/uL (1.2-4.9); Lymphocytes Percent Auto 3.3 % (20-40); MANUAL DIFF FLAG SCAN; Mean Corpuscular HGB Conc 34.1 g/dl (31.0-36.0); Mean Corpuscular Hemoglobin 31.8 pg (27.0-33.0); Mean Corpuscular Volume 93.4 fL (80.0-98.0); Mean Platelet Volume 9.3 fL (9.4-12.4); Monocytes Absolute Auto 0.6 X10*3/uL (0.1-1.2); Monocytes Percent Auto 5.6 % (2-11); Neutrophils Absolute Auto 8.8 x10*3/uL (2.0-8.3); Neutrophils Percent Auto 90.3 % (45-73); Platelet Count 236 X10*3/uL (160-400); Red Blood Count 4.68 X10*6/uL (4.60-5.80); Red Cell Distribution Width 12.4 % (11.0-16.0); SCAN SMEAR FLAG 1; White Blood Count 9.8 X10*3/uL (4.8-10.8)
[2021-11-01 16:47] LABS: COVID-19 Test Negative (Negative); IDNOW Serial# 55D5AD1C
[2021-11-01 16:49] LABS: Alanine Aminotransferase 18 U/L (0-40); Albumin Level 4.1 g/dL (3.5-5.0); Alkaline Phosphatase 84 U/L (39-117); Anion Gap 15 (12-20); Aspartate Amino Transferase 12 U/L (5-37); Bilirubin Total 0.4 mg/dL (0.0-1.0); Blood Urea Nitrogen 23 mg/dL (9-16); Calcium 8.9 mg/dL (8.4-10.2); Carbon Dioxide 24 mmol/L (22-29); Chloride 104 mmol/L (96-108); Estimated Glomerular Filt Rate > 60; Glucose Random 171 mg/dL (60-115); Potassium 3.7 mmol/L (3.3-5.1); Sodium 139 mmol/L (135-145); Total Protein 6.4 g/dL (6.5-8.0)
[2021-11-01 16:55] LABS: B Type Natriuretic Peptide 18 pg/mL (<100)
[2021-11-01 17:29] LABS: SLIDE REVIEW VERIFIED
[2021-11-01 18:26] VITALS: BP 142/71; PULSE 92; RESP 18; O2SAT 97
== END 2021-11-01 18:27 | disposition home or self-care (01) ==
PROVIDERS: Physician Assistant; Emergency Provider Emergency Medicine
DX: J44.9 Chronic obstructive pulmonary disease, unspecified (principal); R06.02 Shortness of breath; F41.9 Anxiety disorder, unspecified; Z20.822 Contact with and (suspected) exposure to COVID-19; I10 Essential (primary) hypertension; E78.5 Hyperlipidemia, unspecified; B19.20 Unspecified viral hepatitis C without hepatic coma; F17.200 Nicotine dependence, unspecified, uncomplicated; Z79.02 Long term (current) use of antithrombotics/antiplatelets; Z79.82 Long term (current) use of aspirin; Z79.899 Other long term (current) drug therapy
CPT/HCPCS: 36415; 71045; 80053; 83880; 85025; 87635; 99283; 99284

== ENCOUNTER 2021-12-14 17:37 | Emergency (ER) | payer OTHER, SELFPAY ==
--- NOTE | ~2021-12-14 | XR_ITS ---
EXAMINATION: XR CHEST CLINICAL INFORMATION: Shortness of breath COMPARISON: November 01, 2021 TECHNIQUE: AP portable view of the chest was obtained. FINDINGS: There is no evidence of acute parenchymal disease, pneumothorax, or pleural effusion. Heart normal size. No evidence of pulmonary edema. There is diminished vascularity seen within the upper lobes bilaterally consistent with significant emphysematous change. Air below the hemidiaphragms appears to lie within bowel. XR/XR chest 1V IMPRESSION: No acute disease. Emphysema.
[2021-12-14 17:42] VITALS: BP 145/62; PULSE 85; RESP 20; TEMP 36.8; O2SAT 100; O2SAT 88; BMI 17.8
--- NOTE | 2021-12-14 18:04 | ED_ITS ---
HPI - SOB/Dyspnea General Chief Complaint: General Medical Stated Complaint: shortness of breath Time Seen by Provider: 12/14/21 17:53 Source: patient and EMS Mode of arrival: EMS Limitations: no limitations History of Present Illness HPI Narrative: 71-year-old male history of COPD /lung cancer stage IV/ heavy smoking. patient quit smoking for 3 weeks,went to see his oncologist today for discussion about stage IV lung cancer and patient smoked 3 cigarettes today, patient started to have difficulty breathing and increased wheezing, EMS found him hypoxic 86% on room air, in route patient was given Solu-Medrol and DuoNeb inhaler and patient had some improvement with oxygenation went to 100% in the emergency department. Patient recently was admitted for COPD exacerbation. Related Data Home Medications Medication Instructions Recorded Confirmed albuterol sulfate 90 mcg/actuation 2 puff INHALATION BID 06/14/21 10/25/21 aerosol inhaler (Ventolin HFA) acetaminophen 325 mg tablet 650 mg PO BID PRN 08/03/21 10/25/21 Previous Rx's Medication Instructions Recorded albuterol sulfate 2.5 mg (3 mL) INHALATION TID PRN 05/30/21 #25 units aspirin 81 mg tablet,delayed 81 mg PO DAILY #30 tab 05/30/21 release atorvastatin 40 mg tablet 1 tab PO BEDTIME #30 tab 05/30/21 famotidine 20 mg tablet 1 tab PO BID #60 tab 05/30/21 lorazepam 0.5 mg tablet 0.5 mg PO TID PRN 30 Days #90 tab 05/30/21 losartan 100 mg tablet 1 tab PO DAILY #30 tab 05/30/21 quetiapine 100 mg tablet 100 mg PO TID PRN #90 tab 05/30/21 quetiapine 400 mg tablet 400 mg PO BEDTIME #30 tab 05/30/21 tamsulosin 0.4 mg capsule 2 cap PO DAILY 30 Days #120 cap 05/30/21 tiotropium bromide 1.25 2 puff INHALATION DAILY #6 g 05/30/21 mcg/actuation mist for inhalation (Spiriva Respimat) prednisone 20 mg tablet 40 mg PO DAILY #10 tab 10/30/21 albuterol sulfate 90 mcg/actuation 1 inh INHALATION QID PRN #6.7 g 12/14/21 aerosol inhaler (ProAir HFA) azithromycin 250 mg tablet See Rx Instructions .ROUTE 12/14/21 (Zithromax Z-William) .COMPLEX #6 tab prednisone 20 mg tablet 20 mg PO BID #8 tab 12/14/21 Allergies Allergy/AdvReac Type Severity Reaction Status Date / Time codeine [CODEINE] Allergy Intermediate HIVES Verified 07/27/21 10:33 Review of Systems Review of Systems: All other systems are reviewed and are negative Constitutional: Reports as per HPI and Reports no additional constitutional complaints Eyes: Reports as per HPI and Reports no additional eye complaints Reports system reviewed and no additional complaints, except as documented Cardiovascular: Reports as per HPI and Reports no additional cardiovascular complaints Respiratory: Reports as per HPI and Reports no additional respiratory complaints Gastrointestinal: Reports as per HPI and Reports no additional gastrointestinal complaints Genitourinary: Reports no additional female genitourinary complaints Musculoskeletal: Reports no additional musculoskeletal complaints Skin/Breast: Reports system reviewed and no additional complaints, except as docu Psychiatric: Reports no additional psychiatric complaints Endocrine: Reports no additional endocrine complaints Hematologic/Lymphatic: Reports no additional hematologic/lymphatic complaints Allergic/Immunologic: Reports no additional allergic/immunologic complaints Reports system reviewed and no additional complaints, except as documented and Reports Abnormal speech present. [facility] Past Medical History Medical History Anxiety BPH (benign prostatic hyperplasia) COPD (chronic obstructive pulmonary disease) Hepatitis C Hyperlipidemia Hypertension Left tibial fracture Nicotine dependence, cigarettes, uncomplicated Schizoaffective disorder, bipolar type Schizophrenia Surgical History History of bronchoscopy History of elbow surgery Social History Social History Household Members: Other Household Members Other:: prison in [place] Housing: Other Housing Other:: prison Do you presently have visiting nurse or other home services: No Alcohol intake: never Patient Tobacco Use Status: Current everyday Tobacco user Tobacco use type: Cigarette Cigarette Packs Per Day: 0.2 Cigarettes Per Day: 4.0 Years Smoked: 50 e-Cigarette/Vaping Use: Currently Using Second Hand Smoke Exposure: Yes Advance Directives: Yes Advance Directives on File: Yes Advance Directives Date on File: 08/18/20 service: No Current occupational status: disabled Sexual orientation: Straight/Heterosexual Physical Exam Vital Signs: Vital Signs: Last Vital Signs Temp 98.3 F 12/14/21 19:45 Pulse 91 12/14/21 19:45 Resp 16 12/14/21 19:45 BP 124/55 L 12/14/21 19:45 Pulse Ox 99 12/14/21 19:45 Oxygen Flow Rate 6 12/14/21 17:42 BMI result Body Mass Index 17.8 Vital signs have been reviewed as appeared to be correct. Blood pressure normal. Heart rate normal. Respiration rate normal. Temperature normal. Oxygen saturation normal. Appearance: Alert. Oriented X3. No acute distress. Head: Normal external exam. Normocephalic. Atraumatic. No Paz signs noted. No raccoon eyes noted Eyes: PERRLA. EOMI. Conjunctiva and sclera normal. Eyelids normal. ENT: TM's Normal. Pharynx normal. Uvula midline. Moist mucous membranes. No trismus noted. No drooling noted. No muffled voice noted. Neck: Normal inspection. Neck supple. FROM. No adenopathy. Thyroid Normal. No meningeal signs. No neck mass noted. CVS: Normal heart rate and rhythm. Heart sound normal. No murmurs noted. Pulses normal throughout. Respiratory: No respiratory distress. Painless inspiration. Breath sounds normal. Mild diffuse expiratory wheezing with prolonged expiration, Chest nontender. No accessory muscle usage noted or decreased air movement noted. Abdomen: Soft and nontender. Bowel sounds normal in all 4 quadrants. No distention noted. No organomegaly noted. No visible injury noted. Back: No CVA tenderness. Full range of motion noted. Skin: Skin warm and dry. Normal skin color. Normal skin turgor. No rashes/lesions/lacerations noted. Extremities: No lower extremity edema. Extremities exhibit normal range of motion. Extremities nontender. Neuro: Oriented X 3. Cranial nerve exam: II-XII are grossly intact No motor deficit. No sensory deficit. Reflexes normal. Course Course Course Narrative: assessment and plan. 71-year-old male history of COPD and stage IV cancer, patient smoked after quit smoking today then started to have symptoms of shortness of breath, patient received Solu-Medrol/magnesium / bronchodilator in the emergency department now he feels better. Discharge the patient with steroid, Z-William, bronchodilator, and follow-up with PCP. Elevation of lactic acid likely from underlying COPD and chronic hypoxia. MDM - SOB/Dyspnea Medical Records Attestation: I reviewed the patient's medical records. Lab Data Attestation: I reviewed the patient's lab results. Result diagrams: 12/14/21 19:30 12/14/21 19:30 Labs: Lab Results 12/14/21 12/14/21 12/14/21 Range/Units 19:30 19:30 19:30 WBC 6.8 (4.8-10.8) X10*3/uL RBC 4.58 L (4.60-5.80) X10*6/uL Hgb 14.5 (14.0-18.0) g/dl Hct 43.1 (42.0-52.0) % MCV 94.1 (80.0-98.0) fL MCH 31.7 (27.0-33.0) pg MCHC 33.6 (31.0-36.0) g/dl RDW 12.0 (11.0-16.0) % Plt Count 203 (160-400) X10*3/uL MPV 9.2 L (9.4-12.4) fL Immature Gran % (Auto) 0.3 (0.0-0.4) % Neut % (Auto) 86.8 H (45-73) % Lymph % (Auto) 9.4 L (20-40) % [place]bers[place] % (Auto) 1.8 L (2-11) % Eos % (Auto) 1.3 (0-4) % Baso % (Auto) 0.4 (0-2) % Lymph # (Auto) 0.6 L (1.2-4.9) X10*3/uL [place] # (Auto) 0.1 (0.1-1.2) X10*3/uL Eos # (Auto) 0.1 (0.0-0.4) X10*3/uL Baso # (Auto) 0.0 (0.0-0.2) X10*3/uL Abs Immat Gran (auto) 0.02 (0.00-0.03) X10*3/uL Absolute Neuts (auto) 5.9 (2.0-8.3) x10*3/uL Absolute Nucleated RBC 0.000 (0.0-0.012) X10*3/uL Nucleated RBC % (auto) 0.0 (0.0-0.2) /100WBC Sodium 142 (135-145) mmol/L Potassium 3.6 (3.3-5.1) mmol/L Chloride 107 (96-108) mmol/L Carbon Dioxide 24 (22-29) mmol/L Anion Gap 15 (12-20) BUN 4 L D (9-16) mg/dL Creatinine 0.75 (0.5-1.4) mg/dL Estim Creat Clear Calc 76.2 Estimated GFR > 60 Random Glucose 143 H (60-115) mg/dL Lactic Acid 2.1 H* (0.5-2.0) mmol/L Calcium 8.8 (8.4-10.2) mg/dL Total Bilirubin 0.3 (0.0-1.0) mg/dL Direct Bilirubin 0.2 (0.0-0.5) mg/dL AST 14 (5-37) U/L ALT 12 (0-40) U/L Alkaline Phosphatase 115 D (39-117) U/L B-Natriuretic Peptide (<100) pg/mL Total Protein 6.7 (6.5-8.0) g/dL Albumin 4.2 (3.5-5.0) g/dL Lipase 15 (8-78) U/L COVID-19 (RASHEED) (Negative) COVID-19 Clin Com 12/14/21 12/14/21 Range/Units 19:30 19:31 WBC (4.8-10.8) X10*3/uL RBC (4.60-5.80) X10*6/uL Hgb (14.0-18.0) g/dl Hct (42.0-52.0) % MCV (80.0-98.0) fL MCH (27.0-33.0) pg MCHC (31.0-36.0) g/dl RDW (11.0-16.0) % Plt Count (160-400) X10*3/uL MPV (9.4-12.4) fL Immature Gran % (Auto) (0.0-0.4) % Neut % (Auto) (45-73) % Lymph % (Auto) (20-40) % [place]berson % (Auto) (2-11) % Eos % (Auto) (0-4) % Baso % (Auto) (0-2) % Lymph # (Auto) (1.2-4.9) X10*3/uL [place] # (Auto) (0.1-1.2) X10*3/uL Eos # (Auto) (0.0-0.4) X10*3/uL Baso # (Auto) (0.0-0.2) X10*3/uL Abs Immat Gran (auto) (0.00-0.03) X10*3/uL Absolute Neuts (auto) (2.0-8.3) x10*3/uL Absolute Nucleated RBC (0.0-0.012) X10*3/uL Nucleated RBC % (auto) (0.0-0.2) /100WBC Sodium (135-145) mmol/L Potassium (3.3-5.1) mmol/L Chloride (96-108) mmol/L Carbon Dioxide (22-29) mmol/L Anion Gap (12-20) BUN (9-16) mg/dL Creatinine (0.5-1.4) mg/dL Estim Creat Clear Calc Estimated GFR Random Glucose (60-115) mg/dL Lactic Acid (0.5-2.0) mmol/L Calcium (8.4-10.2) mg/dL Total Bilirubin (0.0-1.0) mg/dL Direct Bilirubin (0.0-0.5) mg/dL AST (5-37) U/L ALT (0-40) U/L Alkaline Phosphatase (39-117) U/L B-Natriuretic Peptide 14 (<100) pg/mL Total Protein (6.5-8.0) g/dL Albumin (3.5-5.0) g/dL Lipase (8-78) U/L COVID-19 (RASHEED) Negative (Negative) COVID-19 Clin Com See Note Imaging Data Chest x-ray: Attestation: I personally reviewed and interpreted this imaging study as follows: Radiologist's impression: No acute pathology. Discharge Plan Discharge Clinical Impression: COPD (chronic obstructive pulmonary disease) Patient Disposition: Home, Self-Care Instructions: Chronic Bronchitis (ED) Prescriptions: New azithromycin [Zithromax Z-William] 250 mg tablet See Rx Instructions .ROUTE .COMPLEX Qty: 6 0RF Rx Instructions: For 250 mg dose pack: take 500 mg today (day 1), then 250 mg for 4 days (days 2-5) prednisone 20 mg tablet 20 mg PO BID Qty: 8 0RF albuterol sulfate [ProAir HFA] 90 mcg/actuation HFA aerosol inhaler 1 inh inhalation QID PRN (Reason: shortness of breath or wheezing) Qty: 6.7 0RF No Action quetiapine 100 mg Tablet 100 mg PO TID PRN (Reason: agitation) Qty: 90 0RF quetiapine 400 mg Tablet 400 mg PO BEDTIME Qty: 30 0RF lorazepam 0.5 mg Tablet 0.5 mg PO TID PRN (Reason: Anxiety) 30 Days Qty: 90 0RF atorvastatin 40 mg tablet 1 tab PO BEDTIME Qty: 30 0RF albuterol sulfate 2.5 mg /3 mL (0.083 %) solution for nebulization 2.5 mg inhalation TID PRN (Reason: Dyspnea) Qty: 25 2RF aspirin 81 mg tablet,delayed release (DR/EC) 81 mg PO DAILY Qty: 30 0RF famotidine 20 mg tablet 1 tab PO BID Qty: 60 0RF tamsulosin 0.4 mg capsule 2 cap PO DAILY 30 Days Qty: 120 0RF losartan 100 mg tablet 1 tab PO DAILY Qty: 30 0RF Spiriva Respimat 1.25 mcg/actuation mist 2 puff inhalation DAILY Qty: 6 0RF albuterol sulfate [Ventolin HFA] 90 mcg/actuation HFA aerosol inhaler 2 puff inhalation BID 0RF acetaminophen 325 mg Tablet 650 mg PO BID PRN (Reason: Breakthrough Pain, Mild) 0RF prednisone 20 mg tablet 40 mg PO DAILY Qty: 10 0RF Referrals: Martínez Simeon MD [Primary Care Provider] -
--- NOTE | 2021-12-14 18:05 | ECG_ITS ---
Test Reason : SOB Blood Pressure : / mmHG Vent. Rate : 090 BPM Atrial Rate : 090 BPM P-R Int : 170 ms QRS Dur : 076 ms QT Int : 370 ms P-R-T Axes : 072 046 072 degrees QTc Int : 452 ms Normal sinus rhythm Normal ECG When compared with ECG of 25-OCT-2021 19:17, Premature atrial complexes are no longer Present Referred By: Omar Longo Electronically Signed By:COLEEN MEDELLIN MD
[2021-12-14] MEDS: Magnesium Sulfate/H2O 2 GM/50 ML PIGGYBACK IV (18:13)
[2021-12-14 18:20] VITALS: PULSE 94; RESP 22; O2SAT 100
[2021-12-14] MEDS: Albuterol Sulfate (0.083%) 2.5 MG/3 ML VIAL.NEB 5 MG INHALE (18:20)
--- NOTE | 2021-12-14 18:55 | PC.NURSE ---
R AC IV infiltrated, area is cool to touch, small amount of swelling noted. Pt denies discomfort/pain at IV insertion site. Mg infused. R AC IV removed.
[2021-12-14 19:36] LABS: MANUAL DIFF FLAG NO
[2021-12-14 19:39] LABS: Basophils Percent Auto 0.4 % (0-2); Eosinophils Absolute Auto 0.1 X10*3/uL (0.0-0.4); Eosinophils Percent Auto 1.3 % (0-4); Hematocrit 43.1 % (42.0-52.0); Hemoglobin 14.5 g/dl (14.0-18.0); Imm Gran Abs Auto 0.02 X10*3/uL (0.00-0.03); Imm Gran Pct Auto 0.3 % (0.0-0.4); Lymphocytes Absolute Auto 0.6 X10*3/uL (1.2-4.9); Lymphocytes Percent Auto 9.4 % (20-40); Mean Corpuscular HGB Conc 33.6 g/dl (31.0-36.0); Mean Corpuscular Hemoglobin 31.7 pg (27.0-33.0); Mean Corpuscular Volume 94.1 fL (80.0-98.0); Mean Platelet Volume 9.2 fL (9.4-12.4); Monocytes Absolute Auto 0.1 X10*3/uL (0.1-1.2); Monocytes Percent Auto 1.8 % (2-11); Neutrophils Absolute Auto 5.9 x10*3/uL (2.0-8.3); Neutrophils Percent Auto 86.8 % (45-73); Platelet Count 203 X10*3/uL (160-400); Red Blood Count 4.58 X10*6/uL (4.60-5.80); White Blood Count 6.8 X10*3/uL (4.8-10.8)
[2021-12-14 19:45] VITALS: BP 124/55; PULSE 91; RESP 16; TEMP 36.8; O2SAT 99
[2021-12-14 19:55] LABS: COVID-19 Test Negative (Negative); IDNOW Serial# 55D5AD1C
[2021-12-14 19:56] LABS: Alanine Aminotransferase 12 U/L (0-40); Albumin Level 4.2 g/dL (3.5-5.0); Alkaline Phosphatase 115 U/L (39-117); Anion Gap 15 (12-20); Aspartate Amino Transferase 14 U/L (5-37); Bilirubin Direct 0.2 mg/dL (0.0-0.5); Bilirubin Total 0.3 mg/dL (0.0-1.0); Blood Urea Nitrogen 4 mg/dL (9-16); Calcium 8.8 mg/dL (8.4-10.2); Carbon Dioxide 24 mmol/L (22-29); Chloride 107 mmol/L (96-108); Creatinine Clr Calc Pharmacy 76.2; Estimated Glomerular Filt Rate > 60; Glucose Random 143 mg/dL (60-115); Lipase 15 U/L (8-78); Potassium 3.6 mmol/L (3.3-5.1); Sodium 142 mmol/L (135-145); Total Protein 6.7 g/dL (6.5-8.0)
[2021-12-14 19:59] LABS: B Type Natriuretic Peptide 14 pg/mL (<100)
[2021-12-14 20:01] LABS: Lactic Acid 2.1 mmol/L (0.5-2.0)
[2021-12-14 21:36] LABS: Reflex Lactate? Lactic Acid Added
== END 2021-12-14 21:37 | disposition home or self-care (01) ==
PROVIDERS: Emergency Provider Emergency Medicine; PCP Internal Medicine
DX: J44.9 Chronic obstructive pulmonary disease, unspecified (principal); R06.02 Shortness of breath; F17.210 Nicotine dependence, cigarettes, uncomplicated; Z79.899 Other long term (current) drug therapy; Z71.6 Tobacco abuse counseling; Z20.822 Contact with and (suspected) exposure to COVID-19
CPT/HCPCS: 36415; 71045; 80048; 80076; 83605; 83690; 83880; 85025; 87040; 87635; 93005; 94640; 94644; 96365; 96366; 99284; J3475

== ENCOUNTER 2022-01-11 20:10 | Emergency (ER) | payer OTHER, SELFPAY ==
--- NOTE | ~2022-01-11 | XR_ITS ---
EXAMINATION: XR CHEST CLINICAL INFORMATION: Cough, shortness of breath. COMPARISON: None TECHNIQUE: 2 views of the chest were obtained. FINDINGS: The lungs are hyperinflated but clear of acute process. Heart size and pulmonary vascularity is normal. No gross bony abnormality seen. XR/XR chest 2V IMPRESSION: Hyperinflated lungs without any acute process.
[2022-01-11 20:27] VITALS: BP 97/64; PULSE 97; RESP 28; TEMP 36.9; O2SAT 98
[2022-01-11 20:28] VITALS: BP 146/65; BP 97/64; PULSE 77; PULSE 98; RESP 26; TEMP 36; O2SAT 98; BMI 20.2
--- NOTE | 2022-01-11 21:04 | ED.SOB ---
HPI - SOB/Dyspnea General Chief Complaint: Dyspnea Stated Complaint: anxiety Time Seen by Provider: 01/11/22 20:48 Source: patient Mode of arrival: EMS Limitations: no limitations History of Present Illness HPI Narrative: 71-year-old male who presents emergency department for evaluation of shortness of breath and feeling anxious. The patient has a history of COPD. He states that he always feels short of breath. He states that this morning however his shortness of breath got worse. He did use his albuterol nebulizer 3-4 times with no improvement. He also used Ventolin inhaler 4 times. He has been compliant with his medications as well. He states that his shortness of breath his mid very anxious and he did take Seroquel in Ativan with no improvement of his anxiety. He is also complaining of chest tightness. This is intermittent and worse with breathing. He points to his sternum. He states the pain is 6/10 at its worse. He states that he has a chronic cough which is worse but is nonproductive. He denied fever, chills, nausea, vomiting, diarrhea, myalgias arthralgias. He states that over the past 4 days he has had rhinorrhea. MD elicited complaint: shortness of breath Pertinent past history: COPD and other (Sternal chest tightness, intermittent) Onset (ago): day(s) (1) Context: anxiety Timing: constant Severity: moderate (Is 6/10) Exacerbating factors: exertion, movement, coughing, inspiration and stress Relieving factors: nothing Known history of: COPD Associated symptoms: chest pain, pain with inspiration and cough Treatment prior to arrival: bronchodilator Related Data Home oxygen amount: none Home Medications Medication Instructions Recorded Confirmed albuterol sulfate 90 mcg/actuation 2 puff INHALATION BID 06/14/21 10/25/21 aerosol inhaler (Ventolin HFA) acetaminophen 325 mg tablet 650 mg PO BID PRN 08/03/21 10/25/21 Previous Rx's Medication Instructions Recorded albuterol sulfate 2.5 mg (3 mL) INHALATION TID PRN 05/30/21 #25 units aspirin 81 mg tablet,delayed 81 mg PO DAILY #30 tab 05/30/21 release atorvastatin 40 mg tablet 1 tab PO BEDTIME #30 tab 05/30/21 famotidine 20 mg tablet 1 tab PO BID #60 tab 05/30/21 lorazepam 0.5 mg tablet 0.5 mg PO TID PRN 30 Days #90 tab 05/30/21 losartan 100 mg tablet 1 tab PO DAILY #30 tab 05/30/21 quetiapine 100 mg tablet 100 mg PO TID PRN #90 tab 05/30/21 quetiapine 400 mg tablet 400 mg PO BEDTIME #30 tab 05/30/21 tamsulosin 0.4 mg capsule 2 cap PO DAILY 30 Days #120 cap 05/30/21 tiotropium bromide 1.25 2 puff INHALATION DAILY #6 g 05/30/21 mcg/actuation mist for inhalation (Spiriva Respimat) prednisone 20 mg tablet 40 mg PO DAILY #10 tab 10/30/21 albuterol sulfate 90 mcg/actuation 1 inh INHALATION QID PRN #6.7 g 12/14/21 aerosol inhaler (ProAir HFA) azithromycin 250 mg tablet See Rx Instructions .ROUTE 12/14/21 (Zithromax Z-William) .COMPLEX #6 tab prednisone 20 mg tablet 20 mg PO BID #8 tab 12/14/21 prednisone 20 mg tablet 60 mg PO DAILY 5 Days #15 tab 01/11/22 Allergies Allergy/AdvReac Type Severity Reaction Status Date / Time codeine [CODEINE] Allergy Intermediate HIVES Verified 07/27/21 10:33 Review of Systems Review of Systems: Yes all other systems are reviewed and are negative [facility] Past Medical History [facility] Narrative: Social history: The patient states that he lives in a boarding house. He continues to smoke cigarettes. He smokes 6 cigarettes per day and he has smoked for 60 years. He denies alcohol and drug use. Medical History Anxiety BPH (benign prostatic hyperplasia) COPD (chronic obstructive pulmonary disease) Hepatitis C Hyperlipidemia Hypertension Left tibial fracture Nicotine dependence, cigarettes, uncomplicated Schizoaffective disorder, bipolar type Schizophrenia Surgical History History of bronchoscopy History of elbow surgery Social History Social History Household Members: Other Household Members Other:: senior care in [place] Housing: Other Housing Other:: senior care Do you presently have visiting nurse or other home services: No Alcohol intake: never Patient Tobacco Use Status: Current everyday Tobacco user Tobacco use type: Cigarette Cigarette Packs Per Day: 0.2 Cigarettes Per Day: 4.0 Years Smoked: 50 e-Cigarette/Vaping Use: Currently Using Second Hand Smoke Exposure: Yes Use of substances other than those prescribed or required for medical reasons: No Advance Directives: Yes Advance Directives on File: Yes Advance Directives Date on File: 08/18/20 service: No Current occupational status: disabled Sexual orientation: Straight/Heterosexual Physical Exam Vital Signs: Vital Signs: Last Vital Signs Temp 97.7 F 01/11/22 22:14 Pulse 97 01/11/22 22:14 Resp 28 H 01/11/22 22:14 BP 84/63 L 01/11/22 22:14 Pulse Ox 93 01/11/22 22:14 BMI result Body Mass Index 20.2 Const: General: cooperative and no acute distress Orientation/consciousness: oriented to person and oriented to place Limitations: no limitations HEENT: Head: Yes normal to inspection, Yes normocephalic and Yes atraumatic Ears: external ears normal General nose exam: Normal external nose present Face and sinus: Yes normal facial exam Mouth: Normal oral and palatal mucosa present Throat: Yes posterior oropharynx normal Eyes: General: appearance normal, both eyes and all related structures Pupils: Equal, round and reactive pupils present Neck: Neck: Yes normal visual inspection, Yes no lymphadenopathy, Yes trachea midline and Yes supple Chest: Chest palpation & inspection: normal inspection of the chest and normal palpation of entire chest wall Resp: Effort & Inspection: normal respiratory effort and able to speak in complete sentences Auscultation: wheezes (Diffuse , symmetric) Cardio: Rate: regular rate Rhythm: regular rhythm Heart sounds: S1 normal heart sound present, S2 normal heart sound present and no murmurs GI: Inspection: Yes normal to inspection Palpation (GI): Soft to palpation, nontender and no guarding Auscultation: normal bowel sounds : General: Yes no CVA tenderness Back/Spine/Pelvis: Back: no CVA tenderness Skin: General skin exam: no rashes or lesions noted Neuro: General: oriented to person and oriented to place Cranial nerves: Yes CN's II-XII intact bilaterally and Yes Equal, round and reactive pupils present Cognition (Neuro): normal cognition Motor exam (neuro): 5/5 motor strength present throughout Extrem: General: Yes normal to inspection Psych: Appearance: grossly normal Speech and movement: Normal speech and movement present Affect: normal affect Attitude: cooperative Thought process: Normal thought process present Thought content: Normal thought content present Course Course Course Narrative: 71-year-old male who presents emergency department for evaluation shortness of breath, nonproductive cough and anxiety which started this morning. The patient has been taking his medications at home with only minimal relief his symptoms. He came to the emergency department by ambulance. Vital signs revealed elevated respiratory rate of 28 otherwise were unremarkable, O2 saturation on room air was 98%. Lung exam did reveal diffuse wheezing. Differential includes was not limited to COPD exacerbation, pneumonia, viral illness, anxiety. Laboratory evaluation was ordered. EKG and two view chest x-ray will be obtained. Patient was ordered to get an albuterol nebulizer 5 mg and Ativan 1 mg orally. 2230: Patient's laboratory evaluation was unremarkable. The patient's chest x-ray revealed no evidence of pneumonia. Patient did get improvement with the above treatment but he still is feeling anxious therefore he was given another dose of Ativan 1 mg orally. This time I believe the patient is having a COPD exacerbation. I do not think he needs an antibiotic. The patient will be started on prednisone 60 mg once a day for 5 days. Patient did have a documented low blood pressure but I think this is consistent with his baseline and does not represent an infectious process. MDM - SOB/Dyspnea Lab Data Result diagrams: 01/11/22 21:21 01/11/22 21:21 Labs: Lab Results 01/11/22 01/11/22 01/11/22 Range/Units 21:21 21:21 21:21 WBC 4.8 (4.8-10.8) X10*3/uL RBC 4.48 L (4.60-5.80) X10*6/uL Hgb 13.9 L (14.0-18.0) g/dl Hct 41.3 L (42.0-52.0) % MCV 92.2 (80.0-98.0) fL MCH 31.0 (27.0-33.0) pg MCHC 33.7 (31.0-36.0) g/dl RDW 12.3 (11.0-16.0) % Plt Count 261 D (160-400) X10*3/uL MPV 9.0 L (9.4-12.4) fL Immature Gran % (Auto) 0.2 (0.0-0.4) % Neut % (Auto) 61.0 (45-73) % Lymph % (Auto) 19.8 L (20-40) % [place] % (Auto) 11.6 H (2-11) % Eos % (Auto) 6.8 H (0-4) % Baso % (Auto) 0.6 (0-2) % Lymph # (Auto) 1.0 L (1.2-4.9) X10*3/uL [place] # (Auto) 0.6 (0.1-1.2) X10*3/uL Eos # (Auto) 0.3 (0.0-0.4) X10*3/uL Baso # (Auto) 0.0 (0.0-0.2) X10*3/uL Abs Immat Gran (auto) 0.01 (0.00-0.03) X10*3/uL Absolute Neuts (auto) 3.0 (2.0-8.3) x10*3/uL Absolute Nucleated RBC 0.000 (0.0-0.012) X10*3/uL Nucleated RBC % (auto) 0.0 (0.0-0.2) /100WBC Sodium 143 (135-145) mmol/L Potassium 3.8 (3.3-5.1) mmol/L Chloride 107 (96-108) mmol/L Carbon Dioxide 27 (22-29) mmol/L Anion Gap 13 (12-20) BUN 6 L (9-16) mg/dL Creatinine 0.76 (0.5-1.4) mg/dL Estim Creat Clear Calc 85.5 Estimated GFR > 60 Random Glucose 113 (60-115) mg/dL Calcium 9.1 (8.4-10.2) mg/dL Total Bilirubin 0.6 (0.0-1.0) mg/dL AST 11 (5-37) U/L ALT 6 (0-40) U/L Alkaline Phosphatase 121 H (39-117) U/L Troponin I High Sens (<3.5-35.0) ng/L B-Natriuretic Peptide 12 (<100) pg/mL Total Protein 6.7 (6.5-8.0) g/dL Albumin 4.0 (3.5-5.0) g/dL COVID-19 (RASHEED) (Negative) COVID-19 Clin Com Influenza Type A (NUSRAT) (Negative) Influenza Type B (NUSRAT) (Negative) Influenza A & B Note 01/11/22 01/11/22 01/11/22 Range/Units 21:21 21:21 21:21 WBC (4.8-10.8) X10*3/uL RBC (4.60-5.80) X10*6/uL Hgb (14.0-18.0) g/dl Hct (42.0-52.0) % MCV (80.0-98.0) fL MCH (27.0-33.0) pg MCHC (31.0-36.0) g/dl RDW (11.0-16.0) % Plt Count (160-400) X10*3/uL MPV (9.4-12.4) fL Immature Gran % (Auto) (0.0-0.4) % Neut % (Auto) (45-73) % Lymph % (Auto) (20-40) % [place] % (Auto) (2-11) % Eos % (Auto) (0-4) % Baso % (Auto) (0-2) % Lymph # (Auto) (1.2-4.9) X10*3/uL [place] # (Auto) (0.1-1.2) X10*3/uL Eos # (Auto) (0.0-0.4) X10*3/uL Baso # (Auto) (0.0-0.2) X10*3/uL Abs Immat Gran (auto) (0.00-0.03) X10*3/uL Absolute Neuts (auto) (2.0-8.3) x10*3/uL Absolute Nucleated RBC (0.0-0.012) X10*3/uL Nucleated RBC % (auto) (0.0-0.2) /100WBC Sodium (135-145) mmol/L Potassium (3.3-5.1) mmol/L Chloride (96-108) mmol/L Carbon Dioxide (22-29) mmol/L Anion Gap (12-20) BUN (9-16) mg/dL Creatinine (0.5-1.4) mg/dL Estim Creat Clear Calc Estimated GFR Random Glucose (60-115) mg/dL Calcium (8.4-10.2) mg/dL Total Bilirubin (0.0-1.0) mg/dL AST (5-37) U/L ALT (0-40) U/L Alkaline Phosphatase (39-117) U/L Troponin I High Sens < 3.5 (<3.5-35.0) ng/L B-Natriuretic Peptide (<100) pg/mL Total Protein (6.5-8.0) g/dL Albumin (3.5-5.0) g/dL COVID-19 (RASHEED) Negative (Negative) COVID-19 Clin Com See Note Influenza Type A (NUSRAT) Negative (Negative) Influenza Type B (NUSRAT) Negative (Negative) Influenza A & B Note See Note Discharge Plan Discharge Clinical Impression: Acute exacerbation of chronic obstructive pulmonary disease (COPD) Patient Disposition: Home, Self-Care Instructions: COPD (Chronic Obstructive Pulmonary Disease) (ED) Additional Instructions: Your blood work was normal. Your chest x-ray was unremarkable. Your COVID-19 influenza tests were negative. Your treated with an albuterol nebulizer, Ativan orally and steroids IV. Your shortness of breath is most likely caused by an exacerbation of your COPD. Take prednisone 20 mg pills, 3 pills once a day for 5 days. Continue taking your other medications as prescribed by your doctor including nebulizers in your inhalers. Follow-up with your doctor in 2 days. Please return to the emergency department if your symptoms get worse or if you develop any symptoms that are concerning to you. Prescriptions: New prednisone 20 mg tablet 60 mg PO DAILY 5 Days Qty: 15 0RF No Action quetiapine 100 mg Tablet 100 mg PO TID PRN (Reason: agitation) Qty: 90 0RF quetiapine 400 mg Tablet 400 mg PO BEDTIME Qty: 30 0RF lorazepam 0.5 mg Tablet 0.5 mg PO TID PRN (Reason: Anxiety) 30 Days Qty: 90 0RF atorvastatin 40 mg tablet 1 tab PO BEDTIME Qty: 30 0RF albuterol sulfate 2.5 mg /3 mL (0.083 %) solution for nebulization 2.5 mg inhalation TID PRN (Reason: Dyspnea) Qty: 25 2RF aspirin 81 mg tablet,delayed release (DR/EC) 81 mg PO DAILY Qty: 30 0RF famotidine 20 mg tablet 1 tab PO BID Qty: 60 0RF tamsulosin 0.4 mg capsule 2 cap PO DAILY 30 Days Qty: 120 0RF losartan 100 mg tablet 1 tab PO DAILY Qty: 30 0RF Spiriva Respimat 1.25 mcg/actuation mist 2 puff inhalation DAILY Qty: 6 0RF albuterol sulfate [Ventolin HFA] 90 mcg/actuation HFA aerosol inhaler 2 puff inhalation BID 0RF azithromycin [Zithromax Z-Wliliam] 250 mg tablet See Rx Instructions .ROUTE .COMPLEX Qty: 6 0RF Rx Instructions: For 250 mg dose pack: take 500 mg today (day 1), then 250 mg for 4 days (days 2-5) prednisone 20 mg tablet 20 mg PO BID Qty: 8 0RF albuterol sulfate [ProAir HFA] 90 mcg/actuation HFA aerosol inhaler 1 inh inhalation QID PRN (Reason: shortness of breath or wheezing) Qty: 6.7 0RF acetaminophen 325 mg Tablet 650 mg PO BID PRN (Reason: Breakthrough Pain, Mild) 0RF prednisone 20 mg tablet 40 mg PO DAILY Qty: 10 0RF
[2022-01-11] MEDS: LORazepam 1 MG TABLET PO ×2 (21:26→22:20)
[2022-01-11] MEDS: methylPREDNISolone Sod Succ 125 MG/2 ML VIAL IVPUSH (21:26)
[2022-01-11] MEDS: Albuterol Sulfate (0.083%) 2.5 MG/3 ML VIAL.NEB 5 MG INHALE (21:28)
[2022-01-11 21:29] VITALS: PULSE 99; RESP 26; O2SAT 91
[2022-01-11 21:29] LABS: MANUAL DIFF FLAG NO
[2022-01-11 21:33] LABS: Basophils Percent Auto 0.6 % (0-2); Eosinophils Absolute Auto 0.3 X10*3/uL (0.0-0.4); Eosinophils Percent Auto 6.8 % (0-4); Hematocrit 41.3 % (42.0-52.0); Hemoglobin 13.9 g/dl (14.0-18.0); Imm Gran Abs Auto 0.01 X10*3/uL (0.00-0.03); Imm Gran Pct Auto 0.2 % (0.0-0.4); Lymphocytes Percent Auto 19.8 % (20-40); Mean Corpuscular HGB Conc 33.7 g/dl (31.0-36.0); Mean Corpuscular Volume 92.2 fL (80.0-98.0); Monocytes Absolute Auto 0.6 X10*3/uL (0.1-1.2); Monocytes Percent Auto 11.6 % (2-11); Platelet Count 261 X10*3/uL (160-400); Red Blood Count 4.48 X10*6/uL (4.60-5.80); Red Cell Distribution Width 12.3 % (11.0-16.0); White Blood Count 4.8 X10*3/uL (4.8-10.8)
[2022-01-11 21:50] LABS: Alanine Aminotransferase 6 U/L (0-40); Alkaline Phosphatase 121 U/L (39-117); Anion Gap 13 (12-20); Aspartate Amino Transferase 11 U/L (5-37); Bilirubin Total 0.6 mg/dL (0.0-1.0); Blood Urea Nitrogen 6 mg/dL (9-16); Calcium 9.1 mg/dL (8.4-10.2); Carbon Dioxide 27 mmol/L (22-29); Chloride 107 mmol/L (96-108); Creatinine Clr Calc Pharmacy 85.5; Estimated Glomerular Filt Rate > 60; Glucose Random 113 mg/dL (60-115); Potassium 3.8 mmol/L (3.3-5.1); Sodium 143 mmol/L (135-145); Total Protein 6.7 g/dL (6.5-8.0)
[2022-01-11 21:55] LABS: COVID-19 Test Negative (Negative); IDNOW Serial# 16C4AD1C; Influenza A Negative (Negative); Influenza B2 Negative (Negative)
[2022-01-11 21:56] LABS: B Type Natriuretic Peptide 12 pg/mL (<100); Troponin-I High Sensitivity < 3.5 ng/L (<3.5-35.0)
[2022-01-11 22:14] VITALS: BP 84/63; PULSE 97; RESP 28; TEMP 36.5; O2SAT 93
--- NOTE | 2022-01-11 22:20 | PC.NURSE ---
MD made aware of patients blood pressure.
[2022-01-12 00:32] VITALS: BP 97/60; PULSE 86; RESP 16; TEMP 36.5; O2SAT 92
== END 2022-01-12 01:06 | disposition home or self-care (01) ==
PROVIDERS: Emergency Provider Emergency Medicine Emergency Medical Services
DX: J44.1 Chronic obstructive pulmonary disease with (acute) exacerbation (principal); R06.02 Shortness of breath; F41.9 Anxiety disorder, unspecified; I10 Essential (primary) hypertension; F17.210 Nicotine dependence, cigarettes, uncomplicated; Z79.899 Other long term (current) drug therapy; Z20.822 Contact with and (suspected) exposure to COVID-19
CPT/HCPCS: 36415; 71046; 80053; 83880; 84484; 85025; 87502; 87635; 94640; 94644; 99284; 99285; J2930

== ENCOUNTER 2022-02-01 00:20 | Inpatient (IN) | payer OTHER, SELFPAY ==
[2022-02-01] VITALS (20 sets, daily range): BP systolic 77–135; BP diastolic 46–65; PULSE 60–119; RESP 18–30; TEMP 36.4–37.1; O2SAT 92–98; BMI 23.3
--- NOTE | ~2022-02-01 | XR_ITS ---
EXAMINATION: XR CHEST CLINICAL INFORMATION: COPD, shortness of breath COMPARISON: 01/11/2022 TECHNIQUE: Frontal view of the chest was obtained. FINDINGS: The lungs are hyperinflated, in keeping with underlying COPD. No focal consolidation is seen. No evidence of pneumothorax, pleural effusion, or pulmonary edema. Cardiac size is within normal limits. Calcification is present at the aortic arch. No acute osseous findings are seen. XR/XR chest 1V IMPRESSION: Hyperinflated lungs consistent with COPD. No acute cardiopulmonary findings.
--- NOTE | ~2022-02-01 | XR_ITS ---
EXAMINATION: XR BILATERAL HIPS WITH AP PELVIS CLINICAL INFORMATION: Patient fell now with pain COMPARISON: None TECHNIQUE: AP view of the pelvis and single views of each hip were obtained. FINDINGS: There is a subtle area of cortical offset along the lateral margin of the right hip subcapital region. The right hip itself is intact. No dislocation. The left hip and proximal left femur are intact. No fracture or destructive process. Pelvis intact. Ossific calcifications noted. XR/XR hip BI w PEL1V IMPRESSION: Query subtle fracture right subcapital region. CT recommended for further evaluation.
--- NOTE | ~2022-02-01 | FL_ITS ---
EXAMINATION: XR FLUOROSCOPY WITH IMAGES CLINICAL INFORMATION: Femoral neck fracture fixation COMPARISON: CT hip from 02/05/2022 TECHNIQUE: Fluoroscopy performed by Dr. Crews. Fluoroscopy time: Data not submitted/available DAP: Data not provided. Images: 2 images of the right hip are saved in the electronic picture archive. FL/FL guidance in OR FINDINGS AND IMPRESSION: Intraoperative fluoroscopic imaging guidance utilized for placement of three cannulated fixation screws across the subcapital femoral neck fracture. The femoral head is well-positioned within the acetabulum. The joint space is maintained. No displaced bone fragments. Please refer to the operative report.
--- NOTE | ~2022-02-01 | CT_ITS ---
EXAMINATION: CT HIP WITHOUT CONTRAST, RIGHT CLINICAL INFORMATION: Hip pain status post fall. Question fracture on radiograph from the same day. COMPARISON: Radiographs from the same date. TECHNIQUE: Multidetector image imaging was obtained through the right hip without contrast. Multiplanar reformatted images in coronal and sagittal orientations were submitted. This CT examination was performed using dose optimization techniques as appropriate, variously including the following: *Automated exposure control *Adjustment of mA and/or kV according to patient size (this includes techniques or standardized protocols for targeted exams where dose is matched to indication/reason for exam; i.e. extremities or head) *Use of iterative reconstruction technique DLP: 290 mGy-cm FINDINGS: There is a nondisplaced subcapital fracture of the right proximal femur. There is subtle impaction of the trabecular bone along the transverse band of sclerosis at the medial half of the fracture line. No significant distraction of the lateral half. No additional fractures or significant comminution. There is mild osteoarthritis of the right hip with small marginal osteophytes at the acetabulum and femoral head. Mild osteoarthritis at the pubic symphysis and right SI joint. No osseous lesions. Degenerative spondylosis is present in the lower lumbar spine with degenerative disc disease at L4-5 and L5-S1 as well as associated facet arthropathy at these levels. No fractures are identified in the imaged portions of the right innominate bone. Calcific atherosclerosis is evident in the right iliac and femoral arteries. Small right hip joint effusion. Small alignment intrapelvic free fluid is noted of uncertain etiology. CT/CT hip RT wo con IMPRESSION: 1. Acute nondisplaced right femoral subcapital fracture. No additional fractures. 2. Mild osteoarthritis in the right hip, pubic symphysis, and right SI joint.
--- NOTE | 2022-02-01 00:33 | ECG_ITS ---
Test Reason : DIFFICULTY BREATHING Blood Pressure : / mmHG Vent. Rate : 107 BPM Atrial Rate : 107 BPM P-R Int : 154 ms QRS Dur : 074 ms QT Int : 324 ms P-R-T Axes : 072 031 075 degrees QTc Int : 432 ms Sinus tachycardia Otherwise normal ECG When compared with ECG of 14-DEC-2021 19:36, No significant change was found Referred By: Tessie Tian Electronically Signed By:Mustapha Pink
--- NOTE | 2022-02-01 00:43 | ED.SOB ---
HPI - SOB/Dyspnea General Chief Complaint: Dyspnea Stated Complaint: DIFF BREATHING FROM [facility],PER EMS Time Seen by Provider: 02/01/22 00:25 Source: EMS Mode of arrival: EMS Limitations: other History of Present Illness HPI Narrative: Patient comes to the emergency room via EMS. The staff at the [facility] called because they noticed that the patient has shortness of breath. Patient states that he feels well. Patient is a poor historian. Other than difficulty breathing, EMS did not get any further report from the staff at the retirement. Patient is known to have COPD, recent exacerbation approximately 20 days ago Related Data Home Medications Medication Instructions Recorded Confirmed albuterol sulfate 90 mcg/actuation 2 puff INHALATION BID 06/14/21 10/25/21 aerosol inhaler (Ventolin HFA) acetaminophen 325 mg tablet 650 mg PO BID PRN 08/03/21 10/25/21 Previous Rx's Medication Instructions Recorded albuterol sulfate 2.5 mg (3 mL) INHALATION TID PRN 05/30/21 #25 units aspirin 81 mg tablet,delayed 81 mg PO DAILY #30 tab 05/30/21 release atorvastatin 40 mg tablet 1 tab PO BEDTIME #30 tab 05/30/21 famotidine 20 mg tablet 1 tab PO BID #60 tab 05/30/21 lorazepam 0.5 mg tablet 0.5 mg PO TID PRN 30 Days #90 tab 05/30/21 losartan 100 mg tablet 1 tab PO DAILY #30 tab 05/30/21 quetiapine 100 mg tablet 100 mg PO TID PRN #90 tab 05/30/21 quetiapine 400 mg tablet 400 mg PO BEDTIME #30 tab 05/30/21 tamsulosin 0.4 mg capsule 2 cap PO DAILY 30 Days #120 cap 05/30/21 tiotropium bromide 1.25 2 puff INHALATION DAILY #6 g 05/30/21 mcg/actuation mist for inhalation (Spiriva Respimat) prednisone 20 mg tablet 40 mg PO DAILY #10 tab 10/30/21 albuterol sulfate 90 mcg/actuation 1 inh INHALATION QID PRN #6.7 g 12/14/21 aerosol inhaler (ProAir HFA) azithromycin 250 mg tablet See Rx Instructions .ROUTE 12/14/21 (Zithromax Z-William) .COMPLEX #6 tab prednisone 20 mg tablet 20 mg PO BID #8 tab 12/14/21 prednisone 20 mg tablet 60 mg PO DAILY 5 Days #15 tab 01/11/22 Allergies Allergy/AdvReac Type Severity Reaction Status Date / Time codeine [CODEINE] Allergy Intermediate HIVES Verified 07/27/21 10:33 Review of Systems Review of Systems: Poor historian Constitutional : No Weight loss, No Fever, No Chills, No Night Sweats, No Fatigue, No Malaise ENT/Mouth : No Hearing loss, No Ear Pain, No Nasal Congestion, No Sinus Pain, No Hoarseness, No sore throat, No Rhinorrhea, No Swallowing Difficulty Eyes: No Eye Pain, No Swelling, No Redness, No Foreign Body, No Discharge, No Vision Changes Cardiovascular : No Chest Pain, No SOB, No Dyspnea on Exertion, No Orthopnea, No Edema, No Palpitations Respiratory : No Cough, No Sputum, No Wheezing, No Smoke Exposure, patient denies shortness of breath, per retirement, patient has been having shortness of breath Gastrointestinal : No Nausea, No Vomiting, No Diarrhea, No Constipation, No abdominal Pain, No Hematochezia, No Melena Genitourinary : no irregular bleeding, No Dysuria, No Urinary Frequency, No Hematuria, No Urinary Incontinence, No Urgency, No Flank Pain, No Urinary Flow Changes, No Hesitancy Musculoskeletal : No joint pain, No Myalgias, No Joint Swelling Skin : No Skin Lesions, No rash Neuro : No Weakness, No Numbness, No Paresthesias, No Loss of Consciousness, No Dizziness, No Headache Psych : No Anxiety/Panic, No Depression, No SI/HI/AH/VH, No Social Issues, Heme/Lymph: No Bruising, No Bleeding,No Lymphadenopathy Endocrine : No Polyuria, No Polydipsia, No Temperature Intolerance [facility] Past Medical History Medical History Anxiety BPH (benign prostatic hyperplasia) COPD (chronic obstructive pulmonary disease) Hepatitis C Hyperlipidemia Hypertension Left tibial fracture Nicotine dependence, cigarettes, uncomplicated Schizoaffective disorder, bipolar type Schizophrenia Surgical History History of bronchoscopy History of elbow surgery Social History Social History Household Members: Other Household Members Other:: retirement in [place] Housing: Other Housing Other:: retirement Do you presently have visiting nurse or other home services: No Alcohol intake: never Patient Tobacco Use Status: Current everyday Tobacco user Tobacco use type: Cigarette Cigarette Packs Per Day: 0.2 Cigarettes Per Day: 4.0 Years Smoked: 50 e-Cigarette/Vaping Use: Currently Using Second Hand Smoke Exposure: Yes Advance Directives: Yes Advance Directives on File: Yes Advance Directives Date on File: 08/18/20 service: No Current occupational status: disabled Sexual orientation: Straight/Heterosexual Physical Exam Vital Signs: Vital Signs: Last Vital Signs Temp 98.8 F 02/01/22 00:53 Pulse 92 02/01/22 01:22 Resp 20 02/01/22 01:22 BP 105/50 L 02/01/22 01:22 Pulse Ox 94 02/01/22 01:22 BMI result Body Mass Index 23.3 Const: Other: Appearance: Alert. Patient has increased work of breathing Eyes: Pupils equal, round and reactive to light. ENT: Pharynx normal. Neck: Normal inspection. Neck supple. No lymph nodes noted. No crepitus CVS: Normal heart rate and rhythm. Pulses normal. Normal S1 and S2 Respiratory: Patient is saturating 94% on room air. However, breath sounds eyes significantly diminished, very mild expiratory wheezing, very tight chest Abdomen: Soft and nontender. No rigidity. No distention. Skin: Skin warm and dry. Normal skin color. Normal skin turgor. Extremities: No lower extremity edema. No Lacerations. No Rash Neuro: Oriented X 3. No motor deficit. No sensory deficit. Moving all extremities. No slurred speech. CN 2 through 12 grossly intact Psych: calm, cooperative, normal affect Course Course Course Narrative: Patient being giving albuterol, DuoNeb, Solu-Medrol, magnesium, empirically being treated with ceftriaxone and azithromycin for COPD exacerbation. All of the labs, vitals and imaging are pending. I discussed with the patient's nurse to keep a very close eye on this patient, patient is not moving air, he is significantly tachypneic, patient may decompensate fast. After 3 DuoNebs, 1 hour long treatment, patient is starting to move more air. Patient is now talking in full sentences. Patient is receiving his nebulization treatments without any additional oxygen. Patient was also given ceftriaxone, azithromycin, 2 L of normal saline I discussed the patient with Dr. Dickey, patient being admitted. MDM - SOB/Dyspnea Lab Data Result diagrams: 02/01/22 00:59 02/01/22 00:59 Labs: Lab Results 02/01/22 02/01/22 02/01/22 Range/Units 00:59 00:59 00:59 WBC 6.8 (4.8-10.8) X10*3/uL RBC 4.05 L (4.60-5.80) X10*6/uL Hgb 12.8 L (14.0-18.0) g/dl Hct 37.6 L (42.0-52.0) % MCV 92.8 (80.0-98.0) fL MCH 31.6 (27.0-33.0) pg MCHC 34.0 (31.0-36.0) g/dl RDW 11.8 (11.0-16.0) % Plt Count 216 (160-400) X10*3/uL MPV 9.3 L (9.4-12.4) fL Immature Gran % (Auto) 0.3 (0.0-0.4) % Neut % (Auto) 77.1 H (45-73) % Lymph % (Auto) 10.5 L (20-40) % Person % (Auto) 8.9 (2-11) % Eos % (Auto) 2.8 (0-4) % Baso % (Auto) 0.4 (0-2) % Lymph # (Auto) 0.7 L (1.2-4.9) X10*3/uL Person # (Auto) 0.6 (0.1-1.2) X10*3/uL Eos # (Auto) 0.2 (0.0-0.4) X10*3/uL Baso # (Auto) 0.0 (0.0-0.2) X10*3/uL Abs Immat Gran (auto) 0.02 (0.00-0.03) X10*3/uL Absolute Neuts (auto) 5.3 (2.0-8.3) x10*3/uL Absolute Nucleated RBC 0.000 (0.0-0.012) X10*3/uL Nucleated RBC % (auto) 0.0 (0.0-0.2) /100WBC VBG pH (7.32-7.43) VBG pCO2 mmHg VBG pO2 mmHg VBG HCO3 (22-26) mmol/L VBG O2 Saturation % VBG Base Excess mmol/L Sodium 133 L (135-145) mmol/L Potassium 3.1 L (3.3-5.1) mmol/L Chloride 98 (96-108) mmol/L Carbon Dioxide 24 (22-29) mmol/L Anion Gap 14 (12-20) BUN 10 D (9-16) mg/dL Creatinine 1.57 H (0.5-1.4) mg/dL Estim Creat Clear Calc 40.0 Estimated GFR 44 Random Glucose 180 H D (60-115) mg/dL Lactic Acid 1.9 (0.5-2.0) mmol/L Calcium 8.6 (8.4-10.2) mg/dL Magnesium 4.3 H* (1.6-2.6) mg/dL Total Bilirubin 0.9 (0.0-1.0) mg/dL Direct Bilirubin 0.5 (0.0-0.5) mg/dL AST 14 (5-37) U/L ALT 8 (0-40) U/L Alkaline Phosphatase 96 D (39-117) U/L Troponin I High Sens (<3.5-35.0) ng/L B-Natriuretic Peptide (<100) pg/mL Total Protein 6.1 L (6.5-8.0) g/dL Albumin 3.6 (3.5-5.0) g/dL 02/01/22 02/01/22 Range/Units 00:59 01:08 WBC (4.8-10.8) X10*3/uL RBC (4.60-5.80) X10*6/uL Hgb (14.0-18.0) g/dl Hct (42.0-52.0) % MCV (80.0-98.0) fL MCH (27.0-33.0) pg MCHC (31.0-36.0) g/dl RDW (11.0-16.0) % Plt Count (160-400) X10*3/uL MPV (9.4-12.4) fL Immature Gran % (Auto) (0.0-0.4) % Neut % (Auto) (45-73) % Lymph % (Auto) (20-40) % Person % (Auto) (2-11) % Eos % (Auto) (0-4) % Baso % (Auto) (0-2) % Lymph # (Auto) (1.2-4.9) X10*3/uL Person # (Auto) (0.1-1.2) X10*3/uL Eos # (Auto) (0.0-0.4) X10*3/uL Baso # (Auto) (0.0-0.2) X10*3/uL Abs Immat Gran (auto) (0.00-0.03) X10*3/uL Absolute Neuts (auto) (2.0-8.3) x10*3/uL Absolute Nucleated RBC (0.0-0.012) X10*3/uL Nucleated RBC % (auto) (0.0-0.2) /100WBC VBG pH 7.39 (7.32-7.43) VBG pCO2 33 mmHg VBG pO2 63 mmHg VBG HCO3 20 L (22-26) mmol/L VBG O2 Saturation 88.0 % VBG Base Excess -3.2 mmol/L Sodium (135-145) mmol/L Potassium (3.3-5.1) mmol/L Chloride (96-108) mmol/L Carbon Dioxide (22-29) mmol/L Anion Gap (12-20) BUN (9-16) mg/dL Creatinine (0.5-1.4) mg/dL Estim Creat Clear Calc Estimated GFR Random Glucose (60-115) mg/dL Lactic Acid (0.5-2.0) mmol/L Calcium (8.4-10.2) mg/dL Magnesium (1.6-2.6) mg/dL Total Bilirubin (0.0-1.0) mg/dL Direct Bilirubin (0.0-0.5) mg/dL AST (5-37) U/L ALT (0-40) U/L Alkaline Phosphatase (39-117) U/L Troponin I High Sens 7.0 D (<3.5-35.0) ng/L B-Natriuretic Peptide 13 (<100) pg/mL Total Protein (6.5-8.0) g/dL Albumin (3.5-5.0) g/dL Imaging Data Chest x-ray: Radiologist's impression: FINDINGS: The lungs are hyperinflated, in keeping with underlying COPD. No focal consolidation is seen. No evidence of pneumothorax, pleural effusion, or pulmonary edema. Cardiac size is within normal limits. Calcification is present at the aortic arch. No acute osseous findings are seen. XR/XR chest 1V IMPRESSION: Hyperinflated lungs consistent with COPD. No acute cardiopulmonary findings. Critical Care Time Critical Care Time Critical Care Time: Yes Total Critical Care Time: 60 Attestation: I have personally provided critical care time. Time includes review of lab data, radiology results, discussion with consultants, and monitoring for potential decompensation. Intervention performed as documented. Discharge Plan Discharge Clinical Impression: COPD (chronic obstructive pulmonary disease), LYNETTE (acute kidney injury), Acute hypokalemia Patient Disposition: Admitted As Inpatient Prescriptions: No Action quetiapine 100 mg Tablet 100 mg PO TID PRN (Reason: agitation) Qty: 90 0RF quetiapine 400 mg Tablet 400 mg PO BEDTIME Qty: 30 0RF lorazepam 0.5 mg Tablet 0.5 mg PO TID PRN (Reason: Anxiety) 30 Days Qty: 90 0RF atorvastatin 40 mg tablet 1 tab PO BEDTIME Qty: 30 0RF albuterol sulfate 2.5 mg /3 mL (0.083 %) solution for nebulization 2.5 mg inhalation TID PRN (Reason: Dyspnea) Qty: 25 2RF aspirin 81 mg tablet,delayed release (DR/EC) 81 mg PO DAILY Qty: 30 0RF famotidine 20 mg tablet 1 tab PO BID Qty: 60 0RF tamsulosin 0.4 mg capsule 2 cap PO DAILY 30 Days Qty: 120 0RF losartan 100 mg tablet 1 tab PO DAILY Qty: 30 0RF Spiriva Respimat 1.25 mcg/actuation mist 2 puff inhalation DAILY Qty: 6 0RF albuterol sulfate [Ventolin HFA] 90 mcg/actuation HFA aerosol inhaler 2 puff inhalation BID 0RF azithromycin [Zithromax Z-William] 250 mg tablet See Rx Instructions .ROUTE .COMPLEX Qty: 6 0RF Rx Instructions: For 250 mg dose pack: take 500 mg today (day 1), then 250 mg for 4 days (days 2-5) prednisone 20 mg tablet 20 mg PO BID Qty: 8 0RF albuterol sulfate [ProAir HFA] 90 mcg/actuation HFA aerosol inhaler 1 inh inhalation QID PRN (Reason: shortness of breath or wheezing) Qty: 6.7 0RF acetaminophen 325 mg Tablet 650 mg PO BID PRN (Reason: Breakthrough Pain, Mild) 0RF prednisone 20 mg tablet 40 mg PO DAILY Qty: 10 0RF prednisone 20 mg tablet 60 mg PO DAILY 5 Days Qty: 15 0RF
[2022-02-01] MEDS: Albuterol/Iprat 2.5/0.5MG 3 ML AMPUL.NEB INHALE ×5 (00:45→15:30)
[2022-02-01] MEDS: Albuterol Sulfate (0.083%) 2.5 MG/3 ML VIAL.NEB 10 MG INHALE (00:45)
[2022-02-01] MEDS: methylPREDNISolone Sod Succ 125 MG/2 ML VIAL IVPUSH (00:57)
[2022-02-01] MEDS: cefTRIAXone sodium 1 GM in 0.9 % Sodium Chloride 50 ML IV (00:58)
[2022-02-01] MEDS: Magnesium Sulfate/H2O 2 GM/50 ML PIGGYBACK IV (00:58)
[2022-02-01] MEDS: 0.9 % Sodium Chloride 1,000 ML 999 ML IVCONT ×3 (00:58→09:03)
[2022-02-01 01:11] LABS: MANUAL DIFF FLAG NO
[2022-02-01 01:15] LABS: VBG Base Excess -3.2 mmol/L; VBG HCO3 20 mmol/L (22-26); VBG pCO2 33 mmHg; VBG pH 7.39 (7.32-7.43); VBG pO2 63 mmHg
[2022-02-01 01:17] LABS: Venous Blood Gas Refer to POC result
[2022-02-01] MEDS: Azithromycin 500 MG in 0.9 % Sodium Chloride 250 ML 125 MG IV (01:24)
[2022-02-01 01:26] LABS: Basophils Percent Auto 0.4 % (0-2); Eosinophils Absolute Auto 0.2 X10*3/uL (0.0-0.4); Eosinophils Percent Auto 2.8 % (0-4); Hematocrit 37.6 % (42.0-52.0); Hemoglobin 12.8 g/dl (14.0-18.0); Imm Gran Abs Auto 0.02 X10*3/uL (0.00-0.03); Imm Gran Pct Auto 0.3 % (0.0-0.4); Lymphocytes Absolute Auto 0.7 X10*3/uL (1.2-4.9); Lymphocytes Percent Auto 10.5 % (20-40); Mean Corpuscular Hemoglobin 31.6 pg (27.0-33.0); Mean Corpuscular Volume 92.8 fL (80.0-98.0); Mean Platelet Volume 9.3 fL (9.4-12.4); Monocytes Absolute Auto 0.6 X10*3/uL (0.1-1.2); Monocytes Percent Auto 8.9 % (2-11); Neutrophils Absolute Auto 5.3 x10*3/uL (2.0-8.3); Neutrophils Percent Auto 77.1 % (45-73); Platelet Count 216 X10*3/uL (160-400); Red Blood Count 4.05 X10*6/uL (4.60-5.80); Red Cell Distribution Width 11.8 % (11.0-16.0); White Blood Count 6.8 X10*3/uL (4.8-10.8)
[2022-02-01 01:29] LABS: Lactic Acid 1.9 mmol/L (0.5-2.0)
[2022-02-01 01:35] LABS: Alanine Aminotransferase 8 U/L (0-40); Albumin Level 3.6 g/dL (3.5-5.0); Alkaline Phosphatase 96 U/L (39-117); Anion Gap 14 (12-20); Aspartate Amino Transferase 14 U/L (5-37); Bilirubin Direct 0.5 mg/dL (0.0-0.5); Bilirubin Total 0.9 mg/dL (0.0-1.0); Blood Urea Nitrogen 10 mg/dL (9-16); Calcium 8.6 mg/dL (8.4-10.2); Carbon Dioxide 24 mmol/L (22-29); Chloride 98 mmol/L (96-108); Estimated Glomerular Filt Rate 44; Glucose Random 180 mg/dL (60-115); Magnesium 4.3 mg/dL (1.6-2.6); Potassium 3.1 mmol/L (3.3-5.1); Sodium 133 mmol/L (135-145); Total Protein 6.1 g/dL (6.5-8.0)
[2022-02-01 01:37] LABS: B Type Natriuretic Peptide 13 pg/mL (<100)
[2022-02-01 01:52] LABS: COVID-19 Test Negative (Negative); IDNOW Serial# 55D5AD1C
[2022-02-01 02:02] LABS: INTERNATIONAL NORM RATIO 1.2 (0.9-1.1); Prothrombin Time 14.2 SEC (9.9-13.0)
[2022-02-01] MEDS: Potassium Chloride/H20 10 MEQ/100 ML PIGGYBACK 100 MEQ IV ×4 (03:53→08:21)
--- NOTE | 2022-02-01 06:17 | P.HPHOSP_ITS ---
History of Present Illness Date of Service: 02/01/22 Chief Complaint: Shortness of breath 71-year-old male with a past medical history of hypertension, hyperlipidemia, COPD-not on home oxygen, tobacco dependence, schizoaffective disorder, bipolar, hep C, anxiety, BPH, history of lung mass, CAD, diastolic CHF, history of left subclavian artery occlusion, liver disease [facility] with a chief complaint of shortness of breath. Patient is a poor historian. Reportedly from the staff that patient noted to be visibly short of breath; hence sent to the ER for further evaluation. Patient denies any chest pain or palpitations. Denies any fever chills cough or sputum production. Denies any abdominal pain nausea vomiting or diarrhea. Review of all other systems is negative except mentioned above ER course: Per ER team patient on presentation noted to be in mild respiratory distress; title on examination; given nebulizations and steroids with mild improvement in respiratory status. Chest x-ray showed emphysematous lungs; patient was also given empiric antibiotics in the ER. Admitted for further management. [facility] Medical History Anxiety BPH (benign prostatic hyperplasia) COPD (chronic obstructive pulmonary disease) Hepatitis C Hyperlipidemia Hypertension Left tibial fracture Nicotine dependence, cigarettes, uncomplicated Schizoaffective disorder, bipolar type Schizophrenia Pertinent family history: Patient unable to provide information Surgical History History of bronchoscopy History of elbow surgery Social History Household Members: Other Household Members Other:: [facility] [place] Housing: Other Housing Other:: [facility] Do you presently have visiting nurse or other home services: No Alcohol intake: never Patient Tobacco Use Status: Current everyday Tobacco user Tobacco use type: Cigarette Cigarette Packs Per Day: 0.2 Cigarettes Per Day: 4.0 Years Smoked: 50 e-Cigarette/Vaping Use: Currently Using Second Hand Smoke Exposure: Yes Advance Directives: Yes Advance Directives on File: Yes Advance Directives Date on File: 08/18/20 service: No Current occupational status: disabled Sexual orientation: Straight/Heterosexual Meds Allergies Allergy/AdvReac Type Severity Reaction Status Date / Time codeine [CODEINE] Allergy Intermediate HIVES Verified 07/27/21 10:33 Active Medications: Current Medications Acetaminophen (Acetaminophen 325 Mg Tablet) 650 mg PO Q6H PRN PRN Reason: Pain, Mild (Pain Scale 1-3) Albuterol/Ipratropium (Albuterol/Iprat 2.5/0.5mg 3 Ml Ampul.Neb) 3 ml INHALE RQ4H WHILE AWAKE JAVIER Albuterol/Ipratropium (Albuterol/Iprat 2.5/0.5mg 3 Ml Ampul.Neb) 3 ml INHALE RQ4H PRN PRN Reason: Shortness of Breath/Wheezing Azithromycin (Azithromycin 500 Mg Tablet) 500 mg PO Q24H JAVIER Enoxaparin Sodium (Enoxaparin Sodium 40 Mg/0.4 Ml Syringe) 40 mg SUBCUT Q24H JAVIER Melatonin (Melatonin 3 Mg Tablet) 6 mg PO BEDTIME PRN PRN Reason: Insomnia Methylprednisolone Sodium Succinate (Methylprednisolone Sod Succ 40 Mg/Ml Vial) 40 mg IVPUSH Q6H JAVIER Senna (Sennosides 8.6 Mg Tablet) 17.2 mg PO BEDTIME PRN PRN Reason: Constipation Sodium Chloride (0.9 % Sodium Chloride Flush 3 Ml Syringe) 3 ml IVFLUSH QSHIFT JAVIER Home Medications Medication Instructions Recorded Confirmed Last Taken Type aspirin 81 mg tablet,delayed 1 tab PO DAILY 02/01/22 02/01/22 Unknown History release atorvastatin 40 mg tablet 1 tab PO DAILY 02/01/22 02/01/22 Unknown History docusate sodium 100 mg capsule 1 cap PO BID 02/01/22 02/01/22 Unknown History lorazepam 0.5 mg tablet 1 tab PO TID PRN 02/01/22 02/01/22 Unknown History losartan 100 mg tablet 1 tab PO DAILY 02/01/22 02/01/22 Unknown History morphine 15 mg immediate release mg PO 02/01/22 Unknown History tablet quetiapine 100 mg tablet mg PO 02/01/22 Unknown History quetiapine 400 mg tablet 1 tab PO BEDTIME 02/01/22 02/01/22 Unknown History tamsulosin 0.4 mg capsule 2 cap PO DAILY 02/01/22 02/01/22 Unknown History Physical Exam Vital Signs and Narrative: Vital Signs: Last Vital Signs Temp 97.8 F 02/01/22 05:21 Pulse 99 02/01/22 05:21 Resp 22 H 02/01/22 05:21 BP 135/64 02/01/22 05:21 Pulse Ox 97 02/01/22 05:21 BMI result Body Mass Index 23.3 Gen: Appears be in no acute distress HEENT: NCAT, Moist mucosa. Pulmonary: Diminished breath sounds CVS: Normal S1-S2 Abdomen: BS+, Soft, Nontender Extremities: Warm well perfused Neuro: Alert and awake. Results Labs CBC and Chem 7: 02/01/22 00:59 02/01/22 00:59 Labs: Laboratory Results - last 24 hr 02/01/22 02/01/22 02/01/22 00:59 00:59 00:59 MCV 92.8 MCH 31.6 MCHC 34.0 RDW 11.8 Plt Count 216 MPV 9.3 L Immature Gran % (Auto) 0.3 Neut % (Auto) 77.1 H Lymph % (Auto) 10.5 L Ogle % (Auto) 8.9 Eos % (Auto) 2.8 Baso % (Auto) 0.4 Lymph # (Auto) 0.7 L Ogle # (Auto) 0.6 Eos # (Auto) 0.2 Baso # (Auto) 0.0 Abs Immat Gran (auto) 0.02 Absolute Neuts (auto) 5.3 Absolute Nucleated RBC 0.000 Nucleated RBC % (auto) 0.0 PT INR VBG pH VBG pCO2 VBG pO2 VBG HCO3 VBG O2 Saturation VBG Base Excess Anion Gap 14 Estim Creat Clear Calc 40.0 Estimated GFR 44 Random Glucose 180 H D Lactic Acid 1.9 Calcium 8.6 Magnesium 4.3 H* Total Bilirubin 0.9 Direct Bilirubin 0.5 AST 14 ALT 8 Alkaline Phosphatase 96 D Troponin I High Sens B-Natriuretic Peptide Total Protein 6.1 L Albumin 3.6 COVID-19 ([facility]HEED) COVID-19 Clin Com 02/01/22 02/01/22 02/01/22 00:59 01:08 01:11 MCV MCH MCHC RDW Plt Count MPV Immature Gran % (Auto) Neut % (Auto) Lymph % (Auto) Ogle % (Auto) Eos % (Auto) Baso % (Auto) Lymph # (Auto) Ogle # (Auto) Eos # (Auto) Baso # (Auto) Abs Immat Gran (auto) Absolute Neuts (auto) Absolute Nucleated RBC Nucleated RBC % (auto) PT INR VBG pH 7.39 VBG pCO2 33 VBG pO2 63 VBG HCO3 20 L VBG O2 Saturation 88.0 VBG Base Excess -3.2 Anion Gap Estim Creat Clear Calc Estimated GFR Random Glucose Lactic Acid Calcium Magnesium Total Bilirubin Direct Bilirubin AST ALT Alkaline Phosphatase Troponin I High Sens 7.0 D B-Natriuretic Peptide 13 Total Protein Albumin COVID-19 (RASHEED) Negative COVID-19 Clin Com See Note 02/01/22 01:31 MCV MCH MCHC RDW Plt Count MPV Immature Gran % (Auto) Neut % (Auto) Lymph % (Auto) Ogle % (Auto) Eos % (Auto) Baso % (Auto) Lymph # (Auto) Ogle # (Auto) Eos # (Auto) Baso # (Auto) Abs Immat Gran (auto) Absolute Neuts (auto) Absolute Nucleated RBC Nucleated RBC % (auto) PT 14.2 H INR 1.2 H VBG pH VBG pCO2 VBG pO2 VBG HCO3 VBG O2 Saturation VBG Base Excess Anion Gap Estim Creat Clear Calc Estimated GFR Random Glucose Lactic Acid Calcium Magnesium Total Bilirubin Direct Bilirubin AST ALT Alkaline Phosphatase Troponin I High Sens B-Natriuretic Peptide Total Protein Albumin COVID-19 (RASHEED) COVID-19 Clin Com Imaging Radiologist's Impressions: Impressions Chest X-Ray 02/01/22 01:11 IMPRESSION: Hyperinflated lungs consistent with COPD. No acute cardiopulmonary findings. Assessment and Plan (1) COPD (chronic obstructive pulmonary disease): Status: Acute Plan 71-year-old male with a past medical history of hyperlipidemia, liver disease, tobacco dependence, diastolic CHF, COPD, hep C, schizophrenia [facility] with a chief complaint of shortness of breath. Noted to be in acute COPD exacerbation. Admitted for further management. Acute COPD exacerbation: Will give the patient on Solu-Medrol IV q.i.d. Nebulizations standing and p.r.n. Azithromycin Supplemental oxygen with goal oxygen saturation 93% For all other chronic conditions, home medications will be continued. DVT prophylaxis: Lovenox Code status: Full code Quality Stroke Does the patient have a stroke diagnosis?: No VTE Prior VTE?: No VTE Risk Level:: Medical - moderate - high VTE Device Contraindication: Treatment Not Indicated VTE Drug Contraindication: N/A - Med Ordered
[2022-02-01 07:29] LABS: Lactic Acid 3.7 mmol/L (0.5-2.0)
--- NOTE | 2022-02-01 07:31 | PHA.MEDREC ---
Addendum entered by Faina Mendoza rogers 02/01/22 09:24: Morphine dose confirmed with [facility] as 1 tablet q4h PRN Original Note: Pharmacy Consult ? Medication Reconciliation Pharmacy has reviewed the medication reconciliation complete by Ishan. Utilized [facility] HCP order progress and claim history. Updated quetiapine 100 mg dose to TID per [facility] note. Patient also on Albuterol and Spirivia per [facility] note. Claim history has a recent filled for mirphine, will call to confirm prescription directions at 0900 we they are open.
[2022-02-01] MEDS: Aspirin Enteric Coated 81 MG TABLET.DR PO (08:29)
[2022-02-01] MEDS: Enoxaparin Sodium 40 MG/0.4 ML SYRINGE SUBCUT (08:29)
[2022-02-01] MEDS: Docusate Sodium 100 MG CAPSULE PO ×2 (08:29→20:28)
--- NOTE | 2022-02-01 08:44 | PC.NURSE ---
Pt alert and oriented x4, calm and cooperative. Pt complains of generalized pain, states it is chronic at baseline now. IV intact infusing IV Potassium infusion now, pt tolerating well. Pt BP low ranging 70s/40s to 80s/50s, checked manually as well. MD Maldonado aware. Pt denies headache, dizziness, or weakness. Pt denies blurred vision. Pt states I feel fine now . Pt sitting up and moving in bed independently without issues. Pt ate breakfast and tolerated well.
[2022-02-01 09:04] LABS: Reflex Lactate? Lactic Acid Added
[2022-02-01 09:44] LABS: ~Lactic Acid-LAB USE ONLY 4.7 mmol/L (0.5-2.0)
--- NOTE | 2022-02-01 10:47 | PM.EVENT ---
Event Note Date of Service: 02/01/22 Event Note: Patient seen and examined, lab meds, vitals reviewed. Admitted this morning for acute exacerbation of COPD, low K, hypotensiove this morning assymptmatic, lactic acidosis not due to sepsis, rather due updraft, hypoxia.. Hypotension not due sepsis, d/t volume depletion.. IVF and monitor, correct potassium, other A/P per H and P of this morning.
[2022-02-01] MEDS: Famotidine 20 MG TABLET PO ×2 (11:08→20:28)
[2022-02-01] MEDS: 0.9 % Sodium Chloride 1,000 ML 100 ML IVCONT ×2 (11:08→20:31)
--- NOTE | 2022-02-01 12:43 | MHC.CM.PN ---
CM MET WITH PT WHO REPORTS HE LIVES IN A [facility] BUT IS INDEPENDENT WITH CARE. CM CALLED PENITENTIARY STAFF WHO STATED IT IS A [facility]. THEY REPORT THE PT IS INDEPENDENT WITH CARE AND FREE TO COME AND GO AT WILL PT IS HIS OWN PERSON AND HAS NO GUARDIAN ON FILE WITH THE PT HAS BEEN COVID-19 VACCINATED WITH [facility] AND RECEIVED TWO BOOSTER SHOTS HCP ON FILE PCP: YELITZA DELACRUZ IMM DELIVERED, COPY SEND TO [facility] STAFF INFORMED T/W THEY DO NOT ACCEPT PTS BACK ON THE WEEKEND. CM EXPLAINED IT IS A LONG WEEKEND AND THE PT WILL LIKELY NOT REQUIRE ACUTE CARE UNTIL FRIDAY. WHEN ASKED WHAT THE BARRIERS TO WEEKEND DC WERE, THEY INDICATED IT WOULD BE MEDICATIONS AND TRANSPORTATION. PTS MEDS MUST BE SENT TO [facility] AND BUBBLE PACKED FOR USE. IF PT DOES NOT REQUIRE NEW MEDICATIONS, CM EXPLAINED TRANSPORTATION WOULD BE ARRANGED FOR THE PT. DCP, RETURN TO PENITENTIARY VIA STAFF VS CHAIR VAN +-
[2022-02-01] MEDS: methylPREDNISolone Sod Succ 40 MG/ML VIAL IVPUSH ×2 (14:08→20:28)
--- NOTE | 2022-02-01 15:04 | PC.NURSE ---
Pt alert and oriented x4, calm and cooperative. Pt states generalized pain throughout body, states chronic. Reports SOB with exertion, denies SOB at rest. Denies chest pain. Vitals stable. Remains on room air now, O2 sat WNL. Pt ate lunch and tolerated well. Ambulating with staff with stand by assist and steady gait noted. Report given to Mireya in overflow.
[2022-02-01] MEDS: QUEtiapine Fumarate 100 MG TABLET PO ×2 (16:29→21:21)
--- NOTE | 2022-02-01 16:53 | PC.NURSE ---
Patient appears agitated , standing at bedside trying to turn TV on by pushing buttons on back of TV . Patient unsteady while reaching for TV, was asked to please have a seat became angry yelling at this tech stating I am 71 years old don't tell me what I can or can not do . Pt appeared SOB RN aware. Vital signs taken. Low BP reported and documented
[2022-02-01] MEDS: Atorvastatin Calcium 40 MG TABLET PO (20:28)
[2022-02-01] MEDS: Tamsulosin HCL 0.4 MG CAPSULE 0.8 MG PO (20:28)
[2022-02-01] MEDS: 0.9 % Sodium Chloride Flush 3 ML SYRINGE IVFLUSH (20:28)
[2022-02-01] MEDS: QUEtiapine Fumarate 400 MG TABLET PO (21:21)
[2022-02-02] VITALS (8 sets, daily range): BP systolic 97–167; BP diastolic 57–73; PULSE 86–97; RESP 17–23; TEMP 36–37; O2SAT 93–100
[2022-02-02] MEDS: methylPREDNISolone Sod Succ 40 MG/ML VIAL IVPUSH ×4 (01:07→18:49)
[2022-02-02] MEDS: LORazepam 0.5 MG TABLET PO ×2 (01:36→08:28)
--- NOTE | 2022-02-02 03:50 | PC.NURSE ---
Pt appears to be agitated and confused. Pt had to be redirected to his bed and then RT was called to give pt a duoneb treatment d/t pt being SOB. Pt then wandered to the nurses station and Rodri WRAY saw pt trying to elope from the unit. Pt then became increasingly agitated and verbally agressive. Pt stated he wanted to go to bed and pt walked away from his bed. Rodri WRAY tried to redirect pt to his bed and pt became upset and verbally confrontational with Rodri WRAY. Security was called by Bianca WRAY and pt was deescalated. Pt is now beginning to go back to sleep.
[2022-02-02] MEDS: Azithromycin 500 MG TABLET PO (06:02)
[2022-02-02 06:35] LABS: Basophils Percent Auto 0.1 % (0-2); Hematocrit 33.1 % (42.0-52.0); Hemoglobin 11.3 g/dl (14.0-18.0); Imm Gran Abs Auto 0.06 X10*3/uL (0.00-0.03); Imm Gran Pct Auto 0.5 % (0.0-0.4); Lymphocytes Absolute Auto 0.3 X10*3/uL (1.2-4.9); Lymphocytes Percent Auto 2.5 % (20-40); MANUAL DIFF FLAG SCAN; Mean Corpuscular HGB Conc 34.1 g/dl (31.0-36.0); Mean Corpuscular Hemoglobin 31.8 pg (27.0-33.0); Mean Corpuscular Volume 93.2 fL (80.0-98.0); Mean Platelet Volume 9.7 fL (9.4-12.4); Monocytes Absolute Auto 0.3 X10*3/uL (0.1-1.2); Monocytes Percent Auto 2.4 % (2-11); Neutrophils Absolute Auto 11.6 x10*3/uL (2.0-8.3); Neutrophils Percent Auto 94.5 % (45-73); Platelet Count 216 X10*3/uL (160-400); Red Blood Count 3.55 X10*6/uL (4.60-5.80); SCAN SMEAR FLAG 1; White Blood Count 12.2 X10*3/uL (4.8-10.8)
[2022-02-02 06:52] LABS: Anion Gap 13 (12-20); Blood Urea Nitrogen 8 mg/dL (9-16); Calcium 9.1 mg/dL (8.4-10.2); Carbon Dioxide 21 mmol/L (22-29); Chloride 113 mmol/L (96-108); Creatinine Clr Calc Pharmacy 83.8; Estimated Glomerular Filt Rate > 60; Glucose Random 140 mg/dL (60-115); Potassium 4.4 mmol/L (3.3-5.1); Sodium 143 mmol/L (135-145)
[2022-02-02 07:13] LABS: SLIDE REVIEW VERIFIED
[2022-02-02] MEDS: Losartan Potassium 50 MG TABLET 100 MG PO (08:26)
[2022-02-02] MEDS: Aspirin Enteric Coated 81 MG TABLET.DR PO (08:27)
[2022-02-02] MEDS: QUEtiapine Fumarate 100 MG TABLET PO ×3 (08:27→20:59)
[2022-02-02] MEDS: Enoxaparin Sodium 40 MG/0.4 ML SYRINGE SUBCUT (08:27)
[2022-02-02] MEDS: Famotidine 20 MG TABLET PO ×2 (08:27→20:59)
[2022-02-02] MEDS: Docusate Sodium 100 MG CAPSULE PO (08:27)
--- NOTE | 2022-02-02 08:27 | PC.NURSE ---
Radiology called and said that this patient was sitting in their waiting room. Tech walked down to retrieve patient and walked back to Bed 11 in overflow.
--- NOTE | 2022-02-02 08:39 | PC.NURSE ---
pt walkinh about, agitated. spoke with patint, gave 9a meds, pt redirected and now in bed.
[2022-02-02] MEDS: Albuterol/Iprat 2.5/0.5MG 3 ML AMPUL.NEB INHALE ×4 (08:57→19:26)
--- NOTE | 2022-02-02 10:43 | PC.NURSE ---
patient sleeping now. Plan is to admit, awaiting bed assignment.
[2022-02-02] MEDS: 0.9 % Sodium Chloride Flush 3 ML SYRINGE IVFLUSH ×2 (13:02→20:59)
[2022-02-02] MEDS: 0.9 % Sodium Chloride 1,000 ML 100 ML IVCONT (13:02)
--- NOTE | 2022-02-02 13:15 | PC.NURSE ---
Medications given late due to medications not being in the [facility]. Awaited pharmacy to bring to unit
--- NOTE | 2022-02-02 15:21 | P.PNIM_ITS ---
Subjective Subjective Date of Service: 02/02/22 Interval History: f/u on copd exacerbation interval history better but seem more confused Physical Exam Vital Signs: Vital Signs: Last Vital Signs Temp 96.8 F 02/02/22 12:00 Pulse 89 02/02/22 15:14 Resp 18 02/02/22 15:14 BP 111/57 L 02/02/22 12:00 Pulse Ox 100 02/02/22 12:00 BMI result Body Mass Index 23.3 Objective Data Active Medications Acetaminophen (Acetaminophen 325 Mg Tablet) 650 mg PO Q6H PRN PRN Reason: Pain, Mild (Pain Scale 1-3) Albuterol Sulfate (Albuterol Sulfate (0.083%) 2.5 Mg/3 Ml Vial.Neb) 2.5 mg IN HANDY Q4H PRN PRN Reason: Wheezing Albuterol Sulfate (Albuterol Sulfate 90 Mcg 8 Gm Inhaler) 2 puff INHALE Q4H PRN PRN Reason: Wheezing Albuterol/Ipratropium (Albuterol/Iprat 2.5/0.5mg 3 Ml Ampul.Neb) 3 ml INHALE RQ4H WHILE AWAKE [facility] Last Admin: 02/02/22 15:12 Dose: 3 ml Documented by: SALAS Albuterol/Ipratropium (Albuterol/Iprat 2.5/0.5mg 3 Ml Ampul.Neb) 3 ml INHALE RQ4H PRN PRN Reason: Shortness of Breath/Wheezing Aspirin (Aspirin Enteric Coated 81 Mg Tablet.) 81 mg PO DAILY [facility] Last Admin: 02/02/22 08:27 Dose: 81 mg Documented by: HUGO Atorvastatin Calcium (Atorvastatin Calcium 40 Mg Tablet) 40 mg PO BEDTIME [facility] Last Admin: 02/01/22 20:28 Dose: 40 mg Documented by: AMITA Azithromycin (Azithromycin 500 Mg Tablet) 500 mg PO Q24H [facility] Last Admin: 02/02/22 06:02 Dose: 500 mg Documented by: RENETTA Docusate Sodium (Docusate Sodium 100 Mg Capsule) 100 mg PO BID [facility] Last Admin: 02/02/22 08:27 Dose: 100 mg Documented by: HUGO Enoxaparin Sodium (Enoxaparin Sodium 40 Mg/0.4 Ml Syringe) 40 mg SUBCUT Q24H [facility] Last Admin: 02/02/22 08:27 Dose: 40 mg Documented by: HUGO Famotidine (Famotidine 20 Mg Tablet) 20 mg PO BID [facility] Last Admin: 02/02/22 08:27 Dose: 20 mg Documented by: HUGO Sodium Chloride (Ns) 1,000 mls @ 100 mls/hr IVCONT .Q10H [facility] Last Admin: 02/02/22 13:02 Dose: 100 mls/hr Documented by: BLACK Lorazepam (Lorazepam 0.5 Mg Tablet) 0.5 mg PO TID PRN PRN Reason: Anxiety Last Admin: 02/02/22 08:28 Dose: 0.5 mg Documented by: HUGO Losartan Potassium (Losartan Potassium 50 Mg Tablet) 100 mg PO DAILY [facility]; Protocol Last Admin: 02/02/22 08:26 Dose: 100 mg Documented by: HUGO Melatonin (Melatonin 3 Mg Tablet) 6 mg PO BEDTIME PRN PRN Reason: Insomnia Methylprednisolone Sodium Succinate (Methylprednisolone Sod Succ 40 Mg/Ml Vial) 40 mg IVPUSH Q6H [facility] Last Admin: 02/02/22 13:01 Dose: 40 mg Documented by: BLACK Quetiapine Fumarate (Quetiapine Fumarate 400 Mg Tablet) 400 mg PO BEDTIME [facility] Last Admin: 02/01/22 21:21 Dose: 400 mg Documented by: AMITA Quetiapine Fumarate (Quetiapine Fumarate 100 Mg Tablet) 100 mg PO TID [facility] Last Admin: 02/02/22 08:27 Dose: 100 mg Documented by: HUGO Senna (Sennosides 8.6 Mg Tablet) 17.2 mg PO BEDTIME PRN PRN Reason: Constipation Sodium Chloride (0.9 % Sodium Chloride Flush 3 Ml Syringe) 3 ml IVFLUSH QSHIFT [facility] Last Admin: 02/02/22 13:02 Dose: 3 ml Documented by: BLACK Tamsulosin HCl (Tamsulosin Hcl 0.4 Mg Capsule) 0.8 mg PO BEDTIME [facility] Last Admin: 02/01/22 20:28 Dose: 0.8 mg Documented by: AMITA Tiotropium [place] (Tiotropium [place] 18 Mcg Cap.W.Dev) 1 puff INHALE RDAILY [facility] Last Admin: 02/02/22 09:25 Dose: 1 puff Documented by: FRANCESCA Labs CBC & Chem 7: 02/02/22 06:12 02/02/22 06:12 Labs: Laboratory Results - last 24 hr 02/02/22 02/02/22 06:12 06:12 MCV 93.2 MCH 31.8 MCHC 34.1 RDW 12.0 Plt Count 216 MPV 9.7 Immature Gran % (Auto) 0.5 H Neut % (Auto) 94.5 H Lymph % (Auto) 2.5 L Teller % (Auto) 2.4 Eos % (Auto) 0.0 Baso % (Auto) 0.1 Lymph # (Auto) 0.3 L Teller # (Auto) 0.3 Eos # (Auto) 0.0 Baso # (Auto) 0.0 Abs Immat Gran (auto) 0.06 H Absolute Neuts (auto) 11.6 H Absolute Nucleated RBC 0.000 Nucleated RBC % (auto) 0.0 Smear Tech's Comments VERIFIED Anion Gap 13 Estim Creat Clear Calc 83.8 Estimated GFR > 60 Random Glucose 140 H Calcium 9.1 Microbiology Microbiology Results: Microbiology 02/01/22 01:00 Blood Culture - Preliminary Blood - Venous No growth after 24 hours. 02/01/22 00:59 Blood Culture - Preliminary Blood - Venous No growth after 24 hours. Assessment and Plan (1) LYNETTE (acute kidney injury): Status: Acute (2) COPD (chronic obstructive pulmonary disease): Status: Acute Plan 71-year-old male with a past medical history of hyperlipidemia, liver disease, tobacco dependence, diastolic CHF, COPD, hep C, schizophrenia presented to the hospital with a chief complaint of shortness of breath.? Noted to be in acute COPD exacerbation.? Admitted for further management. Acute COPD exacerbation: improving but not optimal continue IV Solumedrol for 1 more day Nebulizations standing and p.r.n. Azithromycin Supplemental oxygen with goal oxygen saturation 93% confusion seem to corelate with him not using oxygen DVT prophylaxis:? Lovenox Code status: Full code Inpatient for management of copd with IV steroid Quality Stroke Does the patient have a stroke diagnosis?: No VTE Prior VTE?: No VTE Risk Level:: Medical - moderate - high VTE Device Contraindication: Treatment Not Indicated VTE Drug Contraindication: N/A - Med Ordered
[2022-02-02] MEDS: Atorvastatin Calcium 40 MG TABLET PO (20:59)
[2022-02-02] MEDS: QUEtiapine Fumarate 400 MG TABLET PO (20:59)
[2022-02-02] MEDS: Tamsulosin HCL 0.4 MG CAPSULE 0.8 MG PO (20:59)
[2022-02-03] VITALS (7 sets, daily range): BP systolic 98–108; BP diastolic 55–72; PULSE 86–98; RESP 16–24; TEMP 36.3–37; O2SAT 94–96
[2022-02-03] MEDS: methylPREDNISolone Sod Succ 40 MG/ML VIAL IVPUSH ×4 (00:53→18:18)
[2022-02-03] MEDS: Azithromycin 500 MG TABLET PO (05:42)
[2022-02-03] MEDS: Albuterol/Iprat 2.5/0.5MG 3 ML AMPUL.NEB INHALE ×4 (08:16→20:18)
[2022-02-03] MEDS: QUEtiapine Fumarate 100 MG TABLET PO ×3 (09:47→19:34)
[2022-02-03] MEDS: Losartan Potassium 50 MG TABLET 100 MG PO (09:47)
[2022-02-03] MEDS: 0.9 % Sodium Chloride Flush 3 ML SYRINGE IVFLUSH ×2 (09:47→15:25)
[2022-02-03] MEDS: Famotidine 20 MG TABLET PO ×2 (09:47→19:32)
[2022-02-03] MEDS: Enoxaparin Sodium 40 MG/0.4 ML SYRINGE SUBCUT (09:47)
--- NOTE | 2022-02-03 10:45 | HO.PM.IMPN ---
Subjective Subjective Date of Service: 02/03/22 Interval History: f/u on copd exacerbation interval history : less confused, no sob Review of Systems no sob no fever Physical Exam Vital Signs: Vital Signs: Last Vital Signs Temp 97.5 F 02/03/22 08:00 Pulse 91 02/03/22 08:16 Resp 18 02/03/22 08:16 BP 108/62 02/03/22 08:00 Pulse Ox 96 02/03/22 08:00 BMI result Body Mass Index 23.3 Const: Other: General: AO X 2, no acute distress Resp: CTA bilateral CVS: S1,S2,RRR GI: +BS, NT, no distention Skin: No rash Neuro: motor grossly intact Psych: appropriate affect Objective Data Active Medications Acetaminophen (Acetaminophen 325 Mg Tablet) 650 mg PO Q6H PRN PRN Reason: Pain, Mild (Pain Scale 1-3) Albuterol Sulfate (Albuterol Sulfate (0.083%) 2.5 Mg/3 Ml Vial.Neb) 2.5 mg INHALE Q4H PRN PRN Reason: Wheezing Albuterol Sulfate (Albuterol Sulfate 90 Mcg 8 Gm Inhaler) 2 puff INHALE Q4H PRN PRN Reason: Wheezing Albuterol/Ipratropium (Albuterol/Iprat 2.5/0.5mg 3 Ml Ampul.Neb) 3 ml INHALE RQ4H WHILE AWAKE [facility] Last Admin: 02/03/22 08:16 Dose: 3 ml Documented by: SALAS Albuterol/Ipratropium (Albuterol/Iprat 2.5/0.5mg 3 Ml Ampul.Neb) 3 ml INHALE RQ4H PRN PRN Reason: Shortness of Breath/Wheezing Aspirin (Aspirin Enteric Coated 81 Mg Tablet.) 81 mg PO DAILY [facility] Last Admin: 02/03/22 09:48 Dose: Not Given Documented by: ELIZABET Non-Admin Reason: Patient Refused Atorvastatin Calcium (Atorvastatin Calcium 40 Mg Tablet) 40 mg PO BEDTIME [facility] Last Admin: 02/02/22 20:59 Dose: 40 mg Documented by: ALICIA Azithromycin (Azithromycin 500 Mg Tablet) 500 mg PO Q24H [facility] Last Admin: 02/03/22 05:42 Dose: 500 mg Documented by: ALICIA Docusate Sodium (Docusate Sodium 100 Mg Capsule) 100 mg PO BID [facility] Last Admin: 02/03/22 09:47 Dose: Not Given Documented by: ELIZABET Non-Admin Reason: Patient Refused Enoxaparin Sodium (Enoxaparin Sodium 40 Mg/0.4 Ml Syringe) 40 mg SUBCUT Q24H [facility] Last Admin: 02/03/22 09:47 Dose: 40 mg Documented by: ELIZABET Famotidine (Famotidine 20 Mg Tablet) 20 mg PO BID [facility] Last Admin: 02/03/22 09:47 Dose: 20 mg Documented by: ELIZABET Lorazepam (Lorazepam 0.5 Mg Tablet) 0.5 mg PO TID PRN PRN Reason: Anxiety Last Admin: 02/02/22 08:28 Dose: 0.5 mg Documented by: HUGO Losartan Potassium (Losartan Potassium 50 Mg Tablet) 100 mg PO DAILY [facility]; Protocol Last Admin: 02/03/22 09:47 Dose: 100 mg Documented by: ELIZABET Melatonin (Melatonin 3 Mg Tablet) 6 mg PO BEDTIME PRN PRN Reason: Insomnia Methylprednisolone Sodium Succinate (Methylprednisolone Sod Succ 40 Mg/Ml Vial) 40 mg IVPUSH Q6H [facility] Last Admin: 02/03/22 05:44 Dose: 40 mg Documented by: ALICIA Quetiapine Fumarate (Quetiapine Fumarate 400 Mg Tablet) 400 mg PO BEDTIME [facility] Last Admin: 02/02/22 20:59 Dose: 400 mg Documented by: ALICIA Quetiapine Fumarate (Quetiapine Fumarate 100 Mg Tablet) 100 mg PO TID [facility] Last Admin: 02/03/22 09:47 Dose: 100 mg Documented by: ELIZABET Senna (Sennosides 8.6 Mg Tablet) 17.2 mg PO BEDTIME PRN PRN Reason: Constipation Sodium Chloride (0.9 % Sodium Chloride Flush 3 Ml Syringe) 3 ml IVFLUSH QSHIFT [facility] Last Admin: 02/03/22 09:47 Dose: 3 ml Documented by: ELIZABET Tamsulosin HCl (Tamsulosin Hcl 0.4 Mg Capsule) 0.8 mg PO BEDTIME [facility] Last Admin: 02/02/22 20:59 Dose: 0.8 mg Documented by: ALICIA Tiotropium [place] (Tiotropium [place] 18 Mcg Cap.W.Dev) 1 puff INHALE [facility] Last Admin: 02/03/22 08:20 Dose: 1 puff Documented by: SALAS Labs CBC & Chem 7: 02/02/22 06:12 02/02/22 06:12 Microbiology Microbiology Results: Microbiology 02/01/22 01:00 Blood Culture - Preliminary Blood - Venous No growth after 48 hours. 02/01/22 00:59 Blood Culture - Preliminary Blood - Venous No growth after 48 hours. Assessment and Plan (1) LYNETTE (acute kidney injury): Status: Acute (2) COPD (chronic obstructive pulmonary disease): Status: Acute Plan 71-year-old male with a past medical history of hyperlipidemia, liver disease, tobacco dependence, diastolic CHF, COPD, hep C, schizophrenia presented to the hospital with a chief complaint of shortness of breath.? Noted to be in acute COPD exacerbation.? Admitted for further management. Acute COPD exacerbation: improving but not optimal continue IV Solumedrol for 1 more day Nebulizations standing and p.r.n. Azithromycin Supplemental oxygen with goal oxygen saturation 93% confusion seem to corelate with him not using oxygen DVT prophylaxis:? Lovenox Code status: Full code Inpatient for management of copd with IV steroid, not able to dc to custodial over the weekend Quality Stroke Does the patient have a stroke diagnosis?: No VTE Prior VTE?: No VTE Risk Level:: Medical - moderate - high VTE Device Contraindication: Treatment Not Indicated VTE Drug Contraindication: N/A - Med Ordered
[2022-02-03] MEDS: Docusate Sodium 100 MG CAPSULE PO (19:32)
[2022-02-03] MEDS: Atorvastatin Calcium 40 MG TABLET PO (19:32)
[2022-02-03] MEDS: QUEtiapine Fumarate 400 MG TABLET PO (19:32)
[2022-02-03] MEDS: Tamsulosin HCL 0.4 MG CAPSULE 0.8 MG PO (19:33)
[2022-02-04] VITALS: BP 180/76; PULSE 100; RESP 17; TEMP 36.5; O2SAT 95
[2022-02-04] MEDS: 0.9 % Sodium Chloride Flush 3 ML SYRINGE IVFLUSH ×3 (01:34→20:31)
[2022-02-04] MEDS: methylPREDNISolone Sod Succ 40 MG/ML VIAL IVPUSH (06:14)
[2022-02-04] MEDS: Azithromycin 500 MG TABLET PO (06:14)
[2022-02-04 07:43] VITALS: BP 184/89; PULSE 81; RESP 18; TEMP 36; O2SAT 96
[2022-02-04] MEDS: Aspirin Enteric Coated 81 MG TABLET.DR PO (08:40)
[2022-02-04] MEDS: Losartan Potassium 50 MG TABLET 100 MG PO (08:40)
[2022-02-04] MEDS: Enoxaparin Sodium 40 MG/0.4 ML SYRINGE SUBCUT (08:41)
[2022-02-04] MEDS: QUEtiapine Fumarate 100 MG TABLET PO ×2 (08:41→20:28)
--- NOTE | 2022-02-04 09:36 | HO.PM.IMPN ---
Subjective Subjective Date of Service: 02/04/22 Interval History: f/u on copd exacerbation interval history :no confusion, no shortness of breath, he is complaining of hip pain from falling at home before coming to the hospital. He is been walking ok Review of Systems no sob no fever Physical Exam Vital Signs: Vital Signs: Last Vital Signs Temp 96.8 F 02/04/22 07:43 Pulse 81 02/04/22 07:43 Resp 18 02/04/22 07:43 BP 184/89 H 02/04/22 07:43 Pulse Ox 96 02/04/22 07:43 BMI result Body Mass Index 23.3 Const: Other: General: AO X 2, no acute distress Resp: CTA bilateral CVS: S1,S2,RRR GI: +BS, NT, no distention Skin: No rash Neuro: motor grossly intact Psych: appropriate affect Objective Data Active Medications Acetaminophen (Acetaminophen 325 Mg Tablet) 650 mg PO Q6H PRN PRN Reason: Pain, Mild (Pain Scale 1-3) Albuterol Sulfate (Albuterol Sulfate (0.083%) 2.5 Mg/3 Ml Vial.Neb) 2.5 mg INHALE Q4H PRN PRN Reason: Wheezing Albuterol Sulfate (Albuterol Sulfate 90 Mcg 8 Gm Inhaler) 2 puff INHALE Q4H PRN PRN Reason: Wheezing Albuterol/Ipratropium (Albuterol/Iprat 2.5/0.5mg 3 Ml Ampul.Neb) 3 ml INHALE RQ4H WHILE AWAKE [facility] Last Admin: 02/04/22 07:32 Dose: Not Given Documented by: FABRIZIO Non-Admin Reason: Patient Refused Albuterol/Ipratropium (Albuterol/Iprat 2.5/0.5mg 3 Ml Ampul.Neb) 3 ml INHALE RQ4H PRN PRN Reason: Shortness of Breath/Wheezing Aspirin (Aspirin Enteric Coated 81 Mg Tablet.) 81 mg PO DAILY [facility] Last Admin: 02/04/22 08:40 Dose: 81 mg Documented by: ELIZABET Atorvastatin Calcium (Atorvastatin Calcium 40 Mg Tablet) 40 mg PO BEDTIME [facility] Last Admin: 02/03/22 19:32 Dose: 40 mg Documented by: ELSA Azithromycin (Azithromycin 500 Mg Tablet) 500 mg PO Q24H [facility] Last Admin: 02/04/22 06:14 Dose: 500 mg Documented by: ELSA Docusate Sodium (Docusate Sodium 100 Mg Capsule) 100 mg PO BID [facility] Last Admin: 02/04/22 08:44 Dose: Not Given Documented by: ELIZABET Non-Admin Reason: Patient Refused Enoxaparin Sodium (Enoxaparin Sodium 40 Mg/0.4 Ml Syringe) 40 mg SUBCUT Q24H [facility] Last Admin: 02/04/22 08:41 Dose: 40 mg Documented by: ELIZABET Famotidine (Famotidine 20 Mg Tablet) 20 mg PO BID [facility] Last Admin: 02/04/22 08:44 Dose: Not Given Documented by: ELIZABET Non-Admin Reason: Patient Refused Lorazepam (Lorazepam 0.5 Mg Tablet) 0.5 mg PO TID PRN PRN Reason: Anxiety Last Admin: 02/02/22 08:28 Dose: 0.5 mg Documented by: HUGO Losartan Potassium (Losartan Potassium 50 Mg Tablet) 100 mg PO DAILY [facility]; Protocol Last Admin: 02/04/22 08:40 Dose: 100 mg Documented by: ELIZABET Melatonin (Melatonin 3 Mg Tablet) 6 mg PO BEDTIME PRN PRN Reason: Insomnia Quetiapine Fumarate (Quetiapine Fumarate 400 Mg Tablet) 400 mg PO BEDTIME [facility] Last Admin: 02/03/22 19:32 Dose: 400 mg Documented by: Quetiapine Fumarate (Quetiapine Fumarate 100 Mg Tablet) 100 mg PO TID [facility] Last Admin: 02/04/22 08:41 Dose: 100 mg Documented by: ELIZABET Senna (Sennosides 8.6 Mg Tablet) 17.2 mg PO BEDTIME PRN PRN Reason: Constipation Sodium Chloride (0.9 % Sodium Chloride Flush 3 Ml Syringe) 3 ml IVFLUSH QSHIFT [facility] Last Admin: 02/04/22 08:44 Dose: Not Given Documented by: ELIZABET Non-Admin Reason: Patient Refused Tamsulosin HCl (Tamsulosin Hcl 0.4 Mg Capsule) 0.8 mg PO BEDTIME [facility] Last Admin: 02/03/22 19:33 Dose: 0.8 mg Documented by: ELSA Tiotropium [place] (Tiotropium [place] 18 Mcg Cap.W.Dev) 1 puff INHALE RDAILY [facility] Last Admin: 02/04/22 07:32 Dose: Not Given Documented by: FABRIZIO Non-Admin Reason: Patient Refused Labs CBC & Chem 7: 02/02/22 06:12 02/02/22 06:12 Assessment and Plan (1) LYNETTE (acute kidney injury): Status: Acute (2) COPD (chronic obstructive pulmonary disease): Status: Acute Plan 71-year-old male with a past medical history of hyperlipidemia, liver disease, tobacco dependence, diastolic CHF, COPD, hep C, schizophrenia presented to the hospital with a chief complaint of shortness of breath.? Noted to be in acute COPD exacerbation.? Admitted for further management. Acute COPD exacerbation: improving but not optimal change to oral steroid Nebulizations standing and p.r.n. Azithromycin Supplemental oxygen with goal oxygen saturation 93% confusion seem to corelate with him not using oxygen, at baseline mental status Hip pain--xray DVT prophylaxis:? Lovenox Code status: Full code Inpatient for management of copd with IV steroid, not able to dc to skilled nursing over the weekend Quality Stroke Does the patient have a stroke diagnosis?: No VTE Prior VTE?: No VTE Risk Level:: Medical - moderate - high VTE Device Contraindication: Treatment Not Indicated VTE Drug Contraindication: N/A - Med Ordered
[2022-02-04 15:45] VITALS: BP 176/68; PULSE 84; RESP 20; TEMP 36.3; O2SAT 97
[2022-02-04] MEDS: amLODIPine Besylate 5 MG TABLET PO (16:35)
[2022-02-04] MEDS: Atorvastatin Calcium 40 MG TABLET PO (20:27)
[2022-02-04] MEDS: Tamsulosin HCL 0.4 MG CAPSULE 0.8 MG PO (20:27)
[2022-02-04] MEDS: QUEtiapine Fumarate 400 MG TABLET PO (20:28)
[2022-02-04] MEDS: Famotidine 20 MG TABLET PO (20:28)
[2022-02-04] MEDS: Docusate Sodium 100 MG CAPSULE PO (20:28)
[2022-02-04 23:23] VITALS: BP 99/69; PULSE 96; RESP 20; TEMP 37.1; O2SAT 94
[2022-02-05] MEDS: Azithromycin 500 MG TABLET PO (05:39)
[2022-02-05 07:53] VITALS: BP 110/72; PULSE 90; RESP 18; TEMP 36.4; O2SAT 95
--- NOTE | 2022-02-05 08:52 | HO.PM.IMPN ---
Subjective Subjective Date of Service: 02/05/22 Interval History: f/u on copd exacerbation interval history :no confusion, no shortness of breath, he is complaining of hip pain from falling at home before coming to the hospital. He is been walking ok Review of Systems no sob no fever Physical Exam Vital Signs: Vital Signs: Last Vital Signs Temp 97.5 F 02/05/22 07:53 Pulse 90 02/05/22 07:53 Resp 18 02/05/22 07:53 BP 110/72 02/05/22 07:53 Pulse Ox 95 02/05/22 07:53 BMI result Body Mass Index 23.3 Const: Other: General: AO X 2, no acute distress Resp: CTA bilateral CVS: S1,S2,RRR GI: +BS, NT, no distention Skin: No rash Neuro: motor grossly intact Psych: appropriate affect Objective Data Active Medications Acetaminophen (Acetaminophen 325 Mg Tablet) 650 mg PO Q6H PRN PRN Reason: Pain, Mild (Pain Scale 1-3) Albuterol Sulfate (Albuterol Sulfate (0.083%) 2.5 Mg/3 Ml Vial.Neb) 2.5 mg INHALE Q4H PRN PRN Reason: Wheezing Albuterol Sulfate (Albuterol Sulfate 90 Mcg 8 Gm Inhaler) 2 puff INHALE Q4H PRN PRN Reason: Wheezing Albuterol/Ipratropium (Albuterol/Iprat 2.5/0.5mg 3 Ml Ampul.Neb) 3 ml INHALE RQ4H WHILE AWAKE [facility] Last Admin: 02/05/22 07:59 Dose: Not Given Documented by: FABRIZIO Non-Admin Reason: Patient Refused Albuterol/Ipratropium (Albuterol/Iprat 2.5/0.5mg 3 Ml Ampul.Neb) 3 ml INHALE RQ4H PRN PRN Reason: Shortness of Breath/Wheezing Amlodipine Besylate (Amlodipine Besylate 5 Mg Tablet) 5 mg PO DAILY [facility]; Protocol Last Admin: 02/04/22 16:35 Dose: 5 mg Documented by: ELIZABET Aspirin (Aspirin Enteric Coated 81 Mg Tablet.) 81 mg PO DAILY [facility] Last Admin: 02/04/22 08:40 Dose: 81 mg Documented by: ELIZABET Atorvastatin Calcium (Atorvastatin Calcium 40 Mg Tablet) 40 mg PO BEDTIME [facility] Last Admin: 02/04/22 20:27 Dose: 40 mg Documented by: ELSA Azithromycin (Azithromycin 500 Mg Tablet) 500 mg PO Q24H [facility] Last Admin: 02/05/22 05:39 Dose: 500 mg Documented by: ELSA Docusate Sodium (Docusate Sodium 100 Mg Capsule) 100 mg PO BID [facility] Last Admin: 02/04/22 20:28 Dose: 100 mg Documented by: ELSA Enoxaparin Sodium (Enoxaparin Sodium 40 Mg/0.4 Ml Syringe) 40 mg SUBCUT Q24H [facility] Last Admin: 02/04/22 08:41 Dose: 40 mg Documented by: ELIZABET Famotidine (Famotidine 20 Mg Tablet) 20 mg PO BID [facility] Last Admin: 02/04/22 20:28 Dose: 20 mg Documented by: ELSA Lorazepam (Lorazepam 0.5 Mg Tablet) 0.5 mg PO TID PRN PRN Reason: Anxiety Last Admin: 02/02/22 08:28 Dose: 0.5 mg Documented by: HUGO Losartan Potassium (Losartan Potassium 50 Mg Tablet) 100 mg PO DAILY [facility]; Protocol Last Admin: 02/04/22 08:40 Dose: 100 mg Documented by: ELIZABET Melatonin (Melatonin 3 Mg Tablet) 6 mg PO BEDTIME PRN PRN Reason: Insomnia Prednisone (Prednisone 20 Mg Tablet) 20 mg PO DAILY [facility] Last Admin: 02/04/22 10:54 Dose: Not Given Documented by: ELIZABET Non-Admin Reason: Patient Refused Quetiapine Fumarate (Quetiapine Fumarate 400 Mg Tablet) 400 mg PO BEDTIME [facility] Last Admin: 02/04/22 20:28 Dose: 400 mg Documented by: ELSA Quetiapine Fumarate (Quetiapine Fumarate 100 Mg Tablet) 100 mg PO TID [facility] Last Admin: 02/04/22 20:28 Dose: 100 mg Documented by: ELSA Senna (Sennosides 8.6 Mg Tablet) 17.2 mg PO BEDTIME PRN PRN Reason: Constipation Sodium Chloride (0.9 % Sodium Chloride Flush 3 Ml Syringe) 3 ml IVFLUSH QSHIFT [facility] Last Admin: 02/04/22 20:31 Dose: 3 ml Documented by: ELSA Tamsulosin HCl (Tamsulosin Hcl 0.4 Mg Capsule) 0.8 mg PO BEDTIME [facility] Last Admin: 02/04/22 20:27 Dose: 0.8 mg Documented by: ELSA Tiotropium Price (Tiotropium Price 18 Mcg Cap.W.Dev) 1 puff INHALE RDAILY [facility] Last Admin: 02/05/22 08:00 Dose: Not Given Documented by: FABRIZIO Non-Admin Reason: Patient Refused Labs CBC & Chem 7: 02/02/22 06:12 02/02/22 06:12 Assessment and Plan (1) LYNETTE (acute kidney injury): Status: Acute (2) COPD (chronic obstructive pulmonary disease): Status: Acute Plan 71-year-old male with a past medical history of hyperlipidemia, liver disease, tobacco dependence, diastolic CHF, COPD, hep C, schizophrenia presented to the hospital with a chief complaint of shortness of breath.? Noted to be in acute COPD exacerbation.? Admitted for further management. Acute COPD exacerbation: improved PO prednisone Nebulizations standing and p.r.n. Azithromycin for total of 5 days No long needs o2 confusion seem to corelate with him not using oxygen, at baseline mental status Hip pain--she refused to have xray done and wants walker, PT eval reattempt xray DVT prophylaxis:? Lovenox Code status: Full code Inpatient for treatnment of copd, needs PT eval to go back to assisted Quality Stroke Does the patient have a stroke diagnosis?: No VTE Prior VTE?: No VTE Risk Level:: Medical - moderate - high VTE Device Contraindication: Treatment Not Indicated VTE Drug Contraindication: N/A - Med Ordered
--- NOTE | 2022-02-05 09:20 | P.CDIC_ITS ---
CDI Concurrent Query Documentation Clarification: PHYSICIAN'S DOCUMENTATION REQUEST Date of Query: 02/05/22920 Patient Name: Jin Jackson Admit Date: 02/01/22 Dear Doctor, A review of the medical record indicates additional documentation may be needed. Please review below and update the documentation accordingly. Clinical Indicators: Risk Factors/Clinical Indicators/Treatments Per ED: Dyspnea, increased work of breathing Supplemental oxygen with goal oxygen saturation 93%? history of recent COPD exacerbation Per MD note 02/01/22: hypoxia Per nurses note 02/01/22: respiratory rate 28-30, 2 L NC Recognized standard criteria for respiratory failure includes: (Source: [facility] Jul 2013) ABGs (1 or more) Symptoms: ? PO2 <60 or RA SpO2 <91% ? Tachypnea, SOB, dyspnea ? PcO2 >50 and pH <7.35 ? Pallor or cyanosis ? pO2 decrease or pcO2 increase ? Anxiety or restlessness by 10 mm/Hg from baseline if known ? Use of accessory muscles ? Retractions (grunting in newborns) ? Unable to speak in complete sentences P/F ratio < 300 Supplemental O2 requirement of 40% or more Intubation is not required Clarify which of the following accurately represents the patient's respiratory status: * Acute respiratory failure * Acute respiratory distress * Other (please specify) * Unable to determine Please include type if known: * Hypoxic * Unable to determine Use of terms such as suspected, likely, concern for, or probable (associated with a specific diagnosis that is being evaluated, monitored, or treated as if it exists) are acceptable and can be coded in the inpatient setting, when documented at the time of discharge. Thank you, Maya Chi RN Extension: [phone] Please use your independent medical judgment in providing your response. THIS QUERY IS PART OF THE PERMANENT MEDICAL RECORD Provider Response: Acute Respiratory Failure
[2022-02-05 10:54] VITALS: BP 110/72; PULSE 90; O2SAT 95
--- NOTE | 2022-02-05 11:13 | PM.DS ---
DS: Providers Provider Date of Service: 02/05/22 Date of admission: 02/01/22 06:01 Primary care physician: Martínez Simeon MD DS: Diagnosis Discharge Diagnosis (1) LYNETTE (acute kidney injury): Status: Acute (2) COPD (chronic obstructive pulmonary disease): Status: Acute DS: Summary Hospital Course Hospital Course: Chief Complaint: Shortness of breath 71-year-old male with a past medical history of hypertension, hyperlipidemia, COPD-not on home oxygen, tobacco dependence, schizoaffective disorder, bipolar, hep C, anxiety, BPH, history of lung mass, CAD, diastolic CHF, history of left subclavian artery occlusion, liver disease presented to the hospital [facility] [place] [facility] with a chief complaint of shortness of breath.? Patient is a poor historian.? Reportedly from the staff that patient noted to be visibly short of breath; hence sent to the ER for further evaluation.? Patient denies any chest pain or palpitations.? Denies any fever chills cough or sputum production.? Denies any abdominal pain nausea vomiting or diarrhea.? Review of all other systems is negative except mentioned above ER course: Per ER team patient on presentation noted to be in mild respiratory distress; title on examination; given nebulizations and steroids with mild improvement in respiratory status.? Chest x-ray showed emphysematous lungs; patient was also given empiric antibiotics in the ER.? Admitted for further madication adjustment. Hospital course: patient was admitted due to acute exacerbation of COPD with acute hypoxic respiratory failure checks x-ray did not show any evidence of pneumonia. He likely had acute bronchitis he was treated with IV Solu-Medrol, bronchodilators by nebulizer schedule and p.r.n.. Initially required oxygen but rapidly recovered and no longer needed oxygen and presently saturating at 95% room and his lungs are now clear compared to wheezing earlier there is no accessory muscle use. He was presumed to have acute bronchitis and therefore was treated with azithromycin. He is afebrile and WBC were unremarkable. Of note he had acute renal insufficiency when he presented (LYNETTE). And was hydrated and the following day creatinine went from 1.57-0.75. Of note the patient also has been complaining that he was having hip pain and that stated that he had falling at some point before coming. on x-ray was advised and ordered he refused to go for the x-ray and rather wanted to go back home, the following day however he was agreeable to have the x-ray which show. He had been evaluated by Physical therapy and did well with a walker. The patient does state that he uses a walker at [facility] [place] [facility]. Also of note his blood pressure has been on the high side and has been started on a Norvasc 2.5 mg daily. He should follow up with primary care physician for further me.. Other than addition of Norvasc and Prednisone, he is to continue all his previous medication as before Time Spent with Patient Time attestation: Total time spent providing and/or coordinating discharge services: Discharge coordination time: Greater than 30 minutes Quality: Safe Use of Opioids Does Pt have an Active Cancer Diagnosis on the Problem List?: No Quality: Stroke Does the patient have a stroke diagnosis?: No Physical Exam Vital Signs: Vital Signs: Last Vital Signs Temp 97.5 F 02/05/22 07:53 Pulse 90 02/05/22 10:54 Resp 18 02/05/22 07:53 BP 110/72 02/05/22 10:54 Pulse Ox 95 02/05/22 10:54 BMI result Body Mass Index 23.3 DS: Data Data Completed and Pending Completed studies during hospitalization [Text1]: Procedures Assistance with Respiratory Ventilation, Less than 24 Consecutive Hours, Continuous Positive Airway Pressure (08/03/21) Labs on day of discharge: Preliminary micro results at discharge 02/01/22 01:00 Blood Culture - Preliminary Blood - Venous No growth after 48 hours. 02/01/22 00:59 Blood Culture - Preliminary Blood - Venous No growth after 48 hours. Discharge Plan Discharge Anticipated Discharge Date/Time: 02/05/22 11:14 Patient Disposition: Home, Self-Care Discharge Diagnosis: acute hypoxic respiratory failure due to COPD exacerbation. Referrals: Martínez Simeon MD [Primary Care Provider] - 1 Week Discharge Medications: New amlodipine 5 mg Tablet 2.5 mg PO DAILY Qty: 30 0RF Protocol: Hold for SBP< HOLD for SBP < : 90 prednisone 20 mg Tablet 20 mg PO DAILY Qty: 3 0RF Continued atorvastatin 40 mg tablet 1 tab PO BEDTIME 0RF quetiapine 100 mg tablet 100 mg PO TID 0RF lorazepam 0.5 mg tablet 1 tab PO TID PRN (Reason: Anxiety) 0RF tamsulosin 0.4 mg capsule 2 cap PO BEDTIME 0RF docusate sodium 100 mg capsule 1 cap PO BID 0RF morphine 15 mg tablet 15 mg PO Q4H PRN (Reason: Pain) 0RF losartan 100 mg tablet 1 tab PO DAILY 0RF quetiapine 400 mg tablet 1 tab PO BEDTIME 0RF albuterol sulfate 2.5 mg /3 mL (0.083 %) solution for nebulization 2.5 mg inhalation Q4H PRN (Reason: Wheezing) 0RF famotidine 20 mg tablet 1 tab PO BID 0RF albuterol sulfate [Ventolin HFA] 90 mcg/actuation HFA aerosol inhaler 2 puff inhalation Q4H PRN (Reason: Wheezing) 0RF Spiriva Respimat 2.5 mcg/actuation mist 2 puff inhalation DAILY 0RF Diet: advance to usual diet Activity on Discharge: As tolerated Stand Alone Forms: Patient Portal Discharge page Care Plan Goals: Full recovery from COPD and prevention of a rehospitalization. Health Concerns: chronic COPD Plan of Treatment: use inhalers and take prednisone as directed follow up with her doctor within a week, call for appointment. Avoid smoke New medications: Prednisone 20 mg daily x 3 days and Norvasc 2.5 mg daily for high blood pressure. No other changes to your previous medications. Continue using walker as before Assessment: as above
--- NOTE | 2022-02-05 14:48 | MHC.CM.PN ---
PATIENT WITH FRACTURE NEEDS TO BE SEEN BY ORTH[facility] AWARE THAT PATIENT WILL NOT RETURN TODAY ([phone])
[2022-02-05 15:24] VITALS: BP 139/66; PULSE 96; RESP 18; TEMP 36.2; O2SAT 98
[2022-02-05] MEDS: 0.9 % Sodium Chloride Flush 3 ML SYRINGE IVFLUSH ×2 (16:18→21:31)
--- NOTE | 2022-02-05 19:39 | P.HPOP_ITS ---
History of Present Illness History of Present Illness Date of Service: 02/05/22 Chief complaint: COPD Exacerbation Narrative: Jin Jackson is a 71 year old male who was admitted to the medicine service and during his stay complained of right hip pain. Initially the patient declined x-rays of the hip but then agreed. X-rays of the right hip were questionable for a subcapital hip fracture therefore a CT was obtained with confirmation of diagnosis. The orthopedics team was then consulted for further evaluation and treatment Of note, the patient lives in a halfway. He is a poor historian and states that he fell weeks ago but cannot recall when. He has been ambulating with the use of a walker with pain. He has a PMH significant for COPD, HTN, schizophfective disorder, bipolar, hep C, FRANKY, CHF, liver disease and subclavian artery occlusion. Review of Systems Review of Systems: Yes all other systems are reviewed and are negative PMF Past Medical History Medical History Anxiety BPH (benign prostatic hyperplasia) COPD (chronic obstructive pulmonary disease) Hepatitis C Hyperlipidemia Hypertension Left tibial fracture Nicotine dependence, cigarettes, uncomplicated Schizoaffective disorder, bipolar type Schizophrenia Surgical History Surgical History History of bronchoscopy History of elbow surgery Social History Social History Household Members: None Household Members Other:: halfway in [place] Housing: Homeless Housing Other:: halfway Do you presently have visiting nurse or other home services: No Alcohol intake: never Patient Tobacco Use Status: Current someday Tobacco user Tobacco use type: Cigarette Cigarette Packs Per Day: 0.2 Cigarettes Per Day: 4.0 Years Smoked: 50 e-Cigarette/Vaping Use: Currently Using Second Hand Smoke Exposure: Yes Advance Directives Date on File: 08/18/20 service: No Current occupational status: disabled Sexual orientation: Straight/Heterosexual Meds Allergies Allergy/AdvReac Type Severity Reaction Status Date / Time codeine [CODEINE] Allergy Intermediate HIVES Verified 07/27/21 10:33 Active Medications: Current Medications Acetaminophen (Acetaminophen 325 Mg Tablet) 650 mg PO Q6H PRN PRN Reason: Pain, Mild (Pain Scale 1-3) Albuterol Sulfate (Albuterol Sulfate (0.083%) 2.5 Mg/3 Ml Vial.Neb) 2.5 mg INHALE Q4H PRN PRN Reason: Wheezing Albuterol Sulfate (Albuterol Sulfate 90 Mcg 8 Gm Inhaler) 2 puff INHALE Q4H PRN PRN Reason: Wheezing Albuterol/Ipratropium (Albuterol/Iprat 2.5/0.5mg 3 Ml Ampul.Neb) 3 ml INHALE RQ4H WHILE AWAKE [facility] Last Admin: 02/05/22 14:51 Dose: Not Given Documented by: Albuterol/Ipratropium (Albuterol/Iprat 2.5/0.5mg 3 Ml Ampul.Neb) 3 ml INHALE RQ4H PRN PRN Reason: Shortness of Breath/Wheezing Amlodipine Besylate (Amlodipine Besylate 5 Mg Tablet) 5 mg PO DAILY [facility]; Protocol Last Admin: 02/05/22 09:10 Dose: Not Given Documented by: Aspirin (Aspirin Enteric Coated 81 Mg Tablet.) 81 mg PO DAILY [facility] Last Admin: 02/05/22 09:10 Dose: Not Given Documented by: Atorvastatin Calcium (Atorvastatin Calcium 40 Mg Tablet) 40 mg PO BEDTIME [facility] Last Admin: 02/04/22 20:27 Dose: 40 mg Documented by: Azithromycin (Azithromycin 500 Mg Tablet) 500 mg PO Q24H [facility] Last Admin: 02/05/22 05:39 Dose: 500 mg Documented by: Docusate Sodium (Docusate Sodium 100 Mg Capsule) 100 mg PO BID [facility] Last Admin: 02/05/22 09:10 Dose: Not Given Documented by: Enoxaparin Sodium (Enoxaparin Sodium 40 Mg/0.4 Ml Syringe) 40 mg SUBCUT Q24H [facility] Last Admin: 02/05/22 09:10 Dose: Not Given Documented by: Famotidine (Famotidine 20 Mg Tablet) 20 mg PO BID [facility] Last Admin: 02/05/22 09:10 Dose: Not Given Documented by: Lorazepam (Lorazepam 0.5 Mg Tablet) 0.5 mg PO TID PRN PRN Reason: Anxiety Last Admin: 02/02/22 08:28 Dose: 0.5 mg Documented by: Losartan Potassium (Losartan Potassium 50 Mg Tablet) 100 mg PO DAILY [facility]; Pro tocol Last Admin: 02/05/22 09:11 Dose: Not Given Documented by: Melatonin (Melatonin 3 Mg Tablet) 6 mg PO BEDTIME PRN PRN Reason: Insomnia Prednisone (Prednisone 20 Mg Tablet) 20 mg PO DAILY [facility] Last Admin: 02/05/22 09:11 Dose: Not Given Documented by: Quetiapine Fumarate (Quetiapine Fumarate 400 Mg Tablet) 400 mg PO BEDTIME [facility] Last Admin: 02/04/22 20:28 Dose: 400 mg Documented by: Quetiapine Fumarate (Quetiapine Fumarate 100 Mg Tablet) 100 mg PO TID [facility] Last Admin: 02/05/22 15:47 Dose: Not Given Documented by: Senna (Sennosides 8.6 Mg Tablet) 17.2 mg PO BEDTIME PRN PRN Reason: Constipation Sodium Chloride (0.9 % Sodium Chloride Flush 3 Ml Syringe) 3 ml IVFLUSH QSHIFT [facility] Last Admin: 02/05/22 16:18 Dose: 3 ml Documented by: Tamsulosin HCl (Tamsulosin Hcl 0.4 Mg Capsule) 0.8 mg PO BEDTIME [facility] Last Admin: 02/04/22 20:27 Dose: 0.8 mg Documented by: Tiotropium [place] (Tiotropium [place] 18 Mcg Cap.W.Dev) 1 puff INHALE RDAILY [facility] Last Admin: 02/05/22 08:00 Dose: Not Given Documented by: Home Medications Medication Instructions Recorded Confirmed Last Taken Type albuterol sulfate 2.5 mg INHALATION Q4H PRN 02/01/22 02/01/22 Unknown History albuterol sulfate 90 mcg/actuation 2 puff INHALATION Q4H PRN 02/01/22 02/01/22 Unknown History aerosol inhaler (Ventolin HFA) atorvastatin 40 mg tablet 1 tab PO BEDTIME 02/01/22 02/01/22 Unknown History docusate sodium 100 mg capsule 1 cap PO BID 02/01/22 02/01/22 Unknown History famotidine 20 mg tablet 1 tab PO BID 02/01/22 02/01/22 Unknown History lorazepam 0.5 mg tablet 1 tab PO TID PRN 02/01/22 02/01/22 Unknown History losartan 100 mg tablet 1 tab PO DAILY 02/01/22 02/01/22 Unknown History morphine 15 mg immediate release 15 mg PO Q4H PRN 02/01/22 02/01/22 Unknown History tablet quetiapine 100 mg tablet 100 mg PO TID 02/01/22 02/01/22 Unknown History quetiapine 400 mg tablet 1 tab PO BEDTIME 02/01/22 02/01/22 Unknown History tamsulosin 0.4 mg capsule 2 cap PO BEDTIME 02/01/22 02/01/22 Unknown History tiotropium bromide 2.5 2 puff INHALATION DAILY 02/01/22 02/01/22 Unknown History mcg/actuation mist for inhalation (Spiriva Respimat) Physical Exam Vital Signs: Vital Signs: Last Vital Signs Temp 97.1 F 02/05/22 15:24 Pulse 96 02/05/22 15:24 Resp 18 02/05/22 15:24 BP 139/66 02/05/22 15:24 Pulse Ox 98 02/05/22 15:24 BMI result Body Mass Index 23.3 Const: General: cooperative, healthy appearing, comfortable, no acute d istress, well developed, alert and awake Orientation/consciousness: patient oriented x3 HEENT: Head: Yes normal to inspection, Yes normocephalic and Yes atraumatic Eyes: General: appearance normal, both eyes and all related structures Neck: Neck: Yes normal visual inspection and Yes no lymphadenopathy Resp: Effort & Inspection: normal respiratory effort and able to speak in complete sentences Cardio: Rate: regular rate Peripheral pulses: Peripheral pulses 2+ throughout GI: Inspection: Yes normal to inspection Palpation (GI): Soft to palpation Skin: General skin exam: no rashes or lesions noted Neuro: General: patient oriented x3 Extrem: Other: Right hip skin intact. Patient is able to demonstrate active hip flexion and extension, internal and external rotation with pain. Minimal pain with log roll. Reports sensation intact. Pedal pulse intact. Psych: Mental Status: mental status grossly normal Results Labs Result Diagrams: 02/02/22 06:12 02/02/22 06:12 Labs: H & H 02/01/22 02/02/22 Range/Units 00:59 06:12 Hgb 12.8 L 11.3 L (14.0-18.0) g/dl Hct 37.6 L 33.1 L (42.0-52.0) % Coagulation 02/01/22 Range/Units 01:31 INR 1.2 H (0.9-1.1) All other labs normal. Assessment and Plan (1) Subcapital fracture of right femur: Status: Acute Plan Jin Jackson is a 71 year old male who was admitted to the medicine service and during his stay complained of right hip pain. Initially the patient declined x-rays of the hip but then agreed. X-rays of the right hip were questionable for a subcapital hip fracture therefore a CT was obtained with confirmation of diagnosis. The orthopedics team was then consulted for further evaluation and treatment Of note, the patient lives in a halfway. He is a poor historian and states that he fell weeks ago but cannot recall when. He has been ambulating with the use of a walker with pain. He has a PMH significant for COPD, HTN, s chizophfective disorder, bipolar, hep C, FRANKY, CHF, liver disease and subclavian artery occlusion. I discussed the case with Dr. Crews and explained the extent of the injury to the patient and options available which include surgical intervention. I explained the procedure in detail along with the length of recovery and rehab course. I explained the risk, benefits and alternatives. Risk including, but not limited to infection, blood clots, bleeding, non union or malunion and nerve/tissue damage to surrounding areas. I answered all their questions and with their understanding they have consented to move forward with Operative Fixation of the right hip. The patient will be T&S, med clearance obtained and NPO after midnight. Quality Stroke Does the patient have a stroke diagnosis?: No VTE Prior VTE?: No VTE Risk Level:: Medical - moderate - high VTE Device Contraindication: Treatment Not Indicated VTE Drug Contraindication: N/A - Med Ordered Procedures Date of Service Date of Service: 02/05/22
[2022-02-05] MEDS: Docusate Sodium 100 MG CAPSULE PO (21:30)
[2022-02-05] MEDS: Famotidine 20 MG TABLET PO (21:30)
[2022-02-05] MEDS: QUEtiapine Fumarate 100 MG TABLET PO (21:30)
[2022-02-05] MEDS: QUEtiapine Fumarate 400 MG TABLET PO (21:30)
[2022-02-05] MEDS: Atorvastatin Calcium 40 MG TABLET PO (21:31)
[2022-02-05] MEDS: Tamsulosin HCL 0.4 MG CAPSULE 0.8 MG PO (21:31)
[2022-02-05 23:50] VITALS: BP 137/67; PULSE 88; RESP 17; TEMP 36.7; O2SAT 95
[2022-02-06] VITALS (21 sets, daily range): BP systolic 90–120; BP diastolic 50–80; PULSE 86–110; RESP 14–30; TEMP 36.3–37.7; O2SAT 94–100
--- NOTE | 2022-02-06 | ECG_ITS ---
Test Reason : preop Blood Pressure : / mmHG Vent. Rate : 101 BPM Atrial Rate : 101 BPM P-R Int : 134 ms QRS Dur : 070 ms QT Int : 348 ms P-R-T Axes : 085 -01 077 degrees QTc Int : 451 ms Sinus tachycardia Otherwise normal ECG When compared with ECG of 01-FEB-2022 00:30, No significant change was found Referred By: [facility] Electronically Signed By:COLEEN MEDELLIN MD
[2022-02-06] MEDS: Azithromycin 500 MG TABLET PO (05:54)
[2022-02-06] MEDS: 0.9 % Sodium Chloride Flush 3 ML SYRINGE IVFLUSH ×2 (09:09→20:06)
--- NOTE | 2022-02-06 11:01 | P.PNIM_ITS ---
Subjective Subjective Date of Service: 02/06/22 Interval History: Seen in f/u for copd exacerbation and now found hip fracture Interval history: Patient was originally admitted for restpiratory failure due to copd exacerbation which responded well to treatment and was to be discharged 2 days earlier that his hip was hurting, apparently he relates that [facility] week and half ago at the [facility] and he was using a walker. While in the hospital initially he was walking with no issues, and without a walker and was only after the hip started bothering him that he asked for walker and Xray was requested but he refused on to have done and was finally agreable to have it done the next day, the xray of the hip raised a question of right subcapital fracture and a CT a later confirmed right subcipital non displaced fracture and this was discussed with Dr. Crews and thought he would benefit from nailing. Patient is agreable Review of Systems no sob hip pain Physical Exam Vital Signs: Vital Signs: Last Vital Signs Temp 98.9 F 02/06/22 07:30 Pulse 96 02/06/22 07:30 Resp 18 02/06/22 07:30 BP 117/58 L 02/06/22 07:30 Pulse Ox 96 02/06/22 07:30 BMI result Body Mass Index 23.3 Const: Other: General: AO X 3, no acute distress Resp: CTA bilateral CVS: S1,S2,RRR GI: +BS, NT, no distention Skin: No rash MSK : no shortnes of right leg, pain with manipulation of the right hip Neuro: motor grossly intact Psych: appropriate affect Objective Data Active Medications Acetaminophen (Acetaminophen 325 Mg Tablet) 650 mg PO Q6H PRN PRN Reason: Pain, Mild (Pain Scale 1-3) Albuterol Sulfate (Albuterol Sulfate (0.083%) 2.5 Mg/3 Ml Vial.Neb) 2.5 mg INHALE Q4H PRN PRN Reason: Wheezing Albuterol Sulfate (Albuterol Sulfate 90 Mcg 8 Gm Inhaler) 2 puff INHALE Q4H PRN PRN Reason: Wheezing Albuterol/Ipratropium (Albuterol/Iprat 2.5/0.5mg 3 Ml Ampul.Neb) 3 ml INHALE RQ4H WHILE AWAKE JAVIER Last Admin: 02/06/22 08:36 Dose: Not Given Documented by: SALAS Non-Admin Reason: Patient Refused Albuterol/Ipratropium (Albuterol/Iprat 2.5/0.5mg 3 Ml Ampul.Neb) 3 ml INHALE R Q4H PRN PRN Reason: Shortness of Breath/Wheezing Amlodipine Besylate (Amlodipine Besylate 5 Mg Tablet) 5 mg PO DAILY [facility]; Protocol Last Admin: 02/06/22 09:11 Dose: Not Given Documented by: DIANA Non-Admin Reason: NPO Aspirin (Aspirin Enteric Coated 81 Mg Tablet.Dr) 81 mg PO DAILY [facility] Last Admin: 02/06/22 09:11 Dose: Not Given Documented by: DIANA Non-Admin Reason: NPO Atorvastatin Calcium (Atorvastatin Calcium 40 Mg Tablet) 40 mg PO BEDTIME [facility] Last Admin: 02/05/22 21:31 Dose: 40 mg Documented by: RODOLFO Azithromycin (Azithromycin 500 Mg Tablet) 500 mg PO Q24H [facility] Last Admin: 02/06/22 05:54 Dose: 500 mg Documented by: RODOLFO Docusate Sodium (Docusate Sodium 100 Mg Capsule) 100 mg PO BID [facility] Last Admin: 02/06/22 09:11 Dose: Not Given Documented by: DIANA Non-Admin Reason: NPO Enoxaparin Sodium (Enoxaparin Sodium 40 Mg/0.4 Ml Syringe) 40 mg SUBCUT Q24H [facility] Last Admin: 02/06/22 09:10 Dose: Not Given Documented by: DIANA Non-Admin Reason: Patient Refused Famotidine (Famotidine 20 Mg Tablet) 20 mg PO BID [facility] Last Admin: 02/06/22 09:11 Dose: Not Given Documented by: DIANA Non-Admin Reason: NPO Losartan Potassium (Losartan Potassium 50 Mg Tablet) 100 mg PO DAILY [facility]; Protocol Last Admin: 02/06/22 09:11 Dose: Not Given Documented by: DIANA Non-Admin Reason: NPO Melatonin (Melatonin 3 Mg Tablet) 6 mg PO BEDTIME PRN PRN Reason: Insomnia Prednisone (Prednisone 20 Mg Tablet) 20 mg PO DAILY [facility] Last Admin: 02/06/22 09:12 Dose: Not Given Documented by: DIANA Non-Admin Reason: NPO Quetiapine Fumarate (Quetiapine Fumarate 400 Mg Tablet) 400 mg PO BEDTIME [facility] Last Admin: 02/05/22 21:30 Dose: 400 mg Documented by: RODOLFO Quetiapine Fumarate (Quetiapine Fumarate 100 Mg Tablet) 100 mg PO TID [facility] Last Admin: 02/06/22 09:12 Dose: Not Given Documented by: DIANA Non-Admin Reason: NPO Senna (Sennosides 8.6 Mg Tablet) 17.2 mg PO BEDTIME PRN PRN Reason: Constipation Sodium Chloride (0.9 % Sodium Chloride Flush 3 Ml Syringe) 3 ml IVFLUSH QSHIFT [facility] Last Admin: 02/06/22 09:09 Dose: 3 ml Documented by: DIANA Tamsulosin HCl (Tamsulosin Hcl 0.4 Mg Capsule) 0.8 mg PO BEDTIME [facility] Last Admin: 02/05/22 21:31 Dose: 0.8 mg Documented by: RODOLFO Tiotropium [place] (Tiotropium [place] 18 Mcg Cap.W.Dev) 1 puff INHALE RDAILY [facility] Last Admin: 02/06/22 08:36 Dose: Not Given Documented by: SALAS Non-Admin Reason: Patient Refused Labs CBC & Chem 7: 02/02/22 06:12 02/02/22 06:12 Microbiology Microbiology Results: Microbiology 02/01/22 01:00 Blood Culture - Final Blood - Venous No growth after 5 days. 02/01/22 00:59 Blood Culture - Final Blood - Venous No growth after 5 days. Assessment and Plan (1) LYNETTE (acute kidney injury): Status: Acute (2) COPD (chronic obstructive pulmonary disease): Status: Acute Plan 71-year-old male with a past medical history of hyperlipidemia, liver disease, tobacco dependence, diastolic CHF, COPD, hep C, schizophrenia presented to the hospital with a chief complaint of shortness of breath.? Noted to be in acute COPD exacerbation.? Admitted for further management. Acute COPD exacerbation: resolved. PO prednisone Nebulizations standing and p.r.n. Azithromycin for total of 5 days No long needs o2 confusion seem to corelate with him not using oxygen, at baseline mental status Hip pain likely from remote fall outside of hospital..CT showed right non displaced subcapital fracture, discussed with Dr. Crews and will have repair with nailing. get pre op ECG. At average risk for cardiovascular complication, his respiratory status need to monitored in light of recent exacerbation of copd as state DVT prophylaxis:? hold Lovenox until after surgery Code status: Full code Inpatient need: Need to repair hip fracture. Quality Stroke Does the patient have a stroke diagnosis?: No VTE Prior VTE?: No VTE Risk Level:: Medical - moderate - high VTE Device Contraindication: Treatment Not Indicated VTE Drug Contraindication: N/A - Med Ordered
[2022-02-06] MEDS: Albuterol/Iprat 2.5/0.5MG 3 ML AMPUL.NEB INHALE ×2 (13:54→20:45)
--- NOTE | 2022-02-06 14:25 | P.CONAN_ITS ---
HPI - Anesthesia Eval Consult details Narrative: 71 M for right hip COPD , Hep C , Schizophrenia . Recent hospitalization for COPD excerabation PMFSH Active Problems Active Problems: All Active Problems (Updated 02/05/22 @ 19:47 by Trang Gonzales PA-C) Subcapital fracture of right femur (Acute) LYNETTE (acute kidney injury) (Acute) Acute hypokalemia (Acute) COPD (chronic obstructive pulmonary disease) (Acute) Acute dyspnea (Acute) Acidosis, lactic (Acute) Lung mass (Acute) Schizophrenia (Acute) Hepatitis C (Acute) Left subclavian artery occlusion (Acute) Atherosclerotic cardiovascular disease (Acute) Diastolic dysfunction (Acute) Emphysema of lung (Acute) Pneumonia (Acute) Nicotine dependence, cigarettes, uncomplicated (Acute) Chest pain (Acute) Liver disease (Acute) Anxiety (Acute) Full code status (Acute) Past Medical History Medical History Anxiety BPH (benign prostatic hyperplasia) COPD (chronic obstructive pulmonary disease) Hepatitis C Hyperlipidemia Hypertension Left tibial fracture Nicotine dependence, cigarettes, uncomplicated Schizoaffective disorder, bipolar type Schizophrenia Family History Family history of problems with anesthesia: No Surgical History Surgical History History of bronchoscopy History of elbow surgery History of Problems with Anesthesia: No Social History Social History Household Members: None [facility]hold Members Other:: [facility] [place] Housing: Homeless Housing Other:: [facility] Do you presently have visiting nurse or other home services: No Alcohol intake: never Patient Tobacco Use Status: Current someday Tobacco user Tobacco use type: Cigarette Cigarette Packs Per Day: 0.2 Cigarettes Per Day: 4.0 Years Smoked: 50 e-Cigarette/Vaping Use: Currently Using Second Hand Smoke Exposure: Yes Advance Directives Date on File: 08/18/20 service: No Current occupational status: disabled Sexual orientation: Straight/Heterosexual Meds Allergies Allergy/AdvReac Type Severity Reaction Status Date / Time codeine [CODEINE] Allergy Intermediate HIVES Verified 07/27/21 10:33 Active Medications: Current Medications Acetaminophen (Acetaminophen 325 Mg Tablet) 650 mg PO Q6H PRN PRN Reason: Pain, Mild (Pain Scale 1-3) Albuterol Sulfate (Albuterol Sulfate (0.083%) 2.5 Mg/3 Ml Vial.Neb) 2.5 mg INHALE Q4H PRN PRN Reason: Wheezing Albuterol Sulfate (Albuterol Sulfate 90 Mcg 8 Gm Inhaler) 2 puff INHALE Q4H PRN PRN Reason: Wheezing Albuterol/Ipratropium (Albuterol/Iprat 2.5/0.5mg 3 Ml Ampul.Neb) 3 ml INHALE RQ4H PRN PRN Reason: Shortness of Breath/Wheezing Last Admin: 02/06/22 13:54 Dose: 3 ml Documented by: Amlodipine Besylate (Amlodipine Besylate 5 Mg Tablet) 5 mg PO DAILY [facility]; Protocol Last Admin: 02/06/22 09:11 Dose: Not Given Documented by: Aspirin (Aspirin Enteric Coated 81 Mg Tablet.) 81 mg PO DAILY [facility] Last Admin: 02/06/22 09:11 Dose: Not Given Documented by: Atorvastatin Calcium (Atorvastatin Calcium 40 Mg Tablet) 40 mg PO BEDTIME [facility] Last Admin: 02/05/22 21:31 Dose: 40 mg Documented by: Azithromycin (Azithromycin 500 Mg Tablet) 500 mg PO Q24H [facility] Last Admin: 02/06/22 05:54 Dose: 500 mg Documented by: Docusate Sodium (Docusate Sodium 100 Mg Capsule) 100 mg PO BID [facility] Last Admin: 02/06/22 09:11 Dose: Not Given Documented by: Enoxaparin Sodium (Enoxaparin Sodium 40 Mg/0.4 Ml Syringe) 40 mg SUBCUT Q24H [facility] Last Admin: 02/06/22 09:10 Dose: Not Given Documented by: Famotidine (Famotidine 20 Mg Tablet) 20 mg PO BID [facility] Last Admin: 02/06/22 09:11 Dose: Not Given Documented by: Losartan Potassium (Losartan Potassium 50 Mg Tablet) 100 mg PO DAILY [facility]; Protocol Last Admin: 02/06/22 09:11 Dose: Not Given Documented by: Melatonin (Melatonin 3 Mg Tablet) 6 mg PO BEDTIME PRN PRN Reason: Insomnia Prednisone (Prednisone 20 Mg Tablet) 20 mg PO DAILY [facility] Last Admin: 02/06/22 09:12 Dose: Not Given Documented by: Quetiapine Fumarate (Quetiapine Fumarate 400 Mg Tablet) 400 mg PO BEDTIME [facility] Last Admin: 02/05/22 21:30 Dose: 400 mg Documented by: Quetiapine Fumarate (Quetiapine Fumarate 100 Mg Tablet) 100 mg PO TID [facility] Last Admin: 02/06/22 09:12 Dose: Not Given Documented by: Senna (Sennosides 8.6 Mg Tablet) 17.2 mg PO BEDTIME PRN PRN Reason: Constipation Sodium Chloride (0.9 % Sodium Chloride Flush 3 Ml Syringe) 3 ml IVFLUSH QSHIFT [facility] Last Admin: 02/06/22 09:09 Dose: 3 ml Documented by: Tamsulosin HCl (Tamsulosin Hcl 0.4 Mg Capsule) 0.8 mg PO BEDTIME [facility] Last Admin: 02/05/22 21:31 Dose: 0.8 mg Documented by: Tiotropium [place] (Tiotropium [place] 18 Mcg Cap.W.Dev) 1 puff INHALE RDAILY [facility] Last Admin: 02/06/22 08:36 Dose: Not Given Documented by: Home Medications Medication Instructions Recorded Confirmed Last Taken Type albuterol sulfate 2.5 mg INHALATION Q4H PRN 02/01/22 02/01/22 Unknown History albuterol sulfate 90 mcg/actuation 2 puff INHALATION Q4H PRN 02/01/22 02/01/22 Unknown History aerosol inhaler (Ventolin HFA) atorvastatin 40 mg tablet 1 tab PO BEDTIME 02/01/22 02/01/22 Unknown History docusate sodium 100 mg capsule 1 cap PO BID 02/01/22 02/01/22 Unknown History famotidine 20 mg tablet 1 tab PO BID 02/01/22 02/01/22 Unknown History lorazepam 0.5 mg tablet 1 tab PO TID PRN 02/01/22 02/01/22 Unknown History losartan 100 mg tablet 1 tab PO DAILY 02/01/22 02/01/22 Unknown History morphine 15 mg immediate release 15 mg PO Q4H PRN 02/01/22 02/01/22 Unknown History tablet quetiapine 100 mg tablet 100 mg PO TID 02/01/22 02/01/22 Unknown History quetiapine 400 mg tablet 1 tab PO BEDTIME 02/01/22 02/01/22 Unknown History tamsulosin 0.4 mg capsule 2 cap PO BEDTIME 02/01/22 02/01/22 Unknown History tiotropium bromide 2.5 2 puff INHALATION DAILY 02/01/22 02/01/22 Unknown History mcg/actuation mist for inhalation (Spiriva Respimat) Exam Exam Date and Time: February 06, 2022 1425 Height,Weight and Vital Signs: Height 5 ft 6 in Weight 65.771 kg Last Vital Signs Temp 98.7 F 02/06/22 13:24 Pulse 96 02/06/22 13:56 Resp 22 H 02/06/22 13:56 BP 102/66 02/06/22 13:24 Pulse Ox 97 02/06/22 13:24 Pertinent Lab Results Pertinent Lab Results: Laboratory Tests 02/01/22 02/01/22 02/01/22 00:59 00:59 00:59 WBC 6.8 RBC 4.05 L Hgb 12.8 L Hct 37.6 L MCV 92.8 MCH 31.6 MCHC 34.0 RDW 11.8 Plt Count 216 MPV 9.3 L Immature Gran % (Auto) 0.3 Neut % (Auto) 77.1 H Lymph % (Auto) 10.5 L [place] % (Auto) 8.9 Eos % (Auto) 2.8 Baso % (Auto) 0.4 Lymph # (Auto) 0.7 L [place] # (Auto) 0.6 Eos # (Auto) 0.2 Baso # (Auto) 0.0 Abs Immat Gran (auto) 0.02 Absolute Neuts (auto) 5.3 Absolute Nucleated RBC 0.000 Nucleated RBC % (auto) 0.0 Smear Tech's Comments PT INR VBG pH VBG pCO2 VBG pO2 VBG HCO3 VBG O2 Saturation VBG Base Excess Sodium 133 L Potassium 3.1 L Chloride 98 Carbon Dioxide 24 Anion Gap 14 BUN 10 D Creatinine 1.57 H Estim Creat Clear Calc 40.0 Estimated GFR 44 Random Glucose 180 H D Lactic Acid 1.9 Lactic Acid F/U @ 2Hr Calcium 8.6 Magnesium 4.3 H* Total Bilirubin 0.9 Direct Bilirubin 0.5 AST 14 ALT 8 Alkaline Phosphatase 96 D Troponin I High Sens B-Natriuretic Peptide Total Protein 6.1 L Albumin 3.6 COVID-19 (RASHEED) COVID-19 Clin Com 02/01/22 02/01/22 02/01/22 00:59 01:08 01:11 WBC RBC Hgb Hct MCV MCH MCHC RDW Plt Count MPV Immature Gran % (Auto) Neut % (Auto) Lymph % (Auto) [place] % (Auto) Eos % (Auto) Baso % (Auto) Lymph # (Auto) [place] # (Auto) Eos # (Auto) Baso # (Auto) Abs Immat Gran (auto) Absolute Neuts (auto) Absolute Nucleated RBC Nucleated RBC % (auto) Smear Tech's Comments PT INR VBG pH 7.39 VBG pCO2 33 VBG pO2 63 VBG HCO3 20 L VBG O2 Saturation 88.0 VBG Base Excess -3.2 Sodium Potassium Chloride Carbon Dioxide Anion Gap BUN Creatinine Estim Creat Clear Calc Estimated GFR Random Glucose Lactic Acid Lactic Acid F/U @ 2Hr Calcium Magnesium Total Bilirubin Direct Bilirubin AST ALT Alkaline Phosphatase Troponin I High Sens 7.0 D B-Natriuretic Peptide 13 Total Protein Albumin COVID-19 (RASHEED) Negative COVID-Zixi See Note 02/01/22 02/01/22 02/01/22 01:31 06:58 09:20 WBC RBC Hgb Hct MCV MCH MCHC RDW Plt Count MPV Immature Gran % (Auto) Neut % (Auto) Lymph % (Auto) [place] % (Auto) Eos % (Auto) Baso % (Auto) Lymph # (Auto) [place] # (Auto) Eos # (Auto) Baso # (Auto) Abs Immat Gran (auto) Absolute Neuts (auto) Absolute Nucleated RBC Nucleated RBC % (auto) Smear Tech's Comments PT 14.2 H INR 1.2 H VBG pH VBG pCO2 VBG pO2 VBG HCO3 VBG O2 Saturation VBG Base Excess Sodium Potassium Chloride Carbon Dioxide Anion Gap BUN Creatinine Estim Creat Clear Calc Estimated GFR Random Glucose Lactic Acid 3.7 H* Lactic Acid F/U @ 2Hr 4.7 H* Calcium Magnesium Total Bilirubin Direct Bilirubin AST ALT Alkaline Phosphatase Troponin I High Sens B-Natriuretic Peptide Total Protein Albumin COVID-19 (RASHEED) COVID-Zixi 02/02/22 02/02/22 06:12 06:12 WBC 12.2 H RBC 3.55 L Hgb 11.3 L Hct 33.1 L MCV 93.2 MCH 31.8 MCHC 34.1 RDW 12.0 Plt Count 216 MPV 9.7 Immature Gran % (Auto) 0.5 H Neut % (Auto) 94.5 H Lymph % (Auto) 2.5 L [place] % (Auto) 2.4 Eos % (Auto) 0.0 Baso % (Auto) 0.1 Lymph # (Auto) 0.3 L [place] # (Auto) 0.3 Eos # (Auto) 0.0 Baso # (Auto) 0.0 Abs Immat Gran (auto) 0.06 H Absolute Neuts (auto) 11.6 H Absolute Nucleated RBC 0.000 Nucleated RBC % (auto) 0.0 Smear Tech's Comments VERIFIED PT INR VBG pH VBG pCO2 VBG pO2 VBG HCO3 VBG O2 Saturation VBG Base Excess Sodium 143 Potassium 4.4 D Chloride 113 H Carbon Dioxide 21 L Anion Gap 13 BUN 8 L Creatinine 0.75 Estim Creat Clear Calc 83.8 Estimated GFR > 60 Random Glucose 140 H Lactic Acid Lactic Acid F/U @ 2Hr Calcium 9.1 Magnesium Total Bilirubin Direct Bilirubin AST ALT Alkaline Phosphatase Troponin I High Sens B-Natriuretic Peptide Total Protein Albumin COVID-19 (RASHEED) COVID-19 Clin Com Airway Mallampati Class: III TM Dist: >3cm Neck ROM: Full Denture: Upper and Lower Loose/Missing/Broken Teeth: Yes Heart: S1 , S2 Lungs: b/l breath sounds Assessment and Plan Assessment Anesthesia Assessment: Anesthesia Plan Discussed and Chart Reviewed Final Anesthetic Review Family History of Problems with Anesthesia: No History of Problems with Anesthesia: No NPO: Yes ASA Class: III and Emergency Final Preanesthetic Review: Meds/Allgs Chart Reviewed, Consent Obtained/Reviewed and Anes Risks/Benef Reviewed Patient Risk: High Procedure Risk: Intermediate Anesthetic Plan Anesthetic Plan: GA Disposition: Inp. Admit - Standard Bed
--- NOTE | 2022-02-06 14:32 | MHC.CM.PN ---
EMR REVIEWED, PT OFF UNIT THIS AFTERNOON FOR R HIP REPAIR.
--- NOTE | 2022-02-06 14:37 | PC.NURSE ---
md rayas aware of lactic acid of 4.7.
--- NOTE | 2022-02-06 15:21 | P.BOP_ITS ---
Brief Operative Note Date of Service: 02/06/22 Pre-op diagnosis: Right femoral neck fracture Post-op diagnosis: same Procedure: Percutaneous pinning right hip Implants: Styrker . cannulated partially threaded screws x3 Surgeon: Duke Crews MD Anesthesia: GETA and local Was an Family Support Specialist used for this Procedure?: No Estimated blood loss (mL): 20 IV fluids (mL): 500 Pathology: none sent Condition: stable Disposition: PACU
--- NOTE | 2022-02-06 15:59 | MHC.CM.PN ---
EMR REVIEWED, PT HAS NOT RETURNED FROM SURGERY AT TIME OF THIS NOTE, CM CONTACTED PT'S HCP SELENA MERRILL AT NUMBER ON FILE TO DETERMINE STR PREFERENCES AND SELENA REPORTED PT WOULD WANT TO BE IN [place], SELENA ALSO REPORTS PT HAS STAGE 4 CA AND WOULD LIKE LTC BEFORE IT PROGRESSES, SELENA AWARE PT WILL NEED STR FOR HIP FX PRIOR TO LTC.
[2022-02-06] MEDS: fentaNYL citrate/PF 100 MCG/2 ML VIAL 25 MCG IVPUSH ×3 (16:49→17:04)
[2022-02-06 19:59] LABS: Glucose, Whole Blood 151 mg/dL (60-115)
[2022-02-06] MEDS: Famotidine 20 MG TABLET PO (20:06)
[2022-02-06] MEDS: QUEtiapine Fumarate 100 MG TABLET PO (20:06)
[2022-02-06] MEDS: Atorvastatin Calcium 40 MG TABLET PO (20:06)
[2022-02-06] MEDS: Docusate Sodium 100 MG CAPSULE PO (20:06)
[2022-02-06] MEDS: QUEtiapine Fumarate 400 MG TABLET PO (20:06)
[2022-02-06] MEDS: Tamsulosin HCL 0.4 MG CAPSULE 0.8 MG PO (20:09)
[2022-02-06] MEDS: ceFAZolin Sodium/Dextrose,Iso 2 GM/50 ML PIGGYBACK IV (20:13)
[2022-02-06] MEDS: Acetaminophen 325 MG TABLET 650 MG PO (23:28)
[2022-02-07] VITALS (10 sets, daily range): BP systolic 96–128; BP diastolic 54–70; PULSE 84–98; RESP 16–22; TEMP 36.2–37.2; O2SAT 95–99
[2022-02-07] MEDS: Azithromycin 500 MG TABLET PO (05:28)
--- NOTE | 2022-02-07 07:08 | HO.POSTANES ---
Post Anesthesia Evaluation Post Anesthesia Evaluation Vital Signs: Vital Signs Temp Pulse Resp BP Pulse Ox 02/07/22 06:00 98.0 F 90 20 111/63 98 02/07/22 04:00 98.7 F 88 18 109/56 L 97 02/07/22 02:00 97.8 F 98 22 H 118/58 L 98 02/06/22 23:54 98.9 F 100 18 115/57 L 97 02/06/22 21:00 98.4 F 86 20 120/58 L 99 02/06/22 20:47 110 H 20 02/06/22 19:32 97.4 F 110 H 22 H 116/59 L 99 Anesthesia: General Mental Status: Awake Pain Control: Satisfactory Nausea/Vomiting: None Hydration: Adequate Anesthesia-Related Issues: No Anes. Related Issues
[2022-02-07 08:34] LABS: Hemoglobin 14.4 g/dl (14.0-18.0)
--- NOTE | 2022-02-07 08:55 | PM.PNORT ---
Subjective Subjective Date of Service: 02/07/22 Interval history: POD1 s/p right hip pinning. Patient is resting in bed. No overnight events. Pain is managed. No additional complaints. Physical Exam Vital Signs: Vital Signs: Last Vital Signs Temp 98.9 F 02/07/22 08:00 Pulse 90 02/07/22 08:50 Resp 18 02/07/22 08:00 BP 126/70 02/07/22 08:50 Pulse Ox 99 02/07/22 08:50 BMI result Body Mass Index 23.3 Const: General: cooperative, healthy appearing and no acute distress Resp: Effort & Inspection: normal respiratory effort and able to speak in complete sentences Cardio: Rate: regular rate Peripheral pulses: Peripheral pulses 2+ throughout GI: Palpation (GI): Soft to palpation Skin: Lesions: no lesions Rashes: no rashes Extrem: Other: right hip dressing is clean, dry, and intact. NVI. Procedures Date of Service Date of Service: 02/07/22 Progress Note: A&P Assessment and plan (1) Closed right hip fracture: Status: Acute Assessment and Plan: Continue pain mgmnt Begin Lovenox for dvt ppx begin PT for rt hip CRPP WBAT Dispo planning-Pending PT eval, pain mgmnt, may be d/jacob to rehab from ortho perspective once medically cleared Time Spent With Patient Time: Total time spent is greater than 50% in coordination of care (as documented) at patient's floor/unit and/or counseling patient: Quality Stroke Does the patient have a stroke diagnosis?: No VTE Prior VTE?: No VTE Risk Level:: Medical - moderate - high VTE Device Contraindication: Treatment Not Indicated VTE Drug Contraindication: N/A - Med Ordered
[2022-02-07] MEDS: predniSONE 20 MG TABLET PO (09:00)
[2022-02-07] MEDS: Docusate Sodium 100 MG CAPSULE PO ×2 (09:00→21:00)
[2022-02-07] MEDS: amLODIPine Besylate 5 MG TABLET PO (09:00)
[2022-02-07] MEDS: Losartan Potassium 50 MG TABLET 100 MG PO (09:00)
[2022-02-07] MEDS: Aspirin Enteric Coated 81 MG TABLET.DR PO (09:00)
[2022-02-07] MEDS: QUEtiapine Fumarate 100 MG TABLET PO ×3 (09:00→21:00)
[2022-02-07] MEDS: Albuterol/Iprat 2.5/0.5MG 3 ML AMPUL.NEB INHALE (09:01)
[2022-02-07] MEDS: Enoxaparin Sodium 40 MG/0.4 ML SYRINGE SUBCUT (09:02)
[2022-02-07] MEDS: Famotidine 20 MG TABLET PO ×2 (09:02→21:00)
[2022-02-07] MEDS: 0.9 % Sodium Chloride Flush 3 ML SYRINGE IVFLUSH ×3 (09:05→23:34)
--- NOTE | 2022-02-07 11:58 | P.F2F_ITS ---
Service Date Service Date: 02/07/22 Encounter Date of encounter: 02/07/22 Reasons for Services Signs and symptoms assessed: needs PT for right hip fracture s/p pinning and group home for medication management, subQ lovenox for DVT ppx Reason for group home: administration of IV, SQ, or IM injection and medication management Reason for physical therapy: home safety and mobility and therapeutic exercises Overseeing Care: Martínez Simeon Homebound: Leaving the home is medically contraindicated at this time without the asist of a device and/or another person due th the listed conditions above and below. Reason homebound: unsteady gait / fall risk Certification: Based on the above findings, I certify that this patient is confined to the home and needs intermittent group home care, physical therapy and/or speech therapy, or continues to need occupational therapy. The patient is under my care, and I have initiated the establishment of the plan of care. The patient will be followed by a physician who will periodically review the plan of care.
--- NOTE | 2022-02-07 12:00 | PM.DS ---
DS: Providers Provider Date of Service: 02/07/22 Date of admission: 02/01/22 06:01 Date of discharge: 02/07/22 Primary care physician: Martínez Simeon MD Consults: 02/05/22 14:27 Consult to Orthopedics Routine Consulting Provider: Duke Crews Reason for consultation: non displace right hip fracture Has provider been notified: No Attending physician on discharge: Matty Rueda Discharging clinician: Meghan Deshpande DS: Diagnosis Discharge Diagnosis (1) Closed right hip fracture: Status: Acute DS: Summary Hospital Course Hospital Course: Chief Complaint: Shortness of breath 71-year-old male with a past medical history of hypertension, hyperlipidemia, COPD-not on home oxygen, tobacco dependence, schizoaffective disorder, bipolar, hep C, anxiety, BPH, history of lung mass, CAD, diastolic CHF, history of left subclavian artery occlusion, liver disease presented to the hospital from the half-way with a chief complaint of shortness of breath.? Patient is a poor historian.? Reportedly from the staff that patient noted to be visibly short of breath; hence sent to the ER for further evaluation.? Patient denies any chest pain or palpitations.? Denies any fever chills cough or sputum production.? Denies any abdominal pain nausea vomiting or diarrhea.? Review of all other systems is negative except mentioned above ER course: Per ER team patient on presentation noted to be in mild respiratory distress; title on examination; given nebulizations and steroids with mild improvement in respiratory status.? Chest x-ray showed emphysematous lungs; patient was also given empiric antibiotics in the ER.? Admitted for further madication adjustment. Hospital course: patient was admitted due to acute exacerbation of COPD with acute hypoxic respiratory failure checks x-ray did not show any evidence of pneumonia. He likely had acute bronchitis he was treated with IV Solu-Medrol, bronchodilators by nebulizer schedule and p.r.n.. Initially required oxygen but rapidly recovered and no longer needed oxygen and presently saturating at 95% room and his lungs are now clear compared to wheezing earlier there is no accessory muscle use. He was presumed to have acute bronchitis and therefore was treated with azithromycin. He is afebrile and WBC were unremarkable. Of note he had acute renal insufficiency when he presented (LYNETTE). And was hydrated and the following day creatinine went from 1.57-0.75. Of note the patient also has been complaining that he was having hip pain and that stated that he had falling at some point before coming. on x-ray was ordered and he initially refused to go for the x-ray and rather wanted to go back home, the following day however he was agreeable to have the x-ray which showed right femoral subcapital fracture. He was seen by Orthopedic surgery who recommended pinning of the right hip which he underwent on February 06. Also of note his blood pressure has been on the high side and has been started on a Norvasc 2.5 mg daily. He should follow up with primary care physician for further management as well as orthopedic surgery. He is to continue all his previous medication as before. He will need 6 weeks of subq lovenox for DVT prophylaxis per orthopedic surgery. He was seen by PT who recommended home with PT however the half-way did not feel that they could accommodate him safely and therefore the decision was made for him to go to SNF. Anticipate less than 30 day stay at SNF Time Spent with Patient Time attestation: Total time spent providing and/or coordinating discharge services: Discharge coordination time: Greater than 30 minutes Quality: Safe Use of Opioids Does Pt have an Active Cancer Diagnosis on the Problem List?: Yes Opioid Measure Date for [facility] Report: 01/10/22 Opioid Measure Time for [facility] Report: 16:01 Quality: Stroke Does the patient have a stroke diagnosis?: No Physical Exam Vital Signs: Vital Signs: Last Vital Signs Temp 97.7 F 02/07/22 11:19 Pulse 93 02/07/22 11:19 Resp 18 02/07/22 11:19 BP 128/60 02/07/22 11:19 Pulse Ox 98 02/07/22 11:19 BMI result Body Mass Index 23.3 DS: Data Data Completed and Pending Completed studies during hospitalization [Text1]: Procedures Assistance with Respiratory Ventilation, Less than 24 Consecutive Hours, Continuous Positive Airway Pressure (08/03/21) Labs on day of discharge: Laboratory Results - last 24 hr 02/06/22 02/07/22 19:54 08:17 Hgb 14.4 D Hct 43.0 D POC Glucose 151 H Discharge Plan Discharge Anticipated Discharge Date/Time: 02/05/22 11:14 Patient Disposition: Xfer SNF Discharge Diagnosis: acute hypoxic respiratory failure due to COPD exacerbation right femoral subcapital fracture [facility]errals: [facility] [Outside] - 1 Week Martínez Simeon MD [Primary Care Provider] - 1 Week Discharge Medications: New prednisone 20 mg Tablet 20 mg PO DAILY Qty: 3 0RF amlodipine 5 mg Tablet 2.5 mg PO DAILY Qty: 30 0RF Protocol: Hold for SBP< HOLD for SBP < : 90 enoxaparin 40 mg/0.4 mL Syringe 40 mg subcut Q24H 42 Days Qty: 16.8 0RF Continued atorvastatin 40 mg tablet 1 tab PO BEDTIME 0RF quetiapine 100 mg tablet 100 mg PO TID 0RF lorazepam 0.5 mg tablet 1 tab PO TID PRN (Reason: Anxiety) 0RF tamsulosin 0.4 mg capsule 2 cap PO BEDTIME 0RF docusate sodium 100 mg capsule 1 cap PO BID 0RF losartan 100 mg tablet 1 tab PO DAILY 0RF quetiapine 400 mg tablet 1 tab PO BEDTIME 0RF albuterol sulfate 2.5 mg /3 mL (0.083 %) solution for nebulization 2.5 mg inhalation Q4H PRN (Reason: Wheezing) 0RF famotidine 20 mg tablet 1 tab PO BID 0RF albuterol sulfate [Ventolin HFA] 90 mcg/actuation HFA aerosol inhaler 2 puff inhalation Q4H PRN (Reason: Wheezing) 0RF Spiriva Respimat 2.5 mcg/actuation mist 2 puff inhalation DAILY 0RF Changed morphine 15 mg tablet 15 mg PO Q6H PRN (Reason: Pain) Qty: 20 0RF Discharge Orders: Discharge Order (Routine); Ordered 02/08/22 Ordered By: Meghan Deshpande Diet: advance to usual diet Activity on Discharge: As tolerated Stand Alone Forms: Patient Portal Discharge page Care Plan Goals: Full recovery from COPD and prevention of a rehospitalization. Health Concerns: chronic COPD right hip fracture Plan of Treatment: use inhalers and take prednisone as directed follow up with her doctor within a week, call for appointment. Avoid smoking Please take Prednisone 20 mg daily x 3 days You have been started on Norvasc 2.5 mg daily for high blood pressure. Will need Lovenox 40 mg subq for DVT prophylxis for 6 weeks, started 02/07/22. end 03/21 will be discharged to SNF for physical therapy Assessment: as above Discharge Date/Time: 02/08/22 20:28
--- NOTE | 2022-02-07 14:56 | MHC.CM.PN ---
[facility] [place] STAFF MEMBER ARRIVED ON UNIT [facility] ([phone]) PATIENT AND HANNAH FEEL PATIENT WOULD BENEFIT FROM STR FOR P.T. AND ASK FOR LOCAL REFERRALS, NOW PLACED. CURRENTLY ONLY FOLLOWING FACILITY IS [facility] PATIENT AND HANNAH AWARE THAT P.T. RECOMMENDS HOME P.T. SO THIS MAY POSE A BARRIER. HANNAH IS CONCERNED THAT THERE ARE OBSTACLES IN THE HOME THAT MAY HINDER PATIENT PROGRESS. CASE MANAGEMENT FOLLOWING
[2022-02-07] MEDS: oxyCODONE HCl Immed Release 5 MG TABLET 10 MG PO (15:35)
--- NOTE | 2022-02-07 16:33 | HO.PM.IMPN ---
Subjective Subjective Date of Service: 02/07/22 Interval History: Seen and examined this morning follow-up for subcapital hip fracture/COPD exacerbation Initially did not feel like talking and declined evaluation therefore unable to obtain full review of systems Review of Systems Review of Systems: Yes Unobtainable due to mental condition Physical Exam Vital Signs: Vital Signs: Last Vital Signs Temp 97.2 F 02/07/22 16:15 Pulse 92 02/07/22 16:15 Resp 16 02/07/22 16:15 BP 109/54 L 02/07/22 16:15 Pulse Ox 97 02/07/22 16:15 BMI result Body Mass Index 23.3 Const: General: comfortable, no acute distress, alert and awake Nutritional Appearance: average body habitus Resp: Effort & Inspection: normal respiratory effort and able to speak in complete sentences Extrem: Other: observed sitting up in bed eating, moving all extremities Objective Data Active Medications Acetaminophen (Acetaminophen 325 Mg Tablet) 650 mg PO Q6H PRN PRN Reason: Pain, Mild (Pain Scale 1-3) Last Admin: 02/06/22 23:28 Dose: 650 mg Documented by: RODOLFO Albuterol Sulfate (Albuterol Sulfate (0.083%) 2.5 Mg/3 Ml Vial.Neb) 2.5 mg INHALE Q4H PRN PRN Reason: Wheezing Albuterol Sulfate (Albuterol Sulfate 90 Mcg 8 Gm Inhaler) 2 puff INHALE Q4H PRN PRN Reason: Wheezing Albuterol/Ipratropium (Albuterol/Iprat 2.5/0.5mg 3 Ml Ampul.Neb) 3 ml INHALE RQ4H PRN PRN Reason: Shortness of Breath/Wheezing Last Admin: 02/07/22 09:01 Dose: 3 ml Documented by: SALAS Amlodipine Besylate (Amlodipine Besylate 5 Mg Tablet) 5 mg PO DAILY PENDING SALE TO [facility]; Protocol Last Admin: 02/07/22 09:00 Dose: 5 mg Documented by: ALLEY Aspirin (Aspirin Enteric Coated 81 Mg Tablet.) 81 mg PO DAILY PENDING SALE TO [facility] Last Admin: 02/07/22 09:00 Dose: 81 mg Documented by: ALLEY Atorvastatin Calcium (Atorvastatin Calcium 40 Mg Tablet) 40 mg PO BEDTIME PENDING SALE TO [facility] Last Admin: 02/06/22 20:06 Dose: 40 mg Documented by: RODOLFO Azithromycin (Azithromycin 500 Mg Tablet) 500 mg PO Q24H PENDING SALE TO [facility] Last Admin: 02/07/22 05:28 Dose: 500 mg Documented by: RODOLFO Docusate Sodium (Docusate Sodium 100 Mg Capsule) 100 mg PO BID PENDING SALE TO [facility] Last Admin: 02/07/22 09:00 Dose: 100 mg Documented by: ALLEY Enoxaparin Sodium (Enoxaparin Sodium 40 Mg/0.4 Ml Syringe) 40 mg SUBCUT Q24H PENDING SALE TO [facility] Last Admin: 02/07/22 09:02 Dose: 40 mg Documented by: ALLEY Famotidine (Famotidine 20 Mg Tablet) 20 mg PO BID PENDING SALE TO [facility] Last Admin: 02/07/22 09:02 Dose: 20 mg Documented by: ALLEY Losartan Potassium (Losartan Potassium 50 Mg Tablet) 100 mg PO DAILY PENDING SALE TO [facility]; Protocol Last Admin: 02/07/22 09:00 Dose: 100 mg Documented by: ALLEY Melatonin (Melatonin 3 Mg Tablet) 6 mg PO BEDTIME PRN PRN Reason: Insomnia Oxycodone HCl (Oxycodone Hcl Immed Release 5 Mg Tablet) 10 mg PO Q6H PRN PRN Reason: Pain, Moderate (Pain Scale 4-6 Last Admin: 02/07/22 15:35 Dose: 10 mg Documented by: DIANA Prednisone (Prednisone 20 Mg Tablet) 20 mg PO DAILY PENDING SALE TO [facility] Last Admin: 02/07/22 09:00 Dose: 20 mg Documented by: ALLEY Quetiapine Fumarate (Quetiapine Fumarate 400 Mg Tablet) 400 mg PO BEDTIME PENDING SALE TO [facility] Last Admin: 02/06/22 20:06 Dose: 400 mg Documented by: RODOLFO Quetiapine Fumarate (Quetiapine Fumarate 100 Mg Tablet) 100 mg PO TID PENDING SALE TO [facility] Last Admin: 02/07/22 15:35 Dose: 100 mg Documented by: DIANA Senna (Sennosides 8.6 Mg Tablet) 17.2 mg PO BEDTIME PRN PRN Reason: Constipation Sodium Chloride (0.9 % Sodium Chloride Flush 3 Ml Syringe) 3 ml IVFLUSH QSHIFT PENDING SALE TO [facility] Last Admin: 02/07/22 15:36 Dose: 3 ml Documented by: HO.KODOSOB Tamsulosin HCl (Tamsulosin Hcl 0.4 Mg Capsule) 0.8 mg PO BEDTIME PENDING SALE TO [facility] Last Admin: 02/06/22 20:09 Dose: 0.8 mg Documented by: RODOLFO Tiotropium [place] (Tiotropium [place] 18 Mcg Cap.W.Dev) 1 puff INHALE RDAILY PENDING SALE TO [facility] Last Admin: 02/07/22 09:06 Dose: Not Given Documented by: SALAS Non-Admin Reason: Patient Refused Labs CBC & Chem 7: 02/07/22 08:17 02/02/22 06:12 Labs: Laboratory Results - last 24 hr 02/06/22 19:54 POC Glucose 151 H Assessment and Plan (1) Subcapital fracture of right femur: Status: Acute Plan 71-year-old male with a past medical history of hyperlipidemia, liver disease, tobacco dependence, diastolic CHF, COPD, hep C, schizophrenia presented to the hospital with a chief complaint of shortness of breath.? Noted to be in acute COPD exacerbation.? Admitted for further management. Acute COPD exacerbation: resolved. continue PO prednisone, Nebulizations standing and p.r.n. completed course of Azithromycin weaned off o2 confusion seems to correlate with him not using oxygen, at baseline mental status at this time Hip pain from remote fall outside of hospital..CT showed right non displaced subcapital fracture POD 1 s/p right hip pinning pain control HTN continue home losartan norvasc added on this admission mood continue home medications bph continue flomax HLD continue statin DVT prophylaxis:? Lovenox - will need for 6 weeks per ortho Code status: Full code attending: dr. fernandez Inpatient need: safe dispo - awaiting SNF placement Quality Stroke Does the patient have a stroke diagnosis?: No VTE Prior VTE?: No VTE Risk Level:: Medical - moderate - high VTE Device Contraindication: Treatment Not Indicated VTE Drug Contraindication: N/A - Med Ordered
[2022-02-07] MEDS: Tamsulosin HCL 0.4 MG CAPSULE 0.8 MG PO (20:59)
[2022-02-07] MEDS: Atorvastatin Calcium 40 MG TABLET PO (20:59)
[2022-02-07] MEDS: QUEtiapine Fumarate 400 MG TABLET PO (21:00)
[2022-02-08 03:54] VITALS: BP 139/62; PULSE 93; RESP 18; TEMP 36.7; O2SAT 96
[2022-02-08] MEDS: oxyCODONE HCl Immed Release 5 MG TABLET 10 MG PO ×3 (04:07→17:08)
[2022-02-08 07:36] VITALS: BP 140/76; PULSE 84; RESP 20; TEMP 36.4; O2SAT 95
[2022-02-08 07:59] LABS: Hematocrit 39.9 % (42.0-52.0); Hemoglobin 13.4 g/dl (14.0-18.0); Mean Corpuscular HGB Conc 33.6 g/dl (31.0-36.0); Mean Corpuscular Hemoglobin 31.1 pg (27.0-33.0); Mean Corpuscular Volume 92.6 fL (80.0-98.0); Mean Platelet Volume 8.9 fL (9.4-12.4); Platelet Count 309 X10*3/uL (160-400); Red Blood Count 4.31 X10*6/uL (4.60-5.80); Red Cell Distribution Width 12.2 % (11.0-16.0)
--- NOTE | 2022-02-08 08:02 | PM.PNORT ---
Subjective Subjective Date of Service: 02/08/22 Interval history: POD2 s/p right hip pinning. Patient is resting in bed. No overnight events. Pain is managed. No additional complaints. Physical Exam Vital Signs: Vital Signs: Last Vital Signs Temp 97.6 F 02/08/22 07:36 Pulse 84 02/08/22 07:36 Resp 20 02/08/22 07:36 BP 140/76 H 02/08/22 07:36 Pulse Ox 95 02/08/22 07:36 BMI result Body Mass Index 23.3 Const: General: cooperative, healthy appearing and no acute distress Resp: Effort & Inspection: normal respiratory effort and able to speak in complete sentences Cardio: Rate: regular rate Peripheral pulses: Peripheral pulses 2+ throughout GI: Palpation (GI): Soft to palpation Skin: Lesions: no lesions Rashes: no rashes Extrem: Other: right hip dressing is clean, dry, and intact. NVI. Procedures Date of Service Date of Service: 02/08/22 Progress Note: A&P Assessment and plan (1) Subcapital fracture of right femur: Status: Acute Assessment and Plan: Continue pain mgmnt Continue Lovenox for dvt ppx Continue PT for rt hip CRPP WBAT Dispo planning-PT, pain mgmnt, may be d/jacob from ortho perspective once medically cleared Time Spent With Patient Time: Total time spent is greater than 50% in coordination of care (as documented) at patient's floor/unit and/or counseling patient: Quality Stroke Does the patient have a stroke diagnosis?: No VTE Prior VTE?: No VTE Risk Level:: Medical - moderate - high VTE Device Contraindication: Treatment Not Indicated VTE Drug Contraindication: N/A - Med Ordered
[2022-02-08 08:12] LABS: Anion Gap 15 (12-20); Blood Urea Nitrogen 11 mg/dL (9-16); Calcium 8.8 mg/dL (8.4-10.2); Carbon Dioxide 29 mmol/L (22-29); Chloride 102 mmol/L (96-108); Creatinine Clr Calc Pharmacy 81.7; Estimated Glomerular Filt Rate > 60; Glucose Random 90 mg/dL (60-115); Potassium 3.9 mmol/L (3.3-5.1); Sodium 142 mmol/L (135-145)
[2022-02-08] MEDS: predniSONE 20 MG TABLET PO (08:47)
[2022-02-08] MEDS: Enoxaparin Sodium 40 MG/0.4 ML SYRINGE SUBCUT (08:47)
[2022-02-08] MEDS: Docusate Sodium 100 MG CAPSULE PO (08:48)
[2022-02-08] MEDS: amLODIPine Besylate 5 MG TABLET PO (08:48)
[2022-02-08] MEDS: Aspirin Enteric Coated 81 MG TABLET.DR PO (08:48)
[2022-02-08] MEDS: QUEtiapine Fumarate 100 MG TABLET PO (08:48)
[2022-02-08] MEDS: Famotidine 20 MG TABLET PO (08:48)
[2022-02-08] MEDS: Losartan Potassium 50 MG TABLET 100 MG PO (08:48)
[2022-02-08] MEDS: 0.9 % Sodium Chloride Flush 3 ML SYRINGE IVFLUSH (08:50)
[2022-02-08 09:59] VITALS: BP 140/76; PULSE 84; O2SAT 95
[2022-02-08 11:50] VITALS: BP 105/65; PULSE 90; RESP 20; TEMP 36.5; O2SAT 95
--- NOTE | 2022-02-08 13:06 | MHC.CM.PN ---
PATIENT TOOK [facility] SHUTTLE HOME. O2 STATS WERE 93% HR WAS 115 ON UNIT AND 105 UPON TRANSFER INTO SHUTTLE PATIENT REMINDED TO PRACTICE DEEP BREATHING TECHNIQUES TO SELF SOOTHE AND BRING HR DOWN. PATIENT AGREES
--- NOTE | 2022-02-08 14:36 | MHC.CM.PN ---
Addendum entered by Sayda Barajas 02/08/22 15:16: [facility] ASKS FOR A 5 PM TRANSFER TO FACILITY RN, PATIENT, AND UNIT AWARE OF PLAN. Addendum entered by Sayda Barajas 02/08/22 14:57: CALL TO JORGE OF [facility] ([phone]) WHO STATES THAT OFTIS NOTE, SHE HAS NOT RECEIVED A REQUEST TO OFFER A BED FROM [facility]. FACILITY STATES THAT AUTH IS PENDING. 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 [facility] RN HANNAH CALLED AND IS AWARE SHE WILL BRING PATIENT'S CELL PHONE TO HIM. IMM 02/08 IN CHART
[2022-02-08 15:00] VITALS: O2SAT 94
[2022-02-08 15:09] VITALS: BP 149/63; PULSE 90; RESP 18; TEMP 37.1; O2SAT 94
[2022-02-08 16:47] LABS: COVID-19 Test Negative (Negative); IDNOW Serial# 9DB6401D
[2022-02-08] MEDS: LORazepam 0.5 MG TABLET PO (18:06)
--- NOTE | 2022-02-12 09:40 | P.OP_ITS ---
Operative Note Operative Note Date of Service: 02/06/22 Narrative: Date of Service: 02/06/22 Pre-op diagnosis: Right femoral neck fracture Post-op diagnosis: same Procedure: Percutaneous pinning right hip Implants: Styrker . cannulated partially threaded screws x3 Surgeon: Duke Crews MD Anesthesia: GETA and local Was an [employer] Countertop Installer used for this Procedure?: No Estimated blood loss (mL): 20 IV fluids (mL): 500 Pathology: none sent Condition: stable Disposition: PACU Procedure in detail: Patient was brought to the operating room and placed supine on the surgical table. He was prepped and draped in standard sterile fashion and a time out was called to identify proper site, proper procedure and IV antibiotics per weight were administered. I began by making a stab incision over the lateral femur just proximal to the level of the lesser trochanter. A threaded guidewire was placed from lateral to medial and distal to proximal through the femoral neck and to the femoral head along the calcar. This was drilled and measured and a partially threaded cannulated 8.0 screw was placed. I then repeated this process proximally making an inverted triangle configuration and with good spread and placed 2 additional cannulated partially threaded screws. These traversed the femoral neck and the nondisplaced femoral neck fracture. I was satisfied with the position of the hardware. Once this was done I irrigated copiously and closed with absorbable suture and miri. Local anesthetic was injected over the approximate 1.5 cm incision over the lateral femur. Sterile dressings were applied and the patient was extubated brought to the recovery room in stable condition. There were no known complications.
== END 2022-02-08 20:28 | disposition skilled nursing facility (03) | DRG 981 ==
LOC: HO.ED 02:17 → HO.EDOVER 06:13 → HO.S3 02-02 13:50
PROVIDERS: Internal Medicine; Orthopaedic Surgery; Physician Assistant; Admitting Provider Hospitalist; Emergency Provider Emergency Medicine; PCP Internal Medicine; Visit Provider Physician Assistant Medical
PROC: 0QH634Z Insertion of Internal Fixation Device into Right Upper Femur, Percutaneous Approach (ICD-10-PCS; principal; 2022-02-06 12:50)
DX: J44.1 Chronic obstructive pulmonary disease with (acute) exacerbation (principal); S72.011A Unspecified intracapsular fracture of right femur, initial encounter for closed fracture; J96.01 Acute respiratory failure with hypoxia; N17.9 Acute kidney failure, unspecified; E87.2 Acidosis; E87.6 Hypokalemia; F25.0 Schizoaffective disorder, bipolar type; I25.10 Atherosclerotic heart disease of native coronary artery without angina pectoris; E78.5 Hyperlipidemia, unspecified; I95.9 Hypotension, unspecified; N40.0 Benign prostatic hyperplasia without lower urinary tract symptoms; W18.30XA Fall on same level, unspecified, initial encounter; F17.210 Nicotine dependence, cigarettes, uncomplicated; Z71.6 Tobacco abuse counseling; Z59.01 Sheltered homelessness; Z86.19 Personal history of other infectious and parasitic diseases; Z20.822 Contact with and (suspected) exposure to COVID-19; Z88.5 Allergy status to narcotic agent; Z79.52 Long term (current) use of systemic steroids; Z79.899 Other long term (current) drug therapy
CPT/HCPCS: 36415; 71045; 73521; 73700; 80048; 80076; 82803; 82947; 83605; 83735; 83880; 84484; 85014; 85018; 85025; 85027; 85610; 87040; 87635; 93005; 94640; 94644; 96361; 96365; 96366; 96375; 97116; 97162; 97166; 97530; 99285; C1713; C1769; J0131; J0456; J0690; J0696; J1100; J1650; J2250; J2370; J2920; J2930; J3010; J3475

== ENCOUNTER 2022-02-22 07:18 | Outpatient (REF) | payer OTHER, SELFPAY ==
--- NOTE | ~2022-02-22 | XR_ITS ---
EXAMINATION: XR PELVIS CLINICAL INFORMATION: Follow-up fracture COMPARISON: Previous x-ray 02/05/2022 and intraoperative fluoroscopy exam 02/06/2022 TECHNIQUE: AP view of the pelvis. FINDINGS: There are 3 screws transfixing the nondisplaced right femoral neck fracture. Alignment is anatomic. Bones of the pelvis are normal. There is mild arthritis at both hip joints. There are degenerative changes of the lower lumbar spine. There is atherosclerotic disease. XR/XR pelvis 1-2V IMPRESSION: ORIF of right femoral neck fracture.
== END 2022-02-22 07:19 | disposition home or self-care (01) ==
LOC: HO.HOSX 07:18
PROVIDERS: Visit Provider Physician Assistant
DX: S72.011A Unspecified intracapsular fracture of right femur, initial encounter for closed fracture (principal)
CPT/HCPCS: 72170